=== PATIENT | female | born 1960 | race Caucasian/White ===

== ENCOUNTER 2018-01-21 14:00 | Observation (INO) ==
[2018-01-21] MEDS ORDERED: IOPAMIDOL 100 ML BOTTLE IV ONE (14:01)
[2018-01-21] MEDS ORDERED: VANCOMYCIN 1,000 MG in 0.9 % SODIUM CHLORIDE 250 ML IV ONE ×2 (14:07→23:00)
[2018-01-21] MEDS ORDERED: ERTAPENEM 1 GM in 0.9 % SODIUM CHLORIDE 50 ML IV ONE (14:07)
[2018-01-21] MEDS ORDERED: ONDANSETRON 4 MG/2 ML VIAL IV ONE (14:32)
--- NOTE | 2018-01-21 14:35 | Emergency Department Note ---
Wound/Laceration HPI - General Chief Complaint: Wound/Laceration Stated Complaint: Right Foot Wound Time Seen by Provider: 01/21/18 14:07 Source: patient Mode of arrival: wheelchair Limitations: no limitations - History of Present Illness HPI Narrative: This patient is diabetic and is developed a severe right foot infection. She was sent over to the emergency room from wound care by Dr. esteban. He cannot talk to me and showed me a picture and did cultures. She has had some nausea. Sounds like most likely she should probably be admitted. - Related Data Allergies Allergy/AdvReac Type Severity Reaction Status Date / Time codeine Allergy Intermediate Hives Verified 01/21/18 14:19 Cyclobenzaprine Allergy Intermediate Hives Verified 01/21/18 14:19 Doxepin Allergy Intermediate Hives Verified 01/21/18 14:19 fluoxetine Allergy Intermediate Hives Verified 01/21/18 14:19 piroxicam Allergy Intermediate Hives Verified 01/21/18 14:19 Rifamycin Allergy Intermediate Hives Verified 01/21/18 14:19 Methadone [From Methadose] AdvReac Severe Accidental Verified 01/21/18 14:19 Overdose Review of Systems All systems ED: reviewed and negative except as stated. Past Medical History - Past Medical History Medical history: Reports: atrial fibrillation, CHF, COPD, DM, hypertension - Social History smoking status: Current every day smoker Physical Exam Limitations: no limitations General appearance: alert Head: atraumatic Eye: Present: normal appearance ENT: normal exam Neck: Present: normal inspection Chest: Present: normal inspection Respiratory: Present: normal lung sounds bilaterally Cardiovascular: Present: regular rate, normal rhythm, normal heart sounds Abdominal: Present: soft. Absent: distention, tenderness Neurological: Present: alert Psychiatric: Present: normal affect Skin: Present: other Course Vital Signs Temperature 98.2 F 01/21/18 14:02 Pulse Rate 60 01/21/18 14:02 Respiratory Rate 18 01/21/18 14:02 Blood Pressure 113/69 01/21/18 14:02 Pulse Oximetry (%) 93 01/21/18 14:02 Temperature 98.2 F 01/21/18 14:02 Pulse Rate 55 L 01/21/18 17:46 Respiratory Rate 16 01/21/18 17:46 Blood Pressure 101/67 01/21/18 17:46 Pulse Oximetry (%) 94 01/21/18 17:46 Wound/Laceration - MDM Narrative Medical decision making narrative: Lab work was not very remarkable and a CT scan was unremarkable. Patient was given vancomycin and Invanz and will be admitted to the hospital service with Dr. eulalia rowley consulting. - Lab Data Lab results reviewed: Yes I reviewed the patient's lab results. Result diagrams: 01/21/18 14:33 01/21/18 14:33 Lab Results 01/21/18 01/21/18 01/21/18 Range/Units 14:33 14:33 15:03 WBC 11.6 H (4.5-11.0) K/mcL RBC 6.44 H (4.00-5.20) M/mcL Hgb 15.0 (12.0-15.0) g/dL Hct 48.1 H (36.0-48.0) % POC Hct 49.0 H (36.0-48.0) % MCV 74.7 L (80.0-100.0) fL MCH 23.3 L (26.0-34.0) pg MCHC 31.2 (31.0-36.0) g/dL RDW 18.9 H (11.5-14.5) % Plt Count 242 (140-440) K/mcL MPV 9.5 (7.4-10.4) fL Gran % 61.2 (38.0-78.0) % Lymph % (Auto) 30.6 (15.5-49.0) % Kane % (Auto) 7.2 (1.0-12.0) % Eos % (Auto) 0.7 (0.0-7.0) % Baso % (Auto) 0.3 (0.0-2.0) % Gran # 7.1 (1.8-8.0) K/mcL Lymph # (Auto) 3.5 (1.5-4.8) K/mcL Kane # (Auto) 0.8 (0.1-0.9) K/mcL Eos # (Auto) 0.1 (0.0-0.7) K/mcL Baso # (Auto) 0 (0.0-0.3) K/mcL VBG Lactic Acid 1.7 (0.5-2.2) mmol/L POC Sodium 138 (133-145) mmol/L Sodium 139 (133-145) mmol/L POC Potassium 3.8 (3.3-5.1) mmol/L Potassium 4.1 (3.3-5.1) mmol/L POC Chloride 100 (96-108) mmol/L Chloride 97 (96-108) mmol/L Carbon Dioxide 28 (22-30) mmol/L POC Total CO2 25 (22-30) mmol/L Anion Gap 14.0 (8-16) POC BUN 22 H (6-20) mg/dl BUN 20 (6-20) mg/dl Creatinine 0.9 (0.6-1.1) mg/dl POC Creatinine 0.9 (0.6-1.1) mg/dl GFR Calculation 70 Glucose 138 H (70-105) mg/dL POC Glucose 129 H (70-105) mg/dL Calcium 8.9 (8.6-10.4) mg/dl POC WB Ioniz Calcium 0.99 L (1.16-1.32) mmol/L Total Bilirubin 0.4 (0.0-1.0) mg/dL AST 42 H (0-37) U/l ALT 74 H (0-40) U/l Alkaline Phosphatase 106 (39-117) U/L Total Protein 6.9 (5.9-8.4) gm/dL Albumin 4.3 (3.2-5.2) gm/dL Globulin 2.6 (2.2-3.7) gm/dL Albumin/Globulin Ratio 1.7 (1.0-2.3) - Radiology Data Radiology results reviewed: Yes I reviewed the patient's radiology results. Disposition Pt seen by FRYLINE ATTENDANT/PA only: No Clinical Impression: Abscess, Diabetic foot ulcer Disposition: Xfer As Inpt ([facility]) Condition: Good Referrals: Dana Kwan ARNP [Primary Care Provider] - Time of Disposition: 17:58
[2018-01-21] MEDS: LACTATED RINGERS 1,000 ML IV SCH (14:36)
[2018-01-21] MEDS ORDERED: ACETAMINOPHEN 1,000 MG/100 ML BOTTLE IV ONE (15:22)
[2018-01-21 15:33] LABS: ALT/SGPT 74 U/l (0-40); Albumin 4.3 gm/dL (3.2-5.2); Albumin/Globulin Ratio 1.7 (1.0-2.3); Alkaline Phosphatase 106 U/L (39-117); Blood Urea Nitrogen 20 mg/dl (6-20)
[2018-01-21 16:10] LABS: Basophils # (Auto) 0 K/mcL (0.0-0.3); Basophils % (Auto) 0.3 % (0.0-2.0); Eosinophils # (Auto) 0.1 K/mcL (0.0-0.7); Eosinophils % (Auto) 0.7 % (0.0-7.0); Granulocytes % (Auto) 61.2 % (38.0-78.0); Lymphocytes # (Auto) 3.5 K/mcL (1.5-4.8); Lymphocytes % (Auto) 30.6 % (15.5-49.0); Mean Cell Volume 74.7 fL (80.0-100.0); Mean Corpuscular HGB Conc 31.2 g/dL (31.0-36.0); Mean Corpuscular Hemoglobin 23.3 pg (26.0-34.0); Monocytes # (Auto) 0.8 K/mcL (0.1-0.9); Monocytes % (Auto) 7.2 % (1.0-12.0); Platelet Count 242 K/mcL (140-440); RBC 6.44 M/mcL (4.00-5.20); Red Cell Distribution Width 18.9 % (11.5-14.5)
--- NOTE | 2018-01-21 16:54 | Cat Scan Report ---
CLINICAL INFORMATION: Wound infection COMPARISON: Plain films 11/30/2017 TECHNIQUE: 100 cc Isovue 300 were injected intravenously and 0.625 helical slices were obtained of the right foot and ankle. Following reconstruction, 2.5 or saccular coronal axial reformatted images were processed and reviewed in bone and soft tissue windows. FINDINGS: First ray amputation changes at the MTP joint again noted. Malunified old fracture of the first metatarsal head and neck with mild deformity is again seen. There are subchondral cysts in the first metatarsal head, but no evidence of osteomyelitis. Moderate overlying focal soft tissue swelling is suggestive of cellulitis. No specific radiographic evidence of osteomyelitis throughout the foot or ankle. Malunified old fracture through the tip of the medial malleolus has resulted in an and unified 10 mm fragment. There is a 19 mm accessory ossicle adjacent to the cuboid and also a 10 mm ossicle adjacent to the naviculare (os navicularis a). Hammertoe deformities noted in the second through fifth digits. Mild degenerative change seen in the ankle mortise. There is mild diffuse soft tissue swelling throughout the foot and ankle likely cellulitis IMPRESSION: 1. No CT evidence for osteomyelitis. First ray amputation changes at MTP again noted with overlying cellulitis. 2. Hammertoe deformities - second through fifth digits 3. Ununited old fracture - medial malleolar tip. Interpreted and Authenticated by: Clayton Us 01/21/18
--- NOTE | 2018-01-21 19:22 | Internal Med Progress Note ---
Medical - PN: Subj Patient information: Note initiated : 01/21/18 at 7:18 pm Service Date, if different from initiated Date: [] Patient: Jaycee Dias 57 y/o F admitted on for Right Foot Wound. Chief Complaint: [Right foot infection] - Constitutional Vitals: Vital Signs Temp Pulse Resp BP Pulse Ox 98.2 F 56 L 12 111/90 92 01/21/18 14:02 01/21/18 18:46 01/21/18 18:46 01/21/18 18:46 01/21/18 18:46 Period Temp Pulse Resp BP Sys/Abarca Pulse Ox Last 24 Hr 98.2 F 55-60 04-28 96-142/57-129 90-95 Intake and Output 01/21/18 01/21/18 01/21/18 05:59 13:59 21:59 Intake Total 400 / 400 Balance 400 / 400 Weight 306 lb Patient Weight 01/22/18 05:59 Weight 306 lb Intake & Output: Intake & Output 01/21/18 01/21/18 01/21/18 05:59 13:59 21:59 Intake Total 400 / 400 Balance 400 / 400 Weight 306 lb Intake: IV 400 / 400 INVanz 1 GM In Sodium Chloride 50 / 50 0.9% 50 ml @ 100 mls/hr IV ONCE ONE Rx#:[id number] Vancomycin 1,000 mg In Sodium 250 / 250 Chloride 0.9% 250 ml @ 250 mls/ hr IV ONCE ONE Rx#:[id number] Medical - PN: Obj Da - Labs CBC & Chem 7: 01/21/18 14:33 01/21/18 14:33 Labs: Abnormal Lab Results 01/21/18 01/21/18 14:33 14:33 WBC 11.6 H RBC 6.44 H Hct 48.1 H POC Hct 49.0 H MCV 74.7 L MCH 23.3 L RDW 18.9 H POC BUN 22 H Glucose 138 H POC Glucose 129 H POC WB Ioniz Calcium 0.99 L AST 42 H ALT 74 H Meds: Medications Lactated Ringer's (Lactated Ringers) 1,000 mls @ 250 mls/hr IV .Q4H YING Last Admin: 01/21/18 14:36 Dose: 250 mls/hr Medical - PN: A/P - Time Spent With Patient Total time spent is greater than 50% in coordination of care (as documented) at patient's floor/unit and/or counseling patient: - Narrative A/P Narrative: A: *Right foot diabetic ulcer with infection: *DM: *Tobacco Abuse *PAF/CHF: *COPD (no home O2): *MICHELLE on Bipap: *HTN *Depression/Anxiety: *Chronic LBP: on baclofen P: -cont IV abx -Wound care following -monitor i/o's weights -SSI/levemir -Continue home amiodarone and bisoprolol -Smoking cessation counseling -ppx: Continue home apixaban /home ppi
[2018-01-21] MEDS ORDERED: DEXTROSE 31 GM ORAL.SUSP PO PRN (20:10)
[2018-01-21] MEDS ORDERED: ALBUTEROL SULFATE 2.5 MG/3 ML NEBULIZER NEB PRN (20:10)
[2018-01-21] MEDS ORDERED: DEXTROSE 50% 50 ML VIAL IV PRN (20:10)
[2018-01-21] MEDS ORDERED: VANCOMYCIN PER PHARMACY IV SCH (20:10)
[2018-01-21] MEDS ORDERED: ONDANSETRON ODT 4 MG TABLET SL PRN (20:10)
[2018-01-21] MEDS ORDERED: NITROGLYCERIN 0.4 MG TAB.SUBL SL PRN (20:19)
[2018-01-21] MEDS ORDERED: INSULIN LISPRO 1 UNIT/0.01 ML UNIT SQ SCH (21:00)
[2018-01-21 21:13] LABS: Appearance,Urine CLEAR; Bacteria,Urine FEW /hpf (0); Bilirubin,Urine NEG (NEG); Color,Urine YELLOW; Glucose,Urine (UA) NEGATIVE (NEG); Leukocyte Esterase,Urine NEG /uL (NEG); Mucus,Urine FEW /hpf (0); Protein,Urine NEG (NEG); Specific Gravity,Urine 1.012 (1.000-1.035); Urine Blood NEG mg/dL (<0.03); Urine RBC 1 /hpf (0-1); Urine Squamous Epithelial Cell 6 /hpf (0-4); Urine WBC < 1 /hpf (0-4); Urobilinogen,Urine NEG (NEG)
--- NOTE | 2018-01-21 21:32 | General Surgery Consult Note ---
History of Present Illness Patient information: Note initiated : 01/21/18 at 9:27 pm Service Date, if different from initiated Date: [] Patient: Jaycee Dias 57 y/o F admitted on 01/21/18 for Right Foot Wound. Chief Complaint: []I evaluated this established patient in wound care clinic and referred her to ER for further investigations and treatment. She presented today with soft tissue swelling and cellulitis around the surgical wound site of prior RIGHT great toe amputation. Patient's past medical history has been significant for SALMONELLA sepsis for which she was recently treated at [facility] as in patient in ICU for SIRS and multiple systemic issues, Medications and Allergies Home Medications Medication Instructions Recorded Confirmed Type Amiodarone HCl [Cordarone] 200 mg PO TID 01/21/18 01/21/18 History Apixaban [Eliquis] 5 mg PO BID 01/21/18 01/21/18 History Atorvastatin [Lipitor] 40 mg PO HS 01/21/18 01/21/18 History Baclofen [Lioresal] 10 mg PO TID 01/21/18 01/21/18 History Bisoprolol Fumarate 10 mg PO QDAY 01/21/18 01/21/18 History Ergocalciferol (Vitamin D2) 50,000 unit PO WEEKLY 01/21/18 01/21/18 History [Vitamin D2] Fluticasone Hfa 110Mcg [Flovent 2 puff INH QDAY 01/21/18 01/21/18 History Hfa 110Mcg] Furosemide [Lasix] 40 mg PO BID 01/21/18 01/21/18 History Gabapentin [Gralise] 1,200 mg PO TID 01/21/18 01/21/18 History Insulin Aspart [Novolog] 100 unit SQ ACHS 01/21/18 01/21/18 History Insulin Detemir [Levemir] 50 unit SQ HS 01/21/18 01/21/18 History Ipratropium [place] [Atrovent Hfa] 1 puff INH TID 01/21/18 01/21/18 History Ipratropium/Albuterol Sulfate 1 puff INH QIDP PRN 01/21/18 01/21/18 History [Combivent] LORazepam [Ativan] 1 mg PO TIDP PRN 01/21/18 01/21/18 History Liraglutide [Victoza 2-Josh] 1.2 mg SC DAILY 01/21/18 01/21/18 History Magnesium Oxide [Magnesium] 400 mg PO BID 01/21/18 01/21/18 History Nitroglycerin [Nitrostat] 0.4 mg SL Q5M PRN 01/21/18 01/21/18 History Omeprazole 20 mg PO DAILY 01/21/18 01/21/18 History Ranitidine HCl [Zantac] 300 mg PO BID 01/21/18 01/21/18 History Spironolactone [Aldactone] 37.5 mg PO DAILY 01/21/18 01/21/18 History traMADol [Ultram] 50 - 100 mg PO TID 01/21/18 01/21/18 History Allergies Allergy/AdvReac Type Severity Reaction Status Date / Time codeine Allergy Intermediate Hives Verified 01/21/18 14:19 Cyclobenzaprine Allergy Intermediate Hives Verified 01/21/18 14:19 Doxepin Allergy Intermediate Hives Verified 01/21/18 14:19 fluoxetine Allergy Intermediate Hives Verified 01/21/18 14:19 piroxicam Allergy Intermediate Hives Verified 01/21/18 14:19 Rifamycin Allergy Intermediate Hives Verified 01/21/18 14:19 Methadone [From Methadose] AdvReac Severe Accidental Verified 01/21/18 14:19 Overdose Exam Temp Pulse Resp BP Pulse Ox 98.2 F 57 L 14 111/90 92 01/21/18 19:57 01/21/18 21:14 01/21/18 21:14 01/21/18 19:57 01/21/18 19:57 - General physical appearance no distress, no pain, obese - Eyes PERRL, normal ocular movement - ENT normal pinna, normal nares, normal mucosa, no congestion - Head Head exam IM: Present: atraumatic, normal inspection, normocephalic - Neck no masses, no bruits, trachea midline, no lymphadectomy, no venous distension - Cardiovascular Cardiovascular exam IM: Present: normal rate and rhythm - Respiratory normal expansion, clear to auscultation - Abdomen Abdomen: Present: soft, non tender, bowel sounds - Integumentary Present: no rash, other (thick callus and eschar around the right foot medial anterior site of great toe amputation surgical scar with foul odor and densely adherent slough. This was excised over 75 % in clinic. Tissue sample sent for c/ s.) - Neurologic Present: other (PIKE. Peripheral neuropathy both feet, ankles and lower legs. ) - Musculoskeletal Present: normal gait (Ambulates withcane. RIGHT great toe amputation. ) - Psychiatric Present: oriented to time, oriented to person, oriented to place, speech is normal Results - Labs 01/22/18 04:30 01/22/18 04:30 Abnormal lab results 01/21/18 01/21/18 01/21/18 Range/Units 14:33 14:33 19:01 WBC 11.6 H (4.5-11.0) K/mcL RBC 6.44 H (4.00-5.20) M/mcL Hct 48.1 H (36.0-48.0) % POC Hct 49.0 H (36.0-48.0) % MCV 74.7 L (80.0-100.0) fL MCH 23.3 L (26.0-34.0) pg RDW 18.9 H (11.5-14.5) % POC BUN 22 H (6-20) mg/dl Glucose 138 H (70-105) mg/dL POC Glucose 129 H (70-105) mg/dL POC WB Ioniz Calcium 0.99 L (1.16-1.32) mmol/L AST 42 H (0-37) U/l ALT 74 H (0-40) U/l Ur Squamous Epith Cells 6 H (0-4) /hpf Urine Bacteria Few A (0) /hpf Diabetes panel 01/21/18 Range/Units 14:33 Sodium 139 (133-145) mmol/L Potassium 4.1 (3.3-5.1) mmol/L Chloride 97 (96-108) mmol/L Carbon Dioxide 28 (22-30) mmol/L BUN 20 (6-20) mg/dl Creatinine 0.9 (0.6-1.1) mg/dl Glucose 138 H (70-105) mg/dL Calcium 8.9 (8.6-10.4) mg/dl AST 42 H (0-37) U/l ALT 74 H (0-40) U/l Alkaline Phosphatase 106 (39-117) U/L Total Protein 6.9 (5.9-8.4) gm/dL Albumin 4.3 (3.2-5.2) gm/dL Calcium panel 01/21/18 Range/Units 14:33 Calcium 8.9 (8.6-10.4) mg/dl Albumin 4.3 (3.2-5.2) gm/dL Pituitary panel 01/21/18 Range/Units 14:33 Sodium 139 (133-145) mmol/L Potassium 4.1 (3.3-5.1) mmol/L Chloride 97 (96-108) mmol/L Carbon Dioxide 28 (22-30) mmol/L BUN 20 (6-20) mg/dl Creatinine 0.9 (0.6-1.1) mg/dl Glucose 138 H (70-105) mg/dL Calcium 8.9 (8.6-10.4) mg/dl Adrenal panel 01/21/18 Range/Units 14:33 Sodium 139 (133-145) mmol/L Potassium 4.1 (3.3-5.1) mmol/L Chloride 97 (96-108) mmol/L Carbon Dioxide 28 (22-30) mmol/L BUN 20 (6-20) mg/dl Creatinine 0.9 (0.6-1.1) mg/dl Glucose 138 H (70-105) mg/dL Calcium 8.9 (8.6-10.4) mg/dl Total Bilirubin 0.4 (0.0-1.0) mg/dL AST 42 H (0-37) U/l ALT 74 H (0-40) U/l Alkaline Phosphatase 106 (39-117) U/L Total Protein 6.9 (5.9-8.4) gm/dL Albumin 4.3 (3.2-5.2) gm/dL All other labs normal. Assessment and Plan (1) Cellulitis and abscess of foot Assessment CSSSI Right foot and wound callosity Great toe amputation site. H/ O Salmonella infection ?? Carrier. Plan: Hygiene, Topical MIST followed by Bactroban and gauze treatment daily BID IV antibiotics, whilst awaiting culture reports. Status: Acute Priority: High (2) Diabetic foot ulcer Assessment: DM2 with neuropathic foot wound RIGHT great toe amputation site. Plan: See general and wound care orders. Status: Chronic Priority: Medium Qualifiers: Diabetic foot ulcer location: toe Diabetes mellitus type: type 2 Laterality: right Non-pressure ulcer stage: limited to breakdown of skin Qualified Code(s): E11.621 - Type 2 diabetes mellitus with foot ulcer; L97.511 - Non-pressure chronic ulcer of other part of right foot limited to breakdown of skin
[2018-01-21] MEDS: GABAPENTIN 400 MG CAPSULE PO SCH (21:36)
[2018-01-21] MEDS: ATORVASTATIN 20 MG TABLET PO SCH (21:36)
[2018-01-21] MEDS: FUROSEMIDE 40 MG TABLET PO SCH (21:36)
[2018-01-21] MEDS: BACLOFEN 10 MG TABLET PO SCH (21:37)
[2018-01-21] MEDS: FAMOTIDINE 20 MG TABLET PO SCH (21:37)
[2018-01-21] MEDS: APIXABAN 5 MG TABLET PO SCH (21:37)
[2018-01-21] MEDS: AMIODARONE HCL 200 MG TABLET PO SCH (21:37)
[2018-01-21] MEDS: traMADol 50 MG TABLET PO PRN (21:41)
[2018-01-21] MEDS: LORazepam 1 MG TABLET PO PRN (21:41)
[2018-01-21] MEDS ORDERED: IPRATROPIUM/ALBUTEROL 3 ML AMPUL.NEB NEB PRN (23:00)
[2018-01-22] MEDS: INSULIN LISPRO 1 UNIT/0.01 ML UNIT SQ SCH ×5 (01:49→21:40)
[2018-01-22] MEDS: INSULIN GLARGINE, HUMAN 1 UNIT/0.01 ML SQ SCH ×2 (02:01→21:37)
[2018-01-22] MEDS: 0.9 % SODIUM CHLORIDE 10 ML SYRINGE IV SCH ×4 (02:03→23:11)
[2018-01-22] MEDS: IPRATROPIUM BROMIDE INH SCH ×4 (02:08→23:10)
[2018-01-22] MEDS: LACTATED RINGERS 1,000 ML IV SCH (02:24)
--- NOTE | 2018-01-22 06:32 | Internal Med Progress Note ---
Medical - PN: Subj Patient information: Note initiated : 01/22/18 at 6:31 am Service Date, if different from initiated Date: [] Patient: Jaycee Dias 57 y/o F admitted on 01/21/18 for Right Foot Wound. Chief Complaint: [] Interval history: no issues overnight, poor sleep. Review of Systems: headache. denies fever/chills/nausea/vomiting/chest or abdominal pain/cough/ dyspnea/diarrhea. Otherwise see above. - Constitutional Vitals: Vital Signs Temp Pulse Resp BP Pulse Ox 97.8 F 59 L 12 130/73 94 01/22/18 04:00 01/22/18 04:00 01/22/18 04:00 01/22/18 04:00 01/22/18 04:00 Period Temp Pulse Resp BP Sys/Abarca Pulse Ox Last 24 Hr 97.4 F-98.2 F 55-108 -18 96-142/57-129 90-95 Intake and Output 01/21/18 01/22/18 01/22/18 21:59 05:59 13:59 Intake Total 900 / 900 500 / 500 Balance 900 / 900 500 / 500 Weight 309 lb 8 oz Intake & Output: Intake & Output 01/21/18 01/22/18 01/22/18 21:59 05:59 13:59 Intake Total 900 / 900 500 / 500 Balance 900 / 900 500 / 500 Weight 309 lb 8 oz Intake: IV 900 / 900 500 / 500 INVanz 1 GM In Sodium Chloride 50 / 50 0.9% 50 ml @ 100 mls/hr IV ONCE ONE Rx#:[id number] Lactated Ringers 1,000 ml @ 250 500 / 500 mls/hr IV .Q4H YING Rx#: [id number] Vancomycin 1,000 mg In Sodium 250 / 250 Chloride 0.9% 250 ml @ 250 mls/ hr IV ONCE ONE Rx#:[id number] Oral 0 / 0 Other: # Voids 1 1 Exam: General: Alert, Awake, No acute Distress HEENT: EOMI, PERRL CV: RRR, No murmurs Pulm: Clear b/l, no wheezing/rhonchi/rales Abd: soft, nontender, +BS x4 Ext: no clubbing/cyanosis/edema Neuro: Alert, no focal deficits, moves all extremities Skin: warm/dry; RLL swelling/redness with dressing in place Medical - PN: Obj Da - Labs CBC & Chem 7: 01/22/18 04:30 01/22/18 04:30 Labs: Abnormal Lab Results 01/21/18 01/21/18 01/21/18 19:01 14:33 14:33 WBC 11.6 H RBC 6.44 H Hct 48.1 H POC Hct 49.0 H MCV 74.7 L MCH 23.3 L RDW 18.9 H POC BUN 22 H Glucose 138 H POC Glucose 129 H POC WB Ioniz Calcium 0.99 L AST 42 H ALT 74 H Ur Squamous Epith Cells 6 H Urine Bacteria Few A Meds: Medications Acetaminophen (Tylenol) 650 mg PO Q6HP PRN PRN Reason: PAIN/FEVER > 101 Albuterol Sulfate (Ventolin) 2.5 mg NEB Q2HP PRN PRN Reason: Shortness Of Breath Albuterol/Ipratropium (Duoneb) 3 ml NEB QIDP PRN PRN Reason: HIGH BLOOD SUGAR Amiodarone HCl (Cordarone) 200 mg PO TID [facility] Last Admin: 01/21/18 21:37 Dose: 200 mg Atorvastatin Calcium (Lipitor) 40 mg PO HS [facility] Last Admin: 01/21/18 21:36 Dose: 40 mg Baclofen (Lioresal) 10 mg PO TID [facility] Last Admin: 01/21/18 21:37 Dose: 10 mg Bisoprolol Fumarate (Zebeta) 10 mg PO DAILY [facility] Dextrose (Dextrose 50%) 0 ml IV UD PRN PRN Reason: Hypoglycemia Diagnostic Test (Pha) (Accu-Chek) 1 each FS ACHS [facility] Last Admin: 01/21/18 21:37 Dose: 1 each Famotidine (Pepcid) 20 mg PO BID [facility] Last Admin: 01/21/18 21:37 Dose: 20 mg Furosemide (Lasix) 40 mg PO BID [facility] Last Admin: 01/21/18 21:36 Dose: 40 mg Gabapentin (Neurontin) 1,200 mg PO TID [facility] Last Admin: 01/21/18 21:36 Dose: 1,200 mg Glucose (Insta-Glucose) 15 gm PO PRN PRN PRN Reason: Hypoglycemia Ertapenem 1 gm/ Sodium (Chloride) 50 mls @ 100 mls/hr IV DAILY [facility] Vancomycin HCl 1,500 mg/ (Sodium Chloride) 500 mls @ 333.3 mls/hr IV Q12H [facility] Insulin Glargine (Lantus) 50 unit SQ HS [facility] Last Admin: 01/22/18 02:01 Dose: 50 unit Insulin Human Lispro (Humalog) 0 unit SQ ACHS [facility]; Protocol Last Admin: 01/22/18 01:49 Dose: Not Given Lorazepam (Ativan) 1 mg PO TIDP PRN PRN Reason: Anxiety Last Admin: 01/21/18 21:41 Dose: 1 mg Nitroglycerin (Nitrostat) 0.4 mg SL Q5M PRN PRN Reason: Chest Pain Non-Formulary Medication (Fluticasone Hfa 110mcg [Flovent Hfa 110mcg]) 2 puff INH QDAY [facility] Omeprazole (Prilosec) 20 mg PO ACB [facility] Ondansetron HCl (Zofran Odt) 4 mg SL Q6HP PRN PRN Reason: Nausea And Vomiting Ipratropium [place] [Atrovent Hfa] 1 Puff 1 dose INH TID [facility] Last Admin: 01/22/18 02:08 Dose: Not Given Sodium Chloride (Saline Flush) 10 ml IV Q8 [facility] Last Admin: 01/22/18 05:49 Dose: Not Given Spironolactone (Aldactone) 37.5 mg PO DAILY [facility] Tramadol HCl (Ultram) 50 - 100 mg PO TIDP PRN PRN Reason: Pain Last Admin: 01/21/18 21:41 Dose: 50 mg Vancomycin HCl (Vancomycin Per Pharmacy) 1 order IV UD [facility] Medical - PN: A/P - Time Spent With Patient Total time spent is greater than 50% in coordination of care (as documented) at patient's floor/unit and/or counseling patient: - Narrative A/P Narrative: A: *Right foot diabetic ulcer with infection: *DM: *Tobacco Abuse *PAF/CHF: *COPD (no home O2): *MICHELLE on Bipap: *HTN *Depression/Anxiety: *Chronic LBP: on baclofen P: -cont IV abx -Wound surg following -monitor i/o's weights -SSI/levemir -Continue home amiodarone and bisoprolol -Smoking cessation counseling -ppx: Continue home apixaban /home ppi Medical - PN: Qual - VTE Deep Vein Thrombosis/Pulmonary Embolism Present on Admission: No
[2018-01-22 06:45] LABS: Mean Cell Volume 75.1 fL (80.0-100.0); Mean Corpuscular HGB Conc 31.4 g/dL (31.0-36.0); Mean Corpuscular Hemoglobin 23.6 pg (26.0-34.0); Platelet Count 204 K/mcL (140-440); RBC 6.05 M/mcL (4.00-5.20); Red Cell Distribution Width 18.8 % (11.5-14.5)
--- NOTE | 2018-01-22 07:27 | History and Physical Report ---
DATE OF ADMISSION: 01/21/2018 PRIMARY CARE PROVIDER: MAYRA Llanes; also follows with Dr. Marquez, Wound Care and Dr. Worley, Cardiology. CHIEF COMPLAINT: Right foot pain. HISTORY OF PRESENT ILLNESS: This is a 57-year-old female with diabetes, atrial fibrillation, and tobacco abuse who has a diabetic foot ulcer, which has subsequently become infected. She has had increasing swelling, redness, and tenderness. It has started to drain pus. She was seen by Dr. Marquez who requested to go to ER to be admitted for IV antibiotics and further treatment inpatient. In speaking with the patient, she denies any fever or chills at this time but complains of the above-mentioned symptoms of the right lower extremity wound. Wound was dressed in the ER. She did have some nausea, was given some medication which took away the nausea. No other complaints at this time. In conversation with the ER physician and Dr. Marquez, the patient was started on vancomycin and ertapenem. REVIEW OF SYSTEMS: Positive for right foot pain, swelling, redness, drainage and nausea. Negative for headache, fever or chills, coughing, or shortness of breath. She has IBS so she has intermittent constipation and diarrhea. Remaining 10-point review of systems is negative. PAST MEDICAL HISTORY: Chronic low back pain, anxiety, depression, tobacco abuse, paroxysmal atrial fibrillation, CHF, COPD, not on any home oxygen, obstructive sleep apnea on BiPAP, diabetes, hypertension, GERD. 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 FAMILY HISTORY: Mother has CHF, hypertension, and diabetes. Her father's medical history is alcohol abuse. SOCIAL HISTORY: The patient smokes half pack per day, denies alcohol use. She ambulates with a cane. She lives by herself. ALLERGIES: CODEINE, CYCLOBENZAPRINE, DOXEPIN, FLUOXETINE, PIROXICAM. HOME MEDICATIONS: We are clarifying, but she is on: 1. Ativan. 2. Abilify. 3. Amiodarone. 4. Apixaban. 5. Victoza. 6. Levemir. 7. A statin. 8. Bisoprolol. 9. Pepcid. 10. Lasix. 11. Aldactone. 12. Baclofen. PHYSICAL EXAMINATION: VITAL SIGNS: Temperature is 98.8, pulse 57, respirations 13, blood pressure 108/61, oxygen 93% on room air. GENERAL: The patient is alert, awake, in no acute distress, obese. HEENT: Normocephalic, atraumatic. Extraocular movements are intact. Pupils equal and react to light. HEART: Regular at this time. Normal S1, S2. PULMONARY: Clear to auscultation bilaterally. No wheeze, rhonchi or rales. ABDOMEN: Soft, protuberant, nontender, positive bowel sounds. EXTREMITIES: No clubbing, cyanosis. She has bilateral lower extremity trace edema. Her right foot to the ankle is dressed. NEUROLOGIC: Cranial nerves II-XII grossly intact. Sensations are intact bilateral upper and lower, although decreased symmetrically in the lowers, good partner integration planner strength and lower extremity strength is symmetrical. SKIN: Warm and dry with the exception of the right lower extremity which is bandaged, which per ER note has increased redness. LABORATORY DATA: WBC 11, hemoglobin 15, sodium 138, BUN 20, creatinine 0.9. ASSESSMENT: 1. Diabetic foot ulcer with infection on the right foot. 2. History of tobacco abuse. 3. History of paroxysmal atrial fibrillation. 4. History of congestive heart failure; appears to be stable. 5. History of chronic obstructive pulmonary disease. 6. Obstructive sleep apnea on BiPAP. 7. Diabetes. 8. Hypertension. 9. GERD. 10. Depression, anxiety. 11. Chronic low back pain. PLAN: The patient was monitored closely in the hospital. Continue home medications. Continue IV antibiotics per request from Dr. Marquez. Continue vancomycin and meropenem, sliding scale coverage. Monitor [id number], daily weights closely. Home BiPAP. DVT prophylaxis. Continue her apixaban. Further recommendations are pending Wound Care. CODE STATUS: FULL CODE. BENJAMINK:kh Job ID: [id number] Doc ID: [id number] Oscar Gilmore DO
[2018-01-22 07:31] LABS: ALT/SGPT 66 U/l (0-40); Albumin 3.7 gm/dL (3.2-5.2); Albumin/Globulin Ratio 1.5 (1.0-2.3); Alkaline Phosphatase 87 U/L (39-117); Bilirubin,Direct < 0.2 mg/dL (0.0-0.3); Blood Urea Nitrogen 18 mg/dl (6-20); Gamma Glutamyl Transpeptidase 35 U/L (5-36); Uric Acid 6.4 mg/dL (2.5-8.0)
[2018-01-22 07:46] LABS: Anisocytosis 1+ (NONE SEEN); Eosinophils % (Manual) 1 % (0-7); Hypochromasia 1+ (NONE SEEN); Lymphocytes % 26 % (15-49); Monocytes % (Manual) 6 % (1-12); Platelet Estimate NORMAL (NORMAL); RBC Morphology ABNORM (NORMAL); Segmented Neutrophils % 66 % (38-78)
[2018-01-22] MEDS: OMEPRAZOLE 20 MG CAPSULE PO SCH (07:49)
[2018-01-22] MEDS: traMADol 50 MG TABLET PO PRN ×2 (08:08→21:41)
[2018-01-22] MEDS: FUROSEMIDE 40 MG TABLET PO SCH ×2 (09:20→23:09)
[2018-01-22] MEDS: BISOPROLOL 5 MG TABLET PO SCH (09:20)
[2018-01-22] MEDS: SPIRONOLACTONE 25 MG TABLET PO SCH (09:20)
[2018-01-22] MEDS: BACLOFEN 10 MG TABLET PO SCH ×3 (09:20→23:09)
[2018-01-22] MEDS: APIXABAN 5 MG TABLET PO SCH ×2 (09:20→23:09)
[2018-01-22] MEDS: GABAPENTIN 400 MG CAPSULE PO SCH ×3 (09:20→23:10)
[2018-01-22] MEDS: FAMOTIDINE 20 MG TABLET PO SCH ×2 (09:20→23:10)
[2018-01-22] MEDS: AMIODARONE HCL 200 MG TABLET PO SCH ×3 (09:20→23:09)
[2018-01-22] MEDS: ERTAPENEM 1 GM in 0.9 % SODIUM CHLORIDE 50 ML IV SCH (09:21)
[2018-01-22] MEDS: LORazepam 1 MG TABLET PO PRN ×3 (09:30→21:42)
[2018-01-22] MEDS: FLUTICASONE HFA 110MCG INHALER INH SCH (09:32)
[2018-01-22] MEDS: VANCOMYCIN 1,500 MG in 0.9 % SODIUM CHLORIDE 500 ML IV SCH ×2 (10:06→21:43)
[2018-01-22] MEDS: ACETAMINOPHEN 325 MG TABLET PO PRN ×2 (12:01→21:41)
[2018-01-22] MEDS: MUPIROCIN 2% TOPICAL SCH ×2 (15:57→21:44)
--- NOTE | 2018-01-22 19:53 | General Surgery Progress Note ---
Subjective Narrative: Note initiated : 01/22/18 at 7:50 pm Service Date, if different from initiated Date: [] Patient: Jaycee Dias 57 y/o F admitted on 01/21/18 for Diabetic Foot Ulcer w / Infection on the Rt Foot. Chief Complaint: [] I saw the patient along with the nurse and evaluated her wound. She is responding to IV antibiotics and that is corresponding decreases in emphysematous signs overlying the right foot with first toe amputation. I have reviewed today's developments and the MIST treatment that patient has had. Objective Temp Pulse Resp BP Pulse Ox 97.1 F 59 L 20 104/77 93 01/22/18 15:32 01/22/18 04:00 01/22/18 15:32 01/22/18 15:32 01/22/18 15:32 AVSS. NO Changes BRISEIDA Right foot inflammatory changes resolving. The stump site at the first toe amputation is stable and improving. - Additional Data Intake & Output - Last 24 hours: Intake & Output 01/20/18 01/21/18 01/22/18 01/23/18 05:59 05:59 05:59 05:59 Intake Total 1400 / 1400 750 / 750 Output Total 1800 / 1800 Balance 1400 / 1400 -1050 / -1050 Weight 309 lb 8 oz - Labs 01/22/18 04:30 01/22/18 04:30 Diabetes panel 01/22/18 Range/Units 04:30 Sodium 140 (133-145) mmol/L Potassium 3.5 (3.3-5.1) mmol/L Chloride 98 (96-108) mmol/L Carbon Dioxide 28 (22-30) mmol/L BUN 18 (6-20) mg/dl Creatinine 0.9 (0.6-1.1) mg/dl Glucose 123 H (70-105) mg/dL Calcium 8.7 (8.6-10.4) mg/dl AST 41 H (0-37) U/l ALT 66 H (0-40) U/l Alkaline Phosphatase 87 (39-117) U/L Total Protein 6.2 (5.9-8.4) gm/dL Albumin 3.7 (3.2-5.2) gm/dL Triglycerides 153 H (<150) mg/dl Calcium panel 01/22/18 Range/Units 04:30 Calcium 8.7 (8.6-10.4) mg/dl Phosphorus 5.1 H (2.7-4.5) mg/dL Albumin 3.7 (3.2-5.2) gm/dL Pituitary panel 01/22/18 Range/Units 04:30 Sodium 140 (133-145) mmol/L Potassium 3.5 (3.3-5.1) mmol/L Chloride 98 (96-108) mmol/L Carbon Dioxide 28 (22-30) mmol/L BUN 18 (6-20) mg/dl Creatinine 0.9 (0.6-1.1) mg/dl Glucose 123 H (70-105) mg/dL Calcium 8.7 (8.6-10.4) mg/dl Adrenal panel 01/22/18 Range/Units 04:30 Sodium 140 (133-145) mmol/L Potassium 3.5 (3.3-5.1) mmol/L Chloride 98 (96-108) mmol/L Carbon Dioxide 28 (22-30) mmol/L BUN 18 (6-20) mg/dl Creatinine 0.9 (0.6-1.1) mg/dl Glucose 123 H (70-105) mg/dL Calcium 8.7 (8.6-10.4) mg/dl Total Bilirubin 0.4 (0.0-1.0) mg/dL AST 41 H (0-37) U/l ALT 66 H (0-40) U/l Alkaline Phosphatase 87 (39-117) U/L Total Protein 6.2 (5.9-8.4) gm/dL Albumin 3.7 (3.2-5.2) gm/dL Assessment and Plan (1) Cellulitis and abscess of foot Status: Acute Assessment and plan: Assessment: Progressing well. Plan: Discussed with Dr. Oscar Gilmore. Continue current management. Current Visit: Yes (2) Diabetic foot ulcer Status: Chronic Current Visit: Yes - Time Spent With Patient Total time spent is greater than 50% in coordination of care (as documented) at patient's floor/unit and/or counseling patient:
[2018-01-22] MEDS: ATORVASTATIN 20 MG TABLET PO SCH (23:09)
[2018-01-23] MEDS: IPRATROPIUM BROMIDE INH SCH ×3 (00:36→15:07)
[2018-01-23] MEDS: traMADol 50 MG TABLET PO PRN ×2 (01:00→10:22)
[2018-01-23] MEDS: 0.9 % SODIUM CHLORIDE 10 ML SYRINGE IV SCH ×3 (05:31→13:22)
--- NOTE | 2018-01-23 06:53 | Internal Med Progress Note ---
Medical - PN: Subj Patient information: Note initiated : 01/23/18 at 6:50 am Service Date, if different from initiated Date: [] Patient: Jaycee Dias 57 y/o F admitted on 01/21/18 for Diabetic Foot Ulcer w / Infection on the Rt Foot. Chief Complaint: [] Interval history: no issues overnight, poor sleep. 01/23 no overnight events, slept well. Review of Systems: denies headache/fever/chills/nausea/vomiting/chest or abdominal pain/cough/ dyspnea/diarrhea. Otherwise see above. - Constitutional Vitals: Vital Signs Temp Pulse Resp BP Pulse Ox 98.1 F 57 L 14 103/59 96 01/23/18 03:51 01/23/18 03:51 01/23/18 03:51 01/23/18 03:51 01/23/18 03:51 Period Temp Pulse Resp BP Sys/Abarca Pulse Ox Last 24 Hr 97.1 F-99.2 F 57-60 14-20 92-125/55-77 90-96 Intake and Output 01/22/18 01/23/18 01/23/18 21:59 05:59 13:59 Intake Total 940 / 940 610 / 610 Output Total 550 / 550 1300 / 1300 Balance 390 / 390 -690 / -690 Weight 310 lb Intake & Output: Intake & Output 01/22/18 01/23/18 01/23/18 21:59 05:59 13:59 Intake Total 940 / 940 610 / 610 Output Total 550 / 550 1300 / 1300 Balance 390 / 390 -690 / -690 Weight 310 lb Intake: Oral 940 / 940 610 / 610 Output: Void Amount 550 / 550 1300 / 1300 # of times incontinent of urine 0 / 0 Other: Meal Dinner Percent of Meal Consumed 100% Feeding Ability Independent Urine Appearance Clear Cloudy Urine Color Dark Yellow Urine Odor Strong # Voids 1 1 Exam: General: Alert, Awake, No acute Distress HEENT: EOMI, CV: RRR, 2/6 SM Pulm: Clear b/l, no wheezing/rhonchi/rales Abd: soft, nontender, +BS x4 Ext: no clubbing/cyanosis/edema Neuro: Alert, no focal deficits, moves all extremities Skin: warm/dry; RLL swelling/redness with dressing in place Medical - PN: Obj Da - Labs CBC & Chem 7: 01/22/18 04:30 01/22/18 04:30 Labs: Abnormal Lab Results 01/22/18 01/22/18 01/21/18 04:30 04:30 19:01 WBC RBC 6.05 H Hct POC Hct MCV 75.1 L MCH 23.6 L RDW 18.8 H RBC Morphology Abnorm A Hypochromasia 1+ A Anisocytosis 1+ A Microcytosis 1+ A POC BUN Glucose 123 H POC Glucose POC WB Ioniz Calcium Phosphorus 5.1 H AST 41 H ALT 66 H Triglycerides 153 H Ur Squamous Epith Cells 6 H Urine Bacteria Few A 01/21/18 01/21/18 14:33 14:33 WBC 11.6 H RBC 6.44 H Hct 48.1 H POC Hct 49.0 H MCV 74.7 L MCH 23.3 L RDW 18.9 H RBC Morphology Hypochromasia Anisocytosis Microcytosis POC BUN 22 H Glucose 138 H POC Glucose 129 H POC WB Ioniz Calcium 0.99 L Phosphorus AST 42 H ALT 74 H Triglycerides Ur Squamous Epith Cells Urine Bacteria Meds: Medications Acetaminophen (Tylenol) 650 mg PO Q6HP PRN PRN Reason: PAIN/FEVER > 101 Last Admin: 01/22/18 21:41 Dose: 650 mg Albuterol Sulfate (Ventolin) 2.5 mg NEB Q2HP PRN PRN Reason: Shortness Of Breath Albuterol/Ipratropium (Duoneb) 3 ml NEB QIDP PRN PRN Reason: Shortness Of Breath Amiodarone HCl (Cordarone) 200 mg PO TID [facility] Last Admin: 01/22/18 23:09 Dose: 200 mg Atorvastatin Calcium (Lipitor) 40 mg PO HS [facility] Last Admin: 01/22/18 23:09 Dose: 40 mg Baclofen (Lioresal) 10 mg PO TID [facility] Last Admin: 01/22/18 23:09 Dose: 10 mg Bisoprolol Fumarate (Zebeta) 10 mg PO DAILY [facility] Last Admin: 01/22/18 09:20 Dose: 10 mg Dextrose (Dextrose 50%) 0 ml IV UD PRN PRN Reason: Hypoglycemia Diagnostic Test (Pha) (Accu-Chek) 1 each FS ACHS [facility] Last Admin: 01/22/18 21:40 Dose: 1 each Famotidine (Pepcid) 20 mg PO BID [facility] Last Admin: 01/22/18 23:10 Dose: 20 mg Fluticasone Propionate (Flovent Hfa 110mcg) 2 puff INH DAILY [facility] Last Admin: 01/22/18 09:32 Dose: Not Given Furosemide (Lasix) 40 mg PO BID [facility] Last Admin: 01/22/18 23:09 Dose: 40 mg Gabapentin (Neurontin) 1,200 mg PO TID [facility] Last Admin: 01/22/18 23:10 Dose: 1,200 mg Glucose (Insta-Glucose) 15 gm PO PRN PRN PRN Reason: Hypoglycemia Ertapenem 1 gm/ Sodium (Chloride) 50 mls @ 100 mls/hr IV DAILY [facility] Last Infusion: 01/22/18 11:57 Dose: Infused Vancomycin HCl 1,500 mg/ (Sodium Chloride) 500 mls @ 333.3 mls/hr IV Q12H [facility] Last Admin: 01/22/18 21:43 Dose: 250 mls/hr Insulin Glargine (Lantus) 50 unit SQ HS [facility] Last Admin: 01/22/18 21:37 Dose: 50 unit Insulin Human Lispro (Humalog) 0 unit SQ [facility]; Protocol Last Admin: 01/22/18 21:40 Dose: 2 unit Lorazepam (Ativan) 1 mg PO TIDP PRN PRN Reason: Anxiety Last Admin: 01/22/18 21:42 Dose: 1 mg Mupirocin (Bactroban Crm 2%) 1 gm TOPICAL BID [facility] Last Admin: 01/22/18 21:44 Dose: 1 gm Nitroglycerin (Nitrostat) 0.4 mg SL Q5M PRN PRN Reason: Chest Pain Omeprazole (Prilosec) 20 mg PO ACB [facility] Last Admin: 01/22/18 07:49 Dose: 20 mg Ondansetron HCl (Zofran Odt) 4 mg SL Q6HP PRN PRN Reason: Nausea And Vomiting Ipratropium Stem [Atrovent Hfa] 1 Puff 1 dose INH TID [facility] Last Admin: 01/23/18 00:36 Dose: Not Given Sodium Chloride (Saline Flush) 10 ml IV Q8 [facility] Last Admin: 01/23/18 05:31 Dose: Not Given Spironolactone (Aldactone) 37.5 mg PO DAILY [facility] Last Admin: 01/22/18 09:20 Dose: 37.5 mg Tramadol HCl (Ultram) 50 - 100 mg PO TIDP PRN PRN Reason: Pain Last Admin: 01/23/18 01:00 Dose: 50 mg Vancomycin HCl (Vancomycin Per Pharmacy) 1 order IV UD [facility] Medical - PN: A/P - Time Spent With Patient Total time spent is greater than 50% in coordination of care (as documented) at patient's floor/unit and/or counseling patient: - Narrative A/P Narrative: A: *Right foot diabetic ulcer with infection: -BC neg *DM: *Tobacco Abuse *PAF/CHF: *COPD (no home O2): *MICHELLE on Bipap: *HTN *Depression/Anxiety: *Chronic LBP: on baclofen P: -cont IV abx -Wound surg following; cont IV abx, no debridement. PO augmentin upon d/c -monitor i/o's weights -SSI/levemir -Continue home amiodarone and bisoprolol -Smoking cessation counseling -ppx: Continue home apixaban /home ppi Medical - PN: Qual - VTE Deep Vein Thrombosis/Pulmonary Embolism Present on Admission: No
[2018-01-23] MEDS: OMEPRAZOLE 20 MG CAPSULE PO SCH (06:56)
[2018-01-23] MEDS: INSULIN LISPRO 1 UNIT/0.01 ML UNIT SQ SCH ×2 (07:00→11:28)
[2018-01-23] MEDS ORDERED: LACTOBACILLUS 1 CAPSULE PO SCH (09:00)
[2018-01-23] MEDS: GABAPENTIN 400 MG CAPSULE PO SCH ×2 (10:07→15:11)
[2018-01-23] MEDS: ACETAMINOPHEN 325 MG TABLET PO PRN (10:09)
[2018-01-23] MEDS: AMIODARONE HCL 200 MG TABLET PO SCH ×2 (10:10→15:05)
[2018-01-23] MEDS: SPIRONOLACTONE 25 MG TABLET PO SCH (10:10)
[2018-01-23] MEDS: BISOPROLOL 5 MG TABLET PO SCH (10:11)
[2018-01-23] MEDS: FAMOTIDINE 20 MG TABLET PO SCH (10:12)
[2018-01-23] MEDS: APIXABAN 5 MG TABLET PO SCH (10:12)
[2018-01-23] MEDS: FUROSEMIDE 40 MG TABLET PO SCH (10:12)
[2018-01-23] MEDS: BACLOFEN 10 MG TABLET PO SCH ×2 (10:16→15:06)
[2018-01-23] MEDS: ERTAPENEM 1 GM in 0.9 % SODIUM CHLORIDE 50 ML IV SCH (10:17)
[2018-01-23] MEDS: MUPIROCIN 2% TOPICAL SCH (10:32)
[2018-01-23] MEDS: FLUTICASONE HFA 110MCG INHALER INH SCH (10:37)
[2018-01-23] MEDS: VANCOMYCIN 1,500 MG in 0.9 % SODIUM CHLORIDE 500 ML IV SCH (10:39)
--- NOTE | 2018-01-23 12:11 | Discharge Summary ---
Medical - DS: Prov Patient information: Note initiated : 01/23/18 at 12:06 pm Service Date, if different from initiated Date: [] Patient: Jaycee Dias 57 y/o F admitted on 01/21/18 for Diabetic Foot Ulcer w / Infection on the Rt Foot. Chief Complaint: [] Date of admission: 01/21/18 19:37 Discharge date: 01/23/18 Primary care physician: Dana Kwan Consults: 01/21/18 17:55 Consult to Physician [CONS] Stat Comment: Consulting Provider: Serge Marquez Reason For Exam: Physician to Consult Consult to Physician [CONS] Stat Comment: Consulting Provider: Oscar Gilmore Reason For Exam: Physician to Consult Medical - DS: Meds - Discharge Medications Prescriptions: Amoxicillin/Potassium Clav [Augmentin] 875 mg PO Q12H #12 tab Lactobacillus [Culturelle] 1 cap PO BID #60 cap Active and Home Medications: Home Medications Amiodarone HCl [Cordarone] 200 mg PO TID 01/21/18 [History Confirmed 01/21/18 Last Taken 01/21/18 09:00] Apixaban [Eliquis] 5 mg PO BID 01/21/18 [History Confirmed 01/21/18 Last Taken 01/21/18 09:00] Atorvastatin [Lipitor] 40 mg PO HS 01/21/18 [History Confirmed 01/21/18 Last Taken 01/20/18 21:00] Baclofen [Lioresal] 10 mg PO TID 01/21/18 [History Confirmed 01/21/18 Last Taken 01/21/18 09:00] Bisoprolol Fumarate 10 mg PO QDAY 01/21/18 [History Confirmed 01/21/18 Last Taken 01/21/18 09:00] Ergocalciferol (Vitamin D2) [Vitamin D2] 50,000 unit PO WEEKLY 01/21/18 [ History Confirmed 01/21/18 Last Taken 01/18/18 09:00] Fluticasone Hfa 110Mcg [Flovent Hfa 110Mcg] 2 puff INH QDAY 01/21/18 [History Confirmed 01/21/18 Last Taken 01/21/18 09:00] Furosemide [Lasix] 40 mg PO BID 01/21/18 [History Confirmed 01/21/18 Last Taken 01/21/18 09:00] Gabapentin [Gralise] 1,200 mg PO TID 01/21/18 [History Confirmed 01/21/18 Last Taken 01/21/18 09:00] Insulin Aspart [Novolog] 100 unit SQ ACHS 01/21/18 [History Confirmed 01/21/18 Last Taken 01/21/18 09:00] Insulin Detemir [Levemir] 50 unit SQ HS 01/21/18 [History Confirmed 01/21/18 Last Taken 01/20/18 21:00] Ipratropium [place] [Atrovent Hfa] 1 puff INH TID 01/21/18 [History Confirmed Last Taken 01/21/18 12:00] Ipratropium/Albuterol Sulfate [Combivent] 1 puff INH QIDP PRN 01/21/18 [History Confirmed 01/21/18 Last Taken 01/21/18 09:00] LORazepam [Ativan] 1 mg PO TIDP PRN 01/21/18 [History Confirmed 01/21/18 Last Taken 01/21/18 09:00] Liraglutide [Victoza 2-Josh] 1.2 mg SC DAILY 01/21/18 [History Confirmed Last Taken 01/21/18 09:00] Magnesium Oxide [Magnesium] 400 mg PO BID 01/21/18 [History Confirmed 01/21/18 Last Taken 01/21/18 09:00] Nitroglycerin [Nitrostat] 0.4 mg SL Q5M PRN 01/21/18 [History Confirmed Last Taken Unknown] Omeprazole 20 mg PO DAILY 01/21/18 [History Confirmed 01/21/18 Last Taken 09:00] Ranitidine HCl [Zantac] 300 mg PO BID 01/21/18 [History Confirmed 01/21/18 Last Taken 01/21/18 09:00] Spironolactone [Aldactone] 37.5 mg PO DAILY 01/21/18 [History Confirmed Last Taken 01/21/18 09:00] traMADol [Ultram] 50 - 100 mg PO TID 01/21/18 [History Confirmed 01/21/18 Last Taken 01/21/18 09:00] Medical - DS: Hosp Hospital course: Mr. Dias is a 57 year old F with diabetes, atrial fibrillation, and tobacco abuse who has a diabetic foot ulcer, which has subsequently become infected. She has had increasing swelling, redness, and tenderness. It has started to drain pus. She was seen by Dr. Marquez who requested to go to ER to be admitted for IV antibiotics and further treatment inpatient. In speaking with the patient, she denies any fever or chills at this time but complains of the above-mentioned symptoms of the right lower extremity wound. Wound was dressed in the ER. She did have some nausea, was given some medication which took away the nausea. No other complaints at this time. In conversation with the ER physician and Dr. Marquez, the patient was started on vancomycin and ertapenem. She responded quite well to that regimen. She is followed along by Dr. Marquez day. No need for debridement. Blood cultures remain negative. Patient stable doing well ready for discharge Discharge diagnosis: Diabetic foot infection - Time Spent with Patient Total time spent providing and/or coordinating discharge services: Medical - DS: Exam - Constitutional Vitals: Vital Signs Temp Pulse Resp BP Pulse Ox 01/23/18 07:35 97.2 F 58 L 14 122/80 91 01/23/18 03:51 98.1 F 57 L 14 103/59 96 01/23/18 00:00 99.2 F H 59 L 14 92/55 90 01/22/18 20:00 98.3 F 60 14 125/77 90 01/22/18 15:32 97.1 F 20 104/77 93 Intake and Output 01/22/18 01/23/18 01/23/18 21:59 05:59 13:59 Intake Total 940 / 940 1110 / 1110 Output Total 550 / 550 1300 / 1300 450 / 450 Balance 390 / 390 -190 / -190 -450 / -450 Intake: IV 500 / 500 Vancomycin 1,500 mg In Sodium 500 / 500 Chloride 0.9% 500 ml @ 333.3 mls/hr IV Q12H [facility] Rx#: [id number] Oral 940 / 940 610 / 610 Output: Void Amount 550 / 550 1300 / 1300 450 / 450 # of times incontinent of urine 0 / 0 Other: Meal Dinner Percent of Meal Consumed 100% Feeding Ability Independent Urine Appearance Clear Cloudy Urine Color Dark Yellow Urine Odor Strong # Voids 1 1 Weight 310 lb Medical - DS: Data Labs on day of discharge: Labs from last 24 hours 01/23/18 08:06 Vancomycin Trough 13.8 Preliminary micro results at discharge 01/21/18 15:03 Blood Culture - Preliminary Blood 01/21/18 14:44 Blood Culture - Preliminary Blood Medical - DS: A/P - Patient/Caregiver Discharge Instructions Activity: increase activity as tolerated Diet: Consistent Carbohydrate Additional Instructions: Diabetic diet Prescriptions: Amoxicillin/Potassium Clav [Augmentin] 875 mg PO Q12H #12 tab Lactobacillus [Culturelle] 1 cap PO BID #60 cap - Follow up Plan Follow up with: Dana Kwan ARNP [Primary Care Provider] - Serge Marquez MD [Physician] - Disposition: Home, Self-Care Prognosis: Fair Rehab Potential: Fair Medical - DS: Qual - VTE Deep Vein Thrombosis/Pulmonary Embolism Present on Admission: No
== END 2018-01-23 16:45 | disposition home or self-care (01) ==
LOC: ED 14:00 → INTOOBSV 19:37 → ICU 19:37 → MEDSUR 01-22 16:13
PROVIDERS: ADMIT Internal Medicine; ATTEND Internal Medicine

== ENCOUNTER 2018-06-29 20:37 | Inpatient (IN) ==
[2018-06-29] MEDS: 0.9 % SODIUM CHLORIDE 1,000 ML IV SCH (21:38)
[2018-06-29] MEDS ORDERED: ACETAMINOPHEN 325 MG TABLET PO ONE (21:53)
[2018-06-29] MEDS ORDERED: 0.9 % SODIUM CHLORIDE 500 ML IV ONE (21:53)
--- NOTE | 2018-06-29 21:59 | Emergency Department Note ---
SOB HPI - General Chief Complaint: Shortness of Breath/Dyspnea Stated Complaint: general not feeling well Time Seen by Provider: 06/29/18 21:53 Source: patient Mode of arrival: EMS Limitations: physical limitation - History of Present Illness 58-year-old female with multiple medical problems presents to ED with history of generally not feeling well. States she was at wound care yesterday however she told them that Dr. Mendez was taking care of her foot. She neglected to say that she is having issues with her right foot and she status post amputation of her large toe several years ago. She apparently had a vascular procedure of her right leg but has had issues with the right stump on the foot over the course of last several weeks. Gradually worsening ulceration now she also has redness to the right lower leg, increased leg pain and also fever today with a slight cough and shortness of breath. Generalized weakness over the course of last couple of days. Normally ambulatory at home but she needed assistance today, was unable to get around much on her own. History of diabetes, morbid obesity, multiple cardiac issues including CHF, on amiodarone. MD Complaint: shortness of breath, cough - Related Data Home Medications Medication Instructions Recorded Confirmed RX: Amiodarone HCl [Cordarone] 200 mg PO TID 01/21/18 06/30/18 RX: Apixaban [Eliquis] 5 mg PO BID 01/21/18 06/30/18 RX: Baclofen [Lioresal] 10 mg PO TID 01/21/18 06/30/18 RX: Bisoprolol Fumarate 10 mg PO QDAY 01/21/18 06/30/18 RX: Ergocalciferol (Vitamin D2) 50,000 unit PO WEEKLY 01/21/18 06/30/18 [Vitamin D2] RX: Fluticasone Hfa 110Mcg 2 puff INH QDAY 01/21/18 06/30/18 [Flovent Hfa 110Mcg] RX: Furosemide [Lasix] 40 mg PO BID 01/21/18 06/30/18 RX: Gabapentin [Gralise] 1,200 mg PO TID 01/21/18 06/30/18 RX: Insulin Aspart [Novolog] 100 unit SQ ACHS 01/21/18 06/30/18 RX: Insulin Detemir [Levemir] 52 unit SQ HS 01/21/18 06/30/18 RX: Ipratropium/Albuterol Sulfate 1 puff INH QIDP PRN 01/21/18 06/30/18 [Combivent] RX: Liraglutide [Victoza 2-Josh] 1.2 mg SC DAILY 01/21/18 06/30/18 RX: Nitroglycerin [Nitrostat] 0.4 mg SL Q5M PRN 01/21/18 06/30/18 RX: Omeprazole 20 mg PO DAILY 01/21/18 06/30/18 RX: Spironolactone [Aldactone] 37.5 mg PO DAILY 01/21/18 06/30/18 RX: traMADol [Ultram] 50 - 100 mg PO QID 01/21/18 06/30/18 LORazepam [Ativan] 1 mg PO TIDP PRN 06/30/18 06/30/18 Ranitidine HCl [Heartburn Relief] 150 mg PO BID 06/30/18 06/30/18 Varenicline Tartrate [Chantix] 0.5 mg PO BID 06/30/18 06/30/18 metFORMIN [Glucophage] 500 mg PO BIDCC 06/30/18 06/30/18 Previous Rx's Medication Instructions Recorded RX: Lactobacillus [Culturelle] 1 cap PO BID #60 cap 01/23/18 Allergies Allergy/AdvReac Type Severity Reaction Status Date / Time codeine Allergy Intermediate Hives Verified 06/30/18 02:26 Cyclobenzaprine Allergy Intermediate Hives Verified 06/30/18 02:26 Doxepin Allergy Intermediate Hives Verified 06/30/18 02:26 fluoxetine Allergy Intermediate Hives Verified 06/30/18 02:26 piroxicam Allergy Intermediate Hives Verified 06/30/18 02:26 Rifamycin Allergy Intermediate Hives Verified 06/30/18 02:26 methadone [From Methadose] AdvReac Severe Accidental Verified 06/30/18 02:26 Overdose Review of Systems Constitutional: Reports: fever, chills Eyes: Reports: other (recent cataract surgery right eye on Sunday last week) ENT ED: Denies: ear pain, throat pain Cardiovascular: Reports: dyspnea on exertion. Denies: chest pain, palpitations Respiratory: Reports: shortness of breath, cough. Denies: phlegm Gastrointestinal: Reports: abdominal pain. Denies: constipation Genitourinary: Reports: incontinence. Denies: dysuria, urgency Musculoskeletal: Reports: back pain Neurological: Reports: headache Endocrine: Reports: fatigue Past Medical History - Past Medical History Source: old records reviewed Medical history: Reports: atrial fibrillation, CHF, COPD, DM, hypertension Surgical history ED: Reports: orthopedic, other Family history: Reports: non-contributory - Social History smoking status: Current every day smoker Alcohol use: Reports: None Physical Exam Limitations: physical limitation General appearance: alert, in distress, malaise, obese Head: atraumatic, normocephalic, normal inspection Eye: Present: PERRL ENT: mucous membranes dry, TM's normal bilaterally, normal external ear exam Neck: Present: normal inspection, full ROM, trachea midline Chest: Present: normal inspection, symmetric chest wall rise, rash. Absent: tenderness Respiratory: Present: normal lung sounds bilaterally, rales/crackles, accessory muscle use. Absent: respiratory distress Cardiovascular: Present: regular rate, normal heart sounds Abdominal: Present: soft, other (large pannus with significant erythema and multiple satellite lesions under the pannus, markedly erythematous and also tender.). Absent: distention, tenderness, guarding Abdominal tenderness: Present: LLQ Extremities: Present: tenderness, calf tenderness, other (assessment bilateral knee replacements. Knees with good range of motion, she does have swelling and tenderness to the right lower extremity, significant cellulitis changes of the entire right lower leg. Also she has a lot of erythema and swelling to the right foot, dorsalis pedis pulses not palpable. Necrosis and gangrene to the distal foot, right sided in the area of the first MTP). Absent: joint swelling Back: Present: normal inspection. Absent: full ROM, CVA tenderness (R), CVA tenderness (L) Neurological: Present: alert, oriented X3, CN II-XII intact, motor sensory deficit, other (diminished sensation distally to both feet.) Skin: Present: warm, dry, rash, erythema Course Vital Signs Temperature 98.5 F 06/29/18 20:39 Pulse Rate 74 06/29/18 20:39 Respiratory Rate 20 06/29/18 20:39 Blood Pressure 134/59 06/29/18 20:39 Pulse Oximetry (%) 94 06/29/18 20:39 Temperature 101.6 F H 06/30/18 08:02 Pulse Rate 71 06/30/18 04:00 Respiratory Rate 24 H 06/30/18 07:23 Blood Pressure 110/60 06/30/18 07:23 Pulse Oximetry (%) 92 06/30/18 07:23 Shortness of Breath/Dyspnea - [facility] Narrative Medical decision making narrative: pt admitted to hospital w lower leg cellulitis - Lab Data Result diagrams: 06/30/18 08:20 06/29/18 21:20 Lab Results 06/29/18 06/29/18 06/29/18 Range/Units 21:20 21:20 21:20 WBC 10.6 (4.5-11.0) K/mcL RBC 5.41 H (4.00-5.20) M/mcL Hgb 14.9 (12.0-15.0) g/dL Hct 45.1 (36.0-48.0) % MCV 83.3 (80.0-100.0) fL MCH 27.6 (26.0-34.0) pg MCHC 33.1 (31.0-36.0) g/dL RDW 16.2 H (11.5-14.5) % Plt Count 167 (140-440) K/mcL MPV 10.1 (7.4-10.4) fL Gran % 75.8 (38.0-78.0) % Lymph % (Auto) 14.0 L (15.5-49.0) % [place] % (Auto) 8.5 (1.0-12.0) % Eos % (Auto) 0.6 (0.0-7.0) % Baso % (Auto) 1.1 (0.0-2.0) % Gran # 8.0 (1.8-8.0) K/mcL Lymph # (Auto) 1.5 (1.5-4.8) K/mcL [place] # (Auto) 0.9 (0.1-0.9) K/mcL Eos # (Auto) 0.1 (0.0-0.7) K/mcL Baso # (Auto) 0.1 (0.0-0.3) K/mcL Total Counted Seg Neutrophils % (38-78) % Band Neutrophils % Lymphocytes % (15-49) % Monocytes % (Manual) (1-12) % Eosinophils % (Manual) (0-7) % Platelet Estimate (NORMAL) RBC Morphology (NORMAL) Anisocytosis (NONE SEEN) ESR (0-20) mm/hr PT (11.9-14.5) sec INR (0.9-1.1) VBG Lactic Acid 2.7 H (0.5-2.0) mmol/L Sodium 138 (133-145) mmol/L Potassium 3.4 (3.3-5.1) mmol/L Chloride 98 (96-108) mmol/L Carbon Dioxide 22 (22-30) mmol/L Anion Gap 18.0 H (8-16) BUN 14 (6-20) mg/dl Creatinine 0.9 (0.6-1.1) mg/dl GFR Calculation 70 Glucose 161 H (70-105) mg/dL Calcium 8.3 L (8.6-10.4) mg/dl Total Bilirubin 0.5 (0.0-1.0) mg/dL AST 24 (0-37) U/l ALT 33 (0-40) U/l Alkaline Phosphatase 80 (39-117) U/L C-Reactive Protein (0.0-0.8) mg/dl Total Protein 6.5 (5.9-8.4) gm/dL Albumin 3.4 (3.2-5.2) gm/dL Globulin 3.1 (2.2-3.7) gm/dL Albumin/Globulin Ratio 1.1 (1.0-2.3) 06/29/18 06/29/18 06/29/18 Range/Units 21:20 21:20 21:20 WBC (4.5-11.0) K/mcL RBC (4.00-5.20) M/mcL Hgb (12.0-15.0) g/dL Hct (36.0-48.0) % MCV (80.0-100.0) fL MCH (26.0-34.0) pg MCHC (31.0-36.0) g/dL RDW (11.5-14.5) % Plt Count (140-440) K/mcL MPV (7.4-10.4) fL Gran % (38.0-78.0) % Lymph % (Auto) (15.5-49.0) % [place] % (Auto) (1.0-12.0) % Eos % (Auto) (0.0-7.0) % Baso % (Auto) (0.0-2.0) % Gran # (1.8-8.0) K/mcL Lymph # (Auto) (1.5-4.8) K/mcL [place] # (Auto) (0.1-0.9) K/mcL Eos # (Auto) (0.0-0.7) K/mcL Baso # (Auto) (0.0-0.3) K/mcL Total Counted 100 Seg Neutrophils % 84 H (38-78) % Band Neutrophils % Not Reportable Lymphocytes % 9 L (15-49) % Monocytes % (Manual) 5 (1-12) % Eosinophils % (Manual) 2 (0-7) % Platelet Estimate Normal (NORMAL) RBC Morphology Abnorm A (NORMAL) Anisocytosis 1+ A (NONE SEEN) ESR 48 H (0-20) mm/hr PT 16.5 H (11.9-14.5) sec INR 1.3 H (0.9-1.1) VBG Lactic Acid (0.5-2.0) mmol/L Sodium (133-145) mmol/L Potassium (3.3-5.1) mmol/L Chloride (96-108) mmol/L Carbon Dioxide (22-30) mmol/L Anion Gap (8-16) BUN (6-20) mg/dl Creatinine (0.6-1.1) mg/dl GFR Calculation Glucose (70-105) mg/dL Calcium (8.6-10.4) mg/dl Total Bilirubin (0.0-1.0) mg/dL AST (0-37) U/l ALT (0-40) U/l Alkaline Phosphatase (39-117) U/L C-Reactive Protein (0.0-0.8) mg/dl Total Protein (5.9-8.4) gm/dL Albumin (3.2-5.2) gm/dL Globulin (2.2-3.7) gm/dL Albumin/Globulin Ratio (1.0-2.3) 06/29/18 Range/Units 21:20 WBC (4.5-11.0) K/mcL RBC (4.00-5.20) M/mcL Hgb (12.0-15.0) g/dL Hct (36.0-48.0) % MCV (80.0-100.0) fL MCH (26.0-34.0) pg MCHC (31.0-36.0) g/dL RDW (11.5-14.5) % Plt Count (140-440) K/mcL MPV (7.4-10.4) fL Gran % (38.0-78.0) % Lymph % (Auto) (15.5-49.0) % [place] % (Auto) (1.0-12.0) % Eos % (Auto) (0.0-7.0) % Baso % (Auto) (0.0-2.0) % Gran # (1.8-8.0) K/mcL Lymph # (Auto) (1.5-4.8) K/mcL [place] # (Auto) (0.1-0.9) K/mcL Eos # (Auto) (0.0-0.7) K/mcL Baso # (Auto) (0.0-0.3) K/mcL Total Counted Seg Neutrophils % (38-78) % Band Neutrophils % Lymphocytes % (15-49) % Monocytes % (Manual) (1-12) % Eosinophils % (Manual) (0-7) % Platelet Estimate (NORMAL) RBC Morphology (NORMAL) Anisocytosis (NONE SEEN) ESR (0-20) mm/hr PT (11.9-14.5) sec INR (0.9-1.1) VBG Lactic Acid (0.5-2.0) mmol/L Sodium (133-145) mmol/L Potassium (3.3-5.1) mmol/L Chloride (96-108) mmol/L Carbon Dioxide (22-30) mmol/L Anion Gap (8-16) BUN (6-20) mg/dl Creatinine (0.6-1.1) mg/dl GFR Calculation Glucose (70-105) mg/dL Calcium (8.6-10.4) mg/dl Total Bilirubin (0.0-1.0) mg/dL AST (0-37) U/l ALT (0-40) U/l Alkaline Phosphatase (39-117) U/L C-Reactive Protein 21.1 H (0.0-0.8) mg/dl Total Protein (5.9-8.4) gm/dL Albumin (3.2-5.2) gm/dL Globulin (2.2-3.7) gm/dL Albumin/Globulin Ratio (1.0-2.3) Disposition Pt seen by IMAGING MANAGER/PA only: No Clinical Impression: Cellulitis of right foot Disposition: Xfer As Inpt ([facility]) Condition: Undetermined
[2018-06-29] MEDS ORDERED: PIPERACILLIN SODIUM/TAZOBACTAM 3.375 GM in DEXTROSE 5% IN WATER 50 ML IV SCH (22:00)
[2018-06-29 22:32] LABS: ALT/SGPT 33 U/l (0-40); Albumin 3.4 gm/dL (3.2-5.2); Albumin/Globulin Ratio 1.1 (1.0-2.3); Alkaline Phosphatase 80 U/L (39-117); Blood Urea Nitrogen 14 mg/dl (6-20)
[2018-06-29 22:36] LABS: Basophils # (Auto) 0.1 K/mcL (0.0-0.3); Basophils % (Auto) 1.1 % (0.0-2.0); Eosinophils # (Auto) 0.1 K/mcL (0.0-0.7); Eosinophils % (Auto) 0.6 % (0.0-7.0); Granulocytes % (Auto) 75.8 % (38.0-78.0); Lymphocytes # (Auto) 1.5 K/mcL (1.5-4.8); Mean Cell Volume 83.3 fL (80.0-100.0); Mean Corpuscular HGB Conc 33.1 g/dL (31.0-36.0); Monocytes # (Auto) 0.9 K/mcL (0.1-0.9); Monocytes % (Auto) 8.5 % (1.0-12.0); Platelet Count 167 K/mcL (140-440); RBC 5.41 M/mcL (4.00-5.20); Red Cell Distribution Width 16.2 % (11.5-14.5)
--- NOTE | 2018-06-30 00:20 | Internal Med History&Physical ---
Medical - H&P: [facility] Patient information: Note initiated : 06/30/18 at 12:14 am Service Date, if different from initiated Date: [] Patient: Jaycee Dias a 58 y/o F admitted on for general not feeling well. Chief Complaint: [] History of present illness: Ms. Dias is a 58 year old F who presents to the ER feeling ill, described as headache fever malaise along with some intermittent shortness of breath with mild cough productive of clear sputum she also has some rhinorrhea. Oxygenation in the ER was low to mid 90s on room air, she uses oxygen at night. Chest x-ray no acute pathology She has a right lower extremity wound where she said previous amputation of the right great toe that has been ongoing since approximately October she was hospitalized in January for infection of the wound. She states that lately the wound has become a little more swollen and red and painful as well as draining more and has become malodorous. She is normally ambulatory with a walker. However she needed assistance today and will was unable to get around on her own independently. In the ED her dressing was changed she was found to be febrile 100.6 and with a lactate of 2.7, blood pressure stable, not tachycardic although she is on a beta-ashley. Review of Systems: Pertinent positives as above. Denies chills/nausea/vomiting/chest or abdominal pain/diarrhea. Remaining 10 point review of systems reviewed negative Medical - H&P: PMH Medical history: PAST MEDICAL HISTORY: Chronic low back pain, anxiety, depression, tobacco abuse, paroxysmal atrial fibrillation, CHF, COPD (on 2 L at night at home), obstructive sleep apnea on BiPAP, diabetes, hypertension, GERD. 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 FAMILY HISTORY: Mother has CHF, hypertension, and diabetes. Her father's medical history is alcohol abuse. SOCIAL HISTORY: The patient smokes half pack per day, denies alcohol use. She ambulates with a walker. She lives by herself. Medical - H&P: Meds Home Medications Medication Instructions Recorded Confirmed Type Amiodarone HCl [Cordarone] 200 mg PO TID 01/21/18 01/21/18 History Apixaban [Eliquis] 5 mg PO BID 01/21/18 01/21/18 History Atorvastatin [Lipitor] 40 mg PO HS 01/21/18 01/21/18 History Baclofen [Lioresal] 10 mg PO TID 01/21/18 01/21/18 History Bisoprolol Fumarate 10 mg PO QDAY 01/21/18 01/21/18 History Ergocalciferol (Vitamin D2) 50,000 unit PO WEEKLY 01/21/18 01/21/18 History [Vitamin D2] Fluticasone Hfa 110Mcg [Flovent 2 puff INH QDAY 01/21/18 01/21/18 History Hfa 110Mcg] Furosemide [Lasix] 40 mg PO BID 01/21/18 01/21/18 History Gabapentin [Gralise] 1,200 mg PO TID 01/21/18 01/21/18 History Insulin Aspart [Novolog] 100 unit SQ ACHS 01/21/18 01/21/18 History Insulin Detemir [Levemir] 50 unit SQ HS 01/21/18 01/21/18 History Ipratropium [place] [Atrovent Hfa] 1 puff INH TID 01/21/18 01/21/18 History Ipratropium/Albuterol Sulfate 1 puff INH QIDP PRN 01/21/18 01/21/18 History [Combivent] LORazepam [Ativan] 1 mg PO TIDP PRN 01/21/18 01/21/18 History Liraglutide [Victoza 2-Josh] 1.2 mg SC DAILY 01/21/18 01/21/18 History Magnesium Oxide [Magnesium] 400 mg PO BID 01/21/18 01/21/18 History Nitroglycerin [Nitrostat] 0.4 mg SL Q5M PRN 01/21/18 01/21/18 History Omeprazole 20 mg PO DAILY 01/21/18 01/21/18 History Ranitidine HCl [Zantac] 300 mg PO BID 01/21/18 01/21/18 History Spironolactone [Aldactone] 37.5 mg PO DAILY 01/21/18 01/21/18 History traMADol [Ultram] 50 - 100 mg PO TID 01/21/18 01/21/18 History Amoxicillin/Potassium Clav 875 mg PO Q12H #12 tab 01/23/18 Rx [Augmentin] Lactobacillus [Culturelle] 1 cap PO BID #60 cap 01/23/18 Rx Doxycycline Hyclate [Morgidox] 100 mg PO BID 7 Days #14 cap 02/16/18 Rx Allergies Allergy/AdvReac Type Severity Reaction Status Date / Time codeine Allergy Intermediate Hives Verified 01/21/18 14:19 Cyclobenzaprine Allergy Intermediate Hives Verified 01/21/18 14:19 Doxepin Allergy Intermediate Hives Verified 01/21/18 14:19 fluoxetine Allergy Intermediate Hives Verified 01/21/18 14:19 piroxicam Allergy Intermediate Hives Verified 01/21/18 14:19 Rifamycin Allergy Intermediate Hives Verified 01/21/18 14:19 methadone [From Methadose] AdvReac Severe Accidental Verified 01/21/18 14:19 Overdose Medical - H&P: Exam - Constitutional Vitals: Temp Pulse Resp BP Pulse Ox 100.6 F H 66 18 98/53 93 06/29/18 22:15 06/29/18 23:31 06/29/18 23:31 06/29/18 23:31 06/29/18 23:31 Exam: General: Alert, Awake, No acute Distress, obese Eyes/N/T: EOMI, PEERL, DMM Head/Neck: neck supple, normocephalic atraumatic CV: RRR, No murmurs, normal s1/s2 Pulm: Clear b/l, no wheezing/rhonchi/rales Abd: soft, nontender, +BS x4 Ext: no clubbing/cyanosis, edema bilateral lower extremities greater on the right, dressing placed in ED. Right lower extremity with increased redness and warmth Neuro: Alert, moves all extremities, CN 2-12 grossly intact, symmetrical strength b/l upper/lower, decreased sensation bilateral lower extremities secondary to neuropathy, chronic. skin: warm/dry Medical - H&P: Reslt - Labs CBC & Chem 7: 06/29/18 21:20 06/29/18 21:20 Labs: Short CBC 06/29/18 Range/Units 21:20 WBC 10.6 (4.5-11.0) K/mcL Hgb 14.9 (12.0-15.0) g/dL Hct 45.1 (36.0-48.0) % Plt Count 167 (140-440) K/mcL BMP 06/29/18 21:20 Sodium 138 Potassium 3.4 Chloride 98 Carbon Dioxide 22 BUN 14 Creatinine 0.9 Glucose 161 H Calcium 8.3 L Liver Function 06/29/18 Range/Units 21:20 Total Bilirubin 0.5 (0.0-1.0) mg/dL AST 24 (0-37) U/l ALT 33 (0-40) U/l Alkaline Phosphatase 80 (39-117) U/L Albumin 3.4 (3.2-5.2) gm/dL - Impressions Chest x-ray no acute pathology Medical - H&P: A/P - Narrative A/P Narrative: A: * 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 * COPD (2L@night): * MICHELLE on home BiPAP: * DM * HTN: * GERD. * Depression/anxiety: * Chronic low back pain: on baclofen * Tobacco abuse P: -IV abx, pending BC/SC -f/u lactate -resp panel -given duration of on going wound/infection will obtain MRI -Wound surg consult -monitor i/o's weights -SSI/levemir -Continue home amiodarone and bisoprolol -Smoking cessation counseling -ppx: Continue home apixaban /home ppi CODE STATUS: FULL CODE.
[2018-06-30 00:41] LABS: Anisocytosis 1+ (NONE SEEN); Eosinophils % (Manual) 2 % (0-7); Lymphocytes % 9 % (15-49); Monocytes % (Manual) 5 % (1-12); Platelet Estimate NORMAL (NORMAL); RBC Morphology ABNORM (NORMAL); Segmented Neutrophils % 84 % (38-78)
[2018-06-30] MEDS ORDERED: VANCOMYCIN PER PHARMACY IV SCH (01:50)
[2018-06-30] MEDS ORDERED: VANCOMYCIN 1,500 MG in 0.9 % SODIUM CHLORIDE 500 ML IV ONE (01:50)
[2018-06-30] MEDS ORDERED: PROCHLORPERAZINE 10 MG/2 ML VIAL IV PRN (01:50)
[2018-06-30] MEDS ORDERED: PIPERACILLIN SODIUM/TAZOBACTAM 3.375 GM in DEXTROSE 5% IN WATER 50 ML IV SCH (01:50)
[2018-06-30] MEDS ORDERED: IPRATROPIUM/ALBUTEROL 3 ML AMPUL.NEB NEB PRN (01:50)
[2018-06-30] MEDS ORDERED: MAGNESIUM HYDROXIDE 30 ML ORAL.SUSP PO PRN (01:50)
[2018-06-30] MEDS ORDERED: ONDANSETRON 4 MG/2 ML VIAL IV PRN (01:50)
[2018-06-30] MEDS: 0.9 % SODIUM CHLORIDE 250 ML IV SCH ×7 (02:13→23:52)
[2018-06-30] MEDS ORDERED: HYDROcodone/APAP 5/325MG TABLET PO ONE (03:49)
[2018-06-30] MEDS: 0.9 % SODIUM CHLORIDE 10 ML SYRINGE IV SCH ×3 (06:02→22:39)
[2018-06-30] MEDS ORDERED: NITROGLYCERIN 0.4 MG TAB.SUBL SL PRN (06:49)
[2018-06-30] MEDS ORDERED: LORazepam 1 MG TABLET PO PRN (06:49)
[2018-06-30] MEDS ORDERED: IPRATROPIUM/ALBUTEROL SULFATE 1 PUFF INHALER INH PRN (06:49)
--- NOTE | 2018-06-30 06:53 | Internal Med Progress Note ---
Medical - PN: Subj Patient information: Note initiated : 06/30/18 at 6:51 am Service Date, if different from initiated Date: [] Patient: Jaycee Dias 58 y/o F admitted on 06/30/18 for general not feeling well. Chief Complaint: [] Interval history: Ms. Dias is a 58 year old F who presents to the ER feeling ill, described as headache fever malaise along with some intermittent shortness of breath with mild cough productive of clear sputum she also has some rhinorrhea. Oxygenation in the ER was low to mid 90s on room air, she uses oxygen at night. Chest x-ray no acute pathology She has a right lower extremity wound where she said previous amputation of the right great toe that has been ongoing since approximately October she was hospitalized in January for infection of the wound. She states that lately the wound has become a little more swollen and red and painful as well as draining more and has become malodorous. She is normally ambulatory with a walker. However she needed assistance today and will was unable to get around on her own independently. In the ED her dressing was changed she was found to be febrile 100.6 and with a lactate of 2.7, blood pressure stable, not tachycardic although she is on a beta-ashley. 06/30 Headaches and had fever last night. Some shortness of breath but was not her on her home BiPAP last night. Has occasional cough. Review of Systems: denies nausea/vomiting/chest or abdominal pain/diarrhea. Otherwise see above. - Constitutional Vitals: Vital Signs Temp Pulse Resp BP Pulse Ox 98.4 F 71 18 134/67 2 L 06/30/18 04:00 06/30/18 04:00 06/30/18 04:00 06/30/18 04:00 06/30/18 04:00 Period Temp Pulse Resp BP Sys/Abarca Pulse Ox Last 24 Hr 97.7 F-100.6 F 66-74 16-21 96-141/51-67 2-94 Intake and Output 06/29/18 06/30/18 06/30/18 21:59 05:59 13:59 Intake Total 1390 Balance 1390 Weight 133.81 kg 128.14 kg Intake & Output: Intake & Output 06/29/18 06/30/18 06/30/18 21:59 05:59 13:59 Intake Total 1390 Balance 1390 Weight 133.81 kg 128.14 kg Intake: IV 1150 Sodium Chloride 0.9% 1,000 ml @ 600 500 mls/hr IV .Q2H YING Rx#: [id number] Zosyn 3.375 gm In Dextrose 5% 50 in Water 50 ml @ 100 mls/hr IV ONCE YING Rx#:[id number] Vancomycin 1,500 mg In Sodium 500 Chloride 0.9% 500 ml @ 333.3 mls/hr IV ONCE ONE Rx#: [id number] Oral 240 Other: Urine Appearance Clear Urine Color Bright Yellow Urine Odor Normal # Voids 1 Exam: General: Alert, Awake, No acute Distress, obese Eyes/N/T: EOMI, Head/Neck: neck supple, CV: RRR, No murmurs, Pulm: Clear b/l but diminished more on right, no wheezing/rhonchi/rales Abd: soft, nontender, +BS x4 Ext: no clubbing/cyanosis, edema bilateral lower extremities greater on the right, dressing placed in ED. Right lower extremity with increased redness and warmth Neuro: Alert, moves all extremities, decreased sensation bilateral lower extremities secondary to neuropathy, chronic. skin: warm/dry Medical - PN: Obj Da - Labs CBC & Chem 7: 06/29/18 21:20 06/29/18 21:20 Labs: Abnormal Lab Results 06/29/18 06/29/18 06/29/18 21:20 21:20 21:20 RBC RDW Lymph % (Auto) Seg Neutrophils % 84 H Lymphocytes % 9 L RBC Morphology Abnorm A Anisocytosis 1+ A ESR PT 16.5 H INR 1.3 H VBG Lactic Acid Anion Gap Glucose Calcium C-Reactive Protein 21.1 H 06/29/18 06/29/18 06/29/18 21:20 21:20 21:20 RBC RDW Lymph % (Auto) Seg Neutrophils % Lymphocytes % RBC Morphology Anisocytosis ESR 48 H PT INR VBG Lactic Acid 2.7 H Anion Gap 18.0 H Glucose 161 H Calcium 8.3 L C-Reactive Protein 06/29/18 21:20 RBC 5.41 H RDW 16.2 H Lymph % (Auto) 14.0 L Seg Neutrophils % Lymphocytes % RBC Morphology Anisocytosis ESR PT INR VBG Lactic Acid Anion Gap Glucose Calcium C-Reactive Protein Meds: Medications Acetaminophen (Tylenol) 650 mg PO Q6HP PRN PRN Reason: PAIN/FEVER > 101 Hydrocodone Bitart/Acetaminophen ([place] 5/325mg) 1 tab PO Q4HP PRN PRN Reason: PAIN LEVEL 3-6 Albuterol/Ipratropium (Duoneb) 3 ml NEB Q4HRT PRN PRN Reason: Bronchospasm Albuterol/Ipratropium (Combivent) 1 puff INH QIDP PRN PRN Reason: Blood Sugar - High Amiodarone HCl (Cordarone) 200 mg PO TID YING Apixaban (Eliquis) 5 mg PO BID YING Baclofen (Lioresal) 10 mg PO TID YING Bisoprolol Fumarate (Zebeta) 10 mg PO QDAY YING Docusate Sodium (Colace) 100 mg PO BID YING Famotidine (Pepcid) 20 mg PO BID [facility] Fluticasone Propionate (Flovent Hfa 110mcg) 2 puff INH QDAY [facility] Piperacillin Sod/Tazobactam (Sod 3.375 gm/ Dextrose) 50 mls @ 100 mls/hr IV ONCE YING Sodium Chloride (Sodium Chloride 0.9%) 250 mls @ 75 mls/hr IV .Q3H20M YING Last Admin: 06/30/18 05:32 Dose: Not Given Documented by: Vancomycin HCl 1,500 mg/ (Sodium Chloride) 500 mls @ 333.3 mls/hr IV ONCE ONE Stop: 06/30/18 03:20 Last Infusion: 06/30/18 05:24 Dose: Infused Documented by: Insulin Human Lispro (Humalog) 0 unit SQ ACHS [facility]; Protocol Magnesium Hydroxide (Milk Of Magnesia) 30 ml PO DAILYP PRN PRN Reason: Constipation Non-Formulary Medication (Gabapentin [Gralise]) 1,200 mg PO TID [facility] Non-Formulary Medication (Insulin Aspart [Novolog]) 100 unit SQ ACHS YING Non-Formulary Medication (Insulin Detemir [Levemir]) 52 unit SQ HS [facility] Ondansetron HCl (Zofran) 4 mg IV Q6HP PRN PRN Reason: Nausea And Vomiting Prochlorperazine (Compazine) 5 mg IV Q4HP PRN PRN Reason: Nausea And Vomiting Senna (Senokot) 2 tab PO HS [facility] Sodium Chloride (Saline Flush) 10 ml IV Q8 YING Last Admin: 06/30/18 06:02 Dose: Not Given Documented by: Vancomycin HCl (Vancomycin Per Pharmacy) 1 order IV ONCE ONE Stop: 06/30/18 01:51 Medical - PN: A/P - Time Spent With Patient Total time spent is greater than 50% in coordination of care (as documented) at patient's floor/unit and/or counseling patient: - Narrative A/P Narrative: A: * 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 * COPD (2L@night): * MICHELLE on home BiPAP: * DM * HTN: * GERD. * Depression/anxiety: * Chronic low back pain: on baclofen * Tobacco abuse P: -cont vanc/zosyn for now, pending BC/SC/WC -f/u lactate -given duration of on going wound/infection will obtain MRI -Wound surg consult -IS -monitor i/o's weights -SSI/levemir -Continue home amiodarone and bisoprolol -Smoking cessation counseling -ppx: Continue home apixaban /home ppi Medical - PN: Qual - Stroke Symptom Onset Unknown: No - VTE Deep Vein Thrombosis/Pulmonary Embolism Present on Admission: No
--- NOTE | 2018-06-30 07:07 | XRay Report ---
CLINICAL INFORMATION: First ray infection COMPARISON: 11/30/2017 FINDINGS: First ray amputation changes at the MTP level seen - as before. There is marked diffuse forefoot and midfoot soft tissue swelling - more prominent in the first ray postsurgical region. A small focal region of periosteal new bone along the medial diaphysis of the first metatarsal is unchanged from 01/21/2018 CT and plain films from 11/30/2017. There is no evidence of cortical or intramedullary osteolysis that would support oralia osteomyelitis. Hammertoe deformities second through fifth digits seen - as before. Other joint spaces are normal. IMPRESSION: First ray amputation changes at the MTP level seen - as before. No specific radiographic evidence of osteomyelitis. Diffuse soft tissue swelling in the forefoot and midfoot, more prominent in the first ray, has progressed suggesting worsening cellulitis/fasciitis Interpreted and Authenticated by: Clayton Us 06/30/18
--- NOTE | 2018-06-30 07:15 | XRay Report ---
CLINICAL INFORMATION: shortness of breath COMPARISON: 06/05/2007 FINDINGS: The cardiomediastinal silhouette and pulmonary vessels are normal for technique. Mild bibasilar atelectasis noted. No effusions IMPRESSION: Mild bibasilar atelectasis Interpreted and Authenticated by: Clayton Us 06/30/18
[2018-06-30] MEDS ORDERED: INSULIN ASPART 100 UNIT SQ SCH (07:30)
[2018-06-30] MEDS: PIPERACILLIN SODIUM/TAZOBACTAM 3.375 GM in DEXTROSE 5% IN WATER 50 ML IV SCH ×4 (07:47→23:51)
[2018-06-30] MEDS: INSULIN LISPRO 1 UNIT/0.01 ML UNIT SQ SCH ×4 (07:50→23:08)
[2018-06-30] MEDS: ACETAMINOPHEN 325 MG TABLET PO PRN (08:02)
[2018-06-30 08:37] LABS: Appearance,Urine HAZY; Bacteria,Urine 0 /hpf (0); Bilirubin,Urine NEG (NEG); Color,Urine YELLOW; Glucose,Urine (UA) NEGATIVE (NEG); Leukocyte Esterase,Urine NEG /uL (NEG); Mucus,Urine FEW /hpf (0); Protein,Urine 30 mg/dL (NEG); Specific Gravity,Urine 1.025 (1.000-1.035); Urine Blood 0.2 mg/dL (<0.03); Urine RBC 147 /hpf (0-1); Urine Squamous Epithelial Cell 6 /hpf (0-4); Urine Transitional Epi Cells < 1 /hpf (0-2); Urine WBC 11 /hpf (0-4); Urobilinogen,Urine NEG (NEG)
[2018-06-30] MEDS ORDERED: traMADol 50 MG TABLET PO PRN (09:00)
[2018-06-30 09:05] LABS: Basophils # (Auto) 0.1 K/mcL (0.0-0.3); Basophils % (Auto) 0.5 % (0.0-2.0); Eosinophils # (Auto) 0 K/mcL (0.0-0.7); Eosinophils % (Auto) 0.2 % (0.0-7.0); Granulocytes % (Auto) 81.5 % (38.0-78.0); Lymphocytes # (Auto) 1.2 K/mcL (1.5-4.8); Lymphocytes % (Auto) 9.6 % (15.5-49.0); Mean Cell Volume 85.3 fL (80.0-100.0); Mean Corpuscular HGB Conc 31.7 g/dL (31.0-36.0); Monocytes % (Auto) 8.2 % (1.0-12.0); Platelet Count 176 K/mcL (140-440); RBC 5.51 M/mcL (4.00-5.20); Red Cell Distribution Width 17.9 % (11.5-14.5)
[2018-06-30 09:40] LABS: ALT/SGPT 35 U/l (0-40); Albumin 3.3 gm/dL (3.2-5.2); Alkaline Phosphatase 74 U/L (39-117); Bilirubin,Direct 0.2 mg/dL (0.0-0.3); Blood Urea Nitrogen 12 mg/dl (6-20); Gamma Glutamyl Transpeptidase 25 U/L (5-36); Uric Acid 3.7 mg/dL (2.5-8.0)
[2018-06-30] MEDS: GABAPENTIN 400 MG CAPSULE PO SCH ×3 (09:41→22:37)
[2018-06-30] MEDS: FAMOTIDINE 20 MG TABLET PO SCH ×2 (09:43→22:37)
[2018-06-30] MEDS: APIXABAN 5 MG TABLET PO SCH ×2 (09:43→22:37)
[2018-06-30] MEDS: AMIODARONE HCL 200 MG TABLET PO SCH ×3 (09:43→22:37)
[2018-06-30] MEDS: BACLOFEN 10 MG TABLET PO SCH ×3 (09:44→22:37)
[2018-06-30] MEDS: DOCUSATE SODIUM 100 MG CAPSULE PO SCH ×2 (09:45→22:37)
[2018-06-30] MEDS: LACTOBACILLUS 1 CAPSULE PO SCH ×2 (09:45→22:37)
[2018-06-30] MEDS: FLUTICASONE HFA 110MCG INHALER INH SCH (09:53)
[2018-06-30] MEDS ORDERED: VANCOMYCIN 1,500 MG in 0.9 % SODIUM CHLORIDE 500 ML IV SCH (10:00)
[2018-06-30 10:05] LABS: Band Neutrophils % 5 % (0-10); Lymphocytes % 11 % (15-49); Monocytes % (Manual) 10 % (1-12); Platelet Estimate NORMAL (NORMAL); RBC Morphology NORMAL (NORMAL); Segmented Neutrophils % 73 % (38-78)
[2018-06-30] MEDS ORDERED: diphenhydrAMINE 50 MG/ML VIAL IV ONE (10:25)
[2018-06-30] MEDS: LIRAGLUTIDE 1.2 MG SC SCH (10:41)
[2018-06-30] MEDS: BISOPROLOL 5 MG TABLET PO SCH (10:41)
[2018-06-30] MEDS: SPIRONOLACTONE 25 MG TABLET PO SCH (10:41)
--- NOTE | 2018-06-30 12:30 | General Surgery Consult Note ---
History of Present Illness Patient information: Note initiated : 06/30/18 at 12:28 pm Service Date, if different from initiated Date: [] Patient: Jaycee Dias 58 y/o F admitted on 06/30/18 for general not feeling well. Chief Complaint: [] Consult date: 06/30/18 Requesting physician: Lynn Hawk (Skin and wound care) History of present illness: I saw this patient at wound clinic on Sunday06/28/2018 for fungal dermatitis under panniculus and groin skin folds. Started treatment for same as out patient Patient mentioned that she was being treated for right foot and ankle problems by Dr. Mendez, [employer]. Yesterday, she presented to ER with SOB and Fever. Noted to have chronic dermatitis of right foot and dry necrotic patch of skin at site of first toe amputation. Currently on IV antibiotics for sepsis. Negative for pneumonia, and CXR reveals atelectasis at lung bases. Foot X Ray Negative for osteomyelitis . SOft tissue edema noted around amputation scar site. Lab results of blood works reviewed. Medications and Allergies Home Medications Medication Instructions Recorded Confirmed Type RX: Amiodarone HCl [Cordarone] 200 mg PO TID 01/21/18 06/30/18 History RX: Apixaban [Eliquis] 5 mg PO BID 01/21/18 06/30/18 History RX: Baclofen [Lioresal] 10 mg PO TID 01/21/18 06/30/18 History RX: Bisoprolol Fumarate 10 mg PO QDAY 01/21/18 06/30/18 History RX: Ergocalciferol (Vitamin D2) 50,000 unit PO WEEKLY 01/21/18 06/30/18 History [Vitamin D2] RX: Fluticasone Hfa 110Mcg 2 puff INH QDAY 01/21/18 06/30/18 History [Flovent Hfa 110Mcg] RX: Furosemide [Lasix] 40 mg PO BID 01/21/18 06/30/18 History RX: Gabapentin [Gralise] 1,200 mg PO TID 01/21/18 06/30/18 History RX: Insulin Aspart [Novolog] 100 unit SQ ACHS 01/21/18 06/30/18 History RX: Insulin Detemir [Levemir] 52 unit SQ HS 01/21/18 06/30/18 History RX: Ipratropium/Albuterol Sulfate 1 puff INH QIDP PRN 01/21/18 06/30/18 History [Combivent] RX: Liraglutide [Victoza 2-Josh] 1.2 mg SC DAILY 01/21/18 06/30/18 History RX: Nitroglycerin [Nitrostat] 0.4 mg SL Q5M PRN 01/21/18 06/30/18 History RX: Omeprazole 20 mg PO DAILY 01/21/18 06/30/18 History RX: Spironolactone [Aldactone] 37.5 mg PO DAILY 01/21/18 06/30/18 History RX: traMADol [Ultram] 50 - 100 mg PO QID 01/21/18 06/30/18 History RX: Lactobacillus [Culturelle] 1 cap PO BID #60 cap 01/23/18 06/30/18 Rx LORazepam [Ativan] 1 mg PO TIDP PRN 06/30/18 06/30/18 History Ranitidine HCl [Heartburn Relief] 150 mg PO BID 06/30/18 06/30/18 History Varenicline Tartrate [Chantix] 0.5 mg PO BID 06/30/18 06/30/18 History metFORMIN [Glucophage] 500 mg PO BIDCC 06/30/18 06/30/18 History Allergies Allergy/AdvReac Type Severity Reaction Status Date / Time codeine Allergy Intermediate Hives Verified 06/30/18 02:26 Cyclobenzaprine Allergy Intermediate Hives Verified 06/30/18 02:26 Doxepin Allergy Intermediate Hives Verified 06/30/18 02:26 fluoxetine Allergy Intermediate Hives Verified 06/30/18 02:26 piroxicam Allergy Intermediate Hives Verified 06/30/18 02:26 Rifamycin Allergy Intermediate Hives Verified 06/30/18 02:26 methadone [From Methadose] AdvReac Severe Accidental Verified 06/30/18 02:26 Overdose vancomycin AdvReac Intermediate REDNESS/FLU Verified 07/01/18 11:02 SHING Exam Temp Pulse Resp BP Pulse Ox 99.7 F H 74 20 115/71 92 06/30/18 11:40 06/30/18 11:40 06/30/18 11:40 06/30/18 11:40 06/30/18 08:00 - General physical appearance well developed, well nourished, moderate distress, chronically ill - Eyes PERRL, normal ocular movement - ENT normal pinna, normal mucosa, no congestion, other (flaring of nostrils ) - Head Head exam IM: Present: atraumatic, normal inspection, normocephalic - Neck no masses, trachea midline, no venous distension - Cardiovascular Cardiovascular exam IM: Present: irregular rhythm - Respiratory other (SOB with exertion and diminished air entry at lung bases.) - Abdomen Abdomen: Present: soft, non tender, bowel sounds - Genitourinary Present: other (Chronic fungal colonizations around exteranl genitalia and pannicular skin folds.) - Integumentary Present: other (Chronic dermatitis RIght foot around surgical scar of 1 st toe amputation. Dermatitis lower half of leg. ) - Musculoskeletal Present: other (In bed. Ambulates at home with FWW. ) - Psychiatric Present: oriented to time, oriented to person, oriented to place, speech is normal - Additional Findings Dry necrotic demarcating area of skin at amputation site of right toe. NO fluctuance. NO purulence, No crepitation . Odor. ++ Chronic contaminated polymicrobial skin and sub cutaneous structures. Results - Labs 07/01/18 04:32 07/01/18 04:32 Abnormal lab results 06/29/18 06/29/18 06/29/18 Range/Units 21:20 21:20 21:20 WBC (4.5-11.0) K/mcL RBC 5.41 H (4.00-5.20) M/mcL RDW 16.2 H (11.5-14.5) % Gran % (38.0-78.0) % Lymph % (Auto) 14.0 L (15.5-49.0) % Gran # (1.8-8.0) K/mcL Lymph # (Auto) (1.5-4.8) K/mcL Weber # (Auto) (0.1-0.9) K/mcL Seg Neutrophils % (38-78) % Lymphocytes % (15-49) % RBC Morphology (NORMAL) Anisocytosis (NONE SEEN) ESR (0-20) mm/hr PT (11.9-14.5) sec INR (0.9-1.1) VBG Lactic Acid 2.7 H (0.5-2.0) mmol/L Sodium (133-145) mmol/L Chloride (96-108) mmol/L Anion Gap 18.0 H (8-16) Glucose 161 H (70-105) mg/dL Calcium 8.3 L (8.6-10.4) mg/dl Lactate Dehydrogenase (94-250) U/L C-Reactive Protein (0.0-0.8) mg/dl Urine Protein (NEG) mg/dL Urine Occult Blood (<0.03) mg/dL Urine RBC (0-1) /hpf Urine WBC (0-4) /hpf Ur Squamous Epith Cells (0-4) /hpf 06/29/18 06/29/18 06/29/18 Range/Units 21:20 21:20 21:20 WBC (4.5-11.0) K/mcL RBC (4.00-5.20) M/mcL RDW (11.5-14.5) % Gran % (38.0-78.0) % Lymph % (Auto) (15.5-49.0) % Gran # (1.8-8.0) K/mcL Lymph # (Auto) (1.5-4.8) K/mcL Weber # (Auto) (0.1-0.9) K/mcL Seg Neutrophils % 84 H (38-78) % Lymphocytes % 9 L (15-49) % RBC Morphology Abnorm A (NORMAL) Anisocytosis 1+ A (NONE SEEN) ESR 48 H (0-20) mm/hr PT 16.5 H (11.9-14.5) sec INR 1.3 H (0.9-1.1) VBG Lactic Acid (0.5-2.0) mmol/L Sodium (133-145) mmol/L Chloride (96-108) mmol/L Anion Gap (8-16) Glucose (70-105) mg/dL Calcium (8.6-10.4) mg/dl Lactate Dehydrogenase (94-250) U/L C-Reactive Protein (0.0-0.8) mg/dl Urine Protein (NEG) mg/dL Urine Occult Blood (<0.03) mg/dL Urine RBC (0-1) /hpf Urine WBC (0-4) /hpf Ur Squamous Epith Cells (0-4) /hpf 01/06/30/18 06/30/18 Range/Units 21:20 07:56 08:09 WBC (4.5-11.0) K/mcL RBC (4.00-5.20) M/mcL RDW (11.5-14.5) % Gran % (38.0-78.0) % Lymph % (Auto) (15.5-49.0) % Gran # (1.8-8.0) K/mcL Lymph # (Auto) (1.5-4.8) K/mcL Weber # (Auto) (0.1-0.9) K/mcL Seg Neutrophils % (38-78) % Lymphocytes % 11 L (15-49) % RBC Morphology (NORMAL) Anisocytosis (NONE SEEN) ESR (0-20) mm/hr PT (11.9-14.5) sec INR (0.9-1.1) VBG Lactic Acid (0.5-2.0) mmol/L Sodium (133-145) mmol/L Chloride (96-108) mmol/L Anion Gap (8-16) Glucose (70-105) mg/dL Calcium (8.6-10.4) mg/dl Lactate Dehydrogenase (94-250) U/L C-Reactive Protein 21.1 H (0.0-0.8) mg/dl Urine Protein 30 A (NEG) mg/dL Urine Occult Blood 0.2 A (<0.03) mg/dL Urine RBC 147 H (0-1) /hpf Urine WBC 11 H (0-4) /hpf Ur Squamous Epith Cells 6 H (0-4) /hpf 06/30/18 06/30/18 06/30/18 Range/Units 08:20 08:20 08:20 WBC 12.1 H (4.5-11.0) K/mcL RBC 5.51 H (4.00-5.20) M/mcL RDW 17.9 H (11.5-14.5) % Gran % 81.5 H (38.0-78.0) % Lymph % (Auto) 9.6 L (15.5-49.0) % Gran # 9.9 H (1.8-8.0) K/mcL Lymph # (Auto) 1.2 L (1.5-4.8) K/mcL Weber # (Auto) 1.0 H (0.1-0.9) K/mcL Seg Neutrophils % (38-78) % Lymphocytes % (15-49) % RBC Morphology (NORMAL) Anisocytosis (NONE SEEN) ESR (0-20) mm/hr PT (11.9-14.5) sec INR (0.9-1.1) VBG Lactic Acid < 0.2 L (0.5-2.0) mmol/L Sodium 132 L (133-145) mmol/L Chloride 95 L (96-108) mmol/L Anion Gap (8-16) Glucose 146 H (70-105) mg/dL Calcium 8.4 L (8.6-10.4) mg/dl Lactate Dehydrogenase 257 H (94-250) U/L C-Reactive Protein (0.0-0.8) mg/dl Urine Protein (NEG) mg/dL Urine Occult Blood (<0.03) mg/dL Urine RBC (0-1) /hpf Urine WBC (0-4) /hpf Ur Squamous Epith Cells (0-4) /hpf Diabetes panel 06/29/18 06/30/18 Range/Units 21:20 08:20 Sodium 138 132 L (133-145) mmol/L Potassium 3.4 3.5 (3.3-5.1) mmol/L Chloride 98 95 L (96-108) mmol/L Carbon Dioxide 22 22 (22-30) mmol/L BUN 14 12 (6-20) mg/dl Creatinine 0.9 0.8 (0.6-1.1) mg/dl Glucose 161 H 146 H (70-105) mg/dL Calcium 8.3 L 8.4 L (8.6-10.4) mg/dl AST 24 36 (0-37) U/l ALT 33 35 (0-40) U/l Alkaline Phosphatase 80 74 (39-117) U/L Total Protein 6.5 6.6 (5.9-8.4) gm/dL Albumin 3.4 3.3 (3.2-5.2) gm/dL Triglycerides 108 (<150) mg/dl Calcium panel 06/29/18 06/30/18 Range/Units 21:20 08:20 Calcium 8.3 L 8.4 L (8.6-10.4) mg/dl Phosphorus 2.7 (2.7-4.5) mg/dL Albumin 3.4 3.3 (3.2-5.2) gm/dL Pituitary panel 06/29/18 06/30/18 Range/Units 21:20 08:20 Sodium 138 132 L (133-145) mmol/L Potassium 3.4 3.5 (3.3-5.1) mmol/L Chloride 98 95 L (96-108) mmol/L Carbon Dioxide 22 22 (22-30) mmol/L BUN 14 12 (6-20) mg/dl Creatinine 0.9 0.8 (0.6-1.1) mg/dl Glucose 161 H 146 H (70-105) mg/dL Calcium 8.3 L 8.4 L (8.6-10.4) mg/dl Adrenal panel 06/29/18 06/30/18 Range/Units 21:20 08:20 Sodium 138 132 L (133-145) mmol/L Potassium 3.4 3.5 (3.3-5.1) mmol/L Chloride 98 95 L (96-108) mmol/L Carbon Dioxide 22 22 (22-30) mmol/L BUN 14 12 (6-20) mg/dl Creatinine 0.9 0.8 (0.6-1.1) mg/dl Glucose 161 H 146 H (70-105) mg/dL Calcium 8.3 L 8.4 L (8.6-10.4) mg/dl Total Bilirubin 0.5 1.0 (0.0-1.0) mg/dL AST 24 36 (0-37) U/l ALT 33 35 (0-40) U/l Alkaline Phosphatase 80 74 (39-117) U/L Total Protein 6.5 6.6 (5.9-8.4) gm/dL Albumin 3.4 3.3 (3.2-5.2) gm/dL All other labs normal. Assessment and Plan (1) Dermatitis associated with moisture Status: Chronic Priority: Low Comment: Assessment: Peripheral neuropathy and 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 Callosity / suprficial dry necrotic skin under the scar. ( weight bearing ) Plan: Local wound care as ordered. Will follow patient during hospitalization.
[2018-06-30] MEDS: HYDROcodone/APAP 5/325MG TABLET PO PRN (16:51)
[2018-06-30] MEDS: SENNOSIDES 1 TABLET PO SCH (22:37)
[2018-06-30] MEDS: INSULIN GLARGINE, HUMAN 1 UNIT/0.01 ML SQ SCH (23:09)
[2018-07-01 06:01] LABS: Basophils # (Auto) 0 K/mcL (0.0-0.3); Basophils % (Auto) 0.1 % (0.0-2.0); Eosinophils # (Auto) 0 K/mcL (0.0-0.7); Eosinophils % (Auto) 0.1 % (0.0-7.0); Granulocytes % (Auto) 79.7 % (38.0-78.0); Lymphocytes # (Auto) 1.2 K/mcL (1.5-4.8); Mean Cell Volume 85.6 fL (80.0-100.0); Mean Corpuscular HGB Conc 31.9 g/dL (31.0-36.0); Monocytes % (Auto) 9.1 % (1.0-12.0); Platelet Count 169 K/mcL (140-440); RBC 4.87 M/mcL (4.00-5.20); Red Cell Distribution Width 17.5 % (11.5-14.5)
[2018-07-01] MEDS: PIPERACILLIN SODIUM/TAZOBACTAM 3.375 GM in DEXTROSE 5% IN WATER 50 ML IV SCH ×2 (06:07→12:00)
[2018-07-01] MEDS: 0.9 % SODIUM CHLORIDE 10 ML SYRINGE IV SCH ×3 (06:07→20:25)
[2018-07-01 06:35] LABS: ALT/SGPT 49 U/l (0-40); Albumin 2.9 gm/dL (3.2-5.2); Alkaline Phosphatase 67 U/L (39-117); Bilirubin,Direct 0.2 mg/dL (0.0-0.3); Blood Urea Nitrogen 14 mg/dl (6-20); Gamma Glutamyl Transpeptidase 24 U/L (5-36); Uric Acid 3.1 mg/dL (2.5-8.0)
[2018-07-01] MEDS: 0.9 % SODIUM CHLORIDE 250 ML IV SCH ×2 (07:15→07:16)
[2018-07-01] MEDS: INSULIN LISPRO 1 UNIT/0.01 ML UNIT SQ SCH ×4 (07:27→20:50)
[2018-07-01] MEDS ORDERED: POTASSIUM CHLORIDE 20 MEQ PACKET PO ONE (07:40)
[2018-07-01] MEDS: APIXABAN 5 MG TABLET PO SCH ×2 (08:16→20:23)
[2018-07-01] MEDS: AMIODARONE HCL 200 MG TABLET PO SCH ×3 (08:16→20:23)
[2018-07-01] MEDS: FAMOTIDINE 20 MG TABLET PO SCH ×2 (08:16→20:23)
[2018-07-01] MEDS: LACTOBACILLUS 1 CAPSULE PO SCH ×2 (08:16→20:23)
[2018-07-01] MEDS: GABAPENTIN 400 MG CAPSULE PO SCH ×3 (08:16→20:50)
[2018-07-01] MEDS: LIRAGLUTIDE 1.2 MG SC SCH (08:17)
[2018-07-01] MEDS: FLUTICASONE HFA 110MCG INHALER INH SCH (08:17)
[2018-07-01] MEDS: BACLOFEN 10 MG TABLET PO SCH ×3 (08:17→20:23)
[2018-07-01] MEDS: SPIRONOLACTONE 25 MG TABLET PO SCH (08:18)
[2018-07-01] MEDS: DOCUSATE SODIUM 100 MG CAPSULE PO SCH ×2 (08:19→20:24)
[2018-07-01] MEDS: BISOPROLOL 5 MG TABLET PO SCH (08:22)
[2018-07-01] MEDS: COLLAGENASE TOP OINT TUBE 30GM TOPICAL SCH (12:00)
--- NOTE | 2018-07-01 12:21 | Internal Med Progress Note ---
Medical - PN: Subj Patient information: Note initiated : 07/01/18 at 12:18 pm Service Date, if different from initiated Date: [] Patient: Jaycee Dias 58 y/o F admitted on 06/30/18 for general not feeling well. Chief Complaint: [] Interval history: Ms. Dias is a 58 year old F who presents to the ER feeling ill, described as headache fever malaise along with some intermittent shortness of breath with mild cough productive of clear sputum she also has some rhinorrhea. Oxygenation in the ER was low to mid 90s on room air, she uses oxygen at night. Chest x-ray no acute pathology She has a right lower extremity wound where she said previous amputation of the right great toe that has been ongoing since approximately October she was hospitalized in January for infection of the wound. She states that lately the wound has become a little more swollen and red and painful as well as draining more and has become malodorous. She is normally ambulatory with a walker. However she needed assistance today and will was unable to get around on her own independently. In the ED her dressing was changed she was found to be febrile 100.6 and with a lactate of 2.7, blood pressure stable, not tachycardic although she is on a beta-ashley. 06/30 Headaches and had fever last night. Some shortness of breath but was not her on her home BiPAP last night. Has occasional cough. 07/01 Patient seen examined, no acute overnight issues, tolerating po well. MRI foot done, read pending Pt has erythema on the right lower extremity, which is warm to touch, no localized tenderness Pt also has significant fungal infection in the intertrigious region. Remains febrile. Pertinent ROS: headache present, no dizziness Denies chest pain, palpitations pt has shortness of breath on exertion, no chest pain. Denies abdominal pain, nausea or vomiting. - Constitutional Vitals: Vital Signs Temp Pulse Resp BP Pulse Ox 100.5 F H 67 20 110/61 93 07/01/18 08:00 07/01/18 08:00 07/01/18 08:00 07/01/18 08:00 07/01/18 08:00 Period Temp Pulse Resp BP Sys/Abarca Pulse Ox Last 24 Hr 99.5 F-102.7 F 62-93 16-22 101-112/59-74 92-93 Intake and Output 06/30/18 07/01/18 07/01/18 21:59 05:59 13:59 Intake Total 760 800 50 Output Total 750 350 Balance 760 50 -300 Weight 281 lb Intake & Output: Intake & Output 06/30/18 07/01/18 07/01/18 21:59 05:59 13:59 Intake Total 760 800 50 Output Total 750 350 Balance 760 50 -300 Weight 281 lb Intake: IV 100 50 50 Zosyn 3.375 gm In Dextrose 5% 100 50 50 in Water 50 ml @ 100 mls/hr IV Q6H [facility] Rx#:[id number] Oral 660 750 Output: Void Amount 750 350 Other: Meal Dinner Percent of Meal Consumed 100% Feeding Ability Independent Urine Appearance Cloudy Cloudy Urine Color Dark Yellow Dark Willa Urine Odor Strong Strong # Voids 2 1 Exam: Constitutional; Afebrile, cooperative, alert, not in distress. Morbidly obese Eyes- No icterus, , No periorbital swelling Ears- Ext ear normal, hearing normal to conversation. Neck- Midline trachea, supple Respiratory system: Air Entry equal on both sides, No crackles or wheezing, no rhonchi. CVS- Rate rhythm regular, S1,S2 heard, no gallop, no rub. Abdomen- Soft nontender abdomen, no organomegaly, no tenderness, no guarding or rigidity, large pannus, in the intertrigiouse rodrigo, there is erythema [employer]- AOOx3, moving all extremities, no gross focal deficit noted. Extremity- right foot c overed in dressing, but right leg, from just below the leg uptil the ankle is erythematous, and warm. (compared to other side) Medical - PN: Obj Da - Labs CBC & Chem 7: 07/01/18 04:32 07/01/18 04:32 Labs: Abnormal Lab Results 07/01/18 07/01/18 07/01/18 04:32 04:32 04:32 WBC RBC RDW 17.5 H Gran % 79.7 H Lymph % (Auto) 11.0 L Gran # 8.8 H Lymph # (Auto) 1.2 L Motley # (Auto) 1.0 H Seg Neutrophils % Lymphocytes % RBC Morphology Anisocytosis ESR PT INR VBG Lactic Acid Sodium Chloride Anion Gap Glucose 137 H Calcium 8.0 L Phosphorus 2.2 L AST 99 H ALT 49 H Lactate Dehydrogenase 252 H C-Reactive Protein 29.2 H Albumin 2.9 L Urine Protein Urine Occult Blood Urine RBC Urine WBC Ur Squamous Epith Cells 06/30/18 06/30/18 06/30/18 08:20 08:20 08:20 WBC 12.1 H RBC 5.51 H RDW 17.9 H Gran % 81.5 H Lymph % (Auto) 9.6 L Gran # 9.9 H Lymph # (Auto) 1.2 L Motley # (Auto) 1.0 H Seg Neutrophils % Lymphocytes % RBC Morphology Anisocytosis ESR PT INR VBG Lactic Acid < 0.2 L Sodium 132 L Chloride 95 L Anion Gap Glucose 146 H Calcium 8.4 L Phosphorus AST ALT Lactate Dehydrogenase 257 H C-Reactive Protein Albumin Urine Protein Urine Occult Blood Urine RBC Urine WBC Ur Squamous Epith Cells 06/30/18 06/30/18 06/29/18 08:09 07:56 21:20 WBC RBC RDW Gran % Lymph % (Auto) Gran # Lymph # (Auto) Motley # (Auto) Seg Neutrophils % Lymphocytes % 11 L RBC Morphology Anisocytosis ESR PT INR VBG Lactic Acid Sodium Chloride Anion Gap Glucose Calcium Phosphorus AST ALT Lactate Dehydrogenase C-Reactive Protein 21.1 H Albumin Urine Protein 30 A Urine Occult Blood 0.2 A Urine RBC 147 H Urine WBC 11 H Ur Squamous Epith Cells 6 H 06/29/18 06/29/18 06/29/18 21:20 21:20 21:20 WBC RBC RDW Gran % Lymph % (Auto) Gran # Lymph # (Auto) Motley # (Auto) Seg Neutrophils % 84 H Lymphocytes % 9 L RBC Morphology Abnorm A Anisocytosis 1+ A ESR 48 H PT 16.5 H INR 1.3 H VBG Lactic Acid Sodium Chloride Anion Gap Glucose Calcium Phosphorus AST ALT Lactate Dehydrogenase C-Reactive Protein Albumin Urine Protein Urine Occult Blood Urine RBC Urine WBC Ur Squamous Epith Cells 06/29/18 06/29/18 06/29/18 21:20 21:20 21:20 WBC RBC 5.41 H RDW 16.2 H Gran % Lymph % (Auto) 14.0 L Gran # Lymph # (Auto) Motley # (Auto) Seg Neutrophils % Lymphocytes % RBC Morphology Anisocytosis ESR PT INR VBG Lactic Acid 2.7 H Sodium Chloride Anion Gap 18.0 H Glucose 161 H Calcium 8.3 L Phosphorus AST ALT Lactate Dehydrogenase C-Reactive Protein Albumin Urine Protein Urine Occult Blood Urine RBC Urine WBC Ur Squamous Epith Cells Meds: Medications Acetaminophen (Tylenol) 650 mg PO Q6HP PRN PRN Reason: PAIN/FEVER > 101 Last Admin: 06/30/18 08:02 Dose: 650 mg Documented by: Hydrocodone Bitart/Acetaminophen ([place] 5/325mg) 1 tab PO Q4HP PRN PRN Reason: PAIN LEVEL 3-6 Last Admin: 06/30/18 16:51 Dose: 1 tab Documented by: Albuterol/Ipratropium (Duoneb) 3 ml NEB Q4HRT PRN PRN Reason: Bronchospasm Albuterol/Ipratropium (Combivent) 1 puff INH QIDP PRN PRN Reason: Blood Sugar - High Amiodarone HCl (Cordarone) 200 mg PO TID [facility] Last Admin: 07/01/18 08:16 Dose: 200 mg Documented by: Apixaban (Eliquis) 5 mg PO BID [facility] Last Admin: 07/01/18 08:16 Dose: 5 mg Documented by: Baclofen (Lioresal) 10 mg PO TID [facility] Last Admin: 07/01/18 08:17 Dose: 10 mg Documented by: Bisoprolol Fumarate (Zebeta) 10 mg PO QDAY [facility] [place] Last Admin: 07/01/18 08:22 Dose: 10 mg Documented by: Collagenase (Santyl Top Oint) 1 dose TOPICAL DAILY [facility] [place] Last Admin: 07/01/18 12:00 Dose: 1 dose Documented by: Diagnostic Test (Pha) (Accu-Chek) 1 each FS ACHS [facility] Last Admin: 07/01/18 11:58 Dose: 1 each Documented by: Docusate Sodium (Colace) 100 mg PO BID [facility] Last Admin: 07/01/18 08:19 Dose: Not Given Documented by: Famotidine (Pepcid) 20 mg PO BID [facility] [place] Last Admin: 07/01/18 08:16 Dose: 20 mg Documented by: Fluticasone Propionate (Flovent Hfa 110mcg) 2 puff INH QDAY [facility] [place] Last Admin: 07/01/18 08:17 Dose: Not Given Documented by: Gabapentin (Neurontin) 1,200 mg PO TID [facility] Last Admin: 07/01/18 08:16 Dose: 1,200 mg Documented by: Piperacillin Sod/Tazobactam (Sod 3.375 gm/ Dextrose) 50 mls @ 100 mls/hr IV Q6H [facility] [place] Last Admin: 07/01/18 12:00 Dose: 100 mls/hr Documented by: Insulin Glargine (Lantus) 52 unit SQ [facility] Last Admin: 06/30/18 23:09 Dose: 52 units Documented by: Insulin Human Lispro (Humalog) 0 unit SQ [facility]; Protocol Last Admin: 07/01/18 07:27 Dose: Not Given Documented by: Lactobacillus Rhamnosus (Culturelle) 1 cap PO BID [facility] Last Admin: 07/01/18 08:16 Dose: 1 cap Documented by: Lorazepam (Ativan) 1 mg PO TIDP PRN PRN Reason: Anxiety Magnesium Hydroxide (Milk Of Magnesia) 30 ml PO DAILYP PRN PRN Reason: Constipation Nitroglycerin (Nitrostat) 0.4 mg SL Q5M PRN PRN Reason: Chest Pain Ondansetron HCl (Zofran) 4 mg IV Q6HP PRN PRN Reason: Nausea And Vomiting Liraglutide [Victoza 2-Josh] 1.2 Mg Injection 1 dose SC DAILY [facility] Last Admin: 07/01/18 08:17 Dose: Not Given Documented by: Prochlorperazine (Compazine) 5 mg IV Q4HP PRN PRN Reason: Nausea And Vomiting Senna (Senokot) 2 tab PO [facility] Last Admin: 06/30/18 22:37 Dose: 2 tab Documented by: Sodium Chloride (Saline Flush) 10 ml IV Q8 [facility] Last Admin: 07/01/18 06:07 Dose: 10 ml Documented by: Spironolactone (Aldactone) 37.5 mg PO DAILY [facility] Last Admin: 07/01/18 08:18 Dose: 37.5 mg Documented by: Tramadol HCl (Ultram) 50 - 100 mg PO QIDP PRN PRN Reason: Pain Medical - PN: A/P - Time Spent With Patient Total time spent is greater than 50% in coordination of care (as documented) at patient's floor/unit and/or counseling patient: - Narrative A/P Narrative: A: * 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 * COPD (2L@night): * MICHELLE on home BiPAP: * DM * HTN: * GERD. * Depression/anxiety: * Chronic low back pain: on baclofen * Tobacco abuse P: -cont vanc/zosyn for now, pending BC/SC/WC -given duration of on-going wound/infection awaiting MRI report -Wound surg consult to continue -IS -monitor i/o's weights -SSI/levemir, glucose is stable. -Continue home amiodarone and bisoprolol -Smoking cessation counseling -ppx: Continue home apixaban /home ppi Medical - PN: Qual - Stroke Symptom Onset Unknown: No - VTE Deep Vein Thrombosis/Pulmonary Embolism Present on Admission: No
[2018-07-01] MEDS: NYSTATIN POWDER BOTTLE 15GM TOPICAL SCH ×2 (12:40→20:24)
--- NOTE | 2018-07-01 13:14 | Magnetic Resonance Report ---
History: Chronic wound in the right foot, status post amputation of first toe TECHNIQUE: Multiplanar imaging was performed using multiple pulse sequences. FINDINGS: The first toe has been surgically resected. There is moderate inflammation of the subcutaneous tissue surrounding the head of the first metatarsal. There is also a multiloculated pocket of fluid surrounding the head of the first metatarsal. The largest component of the fluid lies along the superior medial aspect of the head of the metatarsal. It Measures approximately 1.1 x 1.5 cm in size. The underlying bone does not appear infected. There is slight irregularity of the articular surface of the head of first metatarsal, consistent with chronic osteoarthritis. There is no fracture or dislocation within the foot. 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 Moderate subcutaneous edema is present throughout the foot, extending up to the ankle. Nonspecific inflammation is seen in the flexor muscles and tendons inferior to the first metatarsal. IMPRESSION: No evidence of osteomyelitis Cellulitis and possible abscess surrounding the head of the first metatarsal. Needle aspiration for culture is recommended. Interpreted and Authenticated by: Cain Dasilva 07/01/18
[2018-07-01] MEDS: HYDROcodone/APAP 5/325MG TABLET PO PRN ×2 (14:25→20:24)
[2018-07-01] MEDS: CIPROFLOXACIN 400 MG/200 ML BAG IV SCH (16:34)
[2018-07-01] MEDS: ACETAMINOPHEN 325 MG TABLET PO PRN ×2 (16:34→23:34)
--- NOTE | 2018-07-01 17:02 | General Surgery Progress Note ---
Subjective Patient reports: other (Wound Care Note: Patient seen earlier today with Marleni loan operations manager. MRI Rt foot reviewed and report seen. Rt foot wound culture is positive for Salmonella. Heavy growth. ) Narrative: Note initiated : 07/01/18 at 4:53 pm Service Date, if different from initiated Date: [] Patient: Jaycee Dias 58 y/o F admitted on 06/30/18 for general not feeling well. Chief Complaint: [] Objective Temp Pulse Resp BP Pulse Ox 100.6 F H 67 22 136/75 93 07/01/18 16:34 07/01/18 12:00 07/01/18 16:00 07/01/18 16:00 07/01/18 16:00 Low grade temperature. VSS. Looks and feels well. No respiratory distress. L/E: Right leg and foot dermatitis is improving. Odor is less and there is NO purulence or drainage. No crepitus. BEDSIDE DEBRIDEMENT of callosus around the necrotic edges below the surgical site was performed. Adherent eschar was scored with # 11 scalpel blade. NO drainage or odor to wound base. < 1 CM size. Fungal dermatitis under skin folds of panniculus and around groin area improving. Will treat the adherent eschar with collagenase ointment at this time. Rest of ongoing wound care to continue. AWAIT I D input for Salmonella culture report. ?? Carrier status, - Additional Data Intake & Output - Last 24 hours: Intake & Output 06/29/18 06/30/18 07/01/18 07/02/18 05:59 05:59 05:59 05:59 Intake Total 1390 1860 900 Output Total 1050 750 Balance 1390 810 150 Weight 282 lb 8 oz 281 lb 281 lb - Labs 07/01/18 04:32 07/01/18 04:32 Diabetes panel 07/01/18 Range/Units 04:32 Sodium 133 (133-145) mmol/L Potassium 3.3 (3.3-5.1) mmol/L Chloride 98 (96-108) mmol/L Carbon Dioxide 23 (22-30) mmol/L BUN 14 (6-20) mg/dl Creatinine 0.7 (0.6-1.1) mg/dl Glucose 137 H (70-105) mg/dL Calcium 8.0 L (8.6-10.4) mg/dl AST 99 H (0-37) U/l ALT 49 H (0-40) U/l Alkaline Phosphatase 67 (39-117) U/L Total Protein 5.9 (5.9-8.4) gm/dL Albumin 2.9 L (3.2-5.2) gm/dL Triglycerides 96 (<150) mg/dl Calcium panel 07/01/18 Range/Units 04:32 Calcium 8.0 L (8.6-10.4) mg/dl Phosphorus 2.2 L (2.7-4.5) mg/dL Albumin 2.9 L (3.2-5.2) gm/dL Pituitary panel 07/01/18 Range/Units 04:32 Sodium 133 (133-145) mmol/L Potassium 3.3 (3.3-5.1) mmol/L Chloride 98 (96-108) mmol/L Carbon Dioxide 23 (22-30) mmol/L BUN 14 (6-20) mg/dl Creatinine 0.7 (0.6-1.1) mg/dl Glucose 137 H (70-105) mg/dL Calcium 8.0 L (8.6-10.4) mg/dl Adrenal panel 07/01/18 Range/Units 04:32 Sodium 133 (133-145) mmol/L Potassium 3.3 (3.3-5.1) mmol/L Chloride 98 (96-108) mmol/L Carbon Dioxide 23 (22-30) mmol/L BUN 14 (6-20) mg/dl Creatinine 0.7 (0.6-1.1) mg/dl Glucose 137 H (70-105) mg/dL Calcium 8.0 L (8.6-10.4) mg/dl Total Bilirubin 0.8 (0.0-1.0) mg/dL AST 99 H (0-37) U/l ALT 49 H (0-40) U/l Alkaline Phosphatase 67 (39-117) U/L Total Protein 5.9 (5.9-8.4) gm/dL Albumin 2.9 L (3.2-5.2) gm/dL Assessment and Plan (1) Dermatitis associated with moisture Problem details: Assessment: Peripheral neuropathy and 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 Callosity / suprficial dry necrotic skin under the scar. ( weight bearing ) Plan: Local wound care as ordered. Will follow patient during hospitalization. Status: Chronic Current Visit: Yes - Narrative A/P Narrative: Assessment: No acute interval changes in wound care / status at this time. Spoke with Dr. Hawk. Hospitalist. Plan: Continue on going wound care. Reassess in AM. - Time Spent With Patient Total time spent is greater than 50% in coordination of care (as documented) at patient's floor/unit and/or counseling patient: 15 - 24 minutes
[2018-07-01] MEDS: 0.9 % SODIUM CHLORIDE 1,000 ML IV SCH ×2 (18:32→18:33)
[2018-07-01] MEDS: SENNOSIDES 1 TABLET PO SCH (20:24)
[2018-07-01] MEDS: INSULIN GLARGINE, HUMAN 1 UNIT/0.01 ML SQ SCH (20:50)
[2018-07-02] MEDS: 0.9 % SODIUM CHLORIDE 10 ML SYRINGE IV SCH ×3 (04:33→22:43)
[2018-07-02 06:31] LABS: Basophils # (Auto) 0 K/mcL (0.0-0.3); Basophils % (Auto) 0.2 % (0.0-2.0); Eosinophils # (Auto) 0.1 K/mcL (0.0-0.7); Eosinophils % (Auto) 0.6 % (0.0-7.0); Granulocytes % (Auto) 78.5 % (38.0-78.0); Lymphocytes # (Auto) 1.2 K/mcL (1.5-4.8); Lymphocytes % (Auto) 11.5 % (15.5-49.0); Mean Cell Volume 85.6 fL (80.0-100.0); Mean Corpuscular HGB Conc 31.6 g/dL (31.0-36.0); Monocytes # (Auto) 0.9 K/mcL (0.1-0.9); Monocytes % (Auto) 9.2 % (1.0-12.0); Platelet Count 178 K/mcL (140-440); RBC 5.08 M/mcL (4.00-5.20); Red Cell Distribution Width 17.3 % (11.5-14.5)
[2018-07-02] MEDS: INSULIN LISPRO 1 UNIT/0.01 ML UNIT SQ SCH ×4 (06:42→22:55)
[2018-07-02] MEDS: CIPROFLOXACIN 400 MG/200 ML BAG IV SCH ×2 (06:50→22:55)
[2018-07-02 06:55] LABS: ALT/SGPT 72 U/l (0-40); Albumin 2.7 gm/dL (3.2-5.2); Albumin/Globulin Ratio 0.8 (1.0-2.3); Alkaline Phosphatase 72 U/L (39-117); Bilirubin,Direct < 0.2 mg/dL (0.0-0.3); Blood Urea Nitrogen 17 mg/dl (6-20); Gamma Glutamyl Transpeptidase 26 U/L (5-36); Uric Acid 3.1 mg/dL (2.5-8.0)
[2018-07-02] MEDS: HYDROcodone/APAP 5/325MG TABLET PO PRN ×3 (07:14→19:45)
[2018-07-02] MEDS: GABAPENTIN 400 MG CAPSULE PO SCH ×3 (08:23→22:38)
[2018-07-02] MEDS: LACTOBACILLUS 1 CAPSULE PO SCH ×2 (08:23→22:55)
[2018-07-02] MEDS: BACLOFEN 10 MG TABLET PO SCH ×3 (08:24→22:38)
[2018-07-02] MEDS: COLLAGENASE TOP OINT TUBE 30GM TOPICAL SCH (08:25)
[2018-07-02] MEDS: FAMOTIDINE 20 MG TABLET PO SCH ×2 (08:25→22:38)
[2018-07-02] MEDS: BISOPROLOL 5 MG TABLET PO SCH (08:25)
[2018-07-02] MEDS: SPIRONOLACTONE 25 MG TABLET PO SCH (08:25)
[2018-07-02] MEDS: APIXABAN 5 MG TABLET PO SCH ×2 (08:25→22:38)
[2018-07-02] MEDS: AMIODARONE HCL 200 MG TABLET PO SCH ×3 (08:25→22:38)
[2018-07-02] MEDS: DOCUSATE SODIUM 100 MG CAPSULE PO SCH ×2 (08:26→22:38)
[2018-07-02] MEDS: FLUTICASONE HFA 110MCG INHALER INH SCH (10:59)
[2018-07-02] MEDS: NYSTATIN POWDER BOTTLE 15GM TOPICAL SCH ×2 (10:59→22:59)
[2018-07-02] MEDS: LIRAGLUTIDE 1.2 MG SC SCH (11:00)
--- NOTE | 2018-07-02 11:56 | General Surgery Progress Note ---
Subjective Patient reports: other (MRI Right foot report checked and patient seen long with Marleni RN, art history professor) Narrative: Note initiated : 07/02/18 at 11:51 am Service Date, if different from initiated Date: [] Patient: Jaycee Dias 58 y/o F admitted on 06/30/18 for general not feeling well. Chief Complaint: [] Objective Temp Pulse Resp BP Pulse Ox 100.7 F H 62 12 152/68 95 07/02/18 08:00 07/02/18 08:00 07/02/18 08:00 07/02/18 08:00 07/02/18 08:00 Still continues to have low-grade fever. Tachycardia has resolved. Vital signs are stable. Clinical examination: Fungus dermatitis under the skin folds of panniculus and groin has improved. Local examination right leg ankle and foot.: Dermatitis of right leg is improved. Right foot great toe amputation site wound is unchanged. There is boggy swelling of the scar and the subcutaneous tissue at the site of toe amputation. There is no evidence of cellulitis, purulence or abscess of this area. Review of radiology report recommending aspiration to rule out abscess. After speaking with the patient and the nursing staff this was carried out at bedside under sterile precautions. Brief procedure note. The area was cleaned and the right foot was painted with Betadine swab. 18- gauge needle and 5 cc syringe was used. Multiple passes were made at the site of toe amputation. Did not appreciate any evidence of purulence, or crepitation. Minimal serous fluid aspirated from needle punctures pass. This was sent for culture and sensitivity. We will continue with ongoing local wound care. - Additional Data Intake & Output - Last 24 hours: Intake & Output 06/30/18 07/01/18 07/02/18 07/03/18 05:59 05:59 05:59 05:59 Intake Total 1390 1860 1940 200 Output Total 1050 800 325 Balance 9842 721 0771 -125 Weight 282 lb 8 oz 281 lb 282 lb - Labs 07/02/18 05:05 07/02/18 05:05 Diabetes panel 07/02/18 Range/Units 05:05 Sodium 135 (133-145) mmol/L Potassium 3.7 (3.3-5.1) mmol/L Chloride 99 (96-108) mmol/L Carbon Dioxide 23 (22-30) mmol/L BUN 17 (6-20) mg/dl Creatinine 0.7 (0.6-1.1) mg/dl Glucose 143 H (70-105) mg/dL Calcium 8.3 L (8.6-10.4) mg/dl AST 116 H (0-37) U/l ALT 72 H (0-40) U/l Alkaline Phosphatase 72 (39-117) U/L Total Protein 6.0 (5.9-8.4) gm/dL Albumin 2.7 L (3.2-5.2) gm/dL Triglycerides 115 (<150) mg/dl Calcium panel 07/02/18 Range/Units 05:05 Calcium 8.3 L (8.6-10.4) mg/dl Phosphorus 2.6 L (2.7-4.5) mg/dL Albumin 2.7 L (3.2-5.2) gm/dL Pituitary panel 07/02/18 Range/Units 05:05 Sodium 135 (133-145) mmol/L Potassium 3.7 (3.3-5.1) mmol/L Chloride 99 (96-108) mmol/L Carbon Dioxide 23 (22-30) mmol/L BUN 17 (6-20) mg/dl Creatinine 0.7 (0.6-1.1) mg/dl Glucose 143 H (70-105) mg/dL Calcium 8.3 L (8.6-10.4) mg/dl Adrenal panel 07/02/18 Range/Units 05:05 Sodium 135 (133-145) mmol/L Potassium 3.7 (3.3-5.1) mmol/L Chloride 99 (96-108) mmol/L Carbon Dioxide 23 (22-30) mmol/L BUN 17 (6-20) mg/dl Creatinine 0.7 (0.6-1.1) mg/dl Glucose 143 H (70-105) mg/dL Calcium 8.3 L (8.6-10.4) mg/dl Total Bilirubin 0.6 (0.0-1.0) mg/dL AST 116 H (0-37) U/l ALT 72 H (0-40) U/l Alkaline Phosphatase 72 (39-117) U/L Total Protein 6.0 (5.9-8.4) gm/dL Albumin 2.7 L (3.2-5.2) gm/dL Assessment and Plan (1) Dermatitis associated with moisture Problem details: Assessment: Peripheral neuropathy and 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 Callosity / suprficial dry necrotic skin under the scar. ( weight bearing ) Plan: Local wound care as ordered. Will follow patient during hospitalization. Status: Chronic Current Visit: Yes - Narrative A/P Narrative: Assessment: Satisfactory progress with wound care and wound healing. This patient has had a history of salmonella from the previous wound culture reports. I reviewed the records from wound expert at the wound Clinic. Will await ID input from Dr. Woodward. Plan: Continue current treatment. This patient is not able to cope for herself by taking at home. She lives alone. She will benefit from evaluation admission and physical therapy In a rehabilitation setting. - Time Spent With Patient Total time spent is greater than 50% in coordination of care (as documented) at patient's floor/unit and/or counseling patient: 15 - 24 minutes
--- NOTE | 2018-07-02 13:05 | Internal Med Progress Note ---
Medical - PN: Subj Patient information: Note initiated : 07/02/18 at 1:02 pm Service Date, if different from initiated Date: [] Patient: Jaycee Dias a 58 y/o F admitted on 06/30/18 for general not feeling well. Chief Complaint: [] Interval history: Ms. Dias is a 58 year old F who presents to the ER feeling ill, described as headache fever malaise along with some intermittent shortness of breath with mild cough productive of clear sputum she also has some rhinorrhea. Oxygenation in the ER was low to mid 90s on room air, she uses oxygen at night. Chest x-ray no acute pathology She has a right lower extremity wound where she said previous amputation of the right great toe that has been ongoing since approximately October she was hospitalized in January for infection of the wound. She states that lately the wound has become a little more swollen and red and painful as well as draining more and has become malodorous. She is normally ambulatory with a walker. However she needed assistance today and will was unable to get around on her own independently. In the ED her dressing was changed she was found to be febrile 100.6 and with a lactate of 2.7, blood pressure stable, not tachycardic although she is on a beta-ashley. 06/30 Headaches and had fever last night. Some shortness of breath but was not her on her home BiPAP last night. Has occasional cough. 07/01 Patient seen examined, no acute overnight issues, tolerating po well. MRI foot done, read pending Pt has erythema on the right lower extremity, which is warm to touch, no localized tenderness Pt also has significant fungal infection in the intertrigious region. Remains febrile. 07/02 Patient seen and examined, no acute overnight events. MRI of the foot shows cellulitis around the toe as well as some abscess. Wound care physician tried to aspirate some fluid out today. Send it for culture previous cultures are growing Salmonella species and staph aureus. Patient is on ciprofloxacin and vancomycin as per infectious disease recommendations. Patient still has some fever but the fever curve is getting better. Afebrile this morning The patient complained about back pain starting yesterday radiating down her right leg. She denies any weakness in the legs loss of sensation, or loss of bowel bladder incontinence. Pertinent ROS: Denies headache, dizziness Denies chest pain, palpitations Denies cough or shortness of breath Denies abdominal pain, nausea or vomiting. new back pain, - Constitutional Vitals: Vital Signs Temp Pulse Resp BP Pulse Ox 99.6 F H 58 L 14 128/56 93 07/02/18 12:00 07/02/18 12:00 07/02/18 12:00 07/02/18 12:00 07/02/18 12:00 Period Temp Pulse Resp BP Sys/Abarca Pulse Ox Last 24 Hr 98.2 F-101.1 F 58-71 06-01 112-152/54-75 90-95 Intake and Output 07/01/18 07/02/18 07/02/18 21:59 05:59 13:59 Intake Total 1290 600 440 Output Total 400 50 425 Balance 890 550 15 Weight 282 lb Intake & Output: Intake & Output 07/01/18 07/02/18 07/02/18 21:59 05:59 13:59 Intake Total 1290 600 440 Output Total 400 50 425 Balance 890 550 15 Weight 282 lb Intake: IV 250 200 Zosyn 3.375 gm In Dextrose 5% 50 in Water 50 ml @ 100 mls/hr IV Q6H [facility] Rx#:[id number] Oral 1040 600 240 Output: Void Amount 400 50 425 Other: Meal Dinner Lunch Percent of Meal Consumed 100% 100% Feeding Ability Assist with Tray Set Up Urine Appearance Clear Clear Urine Color Dark Yellow Light Iwlla Light Willa Urine Odor Strong Stool Size Copious Stool Color Brown Stool Consistency Soft Loose # Voids 1 # Bowel Movements 1 Exam: Constitutional; Afebrile, cooperative, alert, not in distress. Eyes- No icterus, , No periorbital swelling Ears- Ext ear normal, hearing normal to conversation. Neck- Midline trachea, supple Respiratory system: Air Entry equal on both sides, No crackles or wheezing, no rhonchi. CVS- Rate rhythm regular, S1,S2 heard, no gallop, no rub. Abdomen- Soft nontender abdomen, no organomegaly, no tenderness, no guarding or rigidity, [employer]- AOOx3, moving all extremities, no gross focal deficit noted. Right lower extremity cellulitis is much improved compared to yesterday Medical - PN: Obj Da - Labs CBC & Chem 7: 07/02/18 05:05 07/02/18 05:05 Labs: Abnormal Lab Results 07/02/18 07/02/18 07/01/18 05:05 05:05 04:32 WBC RBC RDW 17.3 H Gran % 78.5 H Lymph % (Auto) 11.5 L Gran # 8.1 H Lymph # (Auto) 1.2 L Waller # (Auto) Seg Neutrophils % Lymphocytes % RBC Morphology Anisocytosis ESR PT INR VBG Lactic Acid Sodium Chloride Anion Gap Glucose 143 H 137 H Calcium 8.3 L 8.0 L Phosphorus 2.6 L 2.2 L AST 116 H 99 H ALT 72 H 49 H Lactate Dehydrogenase 293 H 252 H C-Reactive Protein Albumin 2.7 L 2.9 L Albumin/Globulin Ratio 0.8 L Urine Protein Urine Occult Blood Urine RBC Urine WBC Ur Squamous Epith Cells 07/01/18 07/01/18 06/30/18 04:32 04:32 08:20 WBC RBC RDW 17.5 H Gran % 79.7 H Lymph % (Auto) 11.0 L Gran # 8.8 H Lymph # (Auto) 1.2 L Waller # (Auto) 1.0 H Seg Neutrophils % Lymphocytes % RBC Morphology Anisocytosis ESR PT INR VBG Lactic Acid < 0.2 L Sodium Chloride Anion Gap Glucose Calcium Phosphorus AST ALT Lactate Dehydrogenase C-Reactive Protein 29.2 H Albumin Albumin/Globulin Ratio Urine Protein Urine Occult Blood Urine RBC Urine WBC Ur Squamous Epith Cells 06/30/18 06/30/18 06/30/18 08:20 08:20 08:09 WBC 12.1 H RBC 5.51 H RDW 17.9 H Gran % 81.5 H Lymph % (Auto) 9.6 L Gran # 9.9 H Lymph # (Auto) 1.2 L Waller # (Auto) 1.0 H Seg Neutrophils % Lymphocytes % 11 L RBC Morphology Anisocytosis ESR PT INR VBG Lactic Acid Sodium 132 L Chloride 95 L Anion Gap Glucose 146 H Calcium 8.4 L Phosphorus AST ALT Lactate Dehydrogenase 257 H C-Reactive Protein Albumin Albumin/Globulin Ratio Urine Protein Urine Occult Blood Urine RBC Urine WBC Ur Squamous Epith Cells 06/30/18 06/29/18 06/29/18 07:56 21:20 21:20 WBC RBC RDW Gran % Lymph % (Auto) Gran # Lymph # (Auto) Waller # (Auto) Seg Neutrophils % 84 H Lymphocytes % 9 L RBC Morphology Abnorm A Anisocytosis 1+ A ESR PT INR VBG Lactic Acid Sodium Chloride Anion Gap Glucose Calcium Phosphorus AST ALT Lactate Dehydrogenase C-Reactive Protein 21.1 H Albumin Albumin/Globulin Ratio Urine Protein 30 A Urine Occult Blood 0.2 A Urine RBC 147 H Urine WBC 11 H Ur Squamous Epith Cells 6 H 06/29/18 06/29/18 06/29/18 21:20 21:20 21:20 WBC RBC RDW Gran % Lymph % (Auto) Gran # Lymph # (Auto) Waller # (Auto) Seg Neutrophils % Lymphocytes % RBC Morphology Anisocytosis ESR 48 H PT 16.5 H INR 1.3 H VBG Lactic Acid 2.7 H Sodium Chloride Anion Gap Glucose Calcium Phosphorus AST ALT Lactate Dehydrogenase C-Reactive Protein Albumin Albumin/Globulin Ratio Urine Protein Urine Occult Blood Urine RBC Urine WBC Ur Squamous Epith Cells 06/29/18 06/29/18 21:20 21:20 WBC RBC 5.41 H RDW 16.2 H Gran % Lymph % (Auto) 14.0 L Gran # Lymph # (Auto) Waller # (Auto) Seg Neutrophils % Lymphocytes % RBC Morphology Anisocytosis ESR PT INR VBG Lactic Acid Sodium Chloride Anion Gap 18.0 H Glucose 161 H Calcium 8.3 L Phosphorus AST ALT Lactate Dehydrogenase C-Reactive Protein Albumin Albumin/Globulin Ratio Urine Protein Urine Occult Blood Urine RBC Urine WBC Ur Squamous Epith Cells Meds: Medications Acetaminophen (Tylenol) 650 mg PO Q6HP PRN PRN Reason: PAIN/FEVER > 101 Last Admin: 07/01/18 23:34 Dose: 650 mg Documented by: Hydrocodone Bitart/Acetaminophen (Seligman 5/325mg) 1 tab PO Q4HP PRN PRN Reason: PAIN LEVEL 3-6 Last Admin: 07/02/18 12:05 Dose: 1 tab Documented by: Albuterol/Ipratropium (Duoneb) 3 ml NEB Q4HRT PRN PRN Reason: Bronchospasm Albuterol/Ipratropium (Combivent) 1 puff INH QIDP PRN PRN Reason: Blood Sugar - High Amiodarone HCl (Cordarone) 200 mg PO TID [facility] Last Admin: 07/02/18 08:25 Dose: 200 mg Documented by: Apixaban (Eliquis) 5 mg PO BID [facility] Last Admin: 07/02/18 08:25 Dose: 5 mg Documented by: Baclofen (Lioresal) 10 mg PO TID [facility] Last Admin: 07/02/18 08:24 Dose: 10 mg Documented by: Bisoprolol Fumarate (Zebeta) 10 mg PO QDAY [facility] Last Admin: 07/02/18 08:25 Dose: 10 mg Documented by: Collagenase (Santyl Top Oint) 1 dose TOPICAL DAILY [facility] Last Admin: 07/02/18 08:25 Dose: 1 dose Documented by: Diagnostic Test (Pha) (Accu-Chek) 1 each FS ACHS [facility] Last Admin: 07/02/18 12:04 Dose: 1 each Documented by: Docusate Sodium (Colace) 100 mg PO BID [facility] Last Admin: 07/02/18 08:26 Dose: Not Given Documented by: Famotidine (Pepcid) 20 mg PO BID [facility] Last Admin: 07/02/18 08:25 Dose: 20 mg Documented by: Fluticasone Propionate (Flovent Hfa 110mcg) 2 puff INH QDAY [facility] Last Admin: 07/02/18 10:59 Dose: Not Given Documented by: Gabapentin (Neurontin) 1,200 mg PO TID [facility] Last Admin: 07/02/18 08:23 Dose: 1,200 mg Documented by: Ciprofloxacin (Cipro) 400 mg in 200 mls @ 200 mls/hr IV Q12H [facility] Last Infusion: 07/02/18 08:27 Dose: Infused Documented by: Insulin Glargine (Lantus) 52 unit SQ HS [facility] Last Admin: 07/01/18 20:50 Dose: 52 units Documented by: Insulin Human Lispro (Humalog) 0 unit SQ [facility]; Protocol Last Admin: 07/02/18 12:05 Dose: 2 units Documented by: Lactobacillus Rhamnosus (Culturelle) 1 cap PO BID [facility] Last Admin: 07/02/18 08:23 Dose: 1 cap Documented by: Lorazepam (Ativan) 1 mg PO TIDP PRN PRN Reason: Anxiety Magnesium Hydroxide (Milk Of Magnesia) 30 ml PO DAILYP PRN PRN Reason: Constipation Methocarbamol (Robaxin) 750 mg PO TIDP PRN PRN Reason: Muscle Spasm Nitroglycerin (Nitrostat) 0.4 mg SL Q5M PRN PRN Reason: Chest Pain Nystatin (Nystatin) 1 dose TOPICAL BID [facility] Last Admin: 07/02/18 10:59 Dose: 1 dose Documented by: Ondansetron HCl (Zofran) 4 mg IV Q6HP PRN PRN Reason: Nausea And Vomiting Liraglutide [Victoza 2-Josh] 1.2 Mg Injection 1 dose SC DAILY [facility] Last Admin: 07/02/18 11:00 Dose: Not Given Documented by: Prochlorperazine (Compazine) 5 mg IV Q4HP PRN PRN Reason: Nausea And Vomiting Senna (Senokot) 2 tab PO HS [facility] Last Admin: 07/01/18 20:24 Dose: Not Given Documented by: Sodium Chloride (Saline Flush) 10 ml IV Q8 [facility] Last Admin: 07/02/18 04:33 Dose: Not Given Documented by: Spironolactone (Aldactone) 37.5 mg PO DAILY [facility] Last Admin: 07/02/18 08:25 Dose: 37.5 mg Documented by: Tramadol HCl (Ultram) 50 - 100 mg PO QIDP PRN PRN Reason: Pain Medical - PN: A/P - Time Spent With Patient Total time spent is greater than 50% in coordination of care (as documented) at patient's floor/unit and/or counseling patient: - Narrative A/P Narrative: A: * 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 * COPD (2L@night): * MICHELLE on home BiPAP: * DM * HTN: * GERD. * Depression/anxiety: * Chronic low back pain: on baclofen * Tobacco abuse *Abnormal LFT P: -cont vanc for now, switch from zosyn to ciprofloxacin, -await final speciation of salmonella species -trend LFT -MRI reviewed, Dr Graham to try to aspirate the pus. Infectious disease con sult in light of salmonella species isolated from wound. -Wound surg consult to continue -IS -monitor i/o's weights -SSI/levemir, glucose is stable. -Continue home amiodarone and bisoprolol -Smoking cessation counseling -continue home pain medication regime, PT as well as start on methocarbamol to see if this helps with back pain. -ppx: Continue home apixaban /home ppi Medical - PN: Qual - Stroke Symptom Onset Unknown: No - VTE Deep Vein Thrombosis/Pulmonary Embolism Present on Admission: No
[2018-07-02] MEDS: METHOCARBAMOL 750 MG TABLET PO PRN ×2 (13:26→19:45)
[2018-07-02] MEDS: ACETAMINOPHEN 325 MG TABLET PO PRN (16:05)
[2018-07-02] MEDS ORDERED: LINEZOLID 600 MG TABLET PO SCH (17:22)
[2018-07-02] MEDS: LINEZOLID 600 MG TABLET PO SCH (17:48)
--- NOTE | 2018-07-02 19:43 | Infectious Disease Consult ---
History of Present Illness Patient information: Note initiated : 07/02/18 at 7:41 pm Service Date, if different from initiated Date: [] Patient: Jaycee Dias 58 y/o F admitted on 06/30/18 for general not feeling well. Chief Complaint: [] Consult date: 07/02/18 Requesting Physician: Oscar Gilmore History of present illness: Reason for consult: right foot infection Chief complaint: my foot hurts 58 year old lady with PMHx of: - DM2 - smoking - PAD - right first toe amputation 3 years ago Pt was admitted with c/o fever, not feeling well and right first toe pain for last few weeks. She has been following up with wound care and being treated for panniculitis and right great toe stump infection. In the ED, she was febrile up to 100.6F, lactate of 2.7, blood pressure stable, not tachycardic. After admission she was started on IV Vanc and IV Zosyn, and cultures from blood and wound were sent. The wound Cx grew Salmonella spp and Staph aureus. She was subseq switched to PO Cipro 500 mg bid and IV Vanc was continued on 07/01/18. At time of my visit today, she confirmed the above Hx. She has 2 dogs, denies having any contact of dogs with her wounds. She denies any contact with poultry, other wild animals. She underwent wound drainage on 07/01 with minimal aspiration of few ml of blood. Review of Systems All systems PM: reviewed and no additional remarkable complaints except as stated Past History Past family history: not pertinent for current presentation Past social history: lives by herself smokes about 1-2 cigaratte daily denied any alc use, illicit drugs Medications and Allergies Home Medications Medication Instructions Recorded Confirmed Type Amiodarone HCl [Cordarone] 200 mg PO TID 01/21/18 06/30/18 History Apixaban [Eliquis] 5 mg PO BID 01/21/18 06/30/18 History Baclofen [Lioresal] 10 mg PO TID 01/21/18 06/30/18 History Bisoprolol Fumarate 10 mg PO QDAY 01/21/18 06/30/18 History Ergocalciferol (Vitamin D2) 50,000 unit PO WEEKLY 01/21/18 06/30/18 History [Vitamin D2] Fluticasone Hfa 110Mcg [Flovent 2 puff INH QDAY 01/21/18 06/30/18 History Hfa 110Mcg] Furosemide [Lasix] 40 mg PO BID 01/21/18 06/30/18 History Gabapentin [Gralise] 1,200 mg PO TID 01/21/18 06/30/18 History Insulin Aspart [Novolog] 100 unit SQ ACHS 01/21/18 06/30/18 History Insulin Detemir [Levemir] 52 unit SQ HS 01/21/18 06/30/18 History Ipratropium/Albuterol Sulfate 1 puff INH QIDP PRN 01/21/18 06/30/18 History [Combivent] Liraglutide [Victoza 2-Josh] 1.2 mg SC DAILY 01/21/18 06/30/18 History Nitroglycerin [Nitrostat] 0.4 mg SL Q5M PRN 01/21/18 06/30/18 History Omeprazole 20 mg PO DAILY 01/21/18 06/30/18 History Spironolactone [Aldactone] 37.5 mg PO DAILY 01/21/18 06/30/18 History traMADol [Ultram] 50 - 100 mg PO QID 01/21/18 06/30/18 History Lactobacillus [Culturelle] 1 cap PO BID #60 cap 01/23/18 06/30/18 Rx LORazepam [Ativan] 1 mg PO TIDP PRN 06/30/18 06/30/18 History Ranitidine HCl [Heartburn Relief] 150 mg PO BID 06/30/18 06/30/18 History Varenicline Tartrate [Chantix] 0.5 mg PO BID 06/30/18 06/30/18 History metFORMIN [Glucophage] 500 mg PO BIDCC 06/30/18 06/30/18 History Allergies Allergy/AdvReac Type Severity Reaction Status Date / Time codeine Allergy Intermediate Hives Verified 06/30/18 02:26 Cyclobenzaprine Allergy Intermediate Hives Verified 06/30/18 02:26 Doxepin Allergy Intermediate Hives Verified 06/30/18 02:26 fluoxetine Allergy Intermediate Hives Verified 06/30/18 02:26 piroxicam Allergy Intermediate Hives Verified 06/30/18 02:26 Rifamycin Allergy Intermediate Hives Verified 06/30/18 02:26 methadone [From Methadose] AdvReac Severe Accidental Verified 06/30/18 02:26 Overdose vancomycin AdvReac Intermediate REDNESS/FLU Verified 07/01/18 11:02 SHING Physical Examination Vital signs: Temp Pulse Resp BP Pulse Ox 37.7 C H 60 16 128/52 90 07/02/18 17:49 07/02/18 15:36 07/02/18 15:36 07/02/18 15:36 07/02/18 15:36 General appearance: no acute distress Eyes pulmonary: nonicteric ENT: oropharynx moist, other Auscultation: bilateral: wheezes Cardiovascular: regular rate and rhythm Gastrointestinal: normoactive bowel sounds, other Extremities: other Results - Laboratory Findings CBC and BMP: 07/02/18 05:05 07/02/18 05:05 PT/INR, D-dimer PT 16.5 sec (11.9-14.5) H 06/29/18 21:20 INR 1.3 (0.9-1.1) H 06/29/18 21:20 Abnormal lab findings: Abnormal Labs 06/29/18 06/29/18 06/29/18 21:20 21:20 21:20 WBC RBC 5.41 H RDW 16.2 H Gran % Lymph % (Auto) 14.0 L Gran # Lymph # (Auto) Snyder # (Auto) Seg Neutrophils % Lymphocytes % RBC Morphology Anisocytosis ESR PT INR VBG Lactic Acid 2.7 H Sodium Chloride Anion Gap 18.0 H Glucose 161 H Calcium 8.3 L Phosphorus AST ALT Lactate Dehydrogenase C-Reactive Protein Albumin Albumin/Globulin Ratio Urine Protein Urine Occult Blood Urine RBC Urine WBC Ur Squamous Epith Cells 06/29/18 06/29/18 06/29/18 21:20 21:20 21:20 WBC RBC RDW Gran % Lymph % (Auto) Gran # Lymph # (Auto) Snyder # (Auto) Seg Neutrophils % 84 H Lymphocytes % 9 L RBC Morphology Abnorm A Anisocytosis 1+ A ESR 48 H PT 16.5 H INR 1.3 H VBG Lactic Acid Sodium Chloride Anion Gap Glucose Calcium Phosphorus AST ALT Lactate Dehydrogenase C-Reactive Protein Albumin Albumin/Globulin Ratio Urine Protein Urine Occult Blood Urine RBC Urine WBC Ur Squamous Epith Cells 06/29/18 06/30/18 06/30/18 21:20 07:56 08:09 WBC RBC RDW Gran % Lymph % (Auto) Gran # Lymph # (Auto) Snyder # (Auto) Seg Neutrophils % Lymphocytes % 11 L RBC Morphology Anisocytosis ESR PT INR VBG Lactic Acid Sodium Chloride Anion Gap Glucose Calcium Phosphorus AST ALT Lactate Dehydrogenase C-Reactive Protein 21.1 H Albumin Albumin/Globulin Ratio Urine Protein 30 A Urine Occult Blood 0.2 A Urine RBC 147 H Urine WBC 11 H Ur Squamous Epith Cells 6 H 06/30/18 06/30/18 06/30/18 08:20 08:20 08:20 WBC 12.1 H RBC 5.51 H RDW 17.9 H Gran % 81.5 H Lymph % (Auto) 9.6 L Gran # 9.9 H Lymph # (Auto) 1.2 L Snyder # (Auto) 1.0 H Seg Neutrophils % Lymphocytes % RBC Morphology Anisocytosis ESR PT INR VBG Lactic Acid < 0.2 L Sodium 132 L Chloride 95 L Anion Gap Glucose 146 H Calcium 8.4 L Phosphorus AST ALT Lactate Dehydrogenase 257 H C-Reactive Protein Albumin Albumin/Globulin Ratio Urine Protein Urine Occult Blood Urine RBC Urine WBC Ur Squamous Epith Cells 07/01/18 07/01/18 07/01/18 04:32 04:32 04:32 WBC RBC RDW 17.5 H Gran % 79.7 H Lymph % (Auto) 11.0 L Gran # 8.8 H Lymph # (Auto) 1.2 L Snyder # (Auto) 1.0 H Seg Neutrophils % Lymphocytes % RBC Morphology Anisocytosis ESR PT INR VBG Lactic Acid Sodium Chloride Anion Gap Glucose 137 H Calcium 8.0 L Phosphorus 2.2 L AST 99 H ALT 49 H Lactate Dehydrogenase 252 H C-Reactive Protein 29.2 H Albumin 2.9 L Albumin/Globulin Ratio Urine Protein Urine Occult Blood Urine RBC Urine WBC Ur Squamous Epith Cells 07/02/18 07/02/18 05:05 05:05 WBC RBC RDW 17.3 H Gran % 78.5 H Lymph % (Auto) 11.5 L Gran # 8.1 H Lymph # (Auto) 1.2 L Snyder # (Auto) Seg Neutrophils % Lymphocytes % RBC Morphology Anisocytosis ESR PT INR VBG Lactic Acid Sodium Chloride Anion Gap Glucose 143 H Calcium 8.3 L Phosphorus 2.6 L AST 116 H ALT 72 H Lactate Dehydrogenase 293 H C-Reactive Protein Albumin 2.7 L Albumin/Globulin Ratio 0.8 L Urine Protein Urine Occult Blood Urine RBC Urine WBC Ur Squamous Epith Cells Microbiology: Microbiology 07/01/18 17:32 Blood Blood Culture - Preliminary 07/01/18 17:13 Blood Blood Culture - Preliminary 06/29/18 22:13 Foot - Right Gram Stain - Final 06/29/18 22:13 Foot - Right Wound Culture - Preliminary Salmonella species Staphylococcus aureus 07/02/18 08:26 Foot - Right Gram Stain - Final 06/29/18 22:19 Blood Blood Culture - Preliminary 06/29/18 22:13 Blood Blood Culture - Preliminary 06/30/18 04:00 Nasopharynx Respiratory Virus Panel (PCR) - Final 06/30/18 04:00 Nasopharynx Respiratory Panel (PCR) - Final 06/30/18 03:48 Nose MRSA (PCR) - Final Assessment and Plan - Narrative A/P Narrative: A: 1. Rt LE cellulitis with rt great toe stump soft tissue infection: - portal of entry is Rt great toe stump - MRI neg for toe OM - Cx growing Staph aureus (sensi pending) and Salmonella spp. (likey a contaminant) 2. DM2 with neuropathy 3. COPD Recommendations: - Continue IV Vanc and PO Cipro 500 mg bid for now. will modify based on sensitivities (to be available tomorrow) - given extent of infection, will plan for a 4 week course of PO antibiotics will follow Leonardo Woodward MD Infectious diseases
[2018-07-02] MEDS: SENNOSIDES 1 TABLET PO SCH (22:41)
[2018-07-02] MEDS: INSULIN GLARGINE, HUMAN 1 UNIT/0.01 ML SQ SCH (22:55)
[2018-07-03] MEDS: ACETAMINOPHEN 325 MG TABLET PO PRN ×2 (00:46→17:00)
[2018-07-03 05:54] LABS: Basophils # (Auto) 0 K/mcL (0.0-0.3); Basophils % (Auto) 0.1 % (0.0-2.0); Eosinophils # (Auto) 0.1 K/mcL (0.0-0.7); Eosinophils % (Auto) 0.5 % (0.0-7.0); Granulocytes % (Auto) 75.3 % (38.0-78.0); Lymphocytes # (Auto) 1.6 K/mcL (1.5-4.8); Lymphocytes % (Auto) 13.9 % (15.5-49.0); Mean Cell Volume 85.8 fL (80.0-100.0); Mean Corpuscular HGB Conc 32.3 g/dL (31.0-36.0); Monocytes # (Auto) 1.2 K/mcL (0.1-0.9); Monocytes % (Auto) 10.2 % (1.0-12.0); Platelet Count 181 K/mcL (140-440); RBC 4.91 M/mcL (4.00-5.20); Red Cell Distribution Width 17.3 % (11.5-14.5)
[2018-07-03] MEDS: 0.9 % SODIUM CHLORIDE 10 ML SYRINGE IV SCH ×3 (06:35→22:09)
[2018-07-03 06:45] LABS: ALT/SGPT 72 U/l (0-40); Albumin 2.5 gm/dL (3.2-5.2); Albumin/Globulin Ratio 0.8 (1.0-2.3); Alkaline Phosphatase 68 U/L (39-117); Bilirubin,Direct < 0.2 mg/dL (0.0-0.3); Blood Urea Nitrogen 20 mg/dl (6-20); Gamma Glutamyl Transpeptidase 25 U/L (5-36); Uric Acid 2.9 mg/dL (2.5-8.0)
[2018-07-03] MEDS: INSULIN LISPRO 1 UNIT/0.01 ML UNIT SQ SCH ×4 (07:36→22:14)
[2018-07-03] MEDS: LINEZOLID 600 MG TABLET PO SCH (07:36)
[2018-07-03] MEDS: CIPROFLOXACIN 400 MG/200 ML BAG IV SCH (08:52)
[2018-07-03] MEDS: SPIRONOLACTONE 25 MG TABLET PO SCH (08:53)
[2018-07-03] MEDS: APIXABAN 5 MG TABLET PO SCH ×2 (08:53→22:09)
[2018-07-03] MEDS: LACTOBACILLUS 1 CAPSULE PO SCH ×2 (08:53→22:10)
[2018-07-03] MEDS: DOCUSATE SODIUM 100 MG CAPSULE PO SCH ×3 (08:53→22:04)
[2018-07-03] MEDS: BACLOFEN 10 MG TABLET PO SCH ×3 (08:53→22:09)
[2018-07-03] MEDS: GABAPENTIN 400 MG CAPSULE PO SCH ×3 (08:53→22:10)
[2018-07-03] MEDS: AMIODARONE HCL 200 MG TABLET PO SCH ×3 (08:53→22:10)
[2018-07-03] MEDS: BISOPROLOL 5 MG TABLET PO SCH (08:53)
[2018-07-03] MEDS: HYDROcodone/APAP 5/325MG TABLET PO PRN ×3 (08:54→22:09)
[2018-07-03] MEDS: FAMOTIDINE 20 MG TABLET PO SCH ×2 (08:55→22:10)
[2018-07-03] MEDS ORDERED: VANCOMYCIN PER PHARMACY IV SCH (09:35)
[2018-07-03] MEDS: METHOCARBAMOL 750 MG TABLET PO PRN (11:14)
[2018-07-03] MEDS: COLLAGENASE TOP OINT TUBE 30GM TOPICAL SCH (11:14)
[2018-07-03] MEDS: NYSTATIN POWDER BOTTLE 15GM TOPICAL SCH ×2 (11:15→22:10)
[2018-07-03] MEDS: FLUTICASONE HFA 110MCG INHALER INH SCH (11:17)
[2018-07-03] MEDS: VANCOMYCIN 1,500 MG in 0.9 % SODIUM CHLORIDE 500 ML IV SCH ×2 (11:18→22:08)
[2018-07-03] MEDS: LIRAGLUTIDE 1.2 MG SC SCH (11:28)
--- NOTE | 2018-07-03 12:32 | Infectious Disease Prog Note ---
Subjective Patient information: Note initiated : 07/03/18 at 12:19 pm Service Date, if different from initiated Date: [] Patient: Jaycee Dias 58 y/o F admitted on 06/30/18 for general not feeling well. Chief Complaint: [] Interval history: Pt is doing ok. She endorsed fevers off and on, with sweating, right toe stump pain. Denied any nausea-vomiting, diarrhea. Objective Objective Narrative: ao x 3, in mild distress due to fevers chest cta s1 s2 normal bs ++, mild discomfort on deep palpation , has a ventral abd wall hernia Rt LE: the swelling and redness from last few days has gone down significantly. No edema over the right leg. The right toe stump is still swollen, tender, with minimal drainage, discolored due to clotted blood - Vital Signs Vital signs: Vital Signs Temp Pulse Pulse Pulse Resp BP BP 07/03/18 11:44 36.8 C 56 L 22 144/70 07/03/18 09:36 74 16 07/03/18 07:16 37.1 C 65 18 121/66 07/03/18 04:00 37.0 C 62 22 104/52 07/03/18 01:31 36.5 C 07/03/18 00:46 38.4 C H 07/03/18 00:44 38.4 C H 07/02/18 23:52 38.6 C H 67 24 H 108/56 07/02/18 20:16 37.1 C 60 20 116/56 07/02/18 17:49 37.7 C H 07/02/18 16:50 38.1 C H 07/02/18 16:05 38.7 C H 07/02/18 15:36 38.7 C H 60 16 128/52 Pulse Ox 07/03/18 11:44 93 07/03/18 09:36 07/03/18 07:16 94 07/03/18 04:00 90 07/03/18 01:31 07/03/18 00:46 07/03/18 00:44 07/02/18 23:52 90 07/02/18 20:16 90 07/02/18 17:49 07/02/18 16:50 07/02/18 16:05 07/02/18 15:36 90 Intake and Output 0107/03/18 07/03/18 21:59 05:59 13:59 Intake Total 1570 1000 220 Output Total 500 150 550 Balance 1070 850 -330 Intake: IV 200 Oral 1570 800 220 Output: Void Amount 500 150 550 Other: Meal Dinner Breakfast Percent of Meal Consumed 100% 100% Urine Appearance Clear Clear Clear Urine Color Dark Willa Dark Willa Dark Yellow Urine Odor Strong Strong # Voids 1 Weight 128.367 kg Intake & Output: Intake & Output 07/02/18 07/03/18 07/03/18 21:59 05:59 13:59 Intake Total 1570 1000 220 Output Total 500 150 550 Balance 1070 850 -330 Weight 128.367 kg Intake: IV 200 Oral 1570 800 220 Output: Void Amount 500 150 550 Other: Meal Dinner Breakfast Percent of Meal Consumed 100% 100% Urine Appearance Clear Clear Clear Urine Color Dark Willa Dark Willa Dark Yellow Urine Odor Strong Strong # Voids 1 - Lab 07/03/18 04:22 07/03/18 04:22 Most recent lab results Calcium 8.5 mg/dl (8.6-10.4) L 07/03/18 04:22 Phosphorus 3.1 mg/dL (2.7-4.5) 07/03/18 04:22 Magnesium 2.1 mg/dL (1.6-2.5) 07/03/18 04:22 Microbiology 07/03/18 09:56 Foot - Right Gram Stain - Final 06/29/18 22:13 Foot - Right Gram Stain - Final 06/29/18 22:13 Foot - Right Wound Culture - Preliminary Salmonella species Staphylococcus aureus 07/01/18 17:13 Blood Blood Culture - Preliminary Gram positive cocci 06/29/18 22:19 Blood Blood Culture - Preliminary 06/29/18 22:13 Blood Blood Culture - Preliminary 07/01/18 17:32 Blood Blood Culture - Preliminary 07/02/18 08:26 Foot - Right Gram Stain - Final 06/30/18 04:00 Nasopharynx Respiratory Virus Panel (PCR) - Final 06/30/18 04:00 Nasopharynx Respiratory Panel (PCR) - Final 06/30/18 03:48 Nose MRSA (PCR) - Final Medications Active Medications: Acetaminophen (Tylenol) 650 mg PO Q6HP PRN PRN Reason: PAIN/FEVER > 101 Last Admin: 07/03/18 00:46 Dose: 650 mg Documented by: Admin: 07/02/18 16:05 Dose: 650 mg Documented by: Admin: 07/01/18 23:34 Dose: 650 mg Documented by: Admin: 07/01/18 16:34 Dose: 650 mg Documented by: Admin: 06/30/18 08:02 Dose: 650 mg Documented by: DORIAN Hydrocodone Bitart/Acetaminophen (Temple 5/325mg) 1 tab PO Q4HP PRN PRN Reason: PAIN LEVEL 3-6 Last Admin: 07/03/18 08:54 Dose: 1 tab Documented by: Admin: 07/02/18 12:05 Dose: 1 tab Documented by: Admin: 07/02/18 07:14 Dose: 1 tab Documented by: Admin: 07/01/18 20:24 Dose: 1 tab Documented by: Admin: 07/01/18 14:25 Dose: 1 tab Documented by: Admin: 06/30/18 16:51 Dose: 1 tab Documented by: DORIAN Albuterol/Ipratropium (Duoneb) 3 ml NEB Q4HRT PRN PRN Reason: Bronchospasm Last Admin: 07/03/18 09:31 Dose: 3 ml Documented by: MARION Albuterol/Ipratropium (Combivent) 1 puff INH QIDP PRN PRN Reason: Blood Sugar - High Amiodarone HCl (Cordarone) 200 mg PO TID YING Last Admin: 07/03/18 08:53 Dose: 200 mg Documented by: Admin: 07/02/18 22:38 Dose: 200 mg Documented by: Admin: 07/02/18 16:05 Dose: 200 mg Documented by: Admin: 07/02/18 08:25 Dose: 200 mg Documented by: Admin: 07/01/18 20:23 Dose: 200 mg Documented by: Admin: 07/01/18 14:25 Dose: 200 mg Documented by: Admin: 07/01/18 08:16 Dose: 200 mg Documented by: Admin: 06/30/18 22:37 Dose: 200 mg Documented by: Admin: 06/30/18 14:40 Dose: 200 mg Documented by: Admin: 06/30/18 09:43 Dose: 200 mg Documented by: DORIAN Apixaban (Eliquis) 5 mg PO BID [facility] Admin: 07/03/18 08:53 Dose: 5 mg Documented by: DARONLynette Admin: 07/02/18 22:38 Dose: 5 mg Documented by: Admin: 07/02/18 08:25 Dose: 5 mg Documented by: DARONLynette Admin: 07/01/18 20:23 Dose: 5 mg Documented by: Admin: 07/01/18 08:16 Dose: 5 mg Documented by: Admin: 06/30/18 22:37 Dose: 5 mg Documented by: Admin: 06/30/18 09:43 Dose: 5 mg Documented by: DORIAN Baclofen (Lioresal) 10 mg PO TID [facility] Admin: 07/03/18 08:53 Dose: 10 mg Documented by: DARONLynette Admin: 07/02/18 22:38 Dose: 10 mg Documented by: Admin: 07/02/18 16:05 Dose: 10 mg Documented by: [facility] Admin: 07/02/18 08:24 Dose: 10 mg Documented by: DARONLynette Admin: 07/01/18 20:23 Dose: 10 mg Documented by: Admin: 07/01/18 14:25 Dose: 10 mg Documented by: Admin: 07/01/18 08:17 Dose: 10 mg Documented by: Admin: 06/30/18 22:37 Dose: 10 mg Documented by: Admin: 06/30/18 14:40 Dose: 10 mg Documented by: Admin: 06/30/18 09:44 Dose: 10 mg Documented by: DORIAN Bisoprolol Fumarate (Zebeta) 10 mg PO QDAY [facility] Admin: 07/03/18 08:53 Dose: 10 mg [facility]: [facility] Admin: 07/02/18 08:25 Dose: 10 mg Documented by: Admin: 07/01/18 08:22 Dose: 10 mg Documented by: Admin: 06/30/18 10:41 Dose: Not Given Documented by: DORIAN Non-Admin Reason: Clinical Judgement Collagenase (Santyl Top Oint) 1 dose TOPICAL DAILY [facility] Admin: 07/03/18 11:14 Dose: 1 dose Documented by: DARONLynette Comments: given late due to md wanting to see wound Admin: 07/02/18 08:25 Dose: 1 dose Documented by: Admin: 07/01/18 12:00 Dose: 1 dose Documented by: DORIAN Diagnostic Test (Pha) (Accu-Chek) 1 each FS ACHS [facility] Admin: 07/03/18 11:28 Dose: 1 each Documented by: Admin: 07/03/18 07:36 Dose: 1 each Documented by: Admin: 07/02/18 22:43 Dose: 1 each Documented by: Admin: 07/02/18 16:48 Dose: 1 each Documented by: Brice Admin: 07/02/18 12:04 Dose: 1 each Documented by: JESSIE Cosigned by: DILLON Admin: 07/02/18 06:28 Dose: 1 each Documented by: Admin: 07/01/18 20:26 Dose: 1 each Documented by: Admin: 07/01/18 16:32 Dose: 1 each Documented by: Admin: 07/01/18 11:58 Dose: 1 each Documented by: Admin: 07/01/18 07:26 Dose: 1 each Documented by: Admin: 06/30/18 23:08 Dose: 1 each Documented by: SARAY Docusate Sodium (Colace) 100 mg PO BID [facility] Admin: 07/03/18 09:03 Dose: Not Given Documented by: [facility] Non[facility] Reason: Patient Refused Admin: 07/02/18 22:38 Dose: 100 mg Documented by: Admin: 07/02/18 08:26 Dose: Not Given Documented by: DARONLynette Non-Admin Reason: Patient Refused Admin: 07/01/18 20:24 Dose: Not Given Documented by: CAROLINA Non-Admin Reason: Patient Request Admin: 07/01/18 08:19 Dose: Not Given Documented by: DORIAN Non-Admin Reason: Patient Refused Admin: 06/30/18 22:37 Dose: 100 mg Documented by: Admin: 06/30/18 09:45 Dose: 100 mg Documented by: DORIAN Famotidine (Pepcid) 20 mg PO BID [facility] Admin: 07/03/18 08:55 Dose: 20 mg Documented by: Admin: 07/02/18 22:38 Dose: 20 mg Documented by: Admin: 07/02/18 08:25 Dose: 20 mg Documented by: Admin: 07/01/18 20:23 Dose: 20 mg Documented by: Admin: 07/01/18 08:16 Dose: 20 mg Documented by: Admin: 06/30/18 22:37 Dose: 20 mg Documented by: Admin: 06/30/18 09:43 Dose: 20 mg Documented by: DORIAN Fluticasone Propionate (Flovent Hfa 110mcg) 2 puff INH QDAY [facility] Admin: 07/03/18 11:17 Dose: 2 puff Documented by: Admin: 07/02/18 10:59 Dose: Not Given Documented by: [email or web address] Non-Admin Reason: Unavailable Admin: 07/01/18 08:17 Dose: Not Given Documented by: DORIAN Non-Admin Reason: Unavailable Admin: 06/30/18 09:53 Dose: Not Given Documented by: DORIAN Non-Admin Reason: Unavailable Gabapentin (Neurontin) 1,200 mg PO TID [facility] Admin: 07/03/18 08:53 Dose: 1,200 mg Documented by: Admin: 07/02/18 22:38 Dose: 1,200 mg Documented by: Admin: 07/02/18 16:05 Dose: 1,200 mg Documented by: Admin: 07/02/18 08:23 Dose: 1,200 mg Documented by: Admin: 07/01/18 20:50 Dose: 1,200 mg Documented by: Admin: 07/01/18 14:25 Dose: 1,200 mg Documented by: Admin: 07/01/18 08:16 Dose: 1,200 mg Documented by: Admin: 06/30/18 22:37 Dose: 1,200 mg Documented by: Admin: 06/30/18 14:40 Dose: 1,200 mg Documented by: Admin: 06/30/18 09:41 Dose: 1,200 mg Documented by: DORIAN Vancomycin HCl 1,500 mg/ (Sodium Chloride) 500 mls @ 166.667 mls/hr IV Q12H [facility] Last Admin: 07/03/18 11:18 Dose: 166.667 mls/hr Documented by: DILLON Insulin Glargine (Lantus) 52 unit SQ HS [facility] Last Admin: 07/02/18 22:55 Dose: 52 units Documented by: Admin: 07/01/18 20:50 Dose: 52 units Documented by: Admin: 06/30/18 23:09 Dose: 52 units Documented by: SARAY Insulin Human Lispro (Humalog) 0 unit SQ ACHS [facility]; Protocol Last Admin: 07/03/18 12:16 Dose: 2 units Documented by: Admin: 07/03/18 07:36 Dose: Not Given Documented by: [facility] Reason: No Coverage Needed Admin: 07/02/18 22:55 Dose: 2 units Documented by: Admin: 07/02/18 17:02 Dose: 2 units Documented by: [facility] Admin: 07/02/18 12:05 Dose: 2 units Documented by: [facility] Admin: 07/02/18 06:42 Dose: Not Given Documented by: [email or web address] Non-Admin Reason: No Coverage Needed Admin: 07/01/18 20:50 Dose: 2 units Documented by: Admin: 07/01/18 17:14 Dose: 2 units Documented by: Admin: 07/01/18 12:26 Dose: 2 units Documented by: Admin: 07/01/18 07:27 Dose: Not Given Documented by: DORIAN Non-Admin Reason: No Coverage Needed Admin: 06/30/18 23:08 Dose: 2 units Documented by: Admin: 06/30/18 16:51 Dose: Not Given Documented by: DORIAN Non-Admin Reason: No Coverage Needed Comments: 134 blood sugar Admin: 06/30/18 12:05 Dose: 4 units Documented by: Admin: 06/30/18 07:50 Dose: Not Given Documented by: DORIAN Non-Admin Reason: No Coverage Needed Lactobacillus Rhamnosus (Culturelle) 1 cap PO BID [facility] Admin: 07/03/18 08:53 Dose: 1 cap Documented by: Admin: 07/02/18 22:55 Dose: 1 cap Documented by: Admin: 07/02/18 08:23 Dose: 1 cap Documented by: Admin: 07/01/18 20:23 Dose: 1 cap Documented by: Admin: 07/01/18 08:16 Dose: 1 cap Documented by: Admin: 06/30/18 22:37 Dose: 1 cap Documented by: Admin: 06/30/18 09:45 Dose: 1 cap Documented by: DORIAN Lorazepam (Ativan) 1 mg PO TIDP PRN PRN Reason: Anxiety Magnesium Hydroxide (Milk Of Magnesia) 30 ml PO DAILYP PRN PRN Reason: Constipation Methocarbamol (Robaxin) 750 mg PO TIDP PRN PRN Reason: Muscle Spasm Last Admin: 07/03/18 11:14 Dose: 750 mg Documented by: Admin: 07/02/18 13:26 Dose: 750 mg Documented by: DILLON Nitroglycerin (Nitrostat) 0.4 mg SL Q5M PRN PRN Reason: Chest Pain Nystatin (Nystatin) 1 dose TOPICAL BID [facility] Admin: 07/03/18 11:15 Dose: 1 dose Documented by: Admin: 07/02/18 22:59 Dose: 1 dose Documented by: Admin: 07/02/18 10:59 Dose: 1 dose Documented by: Admin: 07/01/18 20:24 Dose: 1 dose Documented by: Admin: 07/01/18 12:40 Dose: 1 dose Documented by: DORIAN Ondansetron HCl (Zofran) 4 mg IV Q6HP PRN PRN Reason: Nausea And Vomiting Liraglutide [Victoza 2-Josh] 1.2 Mg Injection 1 dose SC DAILY [facility] Admin: 07/03/18 11:28 Dose: Not Given Documented by: DILLON Non-Admin Reason: med available but no needles Admin: 07/02/18 11:00 Dose: Not Given Documented by: DILLON Non-Admin Reason: Unavailable Admin: 07/01/18 08:17 Dose: Not Given Documented by: DORIAN Non-Admin Reason: Unavailable Admin: 06/30/18 10:41 Dose: Not Given Documented by: DORIAN Non-Admin Reason: Unavailable Prochlorperazine (Compazine) 5 mg IV Q4HP PRN PRN Reason: Nausea And Vomiting Senna (Senokot) 2 tab PO HS [facility] Last Admin: 07/02/18 22:41 Dose: 2 tab Documented by: Admin: 07/01/18 20:24 Dose: Not Given Documented by: CAROLINA Non-Admin Reason: Patient Request Admin: 06/30/18 22:37 Dose: 2 tab Documented by: SARAY Sodium Chloride (Saline Flush) 10 ml IV Q8 [facility] Admin: 07/03/18 06:35 Dose: 10 ml Documented by: Admin: 07/02/18 22:43 Dose: 10 ml Documented by: Admin: 07/02/18 13:27 Dose: 10 ml Documented by: Admin: 07/02/18 04:33 Dose: Not Given Documented by: CAROLINA Non-Admin Reason: IV ABO at 0700 Admin: 07/01/18 20:25 Dose: 10 ml Documented by: Admin: 07/01/18 14:26 Dose: 10 ml Documented by: Admin: 07/01/18 06:07 Dose: 10 ml Documented by: Admin: 06/30/18 22:39 Dose: 10 ml Documented by: Admin: 06/30/18 14:41 Dose: Not Given Documented by: DORIAN Non-Admin Reason: Bag Still Infusing Admin: 06/30/18 06:02 Dose: Not Given Documented by: SARAY Non-Admin Reason: Bag Still Infusing Spironolactone (Aldactone) 37.5 mg PO DAILY [facility] Admin: 07/03/18 08:53 Dose: 37.5 mg Documented by: Admin: 07/02/18 08:25 Dose: 37.5 mg Documented by: [email or web address] Admin: 07/01/18 08:18 Dose: 37.5 mg Documented by: Admin: 06/30/18 10:41 Dose: Not Given Documented by: DORIAN Non-Admin Reason: Clinical Judgement Vancomycin HCl (Vancomycin Per Pharmacy) 1 order IV UD YING Assessment and Plan - Narrative A/P Narrative: A: 1. Rt LE cellulitis with rt great toe stump soft tissue infection: - portal of entry is Rt great toe stump - MRI neg for toe OM - Cx growing Staph aureus (sensi pending) and Salmonella spp. (likey a contaminant) 2. Staph epi isolated from 06/12 blood Cx: - repeat blood Cx sent today - In light of fever, will not dismiss it as a contaminant. The fever might also be because pt didnot recieve any gram positive coverage on Sunday and Sunday (until Sunday pm) 3. Vanc induced Flor's syndrome - will resume IV Vanc at a slow infusion rate 4. DM2 with neuropathy 5. COPD Recommendations: - I resumed IV Vanc 1.5 gm q12 per pharmacy assisted dosing [to be given a slow rate given Hx of flor syn over the weekend] . Check trough before the 4th dose: target 10-20 - D/c Cipro as Salmonella is a contaminant - Stop Linezolid for now as Staph epi might be a real pathogen causing fevers. - await Staph aureus sensitivities from the wound and repeat blood Cx from today - agree with TTE - given extent of infection, will plan for a 4 week course of PO antibiotics - will touch base with Dr. Marquez about the feasibility of surgical debridement of the rt great toe stump will follow Leonardo Woodward MD Infectious diseases
--- NOTE | 2018-07-03 12:46 | Internal Med Progress Note ---
Medical - PN: Subj Patient information: Note initiated : 07/03/18 at 12:44 pm Service Date, if different from initiated Date: [] Patient: Jaycee Dias a 58 y/o F admitted on 06/30/18 for general not feeling well. Chief Complaint: [] Interval history: Ms. Dias is a 58 year old F who presents to the ER feeling ill, described as headache fever malaise along with some intermittent shortness of breath with mild cough productive of clear sputum she also has some rhinorrhea. Oxygenation in the ER was low to mid 90s on room air, she uses oxygen at night. Chest x-ray no acute pathology She has a right lower extremity wound where she said previous amputation of the right great toe that has been ongoing since approximately October she was hospitalized in January for infection of the wound. She states that lately the wound has become a little more swollen and red and painful as well as draining more and has become malodorous. She is normally ambulatory with a walker. However she needed assistance today and will was unable to get around on her own independently. In the ED her dressing was changed she was found to be febrile 100.6 and with a lactate of 2.7, blood pressure stable, not tachycardic although she is on a beta-ashley. 06/30 Headaches and had fever last night. Some shortness of breath but was not her on her home BiPAP last night. Has occasional cough. 07/01 Patient seen examined, no acute overnight issues, tolerating po well. MRI foot done, read pending Pt has erythema on the right lower extremity, which is warm to touch, no localized tenderness Pt also has significant fungal infection in the intertrigious region. Remains febrile. 07/02 Patient seen and examined, no acute overnight events. MRI of the foot shows cellulitis around the toe as well as some abscess. Wound care physician tried to aspirate some fluid out today. Send it for culture previous cultures are growing Salmonella species and staph aureus. Patient is on ciprofloxacin and vancomycin as per infectious disease recommendations. Patient still has some fever but the fever curve is getting better. Afebrile this morning The patient complained about back pain starting yesterday radiating down her right leg. She denies any weakness in the legs loss of sensation, or loss of bowel bladder incontinence. 07/03 patient seen examined, no acute overnight issues, pt tolerating po diet well still has intermittent fevers, blood cultures have been positive, but this has been coag negative staph. Cultures from the foot have been staph aureus. I aspirated around 0.3 cc of purulent pus from the right to under the guidance of ultrasound, and send it for cultures today. Gram stain is showing gram- positive cocci in clusters. Patient has been started back on vancomycin by infectious disease, ciprofloxacin has been stopped. Linezolid stopped Total of 4 weeks abx planned, The patient notes that she still has back pain, I distinctly remember her mentioning pain was radiating down the right leg yesterday however she now notes that the pain was radiating down the left leg yesterday and is now moving towards the right side. Will get ESR and CRP, if the patient's bacteremia persists or patient develops any new symptoms we will consider getting an MRI of the lumbar spine to further evaluate this back pain Pertinent ROS: Denies headache, dizziness Denies chest pain, palpitations Denies cough or shortness of breath Denies abdominal pain, nausea or vomiting. back pain present - Constitutional Vitals: Vital Signs Temp Pulse Resp BP Pulse Ox 98.3 F 56 L 22 144/70 93 07/03/18 11:44 07/03/18 11:44 07/03/18 11:44 07/03/18 11:44 07/03/18 11:44 Period Temp Pulse Resp BP Sys/Abarca Pulse Ox Last 24 Hr 97.7 F-101.6 F 56-74 16-24 104-144/52-70 90-94 Intake and Output 07/02/18 07/03/18 07/03/18 21:59 05:59 13:59 Intake Total 1570 1000 220 Output Total 500 150 550 Balance 1070 850 -330 Weight 283 lb Intake & Output: Intake & Output 07/02/18 07/03/18 07/03/18 21:59 05:59 13:59 Intake Total 1570 1000 220 Output Total 500 150 550 Balance 1070 850 -330 Weight 283 lb Intake: IV 200 Oral 1570 800 220 Output: Void Amount 500 150 550 Other: Meal Dinner Breakfast Percent of Meal Consumed 100% 100% Urine Appearance Clear Clear Clear Urine Color Dark Willa Dark Willa Dark Yellow Urine Odor Strong Strong # Voids 1 Exam: Constitutional; Afebrile, cooperative, alert, not in distress. Eyes- No icterus, , No periorbital swelling Ears- Ext ear normal, hearing normal to conversation. Neck- Midline trachea, supple Respiratory system: Air Entry equal on both sides, No crackles or wheezing, no rhonchi. CVS- Rate rhythm regular, S1,S2 heard, no gallop, no rub. 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 Right foot, erythema in the right leg much improved, some erythema present on the foot. Medical - PN: Obj Da - Labs CBC & Chem 7: 07/03/18 04:22 07/03/18 04:22 Labs: Abnormal Lab Results 07/03/18 07/03/18 07/03/18 04:22 04:22 04:22 WBC RDW Gran % Lymph % (Auto) Gran # Lymph # (Auto) [place] # (Auto) ESR 72 H Glucose 127 H Calcium 8.5 L Phosphorus AST 88 H ALT 72 H Lactate Dehydrogenase 301 H C-Reactive Protein 25.3 H Total Protein 5.8 L Albumin 2.5 L Albumin/Globulin Ratio 0.8 L 07/03/18 07/02/18 07/02/18 04:22 05:05 05:05 WBC 11.6 H RDW 17.3 H 17.3 H Gran % 78.5 H Lymph % (Auto) 13.9 L 11.5 L Gran # 8.7 H 8.1 H Lymph # (Auto) 1.2 L [place] # (Auto) 1.2 H ESR Glucose 143 H Calcium 8.3 L Phosphorus 2.6 L AST 116 H ALT 72 H Lactate Dehydrogenase 293 H C-Reactive Protein Total Protein Albumin 2.7 L Albumin/Globulin Ratio 0.8 L 07/01/18 07/01/18 07/01/18 04:32 04:32 04:32 WBC RDW 17.5 H Gran % 79.7 H Lymph % (Auto) 11.0 L Gran # 8.8 H Lymph # (Auto) 1.2 L [place] # (Auto) 1.0 H ESR Glucose 137 H Calcium 8.0 L Phosphorus 2.2 L AST 99 H ALT 49 H Lactate Dehydrogenase 252 H C-Reactive Protein 29.2 H Total Protein Albumin 2.9 L Albumin/Globulin Ratio Meds: Medications Acetaminophen (Tylenol) 650 mg PO Q6HP PRN PRN Reason: PAIN/FEVER > 101 Last Admin: 07/03/18 00:46 Dose: 650 mg Documented by: Hydrocodone Bitart/Acetaminophen ([place] 5/325mg) 1 tab PO Q4HP PRN PRN Reason: PAIN LEVEL 3-6 Last Admin: 07/03/18 08:54 Dose: 1 tab Documented by: Albuterol/Ipratropium (Duoneb) 3 ml NEB Q4HRT PRN PRN Reason: Bronchospasm Last Admin: 07/03/18 09:31 Dose: 3 ml Documented by: Albuterol/Ipratropium (Combivent) 1 puff INH QIDP PRN PRN Reason: Blood Sugar - High Amiodarone HCl (Cordarone) 200 mg PO TID [facility] Last Admin: 07/03/18 08:53 Dose: 200 mg Documented by: Apixaban (Eliquis) 5 mg PO BID [facility] Last Admin: 07/03/18 08:53 Dose: 5 mg Documented by: Baclofen (Lioresal) 10 mg PO TID [facility] Last Admin: 07/03/18 08:53 Dose: 10 mg Documented by: Bisoprolol Fumarate (Zebeta) 10 mg PO QDAY [facility] Last Admin: 07/03/18 08:53 Dose: 10 mg Documented by: Collagenase (Santyl Top Oint) 1 dose TOPICAL DAILY [facility] Last Admin: 07/03/18 11:14 Dose: 1 dose Documented by: Diagnostic Test (Pha) (Accu-Chek) 1 each FS ACHS [facility] Last Admin: 07/03/18 11:28 Dose: 1 each Documented by: Docusate Sodium (Colace) 100 mg PO BID [facility] Last Admin: 07/03/18 09:03 Dose: Not Given Documented by: Famotidine (Pepcid) 20 mg PO BID [facility] Last Admin: 07/03/18 08:55 Dose: 20 mg Documented by: Fluticasone Propionate (Flovent Hfa 110mcg) 2 puff INH QDAY [facility] Last Admin: 07/03/18 11:17 Dose: 2 puff Documented by: Gabapentin (Neurontin) 1,200 mg PO TID [facility] Last Admin: 07/03/18 08:53 Dose: 1,200 mg Documented by: Vancomycin HCl 1,500 mg/ (Sodium Chloride) 500 mls @ 166.667 mls/hr IV Q12H [facility] Last Admin: 07/03/18 11:18 Dose: 166.667 mls/hr Documented by: Insulin Glargine (Lantus) 52 unit SQ [facility] Last Admin: 07/02/18 22:55 Dose: 52 units Documented by: Insulin Human Lispro (Humalog) 0 unit SQ [facility]; Protocol Last Admin: 07/03/18 12:16 Dose: 2 units Documented by: Lactobacillus Rhamnosus (Culturelle) 1 cap PO BID [facility] Last Admin: 07/03/18 08:53 Dose: 1 cap Documented by: Lorazepam (Ativan) 1 mg PO TIDP PRN PRN Reason: Anxiety Magnesium Hydroxide (Milk Of Magnesia) 30 ml PO DAILYP PRN PRN Reason: Constipation Methocarbamol (Robaxin) 750 mg PO TIDP PRN PRN Reason: Muscle Spasm Last Admin: 07/03/18 11:14 Dose: 750 mg Documented by: Nitroglycerin (Nitrostat) 0.4 mg SL Q5M PRN PRN Reason: Chest Pain Nystatin (Nystatin) 1 dose TOPICAL BID [facility] Last Admin: 07/03/18 11:15 Dose: 1 dose Documented by: Ondansetron HCl (Zofran) 4 mg IV Q6HP PRN PRN Reason: Nausea And Vomiting Liraglutide [Victoza 2-Josh] 1.2 Mg Injection 1 dose SC DAILY [facility] Last Admin: 07/03/18 11:28 Dose: Not Given Documented by: Prochlorperazine (Compazine) 5 mg IV Q4HP PRN PRN Reason: Nausea And Vomiting Senna (Senokot) 2 tab PO [facility] Last Admin: 07/02/18 22:41 Dose: 2 tab Documented by: Sodium Chloride (Saline Flush) 10 ml IV Q8 [facility] Last Admin: 07/03/18 06:35 Dose: 10 ml Documented by: Spironolactone (Aldactone) 37.5 mg PO DAILY [facility] Last Admin: 07/03/18 08:53 Dose: 37.5 mg Documented by: Vancomycin HCl (Vancomycin Per Pharmacy) 1 order IV UD [facility] Medical - PN: A/P - Time Spent With Patient Total time spent is greater than 50% in coordination of care (as documented) at patient's floor/unit and/or counseling patient: - Narrative A/P Narrative: A: * Diabetic foot ulcer w/infection on the right foot -chronic wound for >6mos -WC growing GNB, MSSA staph *Right lower extremity cellulitis * Sepsis: 2/2 above, * URI: resp viral panel neg * h/o PAF * h/o CHF: appears to be stable. * COPD (2L@night): * MICHELLE on home BiPAP: * DM * HTN: * GERD. * Depression/anxiety: * Chronic low back pain: on baclofen * Tobacco abuse *Abnormal LFT P: -con vanco for now, no cipro as slamonella is likely contaminant. , -await final speciation of salmonella species -trend LFT, stable today -MRI reviewed, . Infectious disease consult in light of salmonella species isolated from wound. -Wound surg consult to continue, need for surgical debridement in light of pus pockets ? -IS -monitor i/o's weights -SSI/levemir, glucose is stable. -Continue home amiodarone and bisoprolol -Smoking cessation counseling -continue home pain medication regime, PT as well as start on methocarbamol to see if this helps with back pain. -ppx: Continue home apixaban /home ppi Medical - PN: Qual - Stroke Symptom Onset Unknown: No - VTE Deep Vein Thrombosis/Pulmonary Embolism Present on Admission: No
[2018-07-03] MEDS: SENNOSIDES 1 TABLET PO SCH (22:04)
[2018-07-03] MEDS: INSULIN GLARGINE, HUMAN 1 UNIT/0.01 ML SQ SCH (22:25)
[2018-07-04] MEDS: 0.9 % SODIUM CHLORIDE 10 ML SYRINGE IV SCH ×2 (03:59→17:52)
[2018-07-04 05:23] LABS: Basophils # (Auto) 0 K/mcL (0.0-0.3); Basophils % (Auto) 0.4 % (0.0-2.0); Eosinophils # (Auto) 0.1 K/mcL (0.0-0.7); Eosinophils % (Auto) 0.7 % (0.0-7.0); Granulocytes % (Auto) 73.7 % (38.0-78.0); Lymphocytes # (Auto) 1.5 K/mcL (1.5-4.8); Lymphocytes % (Auto) 16.1 % (15.5-49.0); Mean Cell Volume 86.1 fL (80.0-100.0); Mean Corpuscular HGB Conc 32.1 g/dL (31.0-36.0); Monocytes # (Auto) 0.9 K/mcL (0.1-0.9); Monocytes % (Auto) 9.1 % (1.0-12.0); Platelet Count 215 K/mcL (140-440); RBC 4.87 M/mcL (4.00-5.20); Red Cell Distribution Width 16.9 % (11.5-14.5)
[2018-07-04 05:59] LABS: ALT/SGPT 77 U/l (0-40); Albumin 2.5 gm/dL (3.2-5.2); Albumin/Globulin Ratio 0.7 (1.0-2.3); Alkaline Phosphatase 71 U/L (39-117); Bilirubin,Direct < 0.2 mg/dL (0.0-0.3); Blood Urea Nitrogen 20 mg/dl (6-20); Gamma Glutamyl Transpeptidase 26 U/L (5-36)
[2018-07-04] MEDS: INSULIN LISPRO 1 UNIT/0.01 ML UNIT SQ SCH ×4 (07:49→20:59)
[2018-07-04] MEDS: SPIRONOLACTONE 25 MG TABLET PO SCH (09:18)
[2018-07-04] MEDS: APIXABAN 5 MG TABLET PO SCH ×2 (09:20→21:00)
[2018-07-04] MEDS: BISOPROLOL 5 MG TABLET PO SCH (09:20)
[2018-07-04] MEDS: BACLOFEN 10 MG TABLET PO SCH ×3 (09:20→21:00)
[2018-07-04] MEDS: GABAPENTIN 400 MG CAPSULE PO SCH ×3 (09:20→21:00)
[2018-07-04] MEDS: FAMOTIDINE 20 MG TABLET PO SCH ×2 (09:20→21:01)
[2018-07-04] MEDS: AMIODARONE HCL 200 MG TABLET PO SCH ×3 (09:20→21:01)
[2018-07-04] MEDS: DOCUSATE SODIUM 100 MG CAPSULE PO SCH ×2 (09:20→21:00)
[2018-07-04] MEDS: LACTOBACILLUS 1 CAPSULE PO SCH ×2 (09:20→21:00)
[2018-07-04] MEDS: LIRAGLUTIDE 1.2 MG SC SCH (09:32)
[2018-07-04] MEDS: HYDROcodone/APAP 5/325MG TABLET PO PRN ×2 (09:37→21:00)
[2018-07-04] MEDS: FLUTICASONE HFA 110MCG INHALER INH SCH (09:38)
[2018-07-04] MEDS: NYSTATIN POWDER BOTTLE 15GM TOPICAL SCH ×2 (09:38→21:01)
[2018-07-04] MEDS: VANCOMYCIN 1,500 MG in 0.9 % SODIUM CHLORIDE 500 ML IV SCH (09:40)
--- NOTE | 2018-07-04 11:15 | Internal Med Progress Note ---
Medical - PN: Subj Patient information: Note initiated : 07/04/18 at 11:13 am Service Date, if different from initiated Date: [] Patient: Jaycee Dias a 58 y/o F admitted on 06/30/18 for general not feeling well. Chief Complaint: [] Interval history: Ms. Dias is a 58 year old F who presents to the ER feeling ill, described as headache fever malaise along with some intermittent shortness of breath with mild cough productive of clear sputum she also has some rhinorrhea. Oxygenation in the ER was low to mid 90s on room air, she uses oxygen at night. Chest x-ray no acute pathology She has a right lower extremity wound where she said previous amputation of the right great toe that has been ongoing since approximately October she was hospitalized in January for infection of the wound. She states that lately the wound has become a little more swollen and red and painful as well as draining more and has become malodorous. She is normally ambulatory with a walker. However she needed assistance today and will was unable to get around on her own independently. In the ED her dressing was changed she was found to be febrile 100.6 and with a lactate of 2.7, blood pressure stable, not tachycardic although she is on a beta-ashley. 06/30 Headaches and had fever last night. Some shortness of breath but was not her on her home BiPAP last night. Has occasional cough. 07/01 Patient seen examined, no acute overnight issues, tolerating po well. MRI foot done, read pending Pt has erythema on the right lower extremity, which is warm to touch, no localized tenderness Pt also has significant fungal infection in the intertrigious region. Remains febrile. 07/02 Patient seen and examined, no acute overnight events. MRI of the foot shows cellulitis around the toe as well as some abscess. Wound care physician tried to aspirate some fluid out today. Send it for culture previous cultures are growing Salmonella species and staph aureus. Patient is on ciprofloxacin and vancomycin as per infectious disease recommendations. Patient still has some fever but the fever curve is getting better. Afebrile this morning The patient complained about back pain starting yesterday radiating down her right leg. She denies any weakness in the legs loss of sensation, or loss of bowel bladder incontinence. 07/03 patient seen examined, no acute overnight issues, pt tolerating po diet well still has intermittent fevers, blood cultures have been positive, but this has been coag negative staph. Cultures from the foot have been staph aureus. I aspirated around 0.3 cc of purulent pus from the right to under the guidance of ultrasound, and send it for cultures today. Gram stain is showing gram- positive cocci in clusters. Patient has been started back on vancomycin by infectious disease, ciprofloxacin has been stopped. Linezolid stopped Total of 4 weeks abx planned, The patient notes that she still has back pain, I distinctly remember her mentioning pain was radiating down the right leg yesterday however she now notes that the pain was radiating down the left leg yesterday and is now moving towards the right side. Will get ESR and CRP, if the patient's bacteremia persists or patient develops any new symptoms we will consider getting an MRI of the lumbar spine to further evaluate this back pain 07/04 Pt seen examined, no acute issues, no more fever, tolerating vancomycni well no new complaints or concerns, still has back pain, but not worsening blood cultures are neg so far Pertinent ROS: Denies headache, dizziness Denies chest pain, palpitations Denies cough or shortness of breath Denies abdominal pain, nausea or vomiting. - Constitutional Vitals: Vital Signs Temp Pulse Resp BP Pulse Ox 98.1 F 57 L 20 102/54 91 07/04/18 07:35 07/04/18 04:15 07/04/18 07:35 07/04/18 07:35 07/04/18 07:35 Period Temp Pulse Resp BP Sys/Abarca Pulse Ox Last 24 Hr 98.1 F-99.3 F 56-65 20-23 98-144/54-76 90-93 Intake and Output 07/03/18 07/04/18 07/04/18 21:59 05:59 13:59 Intake Total 720 1300 360 Output Total 450 1025 Balance 270 275 360 Weight 286 lb Intake & Output: Intake & Output 07/03/18 07/04/18 07/04/18 21:59 05:59 13:59 Intake Total 720 1300 360 Output Total 450 1025 Balance 270 275 360 Weight 286 lb Intake: IV 500 500 Vancomycin 1,500 mg In Sodium 500 500 Chloride 0.9% 500 ml @ 166.667 mls/hr IV Q12H [facility] Rx#: [id number] Oral 220 800 360 Output: Void Amount 450 1025 Other: Meal Dinner Breakfast Percent of Meal Consumed 100% 100% Feeding Ability Independent Urine Appearance Clear Clear Urine Color Light Willa Light Willa Urine Odor Normal Strong Stool Size Moderate Stool Color Brown # Bowel Movements 1 Exam: Constitutional; Afebrile, cooperative, alert, not in distress. Respiratory system: Air Entry equal on both sides, No crackles or wheezing, no rhonchi. CVS- Rate rhythm regular, S1,S2 heard, no gallop, no rub. 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 Right leg in dressing, cellulitis nearly resolved. Medical - PN: Obj Da - Labs CBC & Chem 7: 07/04/18 04:05 07/04/18 04:05 Labs: Abnormal Lab Results 07/04/18 07/04/18 07/03/18 04:05 04:05 04:22 WBC RDW 16.9 H Gran % Lymph % (Auto) Gran # Lymph # (Auto) [place] # (Auto) ESR Glucose 121 H Calcium 8.1 L Phosphorus AST 71 H ALT 77 H Lactate Dehydrogenase 325 H C-Reactive Protein 25.3 H Total Protein Albumin 2.5 L Albumin/Globulin Ratio 0.7 L 07/03/18 07/03/18 07/03/18 04:22 04:22 04:22 WBC 11.6 H RDW 17.3 H Gran % Lymph % (Auto) 13.9 L Gran # 8.7 H Lymph # (Auto) [place] # (Auto) 1.2 H ESR 72 H Glucose 127 H Calcium 8.5 L Phosphorus AST 88 H ALT 72 H Lactate Dehydrogenase 301 H C-Reactive Protein Total Protein 5.8 L Albumin 2.5 L Albumin/Globulin Ratio 0.8 L 07/02/18 07/02/18 05:05 05:05 WBC RDW 17.3 H Gran % 78.5 H Lymph % (Auto) 11.5 L Gran # 8.1 H Lymph # (Auto) 1.2 L [place] # (Auto) ESR Glucose 143 H Calcium 8.3 L Phosphorus 2.6 L AST 116 H ALT 72 H Lactate Dehydrogenase 293 H C-Reactive Protein Total Protein Albumin 2.7 L Albumin/Globulin Ratio 0.8 L Meds: Medications Acetaminophen (Tylenol) 650 mg PO Q6HP PRN PRN Reason: PAIN/FEVER > 101 Last Admin: 07/03/18 17:00 Dose: 650 mg Documented by: Hydrocodone Bitart/Acetaminophen ([place] 5/325mg) 1 tab PO Q4HP PRN PRN Reason: PAIN LEVEL 3-6 Last Admin: 07/04/18 09:37 Dose: 1 tab Documented by: Albuterol/Ipratropium (Duoneb) 3 ml NEB Q4HRT PRN PRN Reason: Bronchospasm Last Admin: 07/03/18 09:31 Dose: 3 ml Documented by: Albuterol/Ipratropium (Combivent) 1 puff INH QIDP PRN PRN Reason: Blood Sugar - High Amiodarone HCl (Cordarone) 200 mg PO TID [facility] Last Admin: 07/04/18 09:20 Dose: 200 mg Documented by: Apixaban (Eliquis) 5 mg PO BID [facility] Last Admin: 07/04/18 09:20 Dose: 5 mg Documented by: Baclofen (Lioresal) 10 mg PO TID [facility] Last Admin: 07/04/18 09:20 Dose: 10 mg Documented by: Bisoprolol Fumarate (Zebeta) 10 mg PO QDAY [facility] Last Admin: 07/04/18 09:20 Dose: 10 mg Documented by: Collagenase (Santyl Top Oint) 1 dose TOPICAL DAILY [facility] Last Admin: 07/03/18 11:14 Dose: 1 dose Documented by: Diagnostic Test (Pha) (Accu-Chek) 1 each FS ACHS [facility] Last Admin: 07/04/18 07:49 Dose: 1 each Documented by: Docusate Sodium (Colace) 100 mg PO BID [facility] Last Admin: 07/04/18 09:20 Dose: 100 mg Documented by: Famotidine (Pepcid) 20 mg PO BID [facility] Last Admin: 07/04/18 09:20 Dose: 20 mg Documented by: Fluticasone Propionate (Flovent Hfa 110mcg) 2 puff INH QDAY [facility] Last Admin: 07/04/18 09:38 Dose: 2 puff Documented by: Gabapentin (Neurontin) 1,200 mg PO TID [facility] Last Admin: 07/04/18 09:20 Dose: 1,200 mg Documented by: Vancomycin HCl 1,500 mg/ (Sodium Chloride) 500 mls @ 166.667 mls/hr IV Q12H [facility] Last Admin: 07/04/18 09:40 Dose: 166 mls/hr Documented by: Insulin Glargine (Lantus) 52 unit SQ [facility] Last Admin: 07/03/18 22:25 Dose: 52 units Documented by: Insulin Human Lispro (Humalog) 0 unit SQ [facility]; Protocol Last Admin: 07/04/18 07:49 Dose: Not Given Documented by: Lactobacillus Rhamnosus (Culturelle) 1 cap PO BID [facility] Last Admin: 07/04/18 09:20 Dose: 1 cap Documented by: Lorazepam (Ativan) 1 mg PO TIDP PRN PRN Reason: Anxiety Magnesium Hydroxide (Milk Of Magnesia) 30 ml PO DAILYP PRN PRN Reason: Constipation Methocarbamol (Robaxin) 750 mg PO TIDP PRN PRN Reason: Muscle Spasm Last Admin: 07/03/18 11:14 Dose: 750 mg Documented by: Nitroglycerin (Nitrostat) 0.4 mg SL Q5M PRN PRN Reason: Chest Pain Nystatin (Nystatin) 1 dose TOPICAL BID [facility] Last Admin: 07/04/18 09:38 Dose: 1 dose Documented by: Ondansetron HCl (Zofran) 4 mg IV Q6HP PRN PRN Reason: Nausea And Vomiting Liraglutide [[place]ict[place] 2-Josh] 1.2 Mg Injection 1 dose SC DAILY [facility] Last Admin: 07/04/18 09:32 Dose: 1 dose Documented by: Prochlorperazine (Compazine) 5 mg IV Q4HP PRN PRN Reason: Nausea And Vomiting Senna (Senokot) 2 tab PO [facility] Last Admin: 07/03/18 22:04 Dose: Not Given Documented by: Sodium Chloride (Saline Flush) 10 ml IV Q8 [facility] Last Admin: 07/04/18 03:59 Dose: Not Given Documented by: Spironolactone (Aldactone) 37.5 mg PO DAILY [facility] Last Admin: 07/04/18 09:18 Dose: 37.5 mg Documented by: Vancomycin HCl (Vancomycin Per Pharmacy) 1 order IV [facility] Medical - PN: A/P - Time Spent With Patient Total time spent is greater than 50% in coordination of care (as documented) at patient's floor/unit and/or counseling patient: - Narrative A/P Narrative: A: * Diabetic foot ulcer w/infection on the right foot -chronic wound for >6mos -WC growing GNB, MSSA staph *Right lower extremity cellulitis * Sepsis: 2/2 above, * URI: resp viral panel neg * h/o PAF * h/o CHF: appears to be stable. * COPD (2L@night): * MICHELLE on home BiPAP: * DM * HTN: * GERD. * Depression/anxiety: * Chronic low back pain: on baclofen * Tobacco abuse *Abnormal LFT P: -con vanco for now, no cipro as slamonella is likely contaminant. , -await final speciation of salmonella species -trend LFT, stable today -MRI reviewed, . Infectious disease consult in light of salmonella species isolated from wound -Wound surg consult to continue, need for surgical debridement in light of pus pockets ? -IS -monitor i/o's weights -SSI/levemir, glucose is stable. -Continue home amiodarone and bisoprolol -Smoking cessation counseling -continue home pain medication regime, PT as well as start on methocarbamol to see if this helps with back pain. -ppx: Continue home apixaban /home ppi Anticipate d/c SNF in AM with oral antibiotics if pt remains stable. Medical - PN: Qual - Stroke Symptom Onset Unknown: No - VTE Deep Vein Thrombosis/Pulmonary Embolism Present on Admission: No
[2018-07-04] MEDS: COLLAGENASE TOP OINT TUBE 30GM TOPICAL SCH (12:05)
--- NOTE | 2018-07-04 13:43 | Discharge Summary ---
Medical - DS: Prov Patient information: Note initiated : 07/04/18 at 1:40 pm Service Date, if different from initiated Date: [] Patient: Jaycee Dias 58 y/o F admitted on 06/30/18 for general not feeling well. Chief Complaint: [] Date of admission: 06/30/18 01:39 Discharge date: 07/05/18 Primary care physician: MAYRA Oden Consults: 06/29/18 Consult to Physician [CONS] Stat Comment: Consulting Provider: Oscar Gilmore Reason For Exam: Physician to Consult 06/30/18 01:50 Consult to Physician [CONS] Routine Comment: Consulting Provider: Serge Marquez Reason For Exam: Physician to Consult 07/01/18 15:27 Consult to Physician [CONS] Routine Comment: salmonella infection, wound Consulting Provider: Leonardo Woodward Reason For Exam: Physician to Consult Medical - DS: Meds - Discharge Medications Prescriptions: Linezolid [Zyvox] 600 mg PO Q12 #52 tab Active and Home Medications: Home Medications Amiodarone HCl [Cordarone] 200 mg PO TID 01/21/18 [History Confirmed 06/30/18 Last Taken 06/29/18 11:00] Apixaban [Eliquis] 5 mg PO BID 01/21/18 [History Confirmed 06/30/18 Last Taken 06/29/18 11:00] Baclofen [Lioresal] 10 mg PO TID 01/21/18 [History Confirmed 06/30/18 Last Taken 06/29/18 11:00] Bisoprolol Fumarate 10 mg PO QDAY 01/21/18 [History Confirmed 06/30/18 Last Taken 06/28/18 22:00] Ergocalciferol (Vitamin D2) [Vitamin D2] 50,000 unit PO WEEKLY 01/21/18 [History Confirmed 06/30/18 Last Taken 06/28/18 11:00] Fluticasone Hfa 110Mcg [Flovent Hfa 110Mcg] 2 puff INH QDAY 01/21/18 [History Confirmed 06/30/18 Last Taken 06/29/18 11:00] Furosemide [Lasix] 40 mg PO BID 01/21/18 [History Confirmed 06/30/18 Last Taken 06/29/18 11:00] Gabapentin [Gralise] 1,200 mg PO TID 01/21/18 [History Confirmed 06/30/18 Last Taken 06/29/18 11:00] Insulin Aspart [Novolog] 100 unit SQ ACHS 01/21/18 [History Confirmed 06/30/18 Last Taken 01/21/18 09:00] Insulin Detemir [Levemir] 52 unit SQ HS 01/21/18 [History Confirmed 06/30/18 Last Taken 06/28/18 22:00] Ipratropium/Albuterol Sulfate [Combivent] 1 puff INH QIDP PRN 01/21/18 [History Confirmed 06/30/18 Last Taken 06/29/18 11:00] Liraglutide [Victoza 2-Josh] 1.2 mg SC DAILY 01/21/18 [History Confirmed 06/30/18 Last Taken 06/29/18 11:00] Nitroglycerin [Nitrostat] 0.4 mg SL Q5M PRN 01/21/18 [History Confirmed 06/30/18 Last Taken Unknown] Omeprazole 20 mg PO DAILY 01/21/18 [History Confirmed 06/30/18 Last Taken 06/29/18 11:00] Spironolactone [Aldactone] 37.5 mg PO DAILY 01/21/18 [History Confirmed 06/30/18 Last Taken 06/29/18 11:00] traMADol [Ultram] 50 - 100 mg PO QID 01/21/18 [History Confirmed 06/30/18 Last Taken 06/29/18 11:00] Lactobacillus [Culturelle] 1 cap PO BID #60 cap 01/23/18 [Rx Confirmed 06/30/18 Last Taken 06/29/18 11:00] LORazepam [Ativan] 1 mg PO TIDP PRN 06/30/18 [History Confirmed 06/30/18 Last Taken 06/29/18 11:00] Ranitidine HCl [Heartburn Relief] 150 mg PO BID 06/30/18 [History Confirmed 06/30/18 Last Taken 06/29/18 11:00] Varenicline Tartrate [Chantix] 0.5 mg PO BID 06/30/18 [History Confirmed 06/30/18 Last Taken 06/29/18 11:00] metFORMIN [Glucophage] 500 mg PO BIDCC 06/30/18 [History Confirmed 06/30/18 Last Taken 06/29/18 11:00] Medical - DS: Hosp Hospital course: Mr. Dias is a 58 year old F Ms. Dias is a 58 year old F who presents to the ER feeling ill, described as headache fever malaise along with some intermittent shortness of breath with mild cough productive of clear sputum she also has some rhinorrhea. Oxygenation in the ER was low to mid 90s on room air, she uses oxygen at night. Chest x-ray no acute pathology She has a right lower extremity wound where she said previous amputation of the right great toe that has been ongoing since approximately October she was hospitalized in January for infection of the wound. She states that lately the wound has become a little more swollen and red and painful as well as draining more and has become malodorous. She is normally ambulatory with a walker. However she needed assistance today and will was unable to get around on her own independently. In the ED her dressing was changed she was found to be febrile 100.6 and with a lactate of 2.7, blood pressure stable, not tachycardic although she is on a beta-ashley. 06/30 Headaches and had fever last night. Some shortness of breath but was not her on her home BiPAP last night. Has occasional cough. 07/01 Patient seen examined, no acute overnight issues, tolerating po well. MRI foot done, read pending Pt has erythema on the right lower extremity, which is warm to touch, no localized tenderness Pt also has significant fungal infection in the intertrigious region. Remains febrile. 07/02 Patient seen and examined, no acute overnight events. MRI of the foot shows cellulitis around the toe as well as some abscess. Wound care physician tried to aspirate some fluid out today. Send it for culture previous cultures are growing Salmonella species and staph aureus. Patient is on ciprofloxacin and vancomycin as per infectious disease recommendations. Patient still has some fever but the fever curve is getting better. Afebrile this morning The patient complained about back pain starting yesterday radiating down her right leg. She denies any weakness in the legs loss of sensation, or loss of bowel bladder incontinence. 07/03 patient seen examined, no acute overnight issues, pt tolerating po diet well still has intermittent fevers, blood cultures have been positive, but this has been coag negative staph. Cultures from the foot have been staph aureus. I aspirated around 0.3 cc of purulent pus from the right to under the guidance of ultrasound, and send it for cultures today. Gram stain is showing gram- positive cocci in clusters. Patient has been started back on vancomycin by infectious disease, ciprofloxacin has been stopped. Linezolid stopped Total of 4 weeks abx planned, The patient notes that she still has back pain, I distinctly remember her mentioning pain was radiating down the right leg yesterday however she now notes that the pain was radiating down the left leg yesterday and is now moving towards the right side. Will get ESR and CRP, if the patient's bacteremia persists or patient develops any new symptoms we will consider getting an MRI of the lumbar spine to further evaluate this back pain 07/04 Pt seen examined, no acute issues, no more fever, tolerating vancomycni well no new complaints or concerns, still has back pain, but not worsening blood cultures are neg so far 07/05 No issues overnight more energy this morning. Stable for discharge Discharge diagnosis: Diabetic foot ulcer with infection and abscessCellulitisSepsis URI Secondary discharge diagnosis: History of PAF CHF COPD obstructive sleep apnea diabetes hypertension GERD depression anxiety chronic low back pain tobacco - Time Spent with Patient Total time spent providing and/or coordinating discharge services: Greater than 30 minutes Medical - DS: Exam - Constitutional Vitals: Vital Signs Temp Pulse Pulse Resp BP Pulse Ox 07/04/18 11:34 97.5 F 16 104/61 92 07/04/18 07:35 98.1 F 20 102/54 91 07/04/18 04:15 98.3 F 57 L 20 98/55 93 07/03/18 23:25 99.0 F 58 L 20 124/75 90 07/03/18 18:33 98.1 F 56 L 20 111/67 92 07/03/18 17:56 99.3 F H 07/03/18 15:08 98.1 F 62 20 128/70 91 07/03/18 14:18 60 07/03/18 14:08 98.4 F 65 23 H 138/76 93 Intake and Output 07/03/18 07/04/18 07/04/18 21:59 05:59 13:59 Intake Total 720 1300 360 Output Total 450 1025 Balance 270 275 360 Intake: IV 500 500 Vancomycin 1,500 mg In Sodium 500 500 Chloride 0.9% 500 ml @ 166.667 mls/hr IV Q12H [facility] Rx#: [id number] Oral 220 800 360 Output: Void Amount 450 1025 Other: Meal Dinner Breakfast Percent of Meal Consumed 100% 100% Feeding Ability Independent Urine Appearance Clear Clear Urine Color Light Willa Light Willa Urine Odor Normal Strong Stool Size Moderate Large Stool Color Brown Brown Stool Consistency Formed # Bowel Movements 1 1 # of times incontinent of 0 Bowels Weight 129.727 kg Medical - DS: Data Labs on day of discharge: Labs from last 24 hours 07/04/18 07/04/18 07/04/18 07:56 04:05 04:05 WBC 9.3 RBC 4.87 Hgb 13.5 Hct 41.9 MCV 86.1 MCH 27.6 MCHC 32.1 RDW 16.9 H Plt Count 215 MPV 9.1 Gran % 73.7 Lymph % (Auto) 16.1 Randolph % (Auto) 9.1 Eos % (Auto) 0.7 Baso % (Auto) 0.4 Gran # 6.9 Lymph # (Auto) 1.5 Randolph # (Auto) 0.9 Eos # (Auto) 0.1 Baso # (Auto) 0 Sodium 134 Potassium 4.4 Chloride 99 Carbon Dioxide 24 Anion Gap 11.0 BUN 20 Creatinine 0.7 GFR Calculation 95 Glucose 121 H Uric Acid 3.0 Calcium 8.1 L Phosphorus 3.5 Magnesium 2.1 Total Bilirubin 0.5 Direct Bilirubin < 0.2 GGT 26 AST 71 H ALT 77 H Alkaline Phosphatase 71 Lactate Dehydrogenase 325 H Total Protein 5.9 Albumin 2.5 L Globulin 3.4 Albumin/Globulin Ratio 0.7 L Triglycerides 140 Vancomycin Trough 8.4 Preliminary micro results at discharge 07/03/18 09:56 Abscess Culture - Preliminary Foot - Right Staphylococcus aureus 07/02/18 08:26 Wound Culture - Preliminary Foot - Right Staphylococcus aureus 07/03/18 08:42 Blood Culture - Preliminary Blood 07/03/18 08:50 Blood Culture - Preliminary Blood 06/29/18 22:19 Blood Culture - Preliminary Blood 06/29/18 22:13 Blood Culture - Preliminary Blood 07/01/18 17:32 Blood Culture - Preliminary Blood 06/29/18 22:13 Wound Culture - Preliminary Foot - Right Salmonella species Staphylococcus aureus 07/01/18 17:13 Blood Culture - Preliminary Blood Gram positive cocci Medical - DS: A/P - Patient/Caregiver Discharge Instructions Activity: as per physical therapy Diet: Consistent Carbohydrate Additional Instructions: HHC for wound check, nursing needs, pt/ot Prescriptions: Linezolid [Zyvox] 600 mg PO Q12 #52 tab - Follow up Plan Follow up with: Serge Marquez MD [Physician] - Rossy Haines ARNP [Primary Care Provider] - Leonardo Woodward MD [Physician] - Disposition: Home Health Service Prognosis: Fair Rehab Potential: Fair Medical - DS: Qual - VTE Deep Vein Thrombosis/Pulmonary Embolism Present on Admission: No
--- NOTE | 2018-07-04 17:22 | Infectious Disease Prog Note ---
Subjective Patient information: Note initiated : 07/04/18 at 5:16 pm Service Date, if different from initiated Date: [] Patient: Jaycee Dias 58 y/o F admitted on 06/30/18 for general not feeling well. Chief Complaint: [] Interval history: Pt is doing better than yesterday. Feels her foot pain is better, around 5/10. Denied any fever, chills, n/v, diarrhea. Shared with her the plan to do oral antibiotics for 4 weeks and ID f/u in clinic. Objective Objective Narrative: ao x 3, in nad no thrush chest cta except at bases with decreased BS s1 s2 normal bs ++ nttd Rt foot wrapped in dressing - Vital Signs Vital signs: Vital Signs Temp Pulse Resp BP Pulse Ox 07/04/18 15:41 36.6 C 20 118/66 90 07/04/18 11:34 36.4 C 16 104/61 92 07/04/18 07:35 36.7 C 20 102/54 91 07/04/18 04:15 36.8 C 57 L 20 98/55 93 07/03/18 23:25 37.2 C 58 L 20 124/75 90 07/03/18 18:33 36.7 C 56 L 20 111/67 92 07/03/18 17:56 37.4 C H Intake and Output 07/04/18 07/04/18 07/04/18 05:59 13:59 21:59 Intake Total 1300 860 600 Output Total 1025 Balance 275 860 600 Intake: IV 500 500 Vancomycin 1,500 mg In Sodium 500 500 Chloride 0.9% 500 ml @ 166.667 mls/hr IV Q12H YING Rx#: [id number] Oral 800 360 600 Output: Void Amount 1025 Other: Meal Breakfast Percent of Meal Consumed 100% Feeding Ability Independent Urine Appearance Clear Urine Color Light Willa Urine Odor Strong Stool Size Large Stool Color Brown Stool Consistency Formed # Bowel Movements 1 # of times incontinent of 0 Bowels Intake & Output: Intake & Output 07/04/18 07/04/18 07/04/18 05:59 13:59 21:59 Intake Total 1300 860 600 Output Total 1025 Balance 275 860 600 Intake: IV 500 500 Vancomycin 1,500 mg In Sodium 500 500 Chloride 0.9% 500 ml @ 166.667 mls/hr IV Q12H YING Rx#: [id number] Oral 800 360 600 Output: Void Amount 1025 Other: Meal Breakfast Percent of Meal Consumed 100% Feeding Ability Independent Urine Appearance Clear Urine Color Light Willa Urine Odor Strong Stool Size Large Stool Color Brown Stool Consistency Formed # Bowel Movements 1 # of times incontinent of 0 Bowels - Lab 07/04/18 04:05 07/04/18 04:05 Most recent lab results Calcium 8.1 mg/dl (8.6-10.4) L 07/04/18 04:05 Phosphorus 3.5 mg/dL (2.7-4.5) 07/04/18 04:05 Magnesium 2.1 mg/dL (1.6-2.5) 07/04/18 04:05 Microbiology 07/03/18 09:56 Foot - Right Gram Stain - Final 07/03/18 09:56 Foot - Right Abscess Culture - Preliminary Staphylococcus aureus 07/02/18 08:26 Foot - Right Gram Stain - Final 07/02/18 08:26 Foot - Right Wound Culture - Preliminary Staphylococcus aureus 07/03/18 08:42 Blood Blood Culture - Preliminary 07/03/18 08:50 Blood Blood Culture - Preliminary 06/29/18 22:19 Blood Blood Culture - Preliminary 06/29/18 22:13 Blood Blood Culture - Preliminary 07/01/18 17:32 Blood Blood Culture - Preliminary 06/29/18 22:13 Foot - Right Gram Stain - Final 06/29/18 22:13 Foot - Right Wound Culture - Preliminary Salmonella species Staphylococcus aureus 07/01/18 17:13 Blood Blood Culture - Preliminary Gram positive cocci 06/30/18 04:00 Nasopharynx Respiratory Virus Panel (PCR) - Final 06/30/18 04:00 Nasopharynx Respiratory Panel (PCR) - Final 06/30/18 03:48 Nose MRSA (PCR) - Final Medications Active Medications: Acetaminophen (Tylenol) 650 mg PO Q6HP PRN PRN Reason: PAIN/FEVER > 101 Last Admin: 07/03/18 17:00 Dose: 650 mg Documented by: [email or web address] Admin: 07/03/18 00:46 Dose: 650 mg Documented by: Admin: 07/02/18 16:05 Dose: 650 mg Documented by: Admin: 07/01/18 23:34 Dose: 650 mg Documented by: Admin: 07/01/18 16:34 Dose: 650 mg Documented by: Admin: 06/30/18 08:02 Dose: 650 mg Documented by: DORIAN Hydrocodone Bitart/Acetaminophen ([place] 5/325mg) 1 tab PO Q4HP PRN PRN Reason: PAIN LEVEL 3-6 Last Admin: 07/04/18 09:37 Dose: 1 tab Documented by: Admin: 07/03/18 22:09 Dose: 1 tab Documented by: Admin: 07/03/18 14:17 Dose: 1 tab Documented by: Admin: 07/03/18 08:54 Dose: 1 tab Documented by: Admin: 07/02/18 19:45 Dose: 1 tab Documented by: Admin: 07/02/18 12:05 Dose: 1 tab Documented by: Admin: 07/02/18 07:14 Dose: 1 tab Documented by: Admin: 07/01/18 20:24 Dose: 1 tab Documented by: Admin: 07/01/18 14:25 Dose: 1 tab Documented by: Admin: 06/30/18 16:51 Dose: 1 tab Documented by: DORIAN Albuterol/Ipratropium (Duoneb) 3 ml NEB Q4HRT PRN PRN Reason: Bronchospasm Last Admin: 07/03/18 09:31 Dose: 3 ml Documented by: MARION Albuterol/Ipratropium (Combivent) 1 puff INH QIDP PRN PRN Reason: Blood Sugar - High Amiodarone HCl (Cordarone) 200 mg PO TID YING Last Admin: 07/04/18 09:20 Dose: 200 mg Documented by: Admin: 07/03/18 22:10 Dose: 200 mg Documented by: Admin: 07/03/18 14:17 Dose: 200 mg Documented by: Admin: 07/03/18 08:53 Dose: 200 mg Documented by: DARONLynette Admin: 07/02/18 22:38 Dose: 200 mg Documented by: Admin: 07/02/18 16:05 Dose: 200 mg Documented by: [facility] Admin: 07/02/18 08:25 Dose: 200 mg Documented by: Admin: 07/01/18 20:23 Dose: 200 mg Documented by: Admin: 07/01/18 14:25 Dose: 200 mg Documented by: Admin: 07/01/18 08:16 Dose: 200 mg Documented by: Admin: 06/30/18 22:37 Dose: 200 mg Documented by: Admin: 06/30/18 14:40 Dose: 200 mg Documented by: Admin: 06/30/18 09:43 Dose: 200 mg Documented by: DORIAN Apixaban (Eliquis) 5 mg PO BID [facility] Admin: 07/04/18 09:20 Dose: 5 mg Documented by: Admin: 07/03/18 22:09 Dose: 5 mg Documented by: Admin: 07/03/18 08:53 Dose: 5 mg Documented by: Admin: 07/02/18 22:38 Dose: 5 mg Documented by: Admin: 07/02/18 08:25 Dose: 5 mg Documented by: Admin: 07/01/18 20:23 Dose: 5 mg Documented by: Admin: 07/01/18 08:16 Dose: 5 mg Documented by: Admin: 06/30/18 22:37 Dose: 5 mg Documented by: Admin: 06/30/18 09:43 Dose: 5 mg Documented by: DORIAN Baclofen (Lioresal) 10 mg PO TID [facility] Admin: 07/04/18 09:20 Dose: 10 mg Documented by: Admin: 07/03/18 22:09 Dose: 10 mg Documented by: Admin: 07/03/18 14:17 Dose: 10 mg Documented by: Admin: 07/03/18 08:53 Dose: 10 mg Documented by: DARONLynette Admin: 07/02/18 22:38 Dose: 10 mg Documented by: Admin: 07/02/18 16:05 Dose: 10 mg Documented by: DARONLynette Admin: 07/02/18 08:24 Dose: 10 mg Documented by: Admin: 07/01/18 20:23 Dose: 10 mg Documented by: Admin: 07/01/18 14:25 Dose: 10 mg Documented by: Admin: 07/01/18 08:17 Dose: 10 mg Documented by: Admin: 06/30/18 22:37 Dose: 10 mg Documented by: Admin: 06/30/18 14:40 Dose: 10 mg Documented by: Admin: 06/30/18 09:44 Dose: 10 mg Documented by: DORIAN Bisoprolol Fumarate (Zebeta) 10 mg PO QDAY [facility] Admin: 07/04/18 09:20 Dose: 10 mg Documented by: Admin: 07/03/18 08:53 Dose: 10 mg Documented by: Admin: 07/02/18 08:25 Dose: 10 mg Documented by: Admin: 07/01/18 08:22 Dose: 10 mg Documented by: Admin: 06/30/18 10:41 Dose: Not Given Documented by: DORIAN Non-Admin Reason: Clinical Judgement Collagenase (Santyl Top Oint) 1 dose TOPICAL DAILY [facility] Admin: 07/04/18 12:05 Dose: 1 dose Documented by: Admin: 07/03/18 11:14 Dose: 1 dose Documented by: DILLON Comments: given late due to md wanting to see wound Admin: 07/02/18 08:25 Dose: 1 dose Documented by: Admin: 07/01/18 12:00 Dose: 1 dose Documented by: DORIAN Diagnostic Test (Pha) (Accu-Chek) 1 each FS ACHS [facility] Admin: 07/04/18 12:05 Dose: 1 each Documented by: Admin: 07/04/18 07:49 Dose: 1 each Documented by: Admin: 07/03/18 22:14 Dose: 1 each Documented by: Admin: 07/03/18 16:55 Dose: 1 each Documented by: Admin: 07/03/18 11:28 Dose: 1 each Documented by: Admin: 07/03/18 07:36 Dose: 1 each Documented by: Admin: 07/02/18 22:43 Dose: 1 each Documented by: Admin: 07/02/18 16:48 Dose: 1 each Documented by: Admin: 07/02/18 12:04 Dose: 1 each Documented by: JESSIE Cosigned by: DILLON Admin: 07/02/18 06:28 Dose: 1 each Documented by: Admin: 07/01/18 20:26 Dose: 1 each Documented by: Admin: 07/01/18 16:32 Dose: 1 each Documented by: Admin: 07/01/18 11:58 Dose: 1 each Documented by: Admin: 07/01/18 07:26 Dose: 1 each Documented by: Admin: 06/30/18 23:08 Dose: 1 each Documented by: SARAY Docusate Sodium (Colace) 100 mg PO BID Critical [facility] hospital Admin: 07/04/18 09:20 Dose: 100 mg Documented by: Admin: 07/03/18 22:04 Dose: Not Given Documented by: CAROLINA Non-Admin Reason: Patient Request Admin: 07/03/18 09:03 Dose: Not Given Documented by: DILLON Non-Admin Reason: Patient Refused Admin: 07/02/18 22:38 Dose: 100 mg Documented by: Admin: 07/02/18 08:26 Dose: Not Given Documented by: DILLON Non-Admin Reason: Patient Refused Admin: 07/01/18 20:24 Dose: Not Given Documented by: CAROLINA Non-Admin Reason: Patient Request Admin: 07/01/18 08:19 Dose: Not Given Documented by: DORIAN Non-Admin Reason: Patient Refused Admin: 06/30/18 22:37 Dose: 100 mg Documented by: Admin: 06/30/18 09:45 Dose: 100 mg Documented by: DORIAN Famotidine (Pepcid) 20 mg PO BID [facility] Last Admin: 07/04/18 09:20 Dose: 20 mg Documented by: Admin: 07/03/18 22:10 Dose: 20 mg Documented by: Admin: 07/03/18 08:55 Dose: 20 mg Documented by: Admin: 07/02/18 22:38 Dose: 20 mg Documented by: Admin: 07/02/18 08:25 Dose: 20 mg Documented by: Admin: 07/01/18 20:23 Dose: 20 mg Documented by: Admin: 07/01/18 08:16 Dose: 20 mg Documented by: Admin: 06/30/18 22:37 Dose: 20 mg Documented by: Admin: 06/30/18 09:43 Dose: 20 mg Documented by: DORIAN Fluticasone Propionate (Flovent Hfa 110mcg) 2 puff INH QDAY [facility] Admin: 07/04/18 09:38 Dose: 2 puff Documented by: Admin: 07/03/18 11:17 Dose: 2 puff Documented by: Admin: 07/02/18 10:59 Dose: Not Given Documented by: DILLON Non-Admin Reason: Unavailable Admin: 07/01/18 08:17 Dose: Not Given Documented by: DORIAN Non-Admin Reason: Unavailable Admin: 06/30/18 09:53 Dose: Not Given Documented by: DORIAN Non-Admin Reason: Unavailable Gabapentin (Neurontin) 1,200 mg PO TID [facility] hospital Admin: 07/04/18 09:20 Dose: 1,200 mg Documented by: Admin: 07/03/18 22:10 Dose: 1,200 mg Documented by: Admin: 07/03/18 14:17 Dose: 1,200 mg Documented by: Admin: 07/03/18 08:53 Dose: 1,200 mg Documented by: Admin: 07/02/18 22:38 Dose: 1,200 mg Documented by: Admin: 07/02/18 16:05 Dose: 1,200 mg Documented by: Brice Admin: 07/02/18 08:23 Dose: 1,200 mg Documented by: Admin: 07/01/18 20:50 Dose: 1,200 mg Documented by: Admin: 07/01/18 14:25 Dose: 1,200 mg Documented by: Admin: 07/01/18 08:16 Dose: 1,200 mg Documented by: Admin: 06/30/18 22:37 Dose: 1,200 mg Documented by: Admin: 06/30/18 14:40 Dose: 1,200 mg Documented by: Admin: 06/30/18 09:41 Dose: 1,200 mg Documented by: DORIAN Vancomycin HCl 1,500 mg/ (Sodium Chloride) 500 mls @ 166.667 mls/hr IV Q12H [facility] Last Infusion: 07/04/18 13:00 Dose: 0 mls/hr Documented by: Admin: 07/04/18 09:40 Dose: 166 mls/hr Documented by: Infusion: 07/04/18 01:45 Dose: 0 mls/hr Documented by: Admin: 07/03/18 22:08 Dose: 150 mls/hr Documented by: Infusion: 07/03/18 14:44 Dose: 0 mls/hr Documented by: Admin: 07/03/18 11:18 Dose: 166.667 mls/hr Documented by: DILLON Insulin Glargine (Lantus) 52 unit SQ [facility] Last Admin: 07/03/18 22:25 Dose: 52 units Documented by: Admin: 07/02/18 22:55 Dose: 52 units Documented by: Admin: 07/01/18 20:50 Dose: 52 units Documented by: Admin: 06/30/18 23:09 Dose: 52 units Documented by: SARAY Insulin Human Lispro (Humalog) 0 unit SQ [facility]; Protocol Last Admin: 07/04/18 12:05 Dose: Not Given Documented by: SANG Non-Admin Reason: No Coverage Needed Admin: 07/04/18 07:49 Dose: Not Given Documented by: SANG Non-Admin Reason: No Coverage Needed Admin: 07/03/18 22:14 Dose: Not Given Documented by: CAROLINA Non-Admin Reason: No Coverage Needed Admin: 07/03/18 17:00 Dose: 2 units Documented by: Admin: 07/03/18 12:16 Dose: 2 units Documented by: Admin: 07/03/18 07:36 Dose: Not Given Documented by: DILLON Non-Admin Reason: No Coverage Needed Admin: 07/02/18 22:55 Dose: 2 units Documented by: Admin: 07/02/18 17:02 Dose: 2 units Documented by: Admin: 07/02/18 12:05 Dose: 2 units Documented by: DARONLynette Admin: 07/02/18 06:42 Dose: Not Given [facility]: No Coverage Needed Admin: 07/01/18 20:50 Dose: 2 units Documented by: Admin: 07/01/18 17:14 Dose: 2 units Documented by: Admin: 07/01/18 12:26 Dose: 2 units Documented by: Admin: 07/01/18 07:27 Dose: Not Given Documented by: DORIAN Non-Admin Reason: No Coverage Needed Admin: 06/30/18 23:08 Dose: 2 units Documented by: Admin: 06/30/18 16:51 Dose: Not Given Documented by: DORIAN Non-Admin Reason: No Coverage Needed Comments: 134 blood sugar Admin: 06/30/18 12:05 Dose: 4 units Documented by: Admin: 06/30/18 07:50 Dose: Not Given Documented by: DORIAN Non-Admin Reason: No Coverage Needed Lactobacillus Rhamnosus (Culturelle) 1 cap PO BID [facility] Last Admin: 07/04/18 09:20 Dose: 1 cap Documented by: Admin: 07/03/18 22:10 Dose: 1 cap Documented by: Admin: 07/03/18 08:53 Dose: 1 cap Documented by: Admin: 07/02/18 22:55 Dose: 1 cap Documented by: Admin: 07/02/18 08:23 Dose: 1 cap Documented by: Brice Admin: 07/01/18 20:23 Dose: 1 cap Documented by: Admin: 07/01/18 08:16 Dose: 1 cap Documented by: Admin: 06/30/18 22:37 Dose: 1 cap Documented by: Admin: 06/30/18 09:45 Dose: 1 cap Documented by: DORIAN Lorazepam (Ativan) 1 mg PO TIDP PRN PRN Reason: Anxiety Magnesium Hydroxide (Milk Of Magnesia) 30 ml PO DAILYP PRN PRN Reason: Constipation Methocarbamol (Robaxin) 750 mg PO TIDP PRN PRN Reason: Muscle Spasm Last Admin: 07/03/18 11:14 Dose: 750 mg Documented by: Admin: 07/02/18 19:45 Dose: 750 mg Documented by: Admin: 07/02/18 13:26 Dose: 750 mg Documented by: DILLON Nitroglycerin (Nitrostat) 0.4 mg SL Q5M PRN PRN Reason: Chest Pain Nystatin (Nystatin) 1 dose TOPICAL BID [facility] Last Admin: 07/04/18 09:38 Dose: 1 dose Documented by: Admin: 07/03/18 22:10 Dose: 1 dose Documented by: Admin: 07/03/18 11:15 Dose: 1 dose Documented by: Admin: 07/02/18 22:59 Dose: 1 dose Documented by: Admin: 07/02/18 10:59 Dose: 1 dose Documented by: Admin: 07/01/18 20:24 Dose: 1 dose Documented by: Admin: 07/01/18 12:40 Dose: 1 dose Documented by: DORIAN Ondansetron HCl (Zofran) 4 mg IV Q6HP PRN PRN Reason: Nausea And Vomiting Liraglutide [Victoza 2-Josh] 1.2 Mg Injection 1 dose SC DAILY [facility] Last Admin: 07/04/18 09:32 Dose: 1 dose Documented by: Admin: 07/03/18 11:28 Dose: Not Given Documented by: DARONLynette Non-Admin Reason: med available but no needles Admin: 07/02/18 11:00 Dose: Not Given Documented by: DILLON Non-Admin Reason: Unavailable Admin: 07/01/18 08:17 Dose: Not Given Documented by: DORIAN Non-Admin Reason: Unavailable Admin: 06/30/18 10:41 Dose: Not Given Documented by: DORIAN Non-Admin Reason: Unavailable Prochlorperazine (Compazine) 5 mg IV Q4HP PRN PRN Reason: Nausea And Vomiting Senna (Senokot) 2 tab PO HS [facility] Last Admin: 07/03/18 22:04 Dose: Not Given Documented by: CAROLINA Non-Admin Reason: Patient Request Admin: 07/02/18 22:41 Dose: 2 tab Documented by: Admin: 07/01/18 20:24 Dose: Not Given Documented by: CAROLINA Non-Admin Reason: Patient Request Admin: 06/30/18 22:37 Dose: 2 tab Documented by: SARAY Sodium Chloride (Saline Flush) 10 ml IV Q8 [facility] Last Admin: 07/04/18 03:59 Dose: Not Given Documented by: CAROLINA Non-Admin Reason: pt has am abo Admin: 07/03/18 22:09 Dose: 10 ml Documented by: Admin: 07/03/18 14:44 Dose: 10 ml Documented by: Admin: 07/03/18 06:35 Dose: 10 ml Documented by: Admin: 07/02/18 22:43 Dose: 10 ml Documented by: Admin: 07/02/18 13:27 Dose: 10 ml Documented by: Admin: 07/02/18 04:33 Dose: Not Given Documented by: CAROLINA Non-Admin Reason: IV ABO at 0700 Admin: 07/01/18 20:25 Dose: 10 ml Documented by: Admin: 07/01/18 14:26 Dose: 10 ml Documented by: Admin: 07/01/18 06:07 Dose: 10 ml Documented by: Admin: 06/30/18 22:39 Dose: 10 ml Documented by: Admin: 06/30/18 14:41 Dose: Not Given Documented by: DORIAN Non-Admin Reason: Bag Still Infusing Admin: 06/30/18 06:02 Dose: Not Given Documented by: SARAY Non-Admin Reason: Bag Still Infusing Spironolactone (Aldactone) 37.5 mg PO DAILY [facility] Last Admin: 07/04/18 09:18 Dose: 37.5 mg Documented by: [email or web address] Admin: 07/03/18 08:53 Dose: 37.5 mg Documented by: [email or web address] Admin: 07/02/18 08:25 Dose: 37.5 mg Documented by: [email or web address] Admin: 07/01/18 08:18 Dose: 37.5 mg Documented by: Admin: 06/30/18 10:41 Dose: Not Given Documented by: DORIAN Non-Admin Reason: Clinical Judgement Vancomycin HCl (Vancomycin Per Pharmacy) 1 order IV UD YING Assessment and Plan - Narrative A/P Narrative: A: 1. Rt LE cellulitis with rt great toe stump soft tissue infection: - portal of entry is Rt great toe stump - MRI neg for toe OM - Cx growing MSSA on multiple superficial and deep cultures -Salmonella spp. is likely a contaminant) 2. Staph epi isolated from 06/12 blood Cx: - repeat blood Cx sent 07/03 are NGTD - likely a contaminant 3. Vanc induced Flor's syndrome - pt tolerating IV Vanc at a slow infusion rate 4. DM2 with neuropathy 5. COPD Recommendations: - Stop IV Vanc - I would have chosen Bactrim DS along with Rifampin but due to pt's already elevated LFTs, that doesnot seem to be a good choice. Thus will start Linezolid 600 mg bid with stop date of 07/31/18 - given extent of infection, will plan for a 4 week course of PO antibiotics - Tomorrow I will schedule an ID clinic f/u appt in 3 weeks will follow Leonardo Woodward MD Infectious diseases
[2018-07-04] MEDS: INSULIN GLARGINE, HUMAN 1 UNIT/0.01 ML SQ SCH (20:59)
[2018-07-04] MEDS: METHOCARBAMOL 750 MG TABLET PO PRN (20:59)
[2018-07-04] MEDS: LINEZOLID 600 MG TABLET PO SCH (21:00)
[2018-07-04] MEDS: SENNOSIDES 1 TABLET PO SCH (21:01)
[2018-07-05] MEDS: 0.9 % SODIUM CHLORIDE 10 ML SYRINGE IV SCH ×3 (01:05→14:18)
[2018-07-05] MEDS: HYDROcodone/APAP 5/325MG TABLET PO PRN ×2 (05:03→10:14)
[2018-07-05] MEDS: METHOCARBAMOL 750 MG TABLET PO PRN (05:04)
[2018-07-05 06:14] LABS: Basophils # (Auto) 0 K/mcL (0.0-0.3); Basophils % (Auto) 0.3 % (0.0-2.0); Eosinophils # (Auto) 0.1 K/mcL (0.0-0.7); Eosinophils % (Auto) 0.9 % (0.0-7.0); Granulocytes % (Auto) 71.8 % (38.0-78.0); Lymphocytes # (Auto) 1.7 K/mcL (1.5-4.8); Lymphocytes % (Auto) 17.2 % (15.5-49.0); Mean Corpuscular HGB Conc 31.8 g/dL (31.0-36.0); Monocytes % (Auto) 9.8 % (1.0-12.0); Platelet Count 246 K/mcL (140-440); Red Cell Distribution Width 17.6 % (11.5-14.5)
[2018-07-05 06:40] LABS: ALT/SGPT 75 U/l (0-40); Albumin 2.6 gm/dL (3.2-5.2); Albumin/Globulin Ratio 0.8 (1.0-2.3); Alkaline Phosphatase 75 U/L (39-117); Bilirubin,Direct < 0.2 mg/dL (0.0-0.3); Blood Urea Nitrogen 17 mg/dl (6-20); Gamma Glutamyl Transpeptidase 26 U/L (5-36); Uric Acid 3.1 mg/dL (2.5-8.0)
[2018-07-05] MEDS: INSULIN LISPRO 1 UNIT/0.01 ML UNIT SQ SCH ×2 (08:52→12:00)
[2018-07-05] MEDS: LIRAGLUTIDE 1.2 MG SC SCH (09:59)
[2018-07-05] MEDS: BACLOFEN 10 MG TABLET PO SCH ×2 (10:00→14:18)
[2018-07-05] MEDS: AMIODARONE HCL 200 MG TABLET PO SCH ×2 (10:00→14:18)
[2018-07-05] MEDS: FAMOTIDINE 20 MG TABLET PO SCH (10:01)
[2018-07-05] MEDS: LINEZOLID 600 MG TABLET PO SCH (10:02)
[2018-07-05] MEDS: APIXABAN 5 MG TABLET PO SCH (10:02)
[2018-07-05] MEDS: GABAPENTIN 400 MG CAPSULE PO SCH ×2 (10:02→14:18)
[2018-07-05] MEDS: LACTOBACILLUS 1 CAPSULE PO SCH (10:05)
[2018-07-05] MEDS: BISOPROLOL 5 MG TABLET PO SCH (10:05)
[2018-07-05] MEDS: SPIRONOLACTONE 25 MG TABLET PO SCH (10:06)
[2018-07-05] MEDS: FLUTICASONE HFA 110MCG INHALER INH SCH (10:59)
[2018-07-05] MEDS: DOCUSATE SODIUM 100 MG CAPSULE PO SCH (10:59)
--- NOTE | 2018-07-05 11:25 | Infectious Disease Prog Note ---
Subjective Patient information: Note initiated : 07/05/18 at 11:22 am Service Date, if different from initiated Date: [] Patient: Jaycee Dias 58 y/o F admitted on 06/30/18 for general not feeling well. Chief Complaint: [] Interval history: pt reports feeling better. denied any fever, chills, n/v, diarrhea. endorses minimal pain in the right toe stump. Objective Objective Narrative: ao x 3, in nad chest cta s1 s2 normal bs ++ nttd Rt foot: great toe stump looks less swollen, no foul odor or drainage - Vital Signs Vital signs: Vital Signs Temp Pulse Resp BP BP Pulse Ox 07/05/18 08:00 36.3 C 63 18 122/71 93 07/05/18 07:19 91 07/05/18 04:00 36.6 C 60 18 102/52 90 07/04/18 23:48 36.7 C 70 22 125/75 91 07/04/18 19:48 37.2 C 62 18 108/62 90 07/04/18 15:41 36.6 C 20 118/66 90 07/04/18 11:34 36.4 C 16 104/61 92 Intake and Output 07/04/18 07/05/18 07/05/18 21:59 05:59 13:59 Intake Total 600 800 Output Total 275 Balance 600 525 Intake: Oral 600 800 Output: Void Amount 275 Other: Urine Color Dark Yellow Light Willa # Voids 1 1 Weight 138.981 kg Intake & Output: Intake & Output 07/04/18 07/05/18 07/05/18 21:59 05:59 13:59 Intake Total 600 800 Output Total 275 Balance 600 525 Weight 138.981 kg Intake: Oral 600 800 Output: Void Amount 275 Other: Urine Color Dark Yellow Light Willa # Voids 1 1 - Lab 07/05/18 04:25 07/05/18 04:25 Most recent lab results Calcium 8.1 mg/dl (8.6-10.4) L 07/05/18 04:25 Phosphorus 3.6 mg/dL (2.7-4.5) 07/05/18 04:25 Magnesium 2.2 mg/dL (1.6-2.5) 07/05/18 04:25 Microbiology 07/03/18 08:42 Blood Blood Culture - Preliminary 07/03/18 08:50 Blood Blood Culture - Preliminary 07/03/18 09:56 Foot - Right Gram Stain - Final 07/03/18 09:56 Foot - Right Abscess Culture - Final Staphylococcus aureus 07/02/18 08:26 Foot - Right Gram Stain - Final 07/02/18 08:26 Foot - Right Wound Culture - Final Staphylococcus aureus 06/29/18 22:19 Blood Blood Culture - Final 06/29/18 22:13 Blood Blood Culture - Final 07/01/18 17:32 Blood Blood Culture - Preliminary 06/29/18 22:13 Foot - Right Gram Stain - Final 06/29/18 22:13 Foot - Right Wound Culture - Preliminary Salmonella species Staphylococcus aureus 07/01/18 17:13 Blood Blood Culture - Preliminary Gram positive cocci 06/30/18 04:00 Nasopharynx Respiratory Virus Panel (PCR) - Final 06/30/18 04:00 Nasopharynx Respiratory Panel (PCR) - Final 06/30/18 03:48 Nose MRSA (PCR) - Final Medications Active Medications: Acetaminophen (Tylenol) 650 mg PO Q6HP PRN PRN Reason: PAIN/FEVER > 101 Last Admin: 07/03/18 17:00 Dose: 650 mg Documented by: Admin: 07/03/18 00:46 Dose: 650 mg Documented by: Admin: 07/02/18 16:05 Dose: 650 mg Documented by: Admin: 07/01/18 23:34 Dose: 650 mg Documented by: Admin: 07/01/18 16:34 Dose: 650 mg Documented by: Admin: 06/30/18 08:02 Dose: 650 mg Documented by: DORIAN Hydrocodone Bitart/Acetaminophen ([place]uburn 5/325mg) 1 tab PO Q4HP PRN PRN Reason: PAIN LEVEL 3-6 Last Admin: 07/05/18 10:14 Dose: 1 tab Documented by: Admin: 07/05/18 05:03 Dose: 1 tab Documented by: Admin: 07/04/18 21:00 Dose: 1 tab Documented by: Admin: 07/04/18 09:37 Dose: 1 tab Documented by: Admin: 07/03/18 22:09 Dose: 1 tab Documented by: Admin: 07/03/18 14:17 Dose: 1 tab Documented by: Admin: 07/03/18 08:54 Dose: 1 tab Documented by: Admin: 07/02/18 19:45 Dose: 1 tab Documented by: Admin: 07/02/18 12:05 Dose: 1 tab Documented by: Admin: 07/02/18 07:14 Dose: 1 tab Documented by: Admin: 07/01/18 20:24 Dose: 1 tab Documented by: Admin: 07/01/18 14:25 Dose: 1 tab Documented by: Admin: 06/30/18 16:51 Dose: 1 tab Documented by: DORIAN Albuterol/Ipratropium (Duoneb) 3 ml NEB Q4HRT PRN PRN Reason: Bronchospasm Last Admin: 07/03/18 09:31 Dose: 3 ml Documented by: RAFIIGLPHAN Albuterol/Ipratropium (Combivent) 1 puff INH QIDP PRN PRN Reason: Blood Sugar - High Amiodarone HCl (Cordarone) 200 mg PO TID YING Last Admin: 07/05/18 10:00 Dose: 200 mg Documented by: BAILEY Cosigned by: MARIAELENA Admin: 07/04/18 21:01 Dose: 200 mg Documented by: Admin: 07/04/18 17:51 Dose: 200 mg Documented by: Admin: 07/04/18 09:20 Dose: 200 mg Documented by: Admin: 07/03/18 22:10 Dose: 200 mg Documented by: Admin: 07/03/18 14:17 Dose: 200 mg Documented by: Admin: 07/03/18 08:53 Dose: 200 mg Documented by: Admin: 07/02/18 22:38 Dose: 200 mg Documented by: Admin: 07/02/18 16:05 Dose: 200 mg Documented by: Admin: 07/02/18 08:25 Dose: 200 mg Documented by: Admin: 07/01/18 20:23 Dose: 200 mg Documented by: Admin: 07/01/18 14:25 Dose: 200 mg Documented by: Admin: 07/01/18 08:16 Dose: 200 mg Documented by: Admin: 06/30/18 22:37 Dose: 200 mg Documented by: Admin: 06/30/18 14:40 Dose: 200 mg Documented by: Admin: 06/30/18 09:43 Dose: 200 mg Documented by: DORIAN Apixaban (Eliquis) 5 mg PO BID [facility] Admin: 07/05/18 10:02 Dose: 5 mg Documented by: BAILEY Cosigned by: MARIAELENA Admin: 07/04/18 21:00 Dose: 5 mg Documented by: Admin: 07/04/18 09:20 Dose: 5 mg Documented by: Admin: 07/03/18 22:09 Dose: 5 mg Documented by: Admin: 07/03/18 08:53 Dose: 5 mg Documented by: DARONLynette Admin: 07/02/18 22:38 Dose: 5 mg Documented by: Admin: 07/02/18 08:25 Dose: 5 mg Documented by: Admin: 07/01/18 20:23 Dose: 5 mg Documented by: Admin: 07/01/18 08:16 Dose: 5 mg Documented by: Admin: 06/30/18 22:37 Dose: 5 mg Documented by: Admin: 06/30/18 09:43 Dose: 5 mg Documented by: DORIAN Baclofen (Lioresal) 10 mg PO TID [facility] Admin: 07/05/18 10:00 Dose: 10 mg Documented by: BAILEY Cosigned by: MARIAELENA Admin: 07/04/18 21:00 Dose: 10 mg Documented by: Admin: 07/04/18 17:52 Dose: 10 mg Documented by: Admin: 07/04/18 09:20 Dose: 10 mg Documented by: Admin: 07/03/18 22:09 Dose: 10 mg Documented by: Admin: 07/03/18 14:17 Dose: 10 mg [facility]: [facility] Admin: 07/03/18 08:53 Dose: 10 mg Documented by: [facility] Admin: 07/02/18 22:38 Dose: 10 mg Documented by: Admin: 07/02/18 16:05 Dose: 10 mg Documented by: [facility] Admin: 07/02/18 08:24 Dose: 10 mg [facility]ed by: [facility] Admin: 07/01/18 20:23 Dose: 10 mg Documented by: Admin: 07/01/18 14:25 Dose: 10 mg Documented by: Admin: 07/01/18 08:17 Dose: 10 mg Documented by: Admin: 06/30/18 22:37 Dose: 10 mg Documented by: Admin: 06/30/18 14:40 Dose: 10 mg Documented by: Admin: 06/30/18 09:44 Dose: 10 mg Documented by: DORIAN Bisoprolol Fumarate (Zebeta) 10 mg PO QDAY [facility] Admin: 07/05/18 10:05 Dose: 10 mg Documented by: BAILEY Cosigned by: MARIAELENA Admin: 07/04/18 09:20 Dose: 10 mg Documented by: Admin: 07/03/18 08:53 Dose: 10 mg Documented by: [facility] Admin: 07/02/18 08:25 Dose: 10 mg Documented by: [facility] Admin: 07/01/18 08:22 Dose: 10 mg Documented by: Admin: 06/30/18 10:41 Dose: Not Given Documented by: DORIAN Non-Admin Reason: Clinical Judgement Collagenase (Santyl Top Oint) 1 dose TOPICAL DAILY [facility] Admin: 07/04/18 12:05 Dose: 1 dose Documented by: Admin: 07/03/18 11:14 Dose: 1 dose Documented by: [facility] Comments: given late due to md wanting to see wound Admin: 07/02/18 08:25 Dose: 1 dose Documented by: [facility] Admin: 07/01/18 12:00 Dose: 1 dose Documented by: DORIAN Diagnostic Test (Pha) (Accu-Chek) 1 each FS ACHS [facility] Admin: 07/05/18 08:51 Dose: 1 each Documented by: Admin: 07/04/18 20:59 Dose: 1 each Documented by: Admin: 07/04/18 17:47 Dose: 1 each Documented by: Admin: 07/04/18 12:05 Dose: 1 each Documented by: Admin: 07/04/18 07:49 Dose: 1 each Documented by: Admin: 07/03/18 22:14 Dose: 1 each Documented by: Admin: 07/03/18 16:55 Dose: 1 each Documented by: Admin: 07/03/18 11:28 Dose: 1 each Documented by: Admin: 07/03/18 07:36 Dose: 1 each Documented by: Admin: 07/02/18 22:43 Dose: 1 each Documented by: Admin: 07/02/18 16:48 Dose: 1 each Documented by: Admin: 07/02/18 12:04 Dose: 1 each Documented by: JESSIE Cosigned by: DILLON Admin: 07/02/18 06:28 Dose: 1 each Documented by: Admin: 07/01/18 20:26 Dose: 1 each Documented by: Admin: 07/01/18 16:32 Dose: 1 each Documented by: Admin: 07/01/18 11:58 Dose: 1 each Documented by: Admin: 07/01/18 07:26 Dose: 1 each Documented by: Admin: 06/30/18 23:08 Dose: 1 each Documented by: SARAY Docusate Sodium (Colace) 100 mg PO BID YING Last Admin: 07/05/18 10:59 Dose: Not Given Documented by: SANG Non-Admin Reason: Patient Refused Admin: 07/04/18 21:00 Dose: 100 mg Documented by: Admin: 07/04/18 09:20 Dose: 100 mg Documented by: Admin: 07/03/18 22:04 Dose: Not Given Documented by: CAROLINA Non-Admin Reason: Patient Request Admin: 07/03/18 09:03 Dose: Not Given Documented by: DILLON Non-Admin Reason: Patient Refused Admin: 07/02/18 22:38 Dose: 100 mg Documented by: Admin: 07/02/18 08:26 Dose: Not Given Documented by: DILLON Non-Admin Reason: Patient Refused Admin: 07/01/18 20:24 Dose: Not Given Documented by: CAROLINA Non-Admin Reason: Patient Request Admin: 07/01/18 08:19 Dose: Not Given Documented by: DORIAN Non-Admin Reason: Patient Refused Admin: 06/30/18 22:37 Dose: 100 mg Documented by: Admin: 06/30/18 09:45 Dose: 100 mg Documented by: DORIAN Famotidine (Pepcid) 20 mg PO BID [facility] Last Admin: 07/05/18 10:01 Dose: 20 mg Documented by: BAILEY Cosigned by: MARIAELENA Admin: 07/04/18 21:01 Dose: 20 mg Documented by: Admin: 07/04/18 09:20 Dose: 20 mg Documented by: Admin: 07/03/18 22:10 Dose: 20 mg Documented by: Admin: 07/03/18 08:55 Dose: 20 mg Documented by: Admin: 07/02/18 22:38 Dose: 20 mg Documented by: Admin: 07/02/18 08:25 Dose: 20 mg Documented by: Admin: 07/01/18 20:23 Dose: 20 mg Documented by: Admin: 07/01/18 08:16 Dose: 20 mg Documented by: Admin: 06/30/18 22:37 Dose: 20 mg Documented by: Admin: 06/30/18 09:43 Dose: 20 mg Documented by: DORIAN Fluticasone Propionate (Flovent Hfa 110mcg) 2 puff INH QDAY [facility] Last Admin: 07/05/18 10:59 Dose: 2 puff Documented by: Admin: 07/04/18 09:38 Dose: 2 puff Documented by: Admin: 07/03/18 11:17 Dose: 2 puff Documented by: Admin: 07/02/18 10:59 Dose: Not Given Documented by: DILLON Non-Admin Reason: Unavailable Admin: 07/01/18 08:17 Dose: Not Given Documented by: DORIAN Non-Admin Reason: Unavailable Admin: 06/30/18 09:53 Dose: Not Given Documented by: DORIAN Non-Admin Reason: Unavailable Gabapentin (Neurontin) 1,200 mg PO TID [facility] Admin: 07/05/18 10:02 Dose: 1,200 mg Documented by: BAILEY Cosigned by: MARIAELENA Admin: 07/04/18 21:00 Dose: 1,200 mg Documented by: Admin: 07/04/18 17:52 Dose: 1,200 mg Documented by: Admin: 07/04/18 09:20 Dose: 1,200 mg Documented by: Admin: 07/03/18 22:10 Dose: 1,200 mg Documented by: Admin: 07/03/18 14:17 Dose: 1,200 mg Documented by: Admin: 07/03/18 08:53 Dose: 1,200 mg Documented by: Admin: 07/02/18 22:38 Dose: 1,200 mg Documented by: Admin: 07/02/18 16:05 Dose: 1,200 mg Documented by: Admin: 07/02/18 08:23 Dose: 1,200 mg Documented by: Admin: 07/01/18 20:50 Dose: 1,200 mg Documented by: Admin: 07/01/18 14:25 Dose: 1,200 mg Documented by: Admin: 07/01/18 08:16 Dose: 1,200 mg Documented by: Admin: 06/30/18 22:37 Dose: 1,200 mg Documented by: Admin: 06/30/18 14:40 Dose: 1,200 mg Documented by: Admin: 06/30/18 09:41 Dose: 1,200 mg Documented by: DORIAN Insulin Glargine (Lantus) 52 unit SQ HS [facility] Admin: 07/04/18 20:59 Dose: 52 units Documented by: Admin: 07/03/18 22:25 Dose: 52 units Documented by: Admin: 07/02/18 22:55 Dose: 52 units Documented by: Admin: 07/01/18 20:50 Dose: 52 units Documented by: Admin: 06/30/18 23:09 Dose: 52 units Documented by: SARAY Insulin Human Lispro (Humalog) 0 unit SQ ACHS YING; Protocol Last Admin: 07/05/18 08:52 Dose: Not Given Documented by: SANG Non-Admin Reason: No Coverage Needed Admin: 07/04/18 20:59 Dose: Not Given Documented by: SARAY Non-Admin Reason: No Coverage Needed Admin: 07/04/18 17:54 Dose: Not Given Documented by: [email or web address] Non-Admin Reason: No Coverage Needed Admin: 07/04/18 12:05 Dose: Not Given Documented by: [email or web address] Non-Admin Reason: No Coverage Needed Admin: 07/04/18 07:49 Dose: Not Given Documented by: SANG Non-Admin Reason: No Coverage Needed Admin: 07/03/18 22:14 Dose: Not Given Documented by: CAROLINA Non-Admin Reason: No Coverage Needed Admin: 07/03/18 17:00 Dose: 2 units Documented by: Admin: 07/03/18 12:16 Dose: 2 units Documented by: Admin: 07/03/18 07:36 Dose: Not Given Documented by: [email or web address] Non-Admin Reason: No Coverage Needed Admin: 07/02/18 22:55 Dose: 2 units Documented by: Admin: 07/02/18 17:02 Dose: 2 units Documented by: Admin: 07/02/18 12:05 Dose: 2 units Documented by: [email or web address] Admin: 07/02/18 06:42 Dose: Not Given Documented by: [email or web address] Non-Admin Reason: No Coverage Needed Admin: 07/01/18 20:50 Dose: 2 units Documented by: Admin: 07/01/18 17:14 Dose: 2 units Documented by: Admin: 07/01/18 12:26 Dose: 2 units Documented by: Admin: 07/01/18 07:27 Dose: Not Given Documented by: [email or web address] Non-Admin Reason: No Coverage Needed Admin: 06/30/18 23:08 Dose: 2 units Documented by: Admin: 06/30/18 16:51 Dose: Not Given Documented by: DORIAN Non-Admin Reason: No Coverage Needed Comments: 134 blood sugar Admin: 06/30/18 12:05 Dose: 4 units Documented by: Admin: 06/30/18 07:50 Dose: Not Given Documented by: DORIAN Non-Admin Reason: No Coverage Needed Lactobacillus Rhamnosus (Culturelle) 1 cap PO BID [facility] Admin: 07/05/18 10:05 Dose: 1 cap Documented by: BAILEY Cosigned by: MARIAELENA Admin: 07/04/18 21:00 Dose: 1 cap Documented by: Admin: 07/04/18 09:20 Dose: 1 cap Documented by: Admin: 07/03/18 22:10 Dose: 1 cap Documented by: Admin: 07/03/18 08:53 Dose: 1 cap Documented by: Admin: 07/02/18 22:55 Dose: 1 cap Documented by: Admin: 07/02/18 08:23 Dose: 1 cap Documented by: Admin: 07/01/18 20:23 Dose: 1 cap Documented by: Admin: 07/01/18 08:16 Dose: 1 cap Documented by: Admin: 06/30/18 22:37 Dose: 1 cap Documented by: Admin: 06/30/18 09:45 Dose: 1 cap Documented by: DORIAN Linezolid (Zyvox) 600 mg PO Q12 [facility] Admin: 07/05/18 10:02 Dose: 600 mg Documented by: BAILEY Cosigned by: MARIAELENA Admin: 07/04/18 21:00 Dose: 600 mg Documented by: SARAY Lorazepam (Ativan) 1 mg PO TIDP PRN PRN Reason: Anxiety Magnesium Hydroxide (Milk Of Magnesia) 30 ml PO DAILYP PRN PRN Reason: Constipation Methocarbamol (Robaxin) 750 mg PO TIDP PRN PRN Reason: Muscle Spasm Last Admin: 07/05/18 05:04 Dose: 750 mg Documented by: Admin: 07/04/18 20:59 Dose: 750 mg Documented by: Admin: 07/03/18 11:14 Dose: 750 mg Documented by: Admin: 07/02/18 19:45 Dose: 750 mg Documented by: Admin: 07/02/18 13:26 Dose: 750 mg Documented by: DILLON Nitroglycerin (Nitrostat) 0.4 mg SL Q5M PRN PRN Reason: Chest Pain Nystatin (Nystatin) 1 dose TOPICAL BID [facility] Admin: 07/04/18 21:01 Dose: 1 dose Documented by: Admin: 07/04/18 09:38 Dose: 1 dose Documented by: Admin: 07/03/18 22:10 Dose: 1 dose Documented by: Admin: 07/03/18 11:15 Dose: 1 dose Documented by: Admin: 07/02/18 22:59 Dose: 1 dose Documented by: Admin: 07/02/18 10:59 Dose: 1 dose Documented by: Admin: 07/01/18 20:24 Dose: 1 dose Documented by: Admin: 07/01/18 12:40 Dose: 1 dose Documented by: DORIAN Ondansetron HCl (Zofran) 4 mg IV Q6HP PRN PRN Reason: Nausea And Vomiting Liraglutide [Victoza 2-Josh] 1.2 Mg Injection 1 dose SC DAILY [facility] Admin: 07/05/18 09:59 Dose: 1 dose Documented by: BAILEY Purdyigned by: MARIAELENA Admin: 07/04/18 09:32 Dose: 1 dose Documented by: Admin: 07/03/18 11:28 Dose: Not Given Documented by: DARONLynette Non-Admin Reason: med available but no needles Admin: 07/02/18 11:00 Dose: Not Given [facility]ed [facility]: [facility] Reason: Unavailable Admin: 07/01/18 08:17 Dose: Not Given Documented by: DORIAN Non-Admin Reason: Unavailable Admin: 06/30/18 10:41 Dose: Not Given Documented by: DORIAN Non-Admin Reason: Unavailable Prochlorperazine (Compazine) 5 mg IV Q4HP PRN PRN Reason: Nausea And Vomiting Senna (Senokot) 2 tab PO HS [facility] Admin: 07/04/18 21:01 Dose: 2 tab Documented by: Admin: 07/03/18 22:04 Dose: Not Given Documented by: CAROLINA Non-Admin Reason: Patient Request Admin: 07/02/18 22:41 Dose: 2 tab Documented by: Admin: 07/01/18 20:24 Dose: Not Given Documented by: CAROLINA Non-Admin Reason: Patient Request Admin: 06/30/18 22:37 Dose: 2 tab Documented by: SARAY Sodium Chloride (Saline Flush) 10 ml IV Q8 [facility] Last Admin: 07/05/18 05:05 Dose: 10 ml Documented by: Admin: 07/05/18 01:05 Dose: 10 ml Documented by: Admin: 07/04/18 17:52 Dose: 10 ml Documented by: Admin: 07/04/18 03:59 Dose: Not Given Documented by: CAROLINA Non-Admin Reason: pt has am abo Admin: 07/03/18 22:09 Dose: 10 ml Documented by: Admin: 07/03/18 14:44 Dose: 10 ml Documented by: Admin: 07/03/18 06:35 Dose: 10 ml Documented by: Admin: 07/02/18 22:43 Dose: 10 ml Documented by: Admin: 07/02/18 13:27 Dose: 10 ml Documented by: Admin: 07/02/18 04:33 Dose: Not Given Documented by: CAROLINA Non-Admin Reason: IV ABO at 0700 Admin: 07/01/18 20:25 Dose: 10 ml Documented by: Admin: 07/01/18 14:26 Dose: 10 ml Documented by: Admin: 07/01/18 06:07 Dose: 10 ml Documented by: Admin: 06/30/18 22:39 Dose: 10 ml Documented by: Admin: 06/30/18 14:41 Dose: Not Given Documented by: DORIAN Non-Admin Reason: Bag Still Infusing Admin: 06/30/18 06:02 Dose: Not Given Documented by: SARAY Non-Admin Reason: Bag Still Infusing Spironolactone (Aldactone) 37.5 mg PO DAILY [facility] Last Admin: 07/05/18 10:06 Dose: 37.5 mg Documented by: BAILEY Cosigned by: MARIAELENA Admin: 07/04/18 09:18 Dose: 37.5 mg Documented by: [email or web address] Admin: 07/03/18 08:53 Dose: 37.5 mg Documented by: [email or web address] Admin: 07/02/18 08:25 Dose: 37.5 mg Documented by: Admin: 07/01/18 08:18 Dose: 37.5 mg Documented by: Admin: 06/30/18 10:41 Dose: Not Given Documented by: DORIAN Non-Admin Reason: Clinical Judgement Assessment and Plan - Narrative A/P Narrative: A: 1. Rt LE cellulitis with rt great toe stump soft tissue infection: resolving - portal of entry is Rt great toe stump - MRI neg for toe OM - Cx growing MSSA on multiple superficial and deep cultures - Salmonella spp. is likely a contaminant) 2. Staph epi isolated from 06/12 blood Cx: - repeat blood Cx sent 07/03 are NGTD - likely a contaminant 3. Vanc induced Flor's syndrome - pt tolerated IV Vanc at a slow infusion rate, now switched to Linezolid 4. DM2 Recommendations: - Continue PO Linezolid 600 mg bid with stop date of 07/31/18 - given extent of infection, will plan for a 4 week course of PO antibiotics - Pt counselled about side-effects of Linezolid (thrombocytopenia and optic neuritis) and to call our office if she noticed any vision changes - Pt counselled not to resume smoking, given it could impair the wound healing and increase risk of subseq infection - ID clinic f/u appt on 07/29/17 at 2:45 pm Follow up labs: CBC with diff every 2 weeks will sign off. Leonardo Woodward MD Infectious diseases
[2018-07-05] MEDS: COLLAGENASE TOP OINT TUBE 30GM TOPICAL SCH (12:05)
[2018-07-05] MEDS: NYSTATIN POWDER BOTTLE 15GM TOPICAL SCH (12:05)
--- NOTE | 2018-07-05 15:06 | General Surgery Progress Note ---
Subjective Patient reports: no new complaints, other (Right foot inflammation changes improving. ) Narrative: Note initiated : 07/05/18 at 3:03 pm Service Date, if different from initiated Date: [] Patient: Jaycee Dias 58 y/o F admitted on 06/30/18 for general not feeling well. Chief Complaint: [] Objective Temp Pulse Resp BP Pulse Ox 98.3 F 63 20 101/56 92 07/05/18 11:47 07/05/18 08:00 07/05/18 11:47 07/05/18 11:47 07/05/18 11:47 AVSS. No changes BRISEIDA. 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 Reviewed ID and Hospitalist notes. Discharge plan noted. HH to do dressing changes at home. - Additional Data Intake & Output - Last 24 hours: Intake & Output 07/03/18 07/04/18 07/05/18 07/06/18 05:59 05:59 05:59 05:59 Intake Total 3018 2660 2260 Output Total 1075 2525 275 100 Balance 0640 114 6611 - Weight 283 lb 286 lb 306 lb 6.4 oz - Labs 07/05/18 04:25 07/05/18 04:25 Diabetes panel 07/05/18 Range/Units 04:25 Sodium 139 (133-145) mmol/L Potassium 4.2 (3.3-5.1) mmol/L Chloride 101 (96-108) mmol/L Carbon Dioxide 26 (22-30) mmol/L BUN 17 (6-20) mg/dl Creatinine 0.6 (0.6-1.1) mg/dl Glucose 106 H (70-105) mg/dL Calcium 8.1 L (8.6-10.4) mg/dl AST 64 H (0-37) U/l ALT 75 H (0-40) U/l Alkaline Phosphatase 75 (39-117) U/L Total Protein 5.7 L (5.9-8.4) gm/dL Albumin 2.6 L (3.2-5.2) gm/dL Triglycerides 148 (<150) mg/dl Calcium panel 07/05/18 Range/Units 04:25 Calcium 8.1 L (8.6-10.4) mg/dl Phosphorus 3.6 (2.7-4.5) mg/dL Albumin 2.6 L (3.2-5.2) gm/dL Pituitary panel 07/05/18 Range/Units 04:25 Sodium 139 (133-145) mmol/L Potassium 4.2 (3.3-5.1) mmol/L Chloride 101 (96-108) mmol/L Carbon Dioxide 26 (22-30) mmol/L BUN 17 (6-20) mg/dl Creatinine 0.6 (0.6-1.1) mg/dl Glucose 106 H (70-105) mg/dL Calcium 8.1 L (8.6-10.4) mg/dl Adrenal panel 07/05/18 Range/Units 04:25 Sodium 139 (133-145) mmol/L Potassium 4.2 (3.3-5.1) mmol/L Chloride 101 (96-108) mmol/L Carbon Dioxide 26 (22-30) mmol/L BUN 17 (6-20) mg/dl Creatinine 0.6 (0.6-1.1) mg/dl Glucose 106 H (70-105) mg/dL Calcium 8.1 L (8.6-10.4) mg/dl Total Bilirubin 0.4 (0.0-1.0) mg/dL AST 64 H (0-37) U/l ALT 75 H (0-40) U/l Alkaline Phosphatase 75 (39-117) U/L Total Protein 5.7 L (5.9-8.4) gm/dL Albumin 2.6 L (3.2-5.2) gm/dL Assessment and Plan (1) Dermatitis associated with moisture Problem details: Assessment: Peripheral neuropathy and 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 Callosity / suprficial dry necrotic skin under the scar. ( weight bearing ) Plan: Local wound care as ordered. Will follow patient during hospitalization. Status: Chronic Current Visit: Yes - Narrative A/P Narrative: Assessment: CSSSI / Cellulitis right foot in a patient with h/o DM and Smoking. Responded to local wound care and IV antibiotics. Plan: Being discharged home on PO Zyvox. HHN to see patient for dressing changes x 3 week NO SMOKING. Weight bearing on Right heel to transfer from chair or bed to Chair or bathroom commode. OK to shower with right foot covered in a leg bag. F/U at wound clinic in ONE week. Call and confirm appointment. - Time Spent With Patient Total time spent is greater than 50% in coordination of care (as documented) at patient's floor/unit and/or counseling patient:
== END 2018-07-05 16:15 | disposition home health service (06) | DRG 872 ==
LOC: ED 20:37 → MEDSUR 06-30 01:39
PROVIDERS: ADMIT Internal Medicine; ATTEND Internal Medicine

== ENCOUNTER 2018-07-26 17:37 | Inpatient (IN) ==
[2018-07-26] MEDS ORDERED: ONDANSETRON 4 MG/2 ML VIAL IV ONE (17:58)
[2018-07-26] MEDS ORDERED: LACTATED RINGERS 1,000 ML IV ONE (17:58)
[2018-07-26] MEDS ORDERED: ACETAMINOPHEN 650 MG/65 ML BOTTLE IV ONE (18:29)
--- NOTE | 2018-07-26 19:11 | Emergency Department Note ---
Nausea/Vomiting/Diarrhea HPI - General Chief complaint: Nausea/Vomiting/Diarrhea Stated complaint: N/v/d Time Seen by Provider: 07/26/18 17:42 Source: patient, family Mode of arrival: wheelchair Limitations: no limitations - History of Present Illness HPI Narrative: This is the patient's third ER visit in the last 24 hours. She was seen here yesterday and had some nausea vomiting diarrhea slight left lower quadrant discomfort and a CT scan did show possible mild colitis. Her workup really was not very remarkable except for a lactic acid initially of about 5.4 which came down to 4.7 with some hydration. ER staff consulted with hospitalist and they really could not find a specific reason to admit the patient. Her vital signs were all good and there were no signs of infection that were new. The patient is taking linezolid for a right foot infection. She was discharged from the hospital here several weeks ago. She was at her doctor's office for follow-up and was lightheaded and noted to have a blood pressure in her 70s. Despite her request the EMS took her to [facility]. Workup there again was negative except for a lactic acid of 4.7. Patient was discharged and then came over here for another evaluation. She continues to have some nausea slight comfort. Providers last night thought her lactic acido sis might be due to and metformin. - Related Data Home Medications Medication Instructions Recorded Confirmed Apixaban [Eliquis] 5 mg PO BID 01/21/18 07/26/18 Baclofen [Lioresal] 10 mg PO TID 01/21/18 07/26/18 Ergocalciferol (Vitamin D2) 50,000 unit PO WEEKLY 01/21/18 07/26/18 [Vitamin D2] Fluticasone Hfa 110Mcg [Flovent 2 puff INH QDAY 01/21/18 07/26/18 Hfa 110Mcg] Furosemide [Lasix] 40 mg PO BID 01/21/18 07/26/18 Gabapentin [Gralise] 1,200 mg PO TID 01/21/18 07/26/18 Ipratropium/Albuterol Sulfate 1 puff INH QIDP PRN 01/21/18 07/26/18 [Combivent] Nitroglycerin [Nitrostat] 0.4 mg SL Q5M PRN 01/21/18 07/26/18 Omeprazole 20 mg PO DAILY 01/21/18 07/26/18 traMADol [Ultram] 50 - 100 mg PO QID 01/21/18 07/26/18 LORazepam [Ativan] 1 mg PO TIDP PRN 06/30/18 07/26/18 Ranitidine HCl [Heartburn Relief] 150 mg PO BID 06/30/18 07/26/18 Previous Rx's Medication Instructions Recorded Ondansetron [Zofran ODT] 4 mg SL Q4-6HP PRN #10 tab 07/26/18 Allergies Allergy/AdvReac Type Severity Reaction Status Date / Time codeine Allergy Intermediate Hives Verified 07/26/18 18:25 Cyclobenzaprine Allergy Intermediate Hives Verified 07/26/18 18:25 Doxepin Allergy Intermediate Hives Verified 07/26/18 18:25 fluoxetine Allergy Intermediate Hives Verified 07/26/18 18:25 piroxicam Allergy Intermediate Hives Verified 07/26/18 18:25 Rifamycin Allergy Intermediate Hives Verified 07/26/18 18:25 vancomycin AdvReac Intermediate REDNESS/FLU Verified 07/26/18 18:25 FAISAL Review of Systems All systems ED: reviewed and negative except as stated. Past Medical History - Past Medical History Medical history: Reports: atrial fibrillation, CHF, COPD, DM, hypertension Surgical history ED: Reports: orthopedic, other (Right great toe amputation) - Social History smoking status: Current every day smoker Alcohol use: Reports: None Physical Exam Limitations: no limitations General appearance: alert Head: atraumatic Eye: Present: normal appearance ENT: normal exam Neck: Present: normal inspection Chest: Present: normal inspection Respiratory: Present: normal lung sounds bilaterally Cardiovascular: Present: regular rate, normal rhythm, normal heart sounds Abdominal: Present: soft, tenderness. Absent: distention, guarding, rebound Abdominal tenderness: Present: diffuse, mild Neurological: Present: alert Psychiatric: Present: normal affect Skin: Present: warm, dry Course Vital Signs Temperature 97.6 F 07/26/18 17:37 Pulse Rate 62 07/26/18 17:37 Respiratory Rate 18 07/26/18 17:37 Blood Pressure 122/53 07/26/18 17:37 Pulse Oximetry (%) 99 07/26/18 17:37 Temperature 97.6 F 02/15/19 17:37 Pulse Rate 62 07/26/18 17:37 Respiratory Rate 18 07/26/18 17:37 Blood Pressure 122/53 07/26/18 17:37 Pulse Oximetry (%) 99 07/26/18 17:37 Nausea/Vomiting/Diarrhea - [facility] Narrative Medical decision making narrative: I discussed this case with Dr. Gilmore the patient will be admitted to the hospital. Disposition Pt seen by EMERGENCY MANAGER/PA only: No Clinical Impression: Gastroenteritis Disposition: Xfer As Outpt/Obs ([facility]) Condition: Good Referrals: Rossy Haines ARNP [Primary Care Provider] - Time of Disposition: 19:54
--- NOTE | 2018-07-26 20:22 | Internal Med History&Physical ---
Medical - H&P: HPI Patient information: Note initiated : 07/26/18 at 8:15 pm Service Date, if different from initiated Date: [] Patient: Jaycee Dias a 58 y/o F admitted on for N/v/d. Chief Complaint: [] History of present illness: Ms. Dias is a 58 year old F who presents the ED for the second time the past 24 hours with generalized weakness diarrhea as well as some nausea vomiting. Patient was last admitted in June for diabetic foot ulcer with infection of the right foot sepsis and upper respiratory infection at that time. She was discharged on Zyvox. Since discharge she has been feeling weak but gradually better over time she is feeling otherwise well until 4 days ago when she started having diarrhea. She does of diarrhea is watery and mucous-like. No blood. Does not record any exacerbating factors or relieving factors to her diarrhea. No change in her diet. She also had an episode of nausea vomiting since yesterday x2. Unrelated to any specific food or medications. She was first seen in the ED last night and describes some vague abdominal pain although this is not unusual for her given her IBS. CT scan was done and apparently the verbal read was given to the ED physician as a possible colitis. However, the official read does not mention any colitis. Labs are essentially unremarkable except for lactic acidosis. Which was thought possibly from the metformin or at least contributing. She was sent home and saw her primary care this morning who stopped her cardiac medications including amiodarone bisoprolol and spironolactone and also stop the Zyvox and was going to have her follow-up with Dr. Garcia arthritis which medication to take instead as PCP was concerned about GI symptoms from it. She has probably about a week left of her Zyvox. Her PCP also took her off her insulin in the ER physician last night took off her metformin. She was kept on her Lasix by her PCP. Especially since her diarrhea she continues to feel much weaker and fatigued. No chest pain and some mild vague crampy abdominal pain which she says is not unusual for her and is typical of her IBS. No respiratory symptoms or cough. Shortness of breath. When she saw her PCP today she was eventually sent to the ER and when EMS picked her up they saw that she was bradycardic and brought her to [facility] who evaluated over there and then sent her back over here as they did not find any cardiac issues. I do not know what her heart rate was. Last night she was in the high 40s. However here today she is 60s. And lactic acid was 5.8 yesterday 4.7 at [facility] today EKG sinus bradycardia. Review of Systems: Pertinent positives as above. Positive headaches. Denies fever/chest or /cough/dyspnea Remaining 10 point review of systems reviewed negative Medical - H&P: PMH Medical history: PAST MEDICAL HISTORY: Chronic low back pain, anxiety, depression, tobacco abuse, paroxysmal atrial fibrillation, CHF, COPD (on 2 L at night at home), obstructive sleep apnea on BiPAP, diabetes, hypertension, GERD. 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 FAMILY HISTORY: Mother has CHF, hypertension, and diabetes. Her father's medi galen history is alcohol abuse. SOCIAL HISTORY: The patient smokes 1-2 cigarettes per day, denies alcohol use. She ambulates with a walker. She lives by herself. Medical - H&P: Meds Home Medications Medication Instructions Recorded Confirmed Type Apixaban [Eliquis] 5 mg PO BID 01/21/18 07/26/18 History Baclofen [Lioresal] 10 mg PO TID 01/21/18 07/26/18 History Ergocalciferol (Vitamin D2) 50,000 unit PO WEEKLY 01/21/18 07/26/18 History [Vitamin D2] Fluticasone Hfa 110Mcg [Flovent 2 puff INH QDAY 01/21/18 07/26/18 History Hfa 110Mcg] Furosemide [Lasix] 40 mg PO BID 01/21/18 07/26/18 History Gabapentin [Gralise] 1,200 mg PO TID 01/21/18 07/26/18 History Ipratropium/Albuterol Sulfate 1 puff INH QIDP PRN 01/21/18 07/26/18 History [Combivent] Nitroglycerin [Nitrostat] 0.4 mg SL Q5M PRN 01/21/18 07/26/18 History Omeprazole 20 mg PO DAILY 01/21/18 07/26/18 History traMADol [Ultram] 50 - 100 mg PO QID 01/21/18 07/26/18 History LORazepam [Ativan] 1 mg PO TIDP PRN 06/30/18 07/26/18 History Ranitidine HCl [Heartburn Relief] 150 mg PO BID 06/30/18 07/26/18 History Ondansetron [Zofran ODT] 4 mg SL Q4-6HP PRN #10 tab 07/26/18 07/26/18 Rx Allergies Allergy/AdvReac Type Severity Reaction Status Date / Time codeine Allergy Intermediate Hives Verified 07/26/18 18:25 Cyclobenzaprine Allergy Intermediate Hives Verified 07/26/18 18:25 Doxepin Allergy Intermediate Hives Verified 07/26/18 18:25 fluoxetine Allergy Intermediate Hives Verified 07/26/18 18:25 piroxicam Allergy Intermediate Hives Verified 07/26/18 18:25 Rifamycin Allergy Intermediate Hives Verified 07/26/18 18:25 vancomycin AdvReac Intermediate REDNESS/FLU Verified 07/26/18 18:25 FAISAL Medical - H&P: Exam - Constitutional Vitals: Temp Pulse Resp BP Pulse Ox 97.6 F 62 18 122/53 99 07/26/18 17:37 07/26/18 17:37 07/26/18 17:37 07/26/18 17:37 07/26/18 17:37 Exam: General: Alert, Awake, No acute Distress, obese Eyes/N/T: EOMI, PEERL, DMM Head/Neck: neck supple, normocephalic atraumatic CV: RRR, 1/6 SM normal s1/s2 Pulm: Clear b/l, no wheezing/rhonchi/rales Abd: soft, nontender, +BS x4 Ext: no clubbing/cyanosis, LLE 1+ and on RLE Neuro: Alert, no focal deficits, moves all extremities, CN 2-12 grossly intact, symmetrical strength b/l upper/lower, decreased sensations bilaterally secondary to neuropathy, chronic Skin: warm/dry Medical - H&P: Reslt - Impressions EKG with sinus bradycardia. CT abdomen pelvis yesterday no acute pathology. Medical - H&P: A/P - Narrative A/P Narrative: A: * N/V/D: Possible medication side effect versus viral gastroenteritis * Lactic acidosis: Metformin as possible contributor but not likely primary etiology. Metformin was stopped last night in the ED. Concern for probable hypoperfusion from bradycardia secondary to medications. Her amiodarone and bisoprolol and Spironolactone was stopped today. *Bradycardia 40-50's: currently 60's, AVN blockers stopped * h/o PAF: currently sinus. Amiodarone and bisoprolol stopped today. Heart rate 40s-50s in ED. * h/o CHF(grade I): appears to be stable. 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 * Depression/anxiety: * Chronic low back pain: on baclofen * Tobacco abuse P: -IVF's -f/u PCT/Lactate/blood cx;s -stool studies -monitor i/o's weights -SSI/levemir, metformint stopped -amiodarone/bisoprolol/aldactone stopped -Smoking cessation counseling -ppx: Continue home apixaban/home ppi CODE STATUS: FULL CODE.
[2018-07-26] MEDS ORDERED: NITROGLYCERIN 0.4 MG TAB.SUBL SL ONE (21:31)
[2018-07-26] MEDS ORDERED: PROMETHAZINE 12.5 MG SUPP.RECT PR PRN (21:54)
[2018-07-26] MEDS ORDERED: POTASSIUM CHLORIDE 20 MEQ TABLET PO PRN ×2 (21:54)
[2018-07-26] MEDS ORDERED: LACTATED RINGERS 1,000 ML IV SCH (21:54)
[2018-07-26] MEDS ORDERED: METOCLOPRAMIDE 10 MG/2 ML VIAL IV PRN (21:54)
[2018-07-26] MEDS ORDERED: PROCHLORPERAZINE 10 MG/2 ML VIAL IV PRN (21:54)
[2018-07-26] MEDS ORDERED: MAGNESIUM SULFATE 2 GM/50 ML BAG IV PRN (21:54)
[2018-07-26] MEDS ORDERED: HYDROcodone/APAP 5/325MG TABLET PO PRN (21:54)
[2018-07-26] MEDS ORDERED: IPRATROPIUM/ALBUTEROL 3 ML AMPUL.NEB NEB PRN (21:54)
[2018-07-26] MEDS ORDERED: NITROGLYCERIN 0.4 MG TAB.SUBL SL PRN (21:54)
[2018-07-26] MEDS ORDERED: LORazepam 1 MG TABLET PO PRN (21:54)
[2018-07-26] MEDS ORDERED: POTASSIUM CHLORIDE 40 MEQ in DEXTROSE 5% IN WATER 500 ML IV PRN (21:54)
[2018-07-26] MEDS: PIPERACILLIN SODIUM/TAZOBACTAM 3.375 GM in DEXTROSE 5% IN WATER 50 ML IV SCH (22:21)
[2018-07-26] MEDS: APIXABAN 5 MG TABLET PO SCH (22:34)
[2018-07-26] MEDS: traMADol 50 MG TABLET PO SCH (22:34)
[2018-07-26] MEDS: GABAPENTIN 400 MG CAPSULE PO SCH (22:34)
[2018-07-26] MEDS: FAMOTIDINE 20 MG TABLET PO SCH (22:34)
[2018-07-26] MEDS: BACLOFEN 10 MG TABLET PO SCH (22:34)
[2018-07-26] MEDS: INSULIN LISPRO 1 UNIT/0.01 ML UNIT SQ SCH (22:35)
[2018-07-26] MEDS: 0.9 % SODIUM CHLORIDE 10 ML SYRINGE IV SCH (22:41)
[2018-07-26 23:22] LABS: C-Reactive Protein 0.9 mg/dl (0.0-0.8)
[2018-07-27] MEDS: PIPERACILLIN SODIUM/TAZOBACTAM 3.375 GM in DEXTROSE 5% IN WATER 50 ML IV SCH ×4 (02:07→17:25)
[2018-07-27 05:22] LABS: Mean Cell Volume 85.8 fL (80.0-100.0); Mean Corpuscular HGB Conc 32.3 g/dL (31.0-36.0); Platelet Count 141 K/mcL (140-440); RBC 4.42 M/mcL (4.00-5.20); Red Cell Distribution Width 17.2 % (11.5-14.5)
[2018-07-27 05:33] LABS: ALT/SGPT 27 U/l (0-40); Albumin 3.3 gm/dL (3.2-5.2); Albumin/Globulin Ratio 1.5 (1.0-2.3); Alkaline Phosphatase 56 U/L (39-117); Bilirubin,Direct < 0.2 mg/dL (0.0-0.3); Blood Urea Nitrogen 17 mg/dl (6-20); Gamma Glutamyl Transpeptidase 36 U/L (5-36); Uric Acid 6.4 mg/dL (2.5-8.0)
[2018-07-27] MEDS: 0.9 % SODIUM CHLORIDE 10 ML SYRINGE IV SCH ×2 (06:00→12:27)
--- NOTE | 2018-07-27 07:12 | Internal Med Progress Note ---
Medical - PN: Subj Patient information: Note initiated : 07/27/18 at 7:03 am Service Date, if different from initiated Date: [] Patient: Jaycee Dias a 58 y/o F admitted on 07/26/18 for N/v/d. Chief Complaint: [] Interval history: Ms. Dias is a 58 year old F who presents the ED for the second time the past 24 hours with generalized weakness diarrhea as well as some nausea vomiting. Patient was last admitted in June for diabetic foot ulcer with infection of the right foot sepsis and upper respiratory infection at that time. She was discharged on Zyvox. Since discharge she has been feeling weak but gradually better over time she is feeling otherwise well until 4 days ago when she started having diarrhea. She does of diarrhea is watery and mucous-like. No blood. Does not record any exacerbating factors or relieving factors to her diarrhea. No change in her diet. She also had an episode of nausea vomiting since yesterday x2. Unrelated to any specific food or medications. She was first seen in the ED last night and describes some vague abdominal pain although this is not unusual for her given her IBS. CT scan was done and apparently the verbal read was given to the ED physician as a possible colitis. However, the official read does not mention any colitis. Labs are essentially unremarkable except for lactic acidosis. Which was thought possibly from the metformin or at least contributing. She was sent home and saw her primary care this morning who stopped her cardiac medications including amiodarone bisoprolol and spironolactone and also stop the Zyvox and was going to have her follow-up with Dr. Garcia arthritis which medication to take instead as PCP was concerned about GI symptoms from it. She has probably about a week left of her Zyvox. Her PCP also took her off her insulin in the ER physician last night took off her metformin. She was kept on her Lasix by her PCP. Especially since her diarrhea she continues to feel much weaker and fatigued. No chest pain and some mild vague crampy abdominal pain which she says is not unusual for her and is typical of her IBS. No respiratory symptoms or cough. Shortness of breath. When she saw her PCP today she was eventually sent to the ER and when EMS picked her up they saw that she was bradycardic and brought her to [facility] who evaluated over there and then sent her back over here as they did not find any cardiac issues. I do not know what her heart rate was. Last night she was in the high 40s. However here today she is 60s. And lactic acid was 5.8 yesterday 4.7 at [facility] today EKG sinus bradycardia. 07/27 Slept well last night. Still weak and fatigued. Heart rates run in 40s-50s. Blood pressure little low this morning 90 systolic while sitting up. IV fluids running. No diarrhea overnight. some nausea Review of Systems: denies headache/fever/chills/vomiting/chest pain/cough/dyspnea. Otherwise see above. - Constitutional Vitals: Vital Signs Temp Pulse Resp BP Pulse Ox 97.6 F 44 L 13 100/47 97 07/26/18 22:12 07/27/18 06:00 07/27/18 06:00 07/27/18 05:09 07/27/18 06:00 Period Temp Pulse Resp BP Sys/Abarca Pulse Ox Last 24 Hr 97.4 F-97.6 F 42-62 12-20 93-125/47-68 86-100 Intake and Output 07/26/18 07/27/18 07/27/18 21:59 05:59 13:59 Intake Total 50 Output Total 650 450 Balance -650 -400 Weight 131.179 kg Intake & Output: Intake & Output 07/26/18 07/27/18 07/27/18 21:59 05:59 13:59 Intake Total 50 Output Total 650 450 Balance -650 -400 Weight 131.179 kg Intake: IV 50 Zosyn 3.375 gm In Dextrose 5% 50 in Water 50 ml @ 100 mls/hr IV Q6H [facility] Rx#:[id number] Output: Void Amount 650 450 Exam: General: Awake, No acute Distress, obese Eyes/N/T: EOMI, Head/Neck: neck supple, CV: RRR, 1/6 SM Pulm: Clear b/l, no wheezing/rhonchi/rales Abd: soft, nontender, +BS x4 Ext: no clubbing/cyanosis, LLE 1+ and on RLE Neuro: no focal deficits, moves all extremities, decreased sensations lower extremities from neuropathy, chronic Skin: warm/dry Medical - PN: Obj Da - Labs CBC & Chem 7: 07/27/18 03:41 07/27/18 03:41 Labs: Abnormal Lab Results 07/27/18 07/27/18 07/26/18 03:41 03:41 22:18 RDW 17.2 H VBG Lactic Acid Calcium 8.4 L C-Reactive Protein 0.9 H Total Protein 5.5 L Triglycerides 174 H 07/26/18 22:18 RDW VBG Lactic Acid 2.1 H Calcium C-Reactive Protein Total Protein Triglycerides Meds: Medications Hydrocodone Bitart/Acetaminophen ([place] 5/325mg) 1 tab PO Q4HP PRN PRN Reason: PAIN LEVEL 3-6 Albuterol/Ipratropium (Duoneb) 3 ml NEB Q4HP PRN PRN Reason: Shortness Of Breath Albuterol/Ipratropium (Combivent) 1 puff INH QID [facility] Apixaban (Eliquis) 5 mg PO BID [facility] Last Admin: 07/26/18 22:34 Dose: 5 mg Documented by: Baclofen (Lioresal) 10 mg PO TID [facility] Last Admin: 07/26/18 22:34 Dose: 10 mg Documented by: Diagnostic Test (Pha) (Accu-Chek) 1 each FS ACHS [facility] Famotidine (Pepcid) 20 mg PO BID [facility] Last Admin: 07/26/18 22:34 Dose: 20 mg Documented by: Fluticasone Propionate (Flovent Hfa 110mcg) 2 puff INH QDAY [facility] Furosemide (Lasix) 40 mg PO BID [facility] Gabapentin (Neurontin) 1,200 mg PO TID [facility] Last Admin: 07/26/18 22:34 Dose: 1,200 mg Documented by: Potassium Chloride 40 meq/ (Dextrose) 520 mls @ 130 mls/hr IV ONCE PRN PRN Reason: Potassium < 3 Lactated Ringer's (Lactated Ringers) 1,000 mls @ 100 mls/hr IV .Q10H [facility] Stop: 07/27/18 07:53 Last Admin: 07/26/18 22:35 Dose: 100 mls/hr Documented by: Magnesium Sulfate (Magnesium Sulfate) 2 gm in 50 mls @ 50 mls/hr IV ONCE PRN PRN Reason: Magnesium </= 1.6 Piperacillin Sod/Tazobactam (Sod 3.375 gm/ Dextrose) 50 mls @ 100 mls/hr IV Q6H [facility] Last Admin: 07/27/18 02:07 Dose: 100 mls/hr Documented by: Insulin Human Lispro (Humalog) 0 unit SQ ACHS [facility]; Protocol Last Admin: 07/26/18 22:35 Dose: Not Given Documented by: Lorazepam (Ativan) 1 mg PO TIDP PRN PRN Reason: Anxiety Metoclopramide HCl (Reglan) 10 mg IV Q6HP PRN PRN Reason: Nausea And Vomiting Nitroglycerin (Nitrostat) 0.4 mg SL Q5M PRN PRN Reason: Chest Pain Ondansetron HCl (Zofran) 4 mg IV Q4HP PRN PRN Reason: Nausea And Vomiting Potassium Chloride (Kdur) 40 meq PO ONCE PRN PRN Reason: Potssium is 3-3.5 Potassium Chloride (Kdur) 40 meq PO ONCE PRN PRN Reason: Potassium < 3 Prochlorperazine (Compazine) 10 mg IV Q6HP PRN PRN Reason: Nausea And Vomiting Promethazine HCl (Phenergan) 12.5 mg MI Q6HP PRN PRN Reason: Pain Sodium Chloride (Saline Flush) 10 ml IV Q8 [facility] Last Admin: 07/26/18 22:41 Dose: 10 ml Documented by: Tramadol HCl (Ultram) 50 mg PO QID [facility] Last Admin: 07/26/18 22:34 Dose: 50 mg Documented by: Medical - PN: A/P - Time Spent With Patient Total time spent is greater than 50% in coordination of care (as documented) at patient's floor/unit and/or counseling patient: - Narrative A/P Narrative: A: * N/V/D: Possible medication side effect versus viral gastroenteritis * Lactic acidosis: Metformin as possible contributor but not likely primary etiology. Metformin was stopped last night in the ED. Concern for probable hypoperfusion from bradycardia secondary to medications. Her amiodarone and bisoprolol and Spironolactone was stopped today. -ESR/CRP/PCT low -REsolved * Bradycardia, sinus, 40's-60: AVN blockers stopped * h/o PAF: currently sinus. Amiodarone and bisoprolol stopped today. Heart rate 40s-50s in ED. * h/o CHF(grade I): appears to be stable. 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 * Depression/anxiety: * Chronic low back pain: on baclofen * Tobacco abuse * Recent RLE diabetic ulcer infection with MSSA: has been on zyvox -was to continue abx through 07/31/2018 P: -IVF's stop -stool studies -monitor i/o's weights -SSI/levemir, metformin stopped -amiodarone/bisoprolol/aldactone stopped -hold lasix for now -check TSH -Smoking cessation counseling -zyvox stopped outpt for possible GI intolerance, currently on zosyn; d/w ID -pt/ot -f/u with PCP/Cardiology regarding bradycardia -ppx: Continue home apixaban/home ppi CODE STATUS: FULL CODE. Medical - PN: Qual - VTE Deep Vein Thrombosis/Pulmonary Embolism Present on Admission: No
[2018-07-27 07:42] LABS: Anisocytosis 1+ (NONE SEEN); Basophils % (Manual) 1 % (0-2); Eosinophils % (Manual) 2 % (0-7); Lymphocytes % 29 % (15-49); Monocytes % (Manual) 6 % (1-12); Platelet Estimate NORMAL (NORMAL); RBC Morphology A (NORMAL); Segmented Neutrophils % 62 % (38-78)
[2018-07-27] MEDS: INSULIN LISPRO 1 UNIT/0.01 ML UNIT SQ SCH ×4 (08:54→21:18)
[2018-07-27] MEDS: IPRATROPIUM/ALBUTEROL SULFATE 1 PUFF INHALER INH SCH ×4 (08:57→21:46)
[2018-07-27] MEDS ORDERED: THEOPHYLLINE ANHYDROUS 400 MG TAB.XL.24H PO SCH (09:00)
[2018-07-27] MEDS ORDERED: FLUTICASONE HFA 110MCG INHALER INH SCH (09:00)
[2018-07-27] MEDS: FAMOTIDINE 20 MG TABLET PO SCH ×2 (09:00→21:17)
[2018-07-27] MEDS: traMADol 50 MG TABLET PO SCH ×4 (09:00→21:17)
[2018-07-27] MEDS: APIXABAN 5 MG TABLET PO SCH ×2 (09:04→21:20)
[2018-07-27] MEDS: GABAPENTIN 400 MG CAPSULE PO SCH ×3 (09:04→21:16)
[2018-07-27] MEDS: BACLOFEN 10 MG TABLET PO SCH ×3 (09:04→21:16)
[2018-07-27] MEDS: ONDANSETRON 4 MG/2 ML VIAL IV PRN ×2 (14:47→19:30)
[2018-07-27] MEDS ORDERED: LACTATED RINGERS 1,000 ML IV SCH (15:30)
[2018-07-27] MEDS ORDERED: PHENobarb/HYOSCY/ATROPINE/SCOP 1 DOSE BOTTLE PO ONE ×2 (19:23→19:52)
--- NOTE | 2018-07-27 20:16 | Ultrasound Report ---
CLINICAL INFORMATION: Possible enlarged thyroid TECHNIQUE: Grayscale and color flow Doppler spectral imaging COMPARISON: None. FINDINGS: Right lobe of the thyroid measures 4.5 x 2.0 x 2.2 cm. There are 3 thyroid nodules: - 3 mm upper pole cyst, TI-RADS 1 - 4 mm upper pole cyst, TI-RADS 1 - 5 mm solid lower pole nodule. This is ill-defined and hypoechoic. TI-RADS 3 Left lobe measures 4.6 x 1.5 x 2.0 cm. There is a single lower pole nodule. This measures 8 mm maximally. This is spongiform and somewhat ill-defined. TI-RADS score 1 Thyroid isthmus is negative IMPRESSION: Bilateral thyroid nodules. Dominant right nodule measures 5 mm with TI-RADS score 3. No further evaluation necessary Interpreted and Authenticated by: Clayton Sanchez 07/27/18
[2018-07-27] MEDS ORDERED: ASPIRIN 81 MG TAB.CHEW ONE (20:39)
[2018-07-27] MEDS ORDERED: ASPIRIN 81 MG TAB.CHEW CHEWED ONE (20:50)
--- NOTE | 2018-07-27 21:09 | Transfer Summary ---
Transfer Discharge Sum: Prov Patient information: Note initiated : 07/27/18 at 9:07 pm Service Date, if different from initiated Date: [] Patient: Jaycee Dias 58 y/o F admitted on 07/26/18 for N/v/d. Chief Complaint: [] Date of admission: 07/26/18 21:51 Discharge Date: 07/27/18 Primary care physician: MAYRA Oden Consults: 07/26/18 Consult to Physician [CONS] Stat Comment: Consulting Provider: Oscar Gilmore Reason For Exam: Physician to Consult Transfer Discharge Sum: Diag - Discharge Diagnosis (1) NSTEMI (non-ST elevated myocardial infarction) Status: Acute (2) Bradycardia Status: Acute (3) Lactic acidosis Status: Acute (4) Nausea & vomiting Status: Acute Transfer Discharge Sum: Med - Medications Active and Home Medications: Home Medications Apixaban [Eliquis] 5 mg PO BID 01/21/18 [History Confirmed 07/26/18] Baclofen [Lioresal] 10 mg PO TID 01/21/18 [History Confirmed 07/26/18] Ergocalciferol (Vitamin D2) [Vitamin D2] 50,000 unit PO WEEKLY 01/21/18 [History Confirmed 07/26/18] Fluticasone Hfa 110Mcg [Flovent Hfa 110Mcg] 2 puff INH QDAY 01/21/18 [History Confirmed 07/26/18] Furosemide [Lasix] 40 mg PO BID 01/21/18 [History Confirmed 07/26/18] Gabapentin [Gralise] 1,200 mg PO TID 01/21/18 [History Confirmed 07/26/18] Ipratropium/Albuterol Sulfate [Combivent] 1 puff INH QIDP PRN 01/21/18 [History Confirmed 07/26/18] Nitroglycerin [Nitrostat] 0.4 mg SL Q5M PRN 01/21/18 [History Confirmed 07/26/18] Omeprazole 20 mg PO DAILY 01/21/18 [History Confirmed 07/26/18] traMADol [Ultram] 50 - 100 mg PO QID 01/21/18 [History Confirmed 07/26/18] LORazepam [Ativan] 1 mg PO TIDP PRN 06/30/18 [History Confirmed 07/26/18] Ranitidine HCl [Heartburn Relief] 150 mg PO BID 06/30/18 [History Confirmed 07/26/18] Ondansetron [Zofran ODT] 4 mg SL Q4-6HP PRN #10 tab 07/26/18 [Rx Confirmed 07/26/18] Active Medications Hydrocodone Bitart/Acetaminophen (Clark 5/325mg) 1 tab PO Q4HP PRN PRN Reason: PAIN LEVEL 3-6 Albuterol/Ipratropium (Duoneb) 3 ml NEB Q4HP PRN PRN Reason: Shortness Of Breath Albuterol/Ipratropium (Combivent) 1 puff INH QID [facility] Last Admin: 07/27/18 15:24 Dose: Not Given Documented by: Apixaban (Eliquis) 5 mg PO BID [facility] Last Admin: 07/27/18 09:04 Dose: 5 mg Documented by: Baclofen (Lioresal) 10 mg PO TID [facility] Last Admin: 07/27/18 14:43 Dose: 10 mg Documented by: Diagnostic Test (Pha) (Accu-Chek) 1 each FS ACHS [facility] Last Admin: 07/27/18 17:21 Dose: 1 each Documented by: Famotidine (Pepcid) 20 mg PO BID [facility] Last Admin: 07/27/18 09:00 Dose: 20 mg Documented by: Fluticasone Propionate (Flovent Hfa 110mcg) 2 puff INH QDAY [facility] Last Admin: 07/27/18 08:57 Dose: Not Given Documented by: Furosemide (Lasix) 40 mg PO BID [facility] Gabapentin (Neurontin) 1,200 mg PO TID [facility] Last Admin: 07/27/18 14:43 Dose: 1,200 mg Documented by: Potassium Chloride 40 meq/ (Dextrose) 520 mls @ 130 mls/hr IV ONCE PRN PRN Reason: Potassium < 3 Magnesium Sulfate (Magnesium Sulfate) 2 gm in 50 mls @ 50 mls/hr IV ONCE PRN PRN Reason: Magnesium </= 1.6 Piperacillin Sod/Tazobactam (Sod 3.375 gm/ Dextrose) 50 mls @ 100 mls/hr IV Q6H [facility] Last Infusion: 07/27/18 18:02 Dose: Infused Documented by: Lactated Ringer's (Lactated Ringers) 1,000 mls @ 75 mls/hr IV .[id number] [facility] Stop: 07/28/18 04:49 Last Admin: 07/27/18 15:30 Dose: 75 mls/hr Documented by: Insulin Human Lispro (Humalog) 0 unit SQ ACHS [facility]; Protocol Last Admin: 07/27/18 17:24 Dose: Not Given Documented by: Lorazepam (Ativan) 1 mg PO TIDP PRN PRN Reason: Anxiety Metoclopramide HCl (Reglan) 10 mg IV Q6HP PRN PRN Reason: Nausea And Vomiting Nitroglycerin (Nitrostat) 0.4 mg SL Q5M PRN PRN Reason: Chest Pain Ondansetron HCl (Zofran) 4 mg IV Q4HP PRN PRN Reason: Nausea And Vomiting Last Admin: 07/27/18 19:30 Dose: 4 mg Documented by: Potassium Chloride (Kdur) 40 meq PO ONCE PRN PRN Reason: Potssium is 3-3.5 Potassium Chloride (Kdur) 40 meq PO ONCE PRN PRN Reason: Potassium < 3 Prochlorperazine (Compazine) 10 mg IV Q6HP PRN PRN Reason: Nausea And Vomiting Promethazine HCl (Phenergan) 12.5 mg ND Q6HP PRN PRN Reason: Pain Sodium Chloride (Saline Flush) 10 ml IV Q8 [facility] Last Admin: 07/27/18 12:27 Dose: 10 ml Documented by: Tramadol HCl (Ultram) 50 mg PO QID [facility] Last Admin: 07/27/18 17:24 Dose: 50 mg Documented by: Transfer Discharge Sum: Hosp Hospital course: Ms. Dias is a 58 year old F Ms. Dias is a 58 year old F who presents the ED for the second time the past 24 hours with generalized weakness diarrhea as well as some nausea vomiting. Patient was last admitted in June for diabetic foot ulcer with infection of the right foot sepsis and upper respiratory infection at that time. She was discharged on Zyvox. Since discharge she has been feeling weak but gradually better over time she is feeling otherwise well until 4 days ago when she started having diarrhea. She does of diarrhea is watery and mucous-like. No blood. Does not record any exacerbating factors or relieving factors to her diarrhea. No change in her diet. She also had an episode of nausea vomiting since yesterd ay x2. Unrelated to any specific food or medications. She was first seen in the ED last night and describes some vague abdominal pain although this is not unusual for her given her IBS. CT scan was done and apparently the verbal read was given to the ED physician as a possible colitis. However, the official read does not mention any colitis. Labs are essentially unremarkable except for lactic acidosis. Which was thought possibly from the metformin or at least contributing. She was sent home and saw her primary care this morning who stopped her cardiac medications including amiodarone bisoprolol and spironolactone and also stop the Zyvox and was going to have her follow-up with Dr. Garcia arthritis which medication to take instead as PCP was concerned about GI symptoms from it. She has probably about a week left of her Zyvox. Her PCP also took her off her insulin in the ER physician last night took off her metformin. She was kept on her Lasix by her PCP. Especially since her diarrhea she continues to feel much weaker and fatigued. No chest pain and some mild vague crampy abdominal pain which she says is not unusual for her and is typical of her IBS. No respiratory symptoms or cough. Shortness of breath. When she saw her PCP today she was eventually sent to the ER and when EMS picked her up they saw that she was bradycardic and brought her to [facility] who evaluated over there and then sent her back over here as they did not find any cardiac issues. I do not know what her heart rate was. Last night she was in the high 40s. However here today she is 60s. And lactic acid was 5.8 yesterday 4.7 at [facility] today EKG sinus bradycardia. 07/27 Slept well last night. Still weak and fatigued. Heart rates run in 40s-50s. Blood pressure little low this morning 90 systolic while sitting up. IV fluids running. No diarrhea overnight. some nausea 07/27 @2100 Patient had an episode of substernal chest achiness nonradiating while she was sitting in bed a short time ago. EKG was ordered which does show some T wave changes compared to a previous EKG on the showing T wave inversion in V1 V2 compared to the previous. Troponin was obtained and was 0.12, all previous troponins have been unremarkable. Did discuss the case with Dr. Jackson at [facility] who agreed to take the patient with the request for hospitalist admitting. Then talked with Dr. Chavez, the hospitalist, who kindly at agreed to admit the patient. - Time Spent with Patient Total time spent providing and/or coordinating transfer services: Greater than 30 minutes Transfer Discharge Sum: Exam - Constitutional Vitals: Vital Signs Temp Pulse Pulse Resp BP BP Pulse Ox 07/27/18 18:02 98.4 F 16 93/39 96 07/27/18 17:02 98.0 F 15 105/61 94 07/27/18 16:02 98.0 F 18 102/59 95 07/27/18 15:02 13 101/55 96 07/27/18 14:04 14 96/55 96 07/27/18 14:00 47 L 18 95 07/27/18 13:03 97 07/27/18 13:01 12 98/59 97 07/27/18 12:01 97.1 F 12 101/59 95 07/27/18 11:01 14 113/59 97 07/27/18 10:33 14 94/51 97 07/27/18 10:01 15 89/48 98 07/27/18 09:01 20 96/54 92 07/27/18 08:01 97.7 F 20 104/53 98 07/27/18 08:00 46 L 18 07/27/18 07:02 15 96/57 99 07/27/18 06:02 14 108/61 96 07/27/18 06:00 44 L 13 97 07/27/18 05:19 42 L 12 98 07/27/18 05:09 47 L 13 100/47 99 07/27/18 04:02 12 96/58 07/27/18 03:13 45 L 13 100 07/27/18 03:02 46 L 13 93/50 100 07/27/18 02:02 49 L 18 109/58 100 07/27/18 02:00 95 07/27/18 01:32 49 L 13 91 07/27/18 01:04 15 96/64 07/27/18 00:45 46 L 17 93 07/27/18 00:02 45 L 12 110/59 94 07/26/18 23:02 44 L 14 106/53 96 07/26/18 22:17 47 L 14 104/63 91 07/26/18 22:12 97.6 F 47 L 18 112/63 97 07/26/18 21:51 97.4 F 45 L 20 104/63 92 07/26/18 21:46 44 L 112/62 96 07/26/18 21:31 46 L 104/53 98 07/26/18 21:29 47 L 112/63 97 07/26/18 21:16 47 L 112/63 95 Intake and Output 07/27/18 07/27/18 07/27/18 05:59 13:59 21:59 Intake Total 100 1820 50 Output Total 450 1100 650 Balance -350 720 -600 Intake: IV 100 1100 50 Lactated Ringers 1,000 ml @ 100 1000 mls/hr IV .Q10H YING Rx#: [id number] Zosyn 3.375 gm In Dextrose 5% 100 100 50 in Water 50 ml @ 100 mls/hr IV Q6H [facility]ING Rx#:[id number] Oral 720 Output: Void Amount 450 1100 650 Other: Meal Lunch Percent of Meal Consumed 100% Feeding Ability Independent Urine Color Dark Yellow Dark Yellow Urine Odor Strong Strong Transfer Discharge Sum: Data Procedures and tests throughout hospitalization: Pending Orders 07/26/18 Consult to Physician [CONS] Stat 07/26/18 20:02 Resuscitation Status Routine 07/26/18 21:00 Gabapentin [Neurontin] 1,200 mg PO TID 07/26/18 21:54 Admit as Inpatient Routine Ambulate-Progressive BID Anti-Embolism Devices DAILY cured meats supervisor CONT Condition Routine Elevate head of bed .ROUTINE IV Insertion/Management QSHIFT Intake and Output Q4H Intake and Output qshiftio Notify Provider .routine Up to chair PRN Weight Monitoring QHS Full Liquid Diet C.Difficile GDH/Toxin A+B Stat Fecal Leukocyte Smear Stat Stool Culture and EHEC Stat Apixaban [Eliquis] 5 mg PO BID Baclofen [Lioresal] 10 mg PO TID Famotidine [Pepcid] 20 mg PO BID HYDROcodone/APAP 5/325MG [Clark 5/325Mg] 1 tab PO Q4HP PRN Insulin Lispro [HumaLOG] See Protocol SQ ACHS Ipratropium/Albuterol [Duoneb] 3 ml NEB Q4HP PRN LORazepam [Ativan] 1 mg PO TIDP PRN Magnesium Sulfate 2 gm in 50 ml IV ONCE Metoclopramide [Reglan] 10 mg IV Q6HP PRN Nitroglycerin [Nitrostat] 0.4 mg SL Q5M PRN Ondansetron [Zofran] 4 mg IV Q4HP PRN Potassium Chloride 40 meq Dextrose 5% in Water 500 ml IV ONCE Potassium Chloride [Kdur] 40 meq PO ONCE PRN Potassium Chloride [Kdur] 40 meq PO ONCE PRN Prochlorperazine [Compazine] 10 mg IV Q6HP PRN Promethazine [Phenergan] 12.5 mg ND Q6HP PRN traMADol [Ultram] [address] to Adjust Diet/Supplements as Needed Routine Occupational Therapy Eval & Tx DAILY Physical Therapy Eval & Tx DAILY Nebulizer management .Routine Pulse Oximetry .ROUTINE 07/26/18 22:00 0.9 % Sodium Chloride [Saline Flush] 10 ml IV Q8 Piperacillin Sodium/Tazobactam [Zosyn] 3.375 gm Dextrose 5% in Water 50 ml IV Q6H 07/27/18 07:03 Wound Care/Dressings PRN 07/27/18 07:30 Accu-Chek 1 each FS ACHS 07/27/18 09:00 Fluticasone Hfa 110Mcg [Flovent Hfa 110Mcg] 2 puff INH QDAY Ipratropium/Albuterol Sulfate [Combivent] 1 puff INH QID 07/27/18 10:12 Case Management Referral .Routine 07/27/18 15:30 Lactated Ringers 1,000 ml IV 75 mls/hr 07/27/18 15:50 Triiodothyronine (T3) Total Urgent 07/27/18 19:51 XR chest 1V portable Stat 07/27/18 20:35 Communication order NOW 07/28/18 04:00 Inpatient Panel Routine 07/28/18 21:00 Furosemide [Lasix] 40 mg PO BID Transfer Discharge Sum: A/P - Problem Maintenance (1) NSTEMI (non-ST elevated myocardial infarction) Status: Acute (2) Bradycardia Status: Acute (3) Lactic acidosis Status: Acute (4) Nausea & vomiting Status: Acute Qualifiers: Vomiting type: unspecified Vomiting Intractability: non-intractable Qualified Code(s): R11.2 - Nausea with vomiting, unspecified - Plan Functional capacity at transfer: uses cane/walker Overall status at transfer: patient is not back to baseline Disposition: [facility] Quality Measure Queries - VTE Deep Vein Thrombosis/Pulmonary Embolism Present on Admission: No
[2018-07-27] MEDS ORDERED: NITROGLYCERIN 0.4 MG TAB.SUBL SL ONE (21:25)
[2018-07-28] MEDS ORDERED: FUROSEMIDE 40 MG TABLET PO SCH (21:00)
== END 2018-07-27 22:30 | disposition short-term general hospital (02) | DRG 281 ==
LOC: ED 17:37 → ICU 21:51
PROVIDERS: ADMIT Internal Medicine; ATTEND Internal Medicine

== ENCOUNTER 2019-11-18 12:45 | Inpatient (IN) ==
[2019-11-18] MEDS ORDERED: IOPAMIDOL 100 ML BOTTLE IV ONE (12:46)
[2019-11-18] MEDS ORDERED: cefTRIAXone 1 GM VIAL IV ONE ×2 (13:03→19:13)
[2019-11-18] MEDS ORDERED: 0.9 % SODIUM CHLORIDE 1,000 ML IV ONE (13:09)
--- NOTE | 2019-11-18 14:07 | Cat Scan Report ---
INDICATION: Previous left total knee arthroplasty. Left knee pain TECHNIQUE: Axial thin section images through the left knee. Sagittal and coronal reformatted images. 90 mL contrast material injected COMPARISON: Previous left lower extremity deep venous ultrasound dated 11/17/2019. Previous plain film examinations dated 10/12/2014, 12/29/2013, 11/27/2013. FINDINGS: Previous left total knee arthroplasty. There is extensive beam hardening artifact related to the femoral and tibial prostheses. There is no fracture. No lytic lesion. No cortical destruction or evidence for osteomyelitis. There is a suprapatellar joint effusion. This is small to moderate. There was a probable joint effusion on 10/12/2014 No periarticular soft tissue abnormality. There is no soft tissue mass. No enhancing fluid collection. No evidence for periarticular abscess. IMPRESSION: 1. Previous left total knee arthroplasty 2. Small to moderate suprapatellar joint effusion 3. No periarticular soft tissue abnormality. No left knee fracture or cortical destruction 4. Suboptimal evaluation due to beam hardening artifact from previous joint replacement Interpreted and Authenticated by: Clayton Sanchez 11/18/19
[2019-11-18 14:32] LABS: Mean Cell Volume 94.6 fL (80.0-100.0); Mean Corpuscular HGB Conc 31.8 g/dL (31.0-36.0); Mean Platelet Volume 12.1 fL (7.4-10.4); Platelet Count 124 K/mcL (140-440); RBC 4.65 M/mcL (3.59-5.38); Red Cell Distribution Width 14.5 % (11.5-14.5); WBC 12.4 K/mcL (4.50-11.00)
[2019-11-18 14:48] LABS: ALT/SGPT 60 U/l (0-40); AST/SGOT 21 U/l (0-37); Albumin 3.5 gm/dL (3.2-5.2); Albumin/Globulin Ratio 1.2 (1.0-2.3); Alkaline Phosphatase 68 U/L (39-117); Bilirubin,Total 0.9 mg/dL (0.0-1.0); Blood Urea Nitrogen 18 mg/dl (6-20); Calcium 8.3 mg/dl (8.6-10.4); Carbon Dioxide 20 mmol/L (22-30); Chloride 102 mmol/L (96-108); Globulin 2.9 gm/dL (2.2-3.7); Glomerular Filtration Rate 70; Glucose 190 mg/dL (70-105)
[2019-11-18] MEDS: HYDROmorphone 0.5 MG/0.5 ML SYRINGE IV PRN ×2 (14:53→15:10)
[2019-11-18 14:54] LABS: INR 1.6 (0.9-1.1); Prothrombin Time 19.9 sec (11.9-14.5)
[2019-11-18 15:11] LABS: Anisocytosis FEW (NONE SEEN); Band Neutrophils % 1 % (0-10); Lymphocytes % 7 % (15-49); Monocytes % (Manual) 4 % (1-12); Platelet Estimate DECREASED (NORMAL); RBC Morphology ABNORM (NORMAL); Segmented Neutrophils % 88 % (38-78)
[2019-11-18] MEDS ORDERED: CLINDAMYCIN 600 MG in DEXTROSE 5% IN WATER 50 ML IV ONE (15:29)
--- NOTE | 2019-11-18 15:32 | Emergency Department Note ---
Recheck HPI - General Chief Complaint: Recheck/Abnormal Lab/Rx Stated Complaint: LLE Cellulitis Recheck Time Seen by Provider: 11/18/19 12:58 Source: patient Mode of arrival: wheelchair Limitations: no limitations - History of Present Illness HPI Narrative: 59-year-old female presents for recheck of left lower extremity cellulitis. She has been seen here a few times regarding the same cellulitis. She was originally started on oral antibiotics and returned yesterday with no improvement. We started her on IV Rocephin yesterday as she is allergic to IV vancomycin. The redness to the left lower extremity had stayed the same as the outline or may be slightly worse as of yesterday. Yesterday she was having significant posterior calf and knee pain. We did do a venous duplex which was negative for any DVT. We had her recheck here today. She continues to have a fever and is states she is not any better. She felt like she had a high fever at night and is getting worse. Has also had chills last 48 hours. Has been taking oral antibiotics as well. States today for the first time she has redness to the left anterior knee area as well. Previously she had pain but no redness to the knee. Denies any trauma or injury. She has had a knee r eplacement in the past. - Related Data Home Medications Medication Instructions Recorded Confirmed Omeprazole 20 mg PO DAILY 01/21/18 11/18/19 ipratropium 20 mcg-albuterol 100 1 puff INHALATION QIDP 08/08/18 11/18/19 mcg/actuation mist for inhalation liraglutide 0.6 mg/0.1 mL (18 mg/3 1.2 mg SUB-Q QDAY #6 ml 08/08/18 11/18/19 mL) subcutaneous pen injector fluticasone propionate 50 1 spray INTRANASAL QDAY 01/29/19 11/18/19 mcg/actuation nasal spray,suspension acetaminophen 500 mg tablet 500 mg PO Q6H PRN 04/15/19 11/18/19 apixaban 5 mg tablet 5 mg PO BID 04/15/19 11/18/19 docusate sodium PO PRN 04/15/19 11/04/19 insulin detemir U-100 100 unit/mL See Rx Instructions .ROUTE 11/04/19 11/18/19 (3 mL) subcutaneous pen .COMPLEX unknown measurement unit code: ml Previous Rx's Medication Instructions Recorded insluin syringe #100 each 05/20/19 insulin aspart U-100 100 unit/mL 2 unit SUB-Q .COMPLEX #15 ml MDD 07/09/19 (3 mL) subcutaneous pen 100 units per day bisoprolol fumarate 10 mg tablet 5 mg PO QHS #90 tab 07/16/19 furosemide 20 mg tablet 20 mg PO QDAY #90 tab 07/24/19 ipratropium 20 mcg-albuterol 100 See Rx Instructions .ROUTE 09/02/19 mcg/actuation mist for inhalation .COMPLEX #4 unknown measurement unit code: gram potassium chloride 20 mEq See Rx Instructions .ROUTE 09/04/19 tablet,extended release(part/cryst) .COMPLEX #60 unknown measurement unit code: tablet spironolactone 25 mg tablet 25 mg PO QAM #90 tab 09/05/19 atorvastatin 10 mg tablet See Rx Instructions .ROUTE 09/10/19 .COMPLEX #90 unknown measurement unit code: tablet amiodarone 200 mg tablet See Rx Instructions .ROUTE 09/16/19 .COMPLEX #180 unknown measurement unit code: tablet baclofen 20 mg tablet See Rx Instructions .ROUTE 09/26/19 .COMPLEX #60 unknown measurement unit code: tablet fenofibrate 54 mg tablet See Rx Instructions .ROUTE 10/03/19 .COMPLEX #90 unknown measurement unit code: tablet fluticasone propionate 110 2 puff INHALATION BID #12 g 10/06/19 mcg/actuation HFA aerosol inhaler lisinopril 2.5 mg tablet See Rx Instructions .ROUTE 10/17/19 .COMPLEX #60 unknown measurement unit code: tablet gabapentin 800 mg tablet See Rx Instructions .ROUTE 10/20/19 .COMPLEX #135 unknown measurement unit code: tablet pen needle, diabetic 31 gauge x See Rx Instructions .ROUTE 10/23/19 3/16" .COMPLEX #100 unknown measurement unit code: each paroxetine HCl 20 mg tablet See Rx Instructions .ROUTE 10/29/19 .COMPLEX #45 unknown measurement unit code: tablet Cephalexin [Keflex] 500 mg PO QID #40 cap 11/17/19 Nystatin 1,000,000 unit MC BID #1 powder.ea. 11/17/19 lorazepam 1 mg tablet See Rx Instructions .ROUTE 11/17/19 .COMPLEX #90 tablet tramadol 50 mg tablet See Rx Instructions .ROUTE 11/17/19 .COMPLEX #240 tablet Allergies Allergy/AdvReac Type Severity Reaction Status Date / Time codeine Allergy Intermediate Hives Verified 11/17/19 11:14 Cyclobenzaprine Allergy Intermediate Hives Verified 11/17/19 11:14 Doxepin Allergy Intermediate Hives Verified 11/17/19 11:14 fluoxetine Allergy Intermediate Hives Verified 11/17/19 11:14 piroxicam Allergy Intermediate Hives Verified 11/17/19 11:14 Rifamycin Allergy Intermediate Hives Verified 11/17/19 11:14 methadone Allergy Unknown unknown Verified 11/17/19 11:14 aripiprazole [From Abilify] Allergy unknown Verified 11/17/19 11:14 vancomycin AdvReac Intermediate REDNESS/FLU Verified 11/17/19 11:14 FAISAL Review of Systems All systems ED: reviewed and negative except as stated. Past Medical History - Past Medical History [facility] Narrative: Medical History (Last Reviewed 11/04/19 @ 12:09 by MAYRA Oden) History of tobacco use (Chronic) Type 2 diabetes mellitus (Chronic) Depression (Chronic) Anxiety (Chronic) Asthma (Chronic) Spinal stenosis, lumbar region with neurogenic claudication (Chronic) Chronic pain (Chronic) Radiculopathy, lumbar region (Chronic) Low back pain (Chronic) Osteoarthritis of left hip (Chronic) Hematuria (Chronic) Recurrent UTI (Chronic) Chronic wound of extremity (Chronic) Chronic venous insufficiency (Chronic) Hx of pancreatitis (Chronic) Polycythemia (Chronic) History of narcotic use (Chronic) Memory loss (Chronic) Osteoarthritis of left knee (Chronic) Generalized arthritis (Chronic) Constipation, chronic (Chronic) Family history of malignant neoplasm of breast (Chronic) Hyperlipidemia (Chronic) Obesity (Chronic) DJD (degenerative joint disease) of knee (Chronic) Polycythemia, secondary (Chronic) Dermatitis (Chronic) Sleep apnea (Chronic) Lumbar back pain (Chronic) Hypertension (Chronic) Atrial fibrillation (Chronic) COPD (chronic obstructive pulmonary disease) (Chronic) CHF (congestive heart failure) (Chronic) Tremor, essential (Chronic) Foot callus (Chronic) Diabetic autonomic neuropathy (Chronic) Encounter for long-term (current) use of insulin (Chronic) Candidiasis (Chronic) Diabetes mellitus, insulin dependent (IDDM), uncontrolled (Chronic) Venous (peripheral) insufficiency (Chronic) Chronic kidney disease, stage III (moderate) (Chronic) Amputated great toe of right foot (Chronic) Elevated liver enzymes (Chronic) Depression, major, recurrent, mild (Chronic) Anxiety disorder (Chronic) Recurrent chest pain (Chronic) Hypertension, essential, benign (Chronic) GERD (gastroesophageal reflux disease) (Chronic) Encounter for smoking cessation counseling (Chronic) Shoulder pain, right (Chronic) Risk for falls (Chronic) Pulmonary nodule (Chronic) Past Surgical History (Last Reviewed 11/04/19 @ 12:09 by MAYRA Oden) History of cholecystectomy (Chronic) History of knee surgery (Chronic) History of hysterectomy (Chronic) History of colonoscopy (Chronic ~04/15/12) History of surgery (Chronic) Medical history: Reports: atrial fibrillation, CHF, COPD, DM, hypertension Surgical history ED: Reports: orthopedic, other - Social History smoking status: Former smoker Alcohol use: Reports: None Drug use: Reports: none Physical Exam Limitations: no limitations General appearance: alert Head: atraumatic, normocephalic, normal inspection Eye: Present: normal appearance. Absent: conjunctival injection Chest: Present: symmetric chest wall rise Respiratory: Present: normal lung sounds bilaterally. Absent: respiratory distress, rales/crackles, accessory muscle use Cardiovascular: Present: regular rate, normal heart sounds Extremities: Absent: normal inspection (So I left lower extremity with diffuse redness and edema that is slightly improved about 2 cm from the outline yes terday. However the left anterior knee does have red streaks throughout and is hot to touch.) Neurological: Present: alert, oriented X3 Psychiatric: Present: normal affect, normal mood Course Course Narrative: At 1540, hospitalist Dr. Ash agrees to accept this patient. At 1550, orthopedics on-call, Dr. Rojas agrees to consult on this patient. Vital Signs Temperature 99.1 F H 11/18/19 12:47 Pulse Rate 80 11/18/19 12:47 Respiratory Rate 24 H 11/18/19 12:47 Blood Pressure 124/63 11/18/19 12:47 Pulse Oximetry (%) 86 L 11/18/19 12:47 Temperature 100.0 F H 11/18/19 13:09 Pulse Rate 69 11/18/19 15:32 Respiratory Rate 20 11/18/19 13:33 Blood Pressure 116/57 11/18/19 15:32 Pulse Oximetry (%) 94 11/18/19 15:32 Recheck/Abnormal Lab/Rx - Lab Data Lab results reviewed: Yes I reviewed the patient's lab results. Result diagrams: 11/18/19 13:11 11/18/19 13:11 Lab Results 11/18/19 11/18/19 11/18/19 Range/Units 13:05 13:05 13:11 WBC 12.4 H (4.50-11.00) K/mcL RBC 4.65 (3.59-5.38) M/mcL Hgb 14.0 (11.2-15.7) g/dL Hct 44.0 (34.1-44.9) % MCV 94.6 (80.0-100.0) fL MCH 30.1 (26.0-34.0) pg MCHC 31.8 (31.0-36.0) g/dL RDW 14.5 (11.5-14.5) % Plt Count 124 L (140-440) K/mcL MPV 12.1 H (7.4-10.4) fL Total Counted 100 Seg Neutrophils % 88 H (38-78) % Band Neutrophils % 1 (0-10) % Lymphocytes % 7 L (15-49) % Monocytes % (Manual) 4 (1-12) % Platelet Estimate Decreased (NORMAL) RBC Morphology Abnorm A (NORMAL) Anisocytosis Few A (NONE SEEN) PT 19.9 H (11.9-14.5) sec INR 1.6 H (0.9-1.1) VBG Lactic Acid 3.6 H (0.5-2.0) mmol/L Sodium (133-145) mmol/L Potassium (3.3-5.1) mmol/L Chloride (96-108) mmol/L Carbon Dioxide (22-30) mmol/L Anion Gap (8-16) BUN (6-20) mg/dl Creatinine (0.6-1.1) mg/dl GFR Calculation Glucose (70-105) mg/dL Calcium (8.6-10.4) mg/dl Total Bilirubin (0.0-1.0) mg/dL AST (0-37) U/l ALT (0-40) U/l Alkaline Phosphatase (39-117) U/L Total Protein (5.9-8.4) gm/dL Albumin (3.2-5.2) gm/dL Globulin (2.2-3.7) gm/dL Albumin/Globulin Ratio (1.0-2.3) 11/18/19 Range/Units 13:11 WBC (4.50-11.00) K/mcL RBC (3.59-5.38) M/mcL Hgb (11.2-15.7) g/dL Hct (34.1-44.9) % MCV (80.0-100.0) fL MCH (26.0-34.0) pg MCHC (31.0-36.0) g/dL RDW (11.5-14.5) % Plt Count (140-440) K/mcL MPV (7.4-10.4) fL Total Counted Seg Neutrophils % (38-78) % Band Neutrophils % (0-10) % Lymphocytes % (15-49) % Monocytes % (Manual) (1-12) % Platelet Estimate (NORMAL) RBC Morphology (NORMAL) Anisocytosis (NONE SEEN) PT (11.9-14.5) sec INR (0.9-1.1) VBG Lactic Acid (0.5-2.0) mmol/L Sodium 137 (133-145) mmol/L Potassium 4.1 (3.3-5.1) mmol/L Chloride 102 (96-108) mmol/L Carbon Dioxide 20 L (22-30) mmol/L Anion Gap 15.0 (8-16) BUN 18 (6-20) mg/dl Creatinine 0.9 (0.6-1.1) mg/dl GFR Calculation 70 Glucose 190 H (70-105) mg/dL Calcium 8.3 L (8.6-10.4) mg/dl Total Bilirubin 0.9 (0.0-1.0) mg/dL AST 21 (0-37) U/l ALT 60 H (0-40) U/l Alkaline Phosphatase 68 (39-117) U/L Total Protein 6.4 (5.9-8.4) gm/dL Albumin 3.5 (3.2-5.2) gm/dL Globulin 2.9 (2.2-3.7) gm/dL Albumin/Globulin Ratio 1.2 (1.0-2.3) - Radiology Data Radiology results reviewed: Yes I reviewed the patient's radiology results. Disposition Pt seen by [employer]BER/PA only: Yes Clinical Impression: Cellulitis of left lower extremity, Failure of outpatient treatment Disposition: Xfer As Inpt ([facility]) Condition: Fair Referrals: Rossy Haines ARNP [Primary Care Provider] - Time of Disposition: 15:52
--- NOTE | 2019-11-18 16:37 | XRay Report ---
INDICATION: low O2 sats. TECHNIQUE: AP portable upright chest x-ray COMPARISON: Previous chest x-ray dated 09/03/2018. Previous chest CT scans dated 01/27/2019, 09/09/2018 FINDINGS: Lungs:There are linear parenchymal densities bilaterally. These are essentially stable since 09/03/2018. Findings may be due to subsegmental atelectasis or scarring. No new focal pulmonary parenchymal infiltrate or mass. There is mild peribronchial thickening which probably indicates bronchitis. No interval change Heart, vascular:Mild cardiomegaly, stable. No evidence for pulmonary edema or pulmonary congestion Mediastinum, benjamin:No mediastinal widening. No hilar mass Pleura:No pleural fluid. No pleural-based mass or calcification Skeletal:Negative. IMPRESSION: 1. Chronic pulmonary parenchymal abnormality with linear densities and peribronchial thickening. No acute infiltrate or mass 2. Cardiomegaly, unchanged. No evidence for congestive heart failure 3. No significant interval change since 09/03/2018 Interpreted and Authenticated by: Clayton Sanchez 11/18/19
[2019-11-18] MEDS ORDERED: ONDANSETRON 4 MG ODT TABLET SL PRN (17:19)
[2019-11-18] MEDS ORDERED: MELATONIN 3 MG TABLET PO PRN (17:19)
[2019-11-18] MEDS ORDERED: ACETAMINOPHEN 500 MG TABLET PO PRN (17:19)
[2019-11-18] MEDS ORDERED: POLYETHYLENE GLYCOL 3350 17 GM PACKET PO PRN (17:19)
[2019-11-18] MEDS ORDERED: guaiFENesin/CODEINE 10 ML UDC PO PRN (17:19)
[2019-11-18] MEDS ORDERED: ONDANSETRON 4 MG/2 ML VIAL IV PRN (17:19)
[2019-11-18] MEDS ORDERED: POTASSIUM CHLORIDE 20 MEQ PACKET PO PRN (17:19)
[2019-11-18] MEDS ORDERED: INSULIN ASPART 2 UNIT SUB-Q SCH (17:19)
[2019-11-18] MEDS ORDERED: IPRATROPIUM/ALBUTEROL SULFATE 1 PUFF INHALER INH SCH (17:19)
[2019-11-18] MEDS ORDERED: BISACODYL 10 MG SUPP.RECT PR PRN (17:19)
[2019-11-18] MEDS ORDERED: DEXTROSE 31 GM ORAL.SUSP PO PRN (17:19)
[2019-11-18] MEDS ORDERED: MAGNESIUM SULFATE 2 GM/50 ML BAG IV PRN (17:19)
[2019-11-18] MEDS ORDERED: DEXTROSE 50% 50 ML VIAL IV PRN (17:19)
--- NOTE | 2019-11-18 17:26 | Internal Med History&Physical ---
Medical - H&P: [facility] Patient information: Note initiated : 11/18/19 at 5:22 pm Service Date, if different from initiated Date: [] Patient: Jaycee Dias 59 y/o F admitted on 11/18/19 for LLE Cellulitis Recheck. Chief Complaint: [] Chief complaint: Left knee swelling and pain History of present illness: Ms. Dias is a 59 year old F with a history of DM type II/atrial fibrillation on anticoagulation/HTN/CKD stage III who presents to the ER following left knee and lower extremity redness pain and swelling that started 5 days prior to presentation. Symptoms are progressed to the point is difficult to bear weight. She was evaluated in the ER and was started on Bactrim however due to failure of symptomatic improvement patient return to the ER and was started on Rocephin for presumed cellulitis left lower extremity. She tried to alleviate the pain with Tylenol without much help. She now presents for reevaluation. Initial work-up was consistent with elevated lactate and white count 12.4. Exquisitely tender left knee. Orthopedics was consulted. Patient was started on IV clindamycin. Hospital service was consulted for presumed cellulitis with septic arthritis. Patient underwent left knee tap by orthopedics with purulent aspirate. Cultures and Gram stain along microscopy was sent. At the time evaluation patient is alert however anxious. She was able to answer most of the questions and provide history as above. She denies local trauma. She denies shaking chills, drenching sweats, lower extremity purulent drainage or 2 infections. She is a known diabetic with neuropathy. She denies chest pain, shortness of breath, headache photophobia Review of systems A 10 point review system was performed and is negative except for ones cussed above Medical - H&P: PMH Medical history: History of tobacco use (Chronic) Type 2 diabetes mellitus (Chronic) Depression (Chronic) Anxiety (Chronic) Asthma (Chronic) Spinal stenosis, lumbar region with neurogenic claudication (Chronic) Chronic pain (Chronic) Radiculopathy, lumbar region (Chronic) Low back pain (Chronic) Osteoarthritis of left hip (Chronic) Hematuria (Chronic) Recurrent UTI (Chronic) Chronic wound of extremity (Chronic) to feet, legs, coccyx and pannus Chronic venous insufficiency (Chronic) Hx of pancreatitis (Chronic) Polycythemia (Chronic) History of narcotic use (Chronic) Memory loss (Chronic) Osteoarthritis of left knee (Chronic) Generalized arthritis (Chronic) Constipation, chronic (Chronic) Family history of malignant neoplasm of breast (Chronic) Hyperlipidemia (Chronic) Obesity (Chronic) DJD (degenerative joint disease) of knee (Chronic) Polycythemia, secondary (Chronic) Dermatitis (Chronic) Sleep apnea (Chronic) Lumbar back pain (Chronic) Hypertension (Chronic) Atrial fibrillation (Chronic) COPD (chronic obstructive pulmonary disease) (Chronic) CHF (congestive heart failure) (Chronic) Tremor, essential (Chronic) Foot callus (Chronic) Diabetic autonomic neuropathy (Chronic) Encounter for long-term (current) use of insulin (Chronic) Candidiasis (Chronic) Diabetes mellitus, insulin dependent (IDDM), uncontrolled (Chronic) Venous (peripheral) insufficiency (Chronic) Chronic kidney disease, stage III (moderate) (Chronic) Amputated great toe of right foot (Chronic) Elevated liver enzymes (Chronic) Depression, major, recurrent, mild (Chronic) Anxiety disorder (Chronic) Recurrent chest pain (Chronic) Hypertension, essential, benign (Chronic) GERD (gastroesophageal reflux disease) (Chronic) Encounter for smoking cessation counseling (Chronic) Shoulder pain, right (Chronic) Risk for falls (Chronic) Pulmonary nodule (Chronic) Surgical History History of cholecystectomy (Chronic) History of knee surgery (Chronic) Rt knee sx x 4, total joint replacement x2 History of hysterectomy (Chronic) at age 27 unilateral salpingo-oopherectomy History of colonoscopy (Chronic ~04/15/12) History of surgery (Chronic) 08/28 Intra-art. Hip Jnt Inj, Lt w/sed 08/28/1908/28 TF ARIK #1 Lt L4-5 w/sed 08/28/19 Family History Brother , 1 brother from suicide Positive test for genetic breast cancer susceptibility marker Lymphoma Alcoholic CHF (congestive heart failure) ETOH abuse Suicide Sister HTN (hypertension) Diabetes mellitus Breast mass Drug abuse Alcoholic History of blood clot in brain Pinched vertebral nerve Father , age 51 in accident No problems noted. Mother CHF (congestive heart failure) History of heart valve replacement Social History marital status: education level: middle school occupational status: disabled physical activity: none smoking status: Former smoker alcohol intake frequency: does not drink substance use type: does not use Medical - H&P: Meds Home Medications Medication Instructions Recorded Confirmed Type Omeprazole 20 mg PO DAILY 01/21/18 11/18/19 History ipratropium 20 mcg-albuterol 100 1 puff INHALATION QIDP 08/08/18 11/18/19 History mcg/actuation mist for inhalation liraglutide 0.6 mg/0.1 mL (18 mg/3 1.2 mg SUB-Q QDAY #6 ml 08/08/18 11/18/19 History mL) subcutaneous pen injector fluticasone propionate 50 1 spray INTRANASAL QDAY 01/29/19 11/18/19 History mcg/actuation nasal spray,suspension acetaminophen 500 mg tablet 500 mg PO Q6H PRN 04/15/19 11/18/19 History insulin aspart U-100 100 unit/mL 2 unit SUB-Q .COMPLEX #15 ml MDD 07/09/19 11/18/19 Rx (3 mL) subcutaneous pen 100 units per day bisoprolol fumarate 10 mg tablet 5 mg PO QHS #90 tab 07/16/19 11/18/19 Rx furosemide 20 mg tablet 20 mg PO QDAY #90 tab 07/24/19 11/18/19 Rx spironolactone 25 mg tablet 25 mg PO QAM #90 tab 09/05/19 11/18/19 Rx fluticasone propionate 110 2 puff INHALATION BID #12 g 10/06/19 11/18/19 Rx mcg/actuation HFA aerosol inhaler pen needle, diabetic 31 gauge x See Rx Instructions .ROUTE 10/23/19 11/18/19 Rx 3/16" .COMPLEX #100 unknown measurement unit code: each insulin detemir U-100 100 unit/mL 13 unit SQ HS unknown measurement 11/04/19 11/18/19 History (3 mL) subcutaneous pen unit code: ml Cephalexin [Keflex] 500 mg PO QID #40 cap 11/17/19 11/18/19 Rx Nystatin 1,000,000 unit MC BID #1 powder.ea. 11/17/19 11/18/19 Rx Amiodarone HCl 200 mg PO BID 11/18/19 11/18/19 History Baclofen 20 mg PO DAILYP PRN 11/18/19 11/18/19 History Fenofibrate 54 mg PO DAILY 11/18/19 11/18/19 History Gabapentin 1,200 mg PO BID 11/18/19 11/18/19 History Ipratropium/Albuterol Sulfate 1 puff PO QID 11/18/19 11/18/19 History [Combivent] LORazepam [Lorazepam] 1 mg PO TIDP PRN 11/18/19 11/18/19 History Lisinopril [Zestril] 2.5 mg PO QAM 11/18/19 11/18/19 History PARoxetine HCL [Paroxetine HCl] 30 mg PO QAM 11/18/19 11/18/19 History Potassium Chloride [Kdur] 20 meq PO DAILY 11/18/19 11/18/19 History atorvastatin 10 mg tablet 10 mg PO HS 11/18/19 11/18/19 History traMADol [Ultram] 50 - 100 mg PO Q8H 11/18/19 11/18/19 History Allergies Allergy/AdvReac Type Severity Reaction Status Date / Time codeine Allergy Intermediate Hives Verified 11/17/19 11:14 Cyclobenzaprine Allergy Intermediate Hives Verified 11/17/19 11:14 Doxepin Allergy Intermediate Hives Verified 11/17/19 11:14 fluoxetine Allergy Intermediate Hives Verified 11/17/19 11:14 piroxicam Allergy Intermediate Hives Verified 11/17/19 11:14 Rifamycin Allergy Intermediate Hives Verified 11/17/19 11:14 methadone Allergy Unknown unknown Verified 11/17/19 11:14 aripiprazole [From Abilify] Allergy unknown Verified 11/17/19 11:14 vancomycin AdvReac Intermediate REDNESS/FLU Verified 11/17/19 11:14 [facility] Medical - H&P: Exam - Constitutional Vitals: Temp Pulse Resp BP Pulse Ox 99.1 F H 68 20 118/57 88 L 11/18/19 15:45 11/18/19 16:32 11/18/19 13:33 11/18/19 16:32 11/18/19 16:32 General appearance: no acute distress Exam: Alert oriented Head normocephalic Oral cavity dry No ear nose discharge Neck no lymphadenopathy S1-S2 regular Diminished breath sounds bases nonlabored breathing Abdomen soft nontender nondistended Left lower extremity significant redness extending from the ankle up to the proximal one third of leg along with exquisitely tender left knee worsening on passive range of motion along with fluctuant effusion at the medial lateral aspect of the knee Skin no suspicious lesion Psych alert cooperative but anxious Neuro nonfocal Medical - H&P: Reslt - Labs CBC & Chem 7: 11/19/19 05:35 11/19/19 05:35 Labs: Short CBC 11/18/19 Range/Units 13:11 WBC 12.4 H (4.50-11.00) K/mcL Hgb 14.0 (11.2-15.7) g/dL Hct 44.0 (34.1-44.9) % Plt Count 124 L (140-440) K/mcL BMP 11/18/19 13:11 Sodium 137 Potassium 4.1 Chloride 102 Carbon Dioxide 20 L BUN 18 Creatinine 0.9 Glucose 190 H Calcium 8.3 L Liver Function 11/18/19 Range/Units 13:11 Total Bilirubin 0.9 (0.0-1.0) mg/dL AST 21 (0-37) U/l ALT 60 H (0-40) U/l Alkaline Phosphatase 68 (39-117) U/L Albumin 3.5 (3.2-5.2) gm/dL Medical - H&P: A/P (1) Septic arthritis of knee, left Current visit: Yes Status: Acute * Likely septic arthritis left knee. Start empiric antibiotic coverage following aspiration. Patient undergo joint washout by orthopedics in 24 hours. Apixaban will be held and patient be kept n.p.o. de-escalate antibiotics based on culture sensitivity results. * Sepsis second above with elevated lactate and white count. Crystalloid challenge/antibiotic/management per guidelines * Pain management on as needed opioids * Left lower external cellulitis continue antibiotic coverage/pancultures * DM type II continue basal prandial insulin/CC diet * History of atrial fibrillation on amiodarone/beta-ashley. Hold apixaban until joint washout * Hypertension continue bisoprolol//spinal lactone * Hyperlipidemia continue statin * Anxiety disorder on paroxetine/lorazepam(current medication list is being verified) * Full code Plan * Inpatient admission * Antibiotic coverage * Hold apixaban * N.p.o. after midnight * Pre-existing medical condition management as above * PT OT nutrition support
[2019-11-18] MEDS: 0.9 % SODIUM CHLORIDE 1,000 ML IV SCH (18:03)
[2019-11-18] MEDS: INSULIN LISPRO 1 UNIT/0.01 ML UNIT SQ SCH ×2 (18:06→21:45)
[2019-11-18 18:57] LABS: Crystals,Body Fluid NONE SEEN (NONE SEEN)
[2019-11-18] MEDS: ACETAMINOPHEN 325 MG TABLET PO PRN (19:28)
[2019-11-18] MEDS ORDERED: APIXABAN 5 MG TABLET PO SCH (21:00)
[2019-11-18] MEDS ORDERED: CLINDAMYCIN 600 MG/4 ML VIAL ONE (21:28)
[2019-11-18] MEDS: CLINDAMYCIN 600 MG in DEXTROSE 5% IN WATER 50 ML IV SCH (21:33)
[2019-11-18] MEDS: BISOPROLOL 5 MG TABLET PO SCH (21:35)
[2019-11-18] MEDS: DOCUSATE SODIUM 100 MG CAPSULE PO SCH (21:35)
[2019-11-18] MEDS: SENNOSIDES/DOCUSATE SODIUM 1 TAB TABLET PO SCH (21:35)
[2019-11-18] MEDS: FLUTICASONE HFA 110MCG INHALER INH SCH (21:38)
[2019-11-18] MEDS: 0.9 % SODIUM CHLORIDE 10 ML SYRINGE IV SCH (21:39)
[2019-11-18] MEDS: NYSTATIN POWDER BOTTLE 15GM TOPICAL SCH (21:47)
--- NOTE | 2019-11-18 22:29 | History and Physical Report ---
DATE OF ADMISSION: 11/18/2019 IDENTIFICATION: Jaycee is a 59-year-old female. CHIEF COMPLAINT: Knee pain, swelling, and cellulitis. HISTORY OF PRESENT ILLNESS: Ms. Dias has a history of bilateral total knee arthroplasties, the left knee was performed was a revision total knee arthroplasty and it seems that this was probably done by Dr. Murali Love somewhere in and about the year 2014. Patient is a poor historian, is not clear on this. The patient over the last week has developed some increased redness of the calf and presented to the emergency room at [facility] where she was diagnosed with cellulitis and has had several days of oral antibiotics and returned several times for IV Rocephin. She has had some increasing knee pain that she reports has been about 3 days of duration. It was quite severe on Sunday night and has continued. Her knee pain is severe to the point where she has a difficult time weightbearing. Any range of motion is met with quite exquisite pain on resistance. She does report chills and fever in spite of the antibiotics. PAST MEDICAL HISTORY: Significant for diabetes, history of tobacco use, depression, anxiety, asthma, and history of chronic pain. She has a history of obesity, sleep apnea, hypertension, atrial fibrillation, COPD, and CHF. PAST SURGICAL HISTORY: What is relevant to this problem is her bilateral total knee arthroplasties. MEDICATIONS: Include omeprazole, ipratropium/albuterol inhalers, liraglutide, fluticasone, apixaban, insulin, bisoprolol, potassium, spironolactone, amiodarone, fenofibrate, gabapentin. ALLERGIES: MULTIPLE AND PLEASE SEE THE MEDICAL RECORD. REVIEW OF SYSTEMS: The patient has history of chronic pain, which has been an active problem. She has had this increased pain in the left lower extremity, but otherwise, has been in a fairly reasonable state of health. PHYSICAL EXAMINATION: GENERAL: She is awake and alert. She is resting comfortably as long as she is not moving. HEAD: Normocephalic, atraumatic. EYES: PERRLA. Conjunctivae clear. ENT: Within normal limits. HEART: Somewhat irregular, rate is controlled. LUNGS: Clear. ABDOMEN: Benign. EXTREMITIES: Her left lower extremity shows an appearance of just generalized vascular insufficiency to her skin of her bilateral lower extremities. On the left, she does have increased warmth and a cellulitic appearance to about [address] up the calf. This is circumferential. She does seem to have grossly altered sensation, possibly consistent with neuropathy. Pulses are difficult to elicit, but there is appropriate capillary refill. Her knee is swollen. There is no ecchymosis. She does have marked pain to any palpation. Any range of motion causes quite severe pain. IMAGING DATA: CT scan and radiographs demonstrated a revision implant, which generally appeared to be in good condition. Strong consideration for septic arthritis based on her examination. Patient does have an elevated white count, slightly elevated temperature. We will obtain a sed rate and CRP. I have recommended aspiration of the joint for this concern of infection. This was done today. Under sterile technique, I anesthetized the suprapatellar pouch. I advanced an 18 gauge needle and aspirated more than 60 mL of turbid synovial fluid. This again was markedly turbid and concerning for infection. IMPRESSION: Suspected infected total knee arthroplasty. I did have a discussion with the patient that we probably should move ahead with irrigation and debridement as soon as possible. However, the patient is on the apixaban 5 mg b.i.d. This needs to at least be off for 24 hours prior to even fairly minor surgery. We will make the patient n.p.o. This will allow us time for further evaluation of her labs and will allow her anticoagulated state to improve somewhat. I have discussed with the patient that there is a high risk that this joint may need to be removed. The risks, complications, and limitations of such had been discussed with the patient versus risks and complications of retained prosthesis. We will plan to proceed with an irrigation and debridement and will probably try and retain the prosthesis if at all possible. JACEK:roselyn Job ID: [id number] Doc ID: [id number] Luiz Rojas MD
[2019-11-18] MEDS: traMADol 50 MG TABLET PO PRN (23:42)
[2019-11-19 01:18] LABS: Appearance,Urine CLEAR; Bacteria,Urine 0 /hpf (0); Bilirubin,Urine NEG (NEG); Color,Urine YELLOW; Culture Indicated,Urine NO; Glucose,Urine (UA) NEGATIVE (NEG); Ketones,Urine NEG (NEG); Leukocyte Esterase,Urine NEG /uL (NEG); Mucus,Urine FEW /hpf (0); Nitrate,Urine NEG (NEG); Protein,Urine 100 mg/dL (NEG); Specific Gravity,Urine 1.047 (1.000-1.035); Urine Blood NEG mg/dL (<0.03); Urine RBC 3 /hpf (0-1); Urine Squamous Epithelial Cell 11 /hpf (0-4); Urine WBC 3 /hpf (0-4)
[2019-11-19] MEDS: ACETAMINOPHEN 325 MG TABLET PO PRN (02:18)
[2019-11-19] MEDS ORDERED: CLINDAMYCIN 600 MG/4 ML VIAL ONE (05:56)
[2019-11-19] MEDS: CLINDAMYCIN 600 MG in DEXTROSE 5% IN WATER 50 ML IV SCH (05:57)
[2019-11-19] MEDS: 0.9 % SODIUM CHLORIDE 10 ML SYRINGE IV SCH ×3 (06:01→22:12)
[2019-11-19 07:07] LABS: Hematocrit 42.2 % (34.1-44.9); Hemoglobin 13.7 g/dL (11.2-15.7); Mean Cell Volume 92.3 fL (80.0-100.0); Mean Corpuscular HGB Conc 32.5 g/dL (31.0-36.0); Mean Platelet Volume 12.4 fL (7.4-10.4); Platelet Count 109 K/mcL (140-440); RBC 4.57 M/mcL (3.59-5.38); Red Cell Distribution Width 14.4 % (11.5-14.5); WBC 9.3 K/mcL (4.50-11.00)
[2019-11-19] MEDS: OMEPRAZOLE 20 MG CAPSULE PO SCH (07:26)
[2019-11-19] MEDS: INSULIN LISPRO 1 UNIT/0.01 ML UNIT SQ SCH ×4 (07:26→22:09)
[2019-11-19 07:27] LABS: Chloride 104 mmol/L (96-108)
[2019-11-19 07:53] LABS: ALT/SGPT 43 U/l (0-40); AST/SGOT 26 U/l (0-37); Albumin 2.6 gm/dL (3.2-5.2); Albumin/Globulin Ratio 0.7 (1.0-2.3); Alkaline Phosphatase 72 U/L (39-117); Bilirubin,Direct 0.2 mg/dL (0.0-0.3); Bilirubin,Total 0.6 mg/dL (0.0-1.0); Blood Urea Nitrogen 16 mg/dl (6-20); C-Reactive Protein 25.8 mg/dl (0.0-0.8); Carbon Dioxide 21 mmol/L (22-30); Globulin 3.5 gm/dL (2.2-3.7); Glomerular Filtration Rate 94; Glucose 161 mg/dL (70-105); Lactate Dehydrogenase 395 U/L (94-250); Phosphorous 2.6 mg/dL (2.7-4.5); Triglycerides 140 mg/dl (<150); Uric Acid 2.8 mg/dL (2.5-8.0)
[2019-11-19] MEDS: DOCUSATE SODIUM 100 MG CAPSULE PO SCH ×2 (08:21→20:45)
[2019-11-19] MEDS: sitaGLIPtin 100 MG TABLET PO SCH (08:21)
[2019-11-19] MEDS: SPIRONOLACTONE 25 MG TABLET PO SCH (08:21)
[2019-11-19] MEDS: FUROSEMIDE 20 MG TABLET PO SCH (08:21)
[2019-11-19] MEDS: MULTIVIT,THER IRON,CA,FA & MIN 1 TABLET PO SCH (08:21)
[2019-11-19] MEDS: cefTRIAXone 2 GM in DEXTROSE 5% IN WATER 50 ML IV SCH (08:21)
--- NOTE | 2019-11-19 08:22 | XRay Report ---
INDICATION: Pre surgery TECHNIQUE: AP and cross table lateral left knee COMPARISON: CT scan dated 11/18/2019 FINDINGS:Previous left total knee arthroplasty. Femoral and tibial components are in anatomic positions. No evidence for significant loosening or osteomyelitis. No acute fracture. Lateral view demonstrates probable suprapatellar moderate joint effusion. IMPRESSION: 1. Previous left total knee arthroplasty 2. Findings consistent with moderate joint effusion Interpreted and Authenticated by: Clayton Sanchez 11/19/19
[2019-11-19 08:37] LABS: Lymphocytes % 23 % (15-49); Monocytes % (Manual) 10 % (1-12); Platelet Estimate DECREASED (NORMAL); RBC Morphology NORMAL (NORMAL); Segmented Neutrophils % 67 % (38-78)
[2019-11-19] MEDS: NYSTATIN POWDER BOTTLE 15GM TOPICAL SCH ×2 (09:06→22:47)
[2019-11-19] MEDS: Liraglutide [Victoza 2-Pak] 1.2 MG SUB-Q SCH (09:06)
[2019-11-19] MEDS: FLUTICASONE HFA 110MCG INHALER INH SCH ×2 (09:06→22:10)
--- NOTE | 2019-11-19 09:59 | Internal Med Progress Note ---
Medical - PN: Subj Patient information: Note initiated : 11/19/19 at 9:55 am Service Date, if different from initiated Date: [] Patient: Jaycee Dias 59 y/o F admitted on 11/18/19 for LLE Cellulitis Recheck. Chief Complaint: [] Interval history: Ms. Dias is a 59 year old F with a history of DM type II/atrial fibrillation on anticoagulation/HTN/CKD stage III who presents to the ER following left knee and lower extremity redness pain and swelling that started 5 days prior to presentation. Symptoms are progressed to the point is difficult to bear weight. She was evaluated in the ER and was started on Bactrim however due to failure of symptomatic improvement patient return to the ER and was started on Rocephin for presumed cellulitis left lower extremity. She tried to alleviate the pain with Tylenol without much help. She now presents for reevaluation. Initial work-up was consistent with elevated lactate and white count 12.4. Exquisitely tender left knee. Orthopedics was consulted. Patient was started on IV clindamycin. Hospital service was consulted for presumed cellulitis with septic arthritis. Patient underwent left knee tap by orthopedics with purulent aspirate. Cultures and Gram stain along microscopy was sent. At the time evaluation patient is alert however anxious. She was able to answer most of the questions and provide history as above. She denies local trauma. She denies shaking chills, drenching sweats, lower extremity purulent drainage or 2 infections. She is a known diabetic with neuropathy. 11/18-patient currently n.p.o. awaiting joint washout. No overnight events. White count down to 9000. Synovial fluid cell count pending. Gram stain shows polymorphs but no organism. Final cultures pending. Continue antibiotics. Review postprocedure. - Constitutional Vitals: Vital Signs Temp Pulse Resp BP Pulse Ox 97.9 F 78 20 106/68 94 11/19/19 07:44 11/19/19 07:44 11/19/19 07:44 11/19/19 07:44 11/19/19 07:44 Period Temp Pulse Resp BP Sys/Abarca Pulse Ox Last 24 Hr 97.0 F-100.0 F 68-98 14-24 102-136/52-72 86-97 Intake and Output 06/02/2811/19/19 11/19/19 21:59 05:59 13:59 Intake Total 1197 704 104 Output Total 300 650 Balance 897 54 104 Weight 280 lb Intake & Output: Intake & Output 11/18/19 11/19/19 11/19/19 21:59 05:59 13:59 Intake Total 1197 704 104 Output Total 300 650 Balance 897 54 104 Weight 280 lb Intake: IV 837 54 104 Sodium Chloride 0.9% 1,000 ml @ 783 250 mls/hr IV .Q4H [facility] Rx#: [id number] Cleocin 600 mg In Dextrose 5% 54 54 54 in Water 50 ml @ 100 mls/hr IV Q8H [facility] Rx#:[id number] Rocephin 2 gm In Dextrose 5% in 50 Water 50 ml @ 100 mls/hr IV Q24H [facility] Rx#:[id number] Oral 360 650 Output: Void Amount 300 650 Other: Urine Appearance Clear Clear Urine Color Dark Willa Dark Willa Urine Odor Normal Strong General appearance: no acute distress Exam: Alert oriented Nonlabored breathing Left knee/lower extremity redness improving Anxious Medical - PN: Obj Da - Labs CBC & Chem 7: 11/19/19 05:35 11/19/19 05:35 Labs: Abnormal Lab Results 11/19/19 11/19/19 11/19/19 05:35 05:35 00:05 WBC Plt Count 109 L MPV 12.4 H Seg Neutrophils % Lymphocytes % RBC Morphology Anisocytosis PT INR VBG Lactic Acid Carbon Dioxide 21 L Glucose 161 H Calcium 8.0 L Phosphorus 2.6 L GGT 42 H ALT 43 H Lactate Dehydrogenase 395 H C-Reactive Protein 25.8 H NT-Pro-B Natriuret Pep Albumin 2.6 L Albumin/Globulin Ratio 0.7 L Ur Specific [place] 1.047 H Urine Protein 100 A Urine Urobilinogen 2.0 A Urine RBC 3 H Ur Squamous Epith Cells 11 H 11/18/19 11/18/19 11/18/19 13:11 13:11 13:05 WBC 12.4 H Plt Count 124 L MPV 12.1 H Seg Neutrophils % 88 H Lymphocytes % 7 L RBC Morphology Abnorm A Anisocytosis Few A PT INR VBG Lactic Acid Carbon Dioxide 20 L Glucose 190 H Calcium 8.3 L Phosphorus GGT ALT 60 H Lactate Dehydrogenase C-Reactive Protein NT-Pro-B Natriuret Pep 792.9 H Albumin Albumin/Globulin Ratio Ur Specific [place] Urine Protein Urine Urobilinogen Urine RBC Ur Squamous Epith Cells 11/18/19 11/18/19 13:05 13:05 WBC Plt Count MPV Seg Neutrophils % Lymphocytes % RBC Morphology Anisocytosis PT 19.9 H INR 1.6 H VBG Lactic Acid 3.6 H Carbon Dioxide Glucose Calcium Phosphorus GGT ALT Lactate Dehydrogenase C-Reactive Protein NT-Pro-B Natriuret Pep Albumin Albumin/Globulin Ratio Ur Specific [place] Urine Protein Urine Urobilinogen Urine RBC Ur Squamous Epith Cells Meds: Medications Acetaminophen (Tylenol) 650 mg PO Q4-6HP PRN; Protocol PRN Reason: Per Pain Protocol/Fever > 101 Last Admin: 11/19/19 02:18 Dose: 650 mg Documented by: Albuterol/Ipratropium (Combivent) 1 puff INH QIDP [facility] Bisacodyl (Dulcolax) 10 mg TX Q2-3DAYS PRN PRN Reason: Constipation Bisoprolol Fumarate (Zebeta) 5 mg PO QHS [facility] Last Admin: 11/18/19 21:35 Dose: 5 mg Documented by: Dextrose (Dextrose 50%) 0 ml IV UD PRN PRN Reason: Hypoglycemia Diagnostic Test (Pha) (Accu-Chek) 1 each FS ACHS [facility] Last Admin: 11/19/19 07:23 Dose: 1 each Documented by: Docusate Sodium (Colace) 100 mg PO BID [facility] Last Admin: 11/19/19 08:21 Dose: 100 mg Documented by: Fluticasone Propionate (Flovent Hfa 110mcg) 2 puff INH BID [facility] Last Admin: 11/19/19 09:06 Dose: Not Given Documented by: Furosemide (Lasix) 20 mg PO QDAY [facility] Last Admin: 11/19/19 08:21 Dose: 20 mg Documented by: Glucose (Insta-Glucose) 15 gm PO PRN PRN PRN Reason: Hypoglycemia Sodium Chloride (Sodium Chloride 0.9%) 1,000 mls @ 50 mls/hr IV .Q20H [facility] Stop: 11/21/19 05:18 Last Admin: 11/18/19 18:03 Dose: 50 mls/hr Documented by: Acetaminophen (Ofirmev) 650 mg in 65 mls @ 130 mls/hr IV Q6HP PRN; Protocol PRN Reason: Per Pain Protocol/Fever > 101 Magnesium Sulfate (Magnesium Sulfate) 2 gm in 50 mls @ 50 mls/hr IV UD PRN PRN Reason: MG = or < 1.7 Ceftriaxone Sodium 2 gm/ (Dextrose) 50 mls @ 100 mls/hr IV Q24H [facility]; Protocol Last Infusion: 11/19/19 09:00 Dose: Infused Documented by: Clindamycin Phosphate 600 mg/ (Dextrose) 54 mls @ 100 mls/hr IV Q8H [facility]; Protocol Last Infusion: 11/19/19 07:51 Dose: Infused Documented by: Insulin Human Lispro (Humalog) 0 unit SQ ACHS [facility]; Protocol Last Admin: 11/19/19 07:26 Dose: Not Given Documented by: Iron Carb/Multivit/Psychological Anthropologist/Folic Acid (Multivitamin W/Minerals) 1 tab PO DAILY [facility] Last Admin: 11/19/19 08:21 Dose: 1 tab Documented by: Melatonin (Melatonin 3mg Tablet) 3 mg PO HSP PRN PRN Reason: Insomnia Nystatin (Nystatin) 1 dose TOPICAL BID [facility] Last Admin: 11/19/19 09:06 Dose: 1 dose Documented by: Omeprazole (Prilosec) 20 mg PO ACB [facility] Last Admin: 11/19/19 07:26 Dose: 20 mg Documented by: Ondansetron HCl (Zofran Odt) 4 mg SL Q4-6HP PRN; Protocol PRN Reason: Nausea And Vomiting Ondansetron HCl (Zofran) 4 mg IV Q4-6HP PRN; Protocol PRN Reason: Nausea And Vomiting Liraglutide [Victoza (2-Josh] 1.2 Mg) 1 dose SUB-Q QDAY [facility] Last Admin: 11/19/19 09:06 Dose: Not Given Documented by: Polyethylene Glycol (Miralax) 17 gm PO DAILYP PRN PRN Reason: Constipation Potassium Chloride (Klor-Con) 40 meq PO DAILYP PRN PRN Reason: K+ < 3.5 Senna/Docusate Sodium (Senna Plus Tablet) 1 tab PO HS [facility] Last Admin: 11/18/19 21:35 Dose: 1 tab Documented by: Sitagliptin Phosphate (Januvia) 100 mg PO DAILY [facility] Last Admin: 11/19/19 08:21 Dose: 100 mg Documented by: Sodium Chloride (Saline Flush) 10 ml IV Q8 [facility] Last Admin: 11/19/19 06:01 Dose: Not Given Documented by: Spironolactone (Aldactone) 25 mg PO QAM [facility] Last Admin: 11/19/19 08:21 Dose: 25 mg Documented by: Tramadol HCl (Ultram) 50 mg PO Q4-6HP PRN; Protocol PRN Reason: Per Pain Protocol Last Admin: 11/18/19 23:42 Dose: 50 mg Documented by: Medical - PN: A/P - Time Spent With Patient Total time spent is greater than 50% in coordination of care (as documented) at patient's floor/unit and/or counseling patient: 25 - 35 minutes (1) Septic arthritis of knee, left Status: Acute Assessment and plan: * Septic arthritis left prosthetic knee joint. Continue empiric antibiotic coverage, await joint washout by orthopedics in 24 hours. Apixaban on hold * Sepsis second above with elevated lactate and white count. Clinical i mprovement noted with downtrending white count. Continue crystalloid challenge/antibiotic/management per guidelines * Pain management stable on as needed opioids * Left lower external cellulitis continue antibiotic coverage/pancultures * DM type II continue basal prandial insulin/CC diet * History of atrial fibrillation on amiodarone/beta-ashley. Held apixaban until joint washout * Hypertension continue bisoprolol//spironolactone * Hyperlipidemia continue statin * Anxiety disorder on paroxetine/lorazepam(current medication list is being verified) * Full code Plan * Review postop * Hold apixaban * Pain management * Antibiotic coverage * Pre-existing medical condition management as above * PT OT nutrition support Current Visit: Yes Medical - PN: Qual - VTE Deep Vein Thrombosis/Pulmonary Embolism Present on Admission: No
[2019-11-19 10:12] LABS: Appearance,Synovial Fluid CLOUDY; Color,Synovial Fluid ORANGE; Lymphocytes,Synovial Fluid 2 %; Neutrophils,Synovial Fluid 93 % (0-25); Nucleated Cells,Synovial Fld 45537 /cumm; Other Cells,Synovial Fluid 5 %
[2019-11-19] MEDS: DAPTOmycin 500 MG VIAL IV SCH (12:37)
[2019-11-19] MEDS: traMADol 50 MG TABLET PO PRN (12:39)
[2019-11-19] MEDS ORDERED: SCOPOLAMINE 1 PATCH PATCH TOPICAL PRN (14:15)
[2019-11-19] MEDS ORDERED: IPRATROPIUM/ALBUTEROL 3 ML AMPUL.NEB NEB PRN ×2 (14:15→18:09)
[2019-11-19] MEDS: 0.9 % SODIUM CHLORIDE 1,000 ML IV SCH ×2 (14:47→20:46)
[2019-11-19] MEDS ORDERED: ALBUMIN HUMAN 25 GM/100 ML BAG IV ONE (15:52)
[2019-11-19] MEDS ORDERED: VANCOMYCIN PER PHARMACY IV ONE (17:05)
[2019-11-19] MEDS ORDERED: SUCCINYLCHOLINE 20 MG/ML ML IV ONE (17:09)
[2019-11-19] MEDS ORDERED: fentaNYL 100 MCG/2 ML VIAL IV ONE (17:09)
[2019-11-19] MEDS ORDERED: PHENYLEPHRINE 10 MG/ML VIAL IV ONE (17:09)
[2019-11-19] MEDS ORDERED: DEXAMETHASONE 10 MG/ML VIAL IV ONE (17:09)
[2019-11-19] MEDS ORDERED: ePHEDrine 50 MG/ML AMPUL IV ONE (17:09)
[2019-11-19] MEDS ORDERED: PROPOFOL 200 MG/20 ML VIAL IV ONE (17:09)
[2019-11-19] MEDS ORDERED: LIDOCAINE HCL/PF 100 MG/5 ML SYRINGE IV ONE (17:09)
[2019-11-19] MEDS ORDERED: KETAMINE 100 MG/ML ML IV ONE (17:09)
[2019-11-19] MEDS ORDERED: ONDANSETRON 4 MG/2 ML VIAL IV ONE (17:09)
[2019-11-19] MEDS ORDERED: VANCOMYCIN 2,000 MG in 0.9 % SODIUM CHLORIDE 500 ML IV ONE (17:30)
[2019-11-19] MEDS ORDERED: VANCOMYCIN 1 GM VIAL TOPICAL SCH (17:45)
[2019-11-19] MEDS: TOBRAMYCIN PER PHARMACY IV ONE ×2 (17:56→18:14)
[2019-11-19] MEDS ORDERED: HYDROmorphone 0.5 MG/0.5 ML SYRINGE IV PRN (18:09)
[2019-11-19] MEDS ORDERED: METOPROLOL TARTRATE 5 MG/5 ML VIAL IV PRN (18:09)
[2019-11-19] MEDS ORDERED: ATROPINE SULFATE 0.4 MG/ML VIAL IV PRN (18:09)
[2019-11-19] MEDS ORDERED: ONDANSETRON 4 MG/2 ML VIAL IV PRN (18:09)
[2019-11-19] MEDS ORDERED: METHOCARBAMOL 1,000 MG/10 ML VIAL IV PRN (18:09)
[2019-11-19] MEDS ORDERED: ACETAMINOPHEN 1,000 MG/100 ML BOTTLE IV ONE (18:09)
[2019-11-19] MEDS ORDERED: fentaNYL 100 MCG/2 ML VIAL IV PRN (18:09)
[2019-11-19] MEDS ORDERED: NALOXONE HCL 0.4 MG/ML VIAL IV PRN (18:09)
[2019-11-19] MEDS ORDERED: ePHEDrine 50 MG/ML AMPUL IV PRN (18:09)
[2019-11-19] MEDS ORDERED: diphenhydrAMINE 50 MG/ML VIAL IV PRN (18:09)
[2019-11-19] MEDS ORDERED: TOBRAMYCIN SULFATE 1.2 GM VIAL TOPICAL ONE ×2 (18:13→18:21)
[2019-11-19] MEDS ORDERED: LACTATED RINGERS 1,000 ML IV SCH (18:15)
[2019-11-19] MEDS ORDERED: BACLOFEN 10 MG TABLET PO PRN (19:02)
--- NOTE | 2019-11-19 19:02 | Brief Operative Note ---
Date of procedure: 11/19/19 Pre-op diagnosis: Left septic total knee Post-op diagnosis: same Procedure: I and D revision to prostalic type total Anesthesia: GETA Findings: grossly purulent Complications: none Surgeon: Luiz Rojas Head Holder: Shannon Waldron Estimated blood loss (cc): 0 Specimens Removed/Pathology: other (culture) Condition: stable Disposition: PACU
[2019-11-19] MEDS: fentaNYL 100 MCG/2 ML VIAL IV ONE ×4 (19:13→19:22)
[2019-11-19] MEDS ORDERED: [UNRECOGNIZED DRUG - OTHER] SCH (19:15)
[2019-11-19] MEDS: HYDROmorphone 0.5 MG/0.5 ML SYRINGE ONE ×2 (19:25→19:33)
[2019-11-19] MEDS: ACETAMINOPHEN 650 MG/65 ML BOTTLE IV PRN (19:30)
[2019-11-19] MEDS ORDERED: METHOCARBAMOL 1,000 MG/10 ML VIAL ONE (19:31)
[2019-11-19] MEDS ORDERED: HYDROmorphone 0.5 MG/0.5 ML SYRINGE ONE (19:35)
[2019-11-19] MEDS: SENNOSIDES/DOCUSATE SODIUM 1 TAB TABLET PO SCH (20:44)
[2019-11-19] MEDS: CEPHALEXIN 500 MG CAPSULE PO SCH (20:44)
[2019-11-19] MEDS: GABAPENTIN 400 MG CAPSULE PO SCH (20:44)
[2019-11-19] MEDS: BISOPROLOL 5 MG TABLET PO SCH (20:45)
[2019-11-19] MEDS: traMADol 50 MG TABLET PO SCH (20:45)
[2019-11-19] MEDS: ATORVASTATIN 20 MG TABLET PO SCH (20:49)
[2019-11-19] MEDS: IPRATROPIUM/ALBUTEROL SULFATE 1 PUFF INHALER INH SCH (21:52)
[2019-11-19] MEDS: AMIODARONE HCL 200 MG TABLET PO SCH (22:05)
[2019-11-19] MEDS: LORazepam 1 MG TABLET PO PRN (22:05)
[2019-11-19] MEDS: INSULIN GLARGINE, HUMAN 1 UNIT/0.01 ML SQ SCH (22:06)
[2019-11-20] MEDS: traMADol 50 MG TABLET PO PRN (00:24)
[2019-11-20] MEDS: ACETAMINOPHEN 650 MG/65 ML BOTTLE IV PRN ×3 (01:47→19:32)
[2019-11-20] MEDS: traMADol 50 MG TABLET PO SCH ×3 (05:31→21:26)
[2019-11-20] MEDS: 0.9 % SODIUM CHLORIDE 10 ML SYRINGE IV SCH ×3 (05:31→21:27)
[2019-11-20] MEDS ORDERED: SUCCINYLCHOLINE 20 MG/ML ML IV ONE (06:10)
[2019-11-20] MEDS ORDERED: KETAMINE 100 MG/ML ML IV ONE (06:10)
[2019-11-20] MEDS ORDERED: fentaNYL 100 MCG/2 ML VIAL IV ONE (06:10)
[2019-11-20] MEDS ORDERED: ONDANSETRON 4 MG/2 ML VIAL IV ONE (06:10)
[2019-11-20] MEDS ORDERED: PHENYLEPHRINE 10 MG/ML VIAL IV ONE (06:10)
[2019-11-20] MEDS ORDERED: ePHEDrine 50 MG/ML AMPUL IV ONE (06:10)
[2019-11-20] MEDS ORDERED: PROPOFOL 200 MG/20 ML VIAL IV ONE (06:10)
[2019-11-20] MEDS ORDERED: DEXAMETHASONE 10 MG/ML VIAL IV ONE (06:10)
[2019-11-20] MEDS ORDERED: LIDOCAINE HCL/PF 100 MG/5 ML SYRINGE IV ONE (06:10)
[2019-11-20 06:42] LABS: Hematocrit 43.4 % (34.1-44.9); Hemoglobin 13.8 g/dL (11.2-15.7); Mean Cell Volume 93.1 fL (80.0-100.0); Mean Corpuscular HGB Conc 31.8 g/dL (31.0-36.0); Mean Platelet Volume 11.7 fL (7.4-10.4); Platelet Count 166 K/mcL (140-440); RBC 4.66 M/mcL (3.59-5.38); Red Cell Distribution Width 14.5 % (11.5-14.5); WBC 10.1 K/mcL (4.50-11.00)
[2019-11-20 06:55] LABS: ALT/SGPT 36 U/l (0-40); AST/SGOT 25 U/l (0-37); Albumin 2.8 gm/dL (3.2-5.2); Albumin/Globulin Ratio 0.8 (1.0-2.3); Alkaline Phosphatase 60 U/L (39-117); Bilirubin,Direct 0.2 mg/dL (0.0-0.3); Bilirubin,Total 0.4 mg/dL (0.0-1.0); Blood Urea Nitrogen 22 mg/dl (6-20); Calcium 8.3 mg/dl (8.6-10.4); Carbon Dioxide 22 mmol/L (22-30); Chloride 103 mmol/L (96-108); Globulin 3.3 gm/dL (2.2-3.7); Glomerular Filtration Rate 94; Glucose 237 mg/dL (70-105); Lactate Dehydrogenase 196 U/L (94-250); Phosphorous 4.1 mg/dL (2.7-4.5); Triglycerides 139 mg/dl (<150); Uric Acid 3.8 mg/dL (2.5-8.0)
--- NOTE | 2019-11-20 07:37 | Orthopedic Progress Note ---
Subjective Patient information: Note initiated : 11/20/19 at 7:34 am Service Date, if different from initiated Date: [] Patient: Jaycee Dias a 59 y/o F admitted on 11/18/19 for LLE Cellulitis Recheck. Chief Complaint: [S/P I&d OF LEFT SEPTIC TKA] Ms. Charles reports her overall LLE knee pain is improved compared to pre- operatively. She denies any new onset fever, chills, chest pain, or SOA. Principal diagnosis: left septic tka Objective Vital signs: Vital Signs Temp Pulse Resp BP BP Pulse Ox 11/20/19 04:09 97.8 F 80 14 105/68 98 11/19/19 22:58 96.8 F L 77 14 109/71 95 11/19/19 21:57 77 125/76 93 11/19/19 21:28 77 120/79 93 11/19/19 21:11 79 125/76 94 11/19/19 20:43 78 116/77 93 11/19/19 20:29 81 116/75 93 11/19/19 20:12 84 135/85 93 11/19/19 19:58 98.5 F 89 14 120/74 92 11/19/19 19:55 97.3 F 87 16 110/70 97 11/19/19 19:50 97.1 F 90 15 109/80 95 11/19/19 19:46 91 H 16 118/78 95 11/19/19 19:41 92 H 16 95/50 95 11/19/19 19:35 96.2 F L 88 19 119/91 94 11/19/19 19:30 90 13 131/58 95 11/19/19 19:25 89 21 134/94 93 11/19/19 19:20 96.7 F L 90 14 147/89 95 11/19/19 19:15 95 H 13 136/88 91 11/19/19 19:10 94 H 15 124/75 91 11/19/19 19:05 94 H 16 142/84 94 11/19/19 15:03 82 11/19/19 15:00 97.8 F 82 20 101/66 96 11/19/19 11:00 97.9 F 79 20 106/70 96 11/19/19 07:44 97.9 F 78 20 106/68 94 Intake and Output 11/19/19 11/20/19 11/20/19 21:59 05:59 13:59 Intake Total 2765 465 Output Total 200 400 Balance 2565 65 Intake: IV 1165 65 Sodium Chloride 0.9% 1,000 ml @ 1000 50 mls/hr IV .Q20H [facility] Rx#: [id number] Oral 400 IV - Manual Only 1600 Output: Void Amount 100 400 Estimated Blood Loss 100 Other: Meal Torrey crackers (1 packet) Percent of Meal Consumed 100% Feeding Ability Independent Urine Appearance Clear Urine Color Dark Yellow Urine Odor Normal Weight 301 lb Intake & Output: Intake & Output 11/19/19 11/20/19 11/20/19 21:59 05:59 13:59 Intake Total 2765 465 Output Total 200 400 Balance 2565 65 Weight 301 lb Intake: IV 1165 65 Sodium Chloride 0.9% 1,000 ml @ 1000 50 mls/hr IV .Q20H [facility] Rx#: [id number] Oral 400 IV - Manual Only 1600 Output: Void Amount 100 400 Estimated Blood Loss 100 Other: Meal [place] crackers (1 packet) Percent of Meal Consumed 100% Feeding Ability Independent Urine Appearance Clear Urine Color Dark Yellow Urine Odor Normal Incision: Yes clean and dry Incision clean and dry: Yes Dressing: Yes clean, Yes dry, Yes intact Weight bearing status: as tolerated Neurological exam IM: Yes alert, Yes oriented X3, Yes motor sensory intact, Yes neurovascular intact Extremities exam IM: Yes calf tenderness (negative bilaterally), Yes Erinn's sign (negative bilaterally), Yes Foot pink and warm, Yes neurovascular intact Additional Comments: Diffuse cellulitic erythema noted throughout the LLE. - Labs CBC & BMP: 11/20/19 05:40 11/20/19 05:40 Labs: Orthopedic Labs 11/18/19 13:05 PT 19.9 H INR 1.6 H 11/20/19 11/19/19 11/18/19 05:40 05:35 13:11 Hgb 13.8 13.7 14.0 Hct 43.4 42.2 44.0 Assessment and Plan (1) Left leg cellulitis Status: Acute (2) Septic arthritis of knee, left CONTINUE EMPIRIC ABX UNTIL CULTURE RESULTS PER HOSPITALIST. PATIENT MAY BE WBAT. LIKELY DISCHARGE TO SNF PER HOSPITALIST IN 1-2 DAYS. Status: Acute
[2019-11-20] MEDS: OMEPRAZOLE 20 MG CAPSULE PO SCH (08:00)
[2019-11-20 08:02] LABS: Lymphocytes % 6 % (15-49); Monocytes % (Manual) 4 % (1-12); Platelet Estimate NORMAL (NORMAL); RBC Morphology NORMAL (NORMAL); Segmented Neutrophils % 90 % (38-78)
--- NOTE | 2019-11-20 08:29 | Operative Note ---
DATE OF OPERATION: 11/19/2019 PREOPERATIVE DIAGNOSIS: Septic left total knee arthroplasty. POSTOPERATIVE DIAGNOSIS: Septic left total knee arthroplasty. OPERATION PROPOSED: Irrigation and debridement, synovectomy, and revision of left total knee arthroplasty to a Prostalac-type of a component. OPERATION PERFORMED: Irrigation and debridement, synovectomy, and revision of left total knee arthroplasty to a Prostalac-type of a component. OPERATING SURGEON: Luiz Rojas M.D. [employer] SUPERVISOR: Shannon Waldron PA-C. The PA's assistance was required for the safe and efficient completion of the entire case. This provider's expertise and technical skill were required throughout the case. The PA assisted with preoperative coordination, intraoperative retraction, wound closure, dressing and splint application, as well as postoperative documentation and care coordination. INDICATIONS: This is a lady who has had a total knee arthroplasty done remotely. She presents with really very severe pain and an aspirate consistent with septic arthritis. We would like to proceed with an irrigation and debridement and placement of a Prostalac total knee. OPERATION IN DETAIL: Informed consent was obtained. The patient was taken to the operating room and was provided appropriate anesthetic and prophylactic antibiotics and carefully positioned. Her left lower extremity was prepped sterilely. An incision was made opening her old surgical site. I performed a standard medial parapatellar approach. There was extensive Ti-Cron or nonabsorbable suture in a previous extensor mechanism repair. This was removed. I then opened the knee. There was extensive purulence. This was evacuated. Extensive irrigation was performed. I essentially performed a complete synovectomy. The femoral and tibial components were removed using flexible osteotomes and a variety of chisels. The patellar button was removed with a saw. I drilled the pegs of the femur. I drilled the pegs from the patellar button. I removed as much cement as I could from the distal femur and from the patella. The stem of the tibial component, there was a methacrylate all the way down surrounding the stem, so there was a large amount of remaining cement down into the proximal tibia. This was removed. I irrigated extensively. As much cement as could be removed was curetted and debrided. I then mixed methacrylate that was mixed with vancomycin. This was allowed to become very doughy and then my tibial component was cemented into place with this as was the femoral component. I placed additional antibiotic beads, a 2-0 inverted deep dermal, and antony were used in the skin. I closed the capsule with a Monocryl and a Stratafix. Procedure was tolerated well. No complications. Estimated blood loss was essentially nil as the tourniquet was used the whole time. GDD:[email or web address] Job ID: [id number] Doc ID: [id number] Luiz Rojas MD
[2019-11-20] MEDS: MULTIVIT,THER IRON,CA,FA & MIN 1 TABLET PO SCH (08:31)
[2019-11-20] MEDS: POTASSIUM CHLORIDE 20 MEQ TABLET PO SCH (08:31)
[2019-11-20] MEDS: INSULIN LISPRO 1 UNIT/0.01 ML UNIT SQ SCH ×4 (08:31→21:25)
[2019-11-20] MEDS: FENOFIBRATE 43 MG CAPSULE PO SCH (08:32)
[2019-11-20] MEDS: FUROSEMIDE 20 MG TABLET PO SCH (08:32)
[2019-11-20] MEDS: AMIODARONE HCL 200 MG TABLET PO SCH ×2 (08:32→17:55)
[2019-11-20] MEDS: PARoxetine 20 MG TABLET PO SCH (08:32)
[2019-11-20] MEDS: sitaGLIPtin 100 MG TABLET PO SCH (08:32)
[2019-11-20] MEDS: SPIRONOLACTONE 25 MG TABLET PO SCH (08:32)
[2019-11-20] MEDS: LISINOPRIL 5 MG TABLET PO SCH (08:32)
[2019-11-20] MEDS: DOCUSATE SODIUM 100 MG CAPSULE PO SCH ×2 (08:32→21:26)
[2019-11-20] MEDS: CEPHALEXIN 500 MG CAPSULE PO SCH ×4 (08:32→21:26)
[2019-11-20] MEDS: GABAPENTIN 400 MG CAPSULE PO SCH ×2 (08:33→21:25)
[2019-11-20] MEDS: NYSTATIN POWDER BOTTLE 15GM TOPICAL SCH ×2 (08:33→21:25)
[2019-11-20] MEDS: IPRATROPIUM/ALBUTEROL SULFATE 1 PUFF INHALER INH SCH ×4 (08:34→21:23)
[2019-11-20] MEDS: FLUTICASONE PROPIONATE SPRAY.NAS NS SCH (08:34)
[2019-11-20] MEDS: FLUTICASONE HFA 110MCG INHALER INH SCH ×2 (08:34→21:23)
[2019-11-20] MEDS: HYDROCODONE/APAP 7.5/325MG TABLET PO PRN ×3 (08:35→22:33)
[2019-11-20] MEDS: Liraglutide [Victoza 2-Pak] 1.2 MG SUB-Q SCH (08:35)
[2019-11-20] MEDS: cefTRIAXone 2 GM in DEXTROSE 5% IN WATER 50 ML IV SCH (09:48)
[2019-11-20] MEDS: DAPTOmycin 500 MG VIAL IV SCH (09:49)
[2019-11-20] MEDS: 0.9 % SODIUM CHLORIDE 1,000 ML IV SCH ×2 (09:49→21:54)
--- NOTE | 2019-11-20 10:22 | Internal Med Progress Note ---
Medical - PN: Subj Patient information: Note initiated : 11/20/19 at 10:19 am Service Date, if different from initiated Date: [] Patient: Jaycee Dias a 59 y/o F admitted on 11/18/19 for LLE Cellulitis Recheck. Chief Complaint: [] Interval history: Ms. Dias is a 59 year old F with a history of DM type II/atrial fibrillation on anticoagulation/HTN/CKD stage III who presents to the ER following left knee and lower extremity redness pain and swelling that started 5 days prior to presentation. Symptoms are progressed to the point is difficult to bear weight. She was evaluated in the ER and was started on Bactrim however due to failure of symptomatic improvement patient return to the ER and was started on Rocephin for presumed cellulitis left lower extremity. She tried to alleviate the pain with Tylenol without much help. She now presents for reevaluation. Initial work-up was consistent with elevated lactate and white count 12.4. Exquisitely tender left knee. Orthopedics was consulted. Patient was started on IV clindamycin. Hospital service was consulted for presumed cellulitis with septic arthritis. Patient underwent left knee tap by orthopedics with purulent aspirate. Cultures and Gram stain along microscopy was sent. At the time evaluation patient is alert however anxious. She was able to answer most of the questions and provide history as above. She denies local trauma. She denies shaking chills, drenching sweats, lower extremity purulent drainage or 2 infections. She is a known diabetic with neuropathy. 11/18-patient currently n.p.o. awaiting joint washout. No overnight events. White count down to 9000. Synovial fluid cell count pending. Gram stain shows polymorphs but no organism. Final cultures pending. Continue antibiotics. Review postprocedure. 11/19-postop day 1. Joint washout cultures pending. White count down to 10,000. On antibiotic coverage including daptomycin/Rocephin. ID on board. Restart apixaban. No overnight events. Will need SNF placement for continued long-term antibiotics/post operative rehab. No other concerns expressed by nursing staff - Constitutional Vitals: Vital Signs Temp Pulse Resp BP Pulse Ox 96.6 F L 79 20 115/73 96 11/20/19 07:56 11/20/19 07:56 11/20/19 07:56 11/20/19 07:56 11/20/19 07:56 Period Temp Pulse Resp BP Sys/Abarca Pulse Ox Last 24 Hr 96.2 F-98.5 F 77-95 13-21 95-147/50-94 91-98 Intake and Output 11/19/19 11/20/19 11/20/19 21:59 05:59 13:59 Intake Total 2765 465 Output Total 200 400 Balance 2565 65 Weight 301 lb Intake & Output: Intake & Output 11/19/19 11/20/19 11/20/19 21:59 05:59 13:59 Intake Total 2765 465 Output Total 200 400 Balance 2565 65 Weight 301 lb Intake: IV 1165 65 Sodium Chloride 0.9% 1,000 ml @ 1000 50 mls/hr IV .Q20H [facility] Rx#: [id number] Oral 400 IV - Manual Only 1600 Output: Void Amount 100 400 Estimated Blood Loss 100 Other: Meal Tor[place] crackers (1 packet) Breakfast Percent of Meal Consumed 100% 100% Feeding Ability Independent Independent Urine Appearance Clear Urine Color Dark Yellow Urine Odor Normal General appearance: no acute distress Exam: Alert oriented Nonlabored breathing Postoperative dressing knee No anxiety Medical - PN: Obj Da - Labs CBC & Chem 7: 11/20/19 05:40 11/20/19 05:40 Labs: Abnormal Lab Results 11/20/19 11/20/19 11/19/19 05:40 05:40 05:35 WBC Plt Count MPV 11.7 H Seg Neutrophils % 90 H Lymphocytes % 6 L RBC Morphology Anisocytosis PT INR VBG Lactic Acid Carbon Dioxide 21 L BUN 22 H Glucose 237 H 161 H Calcium 8.3 L 8.0 L Phosphorus 2.6 L GGT 44 H 42 H ALT 43 H Lactate Dehydrogenase 395 H C-Reactive Protein 25.8 H NT-Pro-B Natriuret Pep Albumin 2.8 L 2.6 L Albumin/Globulin Ratio 0.8 L 0.7 L Ur Specific Geraldine Urine Protein Urine Urobilinogen Urine RBC Ur Squamous Epith Cells Synovial Neutrophils 11/19/19 11/19/19 11/18/19 05:35 00:05 17:11 WBC Plt Count 109 L MPV 12.4 H Seg Neutrophils % Lymphocytes % RBC Morphology Anisocytosis PT INR VBG Lactic Acid Carbon Dioxide BUN Glucose Calcium Phosphorus GGT ALT Lactate Dehydrogenase C-Reactive Protein NT-Pro-B Natriuret Pep Albumin Albumin/Globulin Ratio Ur Specific Geraldine 1.047 H Urine Protein 100 A Urine Urobilinogen 2.0 A Urine RBC 3 H Ur Squamous Epith Cells 11 H Synovial Neutrophils 93 H 11/18/19 11/18/19 11/18/19 13:11 13:11 13:05 WBC 12.4 H Plt Count 124 L MPV 12.1 H Seg Neutrophils % 88 H Lymphocytes % 7 L RBC Morphology Abnorm A Anisocytosis Few A PT INR VBG Lactic Acid Carbon Dioxide 20 L BUN Glucose 190 H Calcium 8.3 L Phosphorus GGT ALT 60 H Lactate Dehydrogenase C-Reactive Protein NT-Pro-B Natriuret Pep 792.9 H Albumin Albumin/Globulin Ratio Ur Specific Geraldine Urine Protein Urine Urobilinogen Urine RBC Ur Squamous Epith Cells Synovial Neutrophils 11/18/19 11/18/19 13:05 13:05 WBC Plt Count MPV Seg Neutrophils % Lymphocytes % RBC Morphology Anisocytosis PT 19.9 H INR 1.6 H VBG Lactic Acid 3.6 H Carbon Dioxide BUN Glucose Calcium Phosphorus GGT ALT Lactate Dehydrogenase C-Reactive Protein NT-Pro-B Natriuret Pep Albumin Albumin/Globulin Ratio Ur Specific Geraldine Urine Protein Urine Urobilinogen Urine RBC Ur Squamous Epith Cells Synovial Neutrophils Meds: Medications Acetaminophen (Tylenol) 650 mg PO Q4-6HP PRN; Protocol PRN Reason: Per Pain Protocol/Fever > 101 Last Admin: 11/19/19 02:18 Dose: 650 mg Documented by: Hydrocodone Bitart/Acetaminophen ([place] 7.5/325mg) 1 - 2 tab PO Q6HP PRN; Protocol PRN Reason: Per Pain Protocol Last Admin: 11/20/19 08:35 Dose: 1 tab Documented by: Albuterol/Ipratropium (Combivent) 1 puff INH QIDP [facility] Albuterol/Ipratropium (Combivent) 1 puff INH QID [facility] Last Admin: 11/20/19 08:34 Dose: Not Given Documented by: Amiodarone HCl (Cordarone) 200 mg PO BIDCC [facility] Last Admin: 11/20/19 08:32 Dose: 200 mg Documented by: Apixaban (Eliquis) 5 mg PO BID [facility] Atorvastatin Calcium (Lipitor) 10 mg PO HS [facility] Last Admin: 11/19/19 20:49 Dose: 10 mg Documented by: Baclofen (Lioresal) 20 mg PO DAILYP PRN PRN Reason: Muscle Spasm Bisacodyl (Dulcolax) 10 mg AK Q2-3DAYS PRN PRN Reason: Constipation Bisoprolol Fumarate (Zebeta) 5 mg PO QHS [facility] Last Admin: 11/19/19 20:45 Dose: 5 mg Documented by: Cephalexin HCl (Keflex) 500 mg PO QID [facility]; Protocol Last Admin: 11/20/19 08:32 Dose: 500 mg Documented by: Daptomycin (Cubicin) 750 mg IV Q24H [facility]; Protocol Last Admin: 11/20/19 09:49 Dose: 750 mg Documented by: Dextrose (Dextrose 50%) 0 ml IV UD PRN PRN Reason: Hypoglycemia Diagnostic Test (Pha) (Accu-Chek) 1 each FS ACHS [facility] Last Admin: 11/20/19 08:00 Dose: 1 each Documented by: Docusate Sodium (Colace) 100 mg PO BID [facility] Last Admin: 11/20/19 08:32 Dose: 100 mg Documented by: Fenofibrate (Antara) 54 mg PO QAC [facility] Last Admin: 11/20/19 08:32 Dose: 54 mg Documented by: Fluticasone Propionate (Flovent Hfa 110mcg) 2 puff INH BID [facility] Last Admin: 11/20/19 08:34 Dose: Not Given Documented by: Fluticasone Propionate (Flonase) 1 spray NS QDAY [facility] Last Admin: 11/20/19 08:34 Dose: Not Given Documented by: Furosemide (Lasix) 20 mg PO QDAY [facility] Last Admin: 11/20/19 08:32 Dose: 20 mg Documented by: Gabapentin (Neurontin) 1,200 mg PO BID [facility] Last Admin: 11/20/19 08:33 Dose: 1,200 mg Documented by: Glucose (Insta-Glucose) 15 gm PO PRN PRN PRN Reason: Hypoglycemia Hydromorphone HCl (Dilaudid) 0.5 mg IV Q15MIN PRN; Protocol PRN Reason: Per Pain Protocol Sodium Chloride (Sodium Chloride 0.9%) 1,000 mls @ 50 mls/hr IV .Q20H [facility] Stop: 11/21/19 05:18 Last Admin: 11/20/19 09:49 Dose: Not Given Documented by: Acetaminophen (Ofirmev) 650 mg in 65 mls @ 130 mls/hr IV Q6HP PRN; Protocol PRN Reason: Per Pain Protocol/Fever > 101 Last Infusion: 11/20/19 02:25 Dose: Infused Documented by: Magnesium Sulfate (Magnesium Sulfate) 2 gm in 50 mls @ 50 mls/hr IV UD PRN PRN Reason: MG = or < 1.7 Ceftriaxone Sodium 2 gm/ (Dextrose) 50 mls @ 100 mls/hr IV Q24H [facility]; Protocol Last Admin: 11/20/19 09:48 Dose: 100 mls/hr Documented by: Insulin Glargine (Lantus) 13 unit SQ HS [facility] Last Admin: 11/19/19 22:06 Dose: 13 units Documented by: Insulin Human Lispro (Humalog) 0 unit SQ ACHS [facility]; Protocol Last Admin: 11/20/19 08:31 Dose: 3 units Documented by: Iron Carb/Multivit/[place]/Folic Acid (Multivitamin W/Minerals) 1 tab PO DAILY [facility] Last Admin: 11/20/19 08:31 Dose: 1 tab Documented by: Lisinopril (Zestril) [facility] Last Admin: 11/20/19 08:32 Dose: 2.5 mg Documented by: Lorazepam (Ativan) 1 mg PO TIDP PRN PRN Reason: Anxiety Last Admin: 11/19/19 22:05 Dose: 1 mg Documented by: Melatonin (Melatonin 3mg Tablet) 3 mg PO HSP PRN PRN Reason: Insomnia Nystatin (Nystatin) 1 dose TOPICAL BID [facility] Last Admin: 11/20/19 08:33 Dose: 1 dose Documented by: Omeprazole (Prilosec) 20 mg PO ACB [facility] Last Admin: 11/20/19 08:00 Dose: 20 mg Documented by: Ondansetron HCl (Zofran Odt) 4 mg SL Q4-6HP PRN; Protocol PRN Reason: Nausea And Vomiting Ondansetron HCl (Zofran) 4 mg IV Q4-6HP PRN; Protocol PRN Reason: Nausea And Vomiting Paroxetine HCl (Paxil) 30 mg PO QAM [facility] Last Admin: 11/20/19 08:32 Dose: 30 mg Documented by: Liraglutide [Victoza (2-Josh] 1.2 Mg) 1 dose SUB-Q QDAY [facility] Last Admin: 11/20/19 08:35 Dose: Not Given Documented by: Polyethylene Glycol (Miralax) 17 gm PO DAILYP PRN PRN Reason: Constipation Potassium Chloride (Klor-Con) 40 meq PO DAILYP PRN PRN Reason: K+ < 3.5 Potassium Chloride (Kdur) 20 meq PO QAMCC [facility] Last Admin: 11/20/19 08:31 Dose: 20 meq Documented by: Scopolamine (Transderm-Scop) 1 patch TOPICAL PREOP PRN PRN Reason: Nausea And Vomiting Senna/Docusate Sodium (Senna Plus Tablet) 1 tab PO HS [facility] Last Admin: 11/19/19 20:44 Dose: 1 tab Documented by: Sitagliptin Phosphate (Januvia) 100 mg PO DAILY [facility] Last Admin: 11/20/19 08:32 Dose: 100 mg Documented by: Sodium Chloride (Saline Flush) 10 ml IV Q8 [facility] Last Admin: 11/20/19 05:31 Dose: Not Given Documented by: Spironolactone (Aldactone) 25 mg PO QAM [facility] Last Admin: 11/20/19 08:32 Dose: 25 mg Documented by: Tramadol HCl (Ultram) 50 mg PO Q4-6HP PRN; Protocol PRN Reason: Per Pain Protocol Last Admin: 11/20/19 00:24 Dose: 50 mg Documented by: Tramadol HCl (Ultram) 50 - 100 mg PO Q8 [facility] Last Admin: 11/20/19 05:31 Dose: 100 mg Documented by: Vancomycin HCl (Vancomycin) 2 gm TOPICAL ONCE [facility]; Protocol Last Admin: 11/19/19 18:00 Dose: 2 gm Documented by: Medical - PN: A/P - Time Spent With Patient Total time spent is greater than 50% in coordination of care (as documented) at patient's floor/unit and/or counseling patient: 25 - 35 minutes (1) Septic arthritis of knee, left Status: Acute Assessment and plan: * Septic arthritis left prosthetic knee joint. Status post joint washout. On antibiotic coverage. Continue management per orthopedics. * Sepsis second above with elevated lactate and white count. Clinically improved. Continue antibiotic coverage * Pain management well controlled on as needed opioids * Left lower external cellulitis clinically improved on antibiotic coverage/panc ultures * DM type II continue basal prandial insulin/CC diet. * History of atrial fibrillation on amiodarone/beta-ashley. Restart apixaban for CVA prophylaxis * Hypertension continue bisoprolol//spironolactone * Hyperlipidemia continue statin * Anxiety disorder on paroxetine/lorazepam(current medication list is being verified) * Full code Plan * Postop care per orthopedics * Restart apixaban * Pain management * Antibiotic coverage-Rocephin/daptomycin. Duration to be determined based on sensitivities/ID recommendations * Pre-existing medical condition management as above * PT OT nutrition support Current Visit: Yes Medical - PN: Qual - VTE Deep Vein Thrombosis/Pulmonary Embolism Present on Admission: No
[2019-11-20] MEDS: INSULIN GLARGINE, HUMAN 1 UNIT/0.01 ML SQ SCH (21:24)
[2019-11-20] MEDS: ATORVASTATIN 20 MG TABLET PO SCH (21:25)
[2019-11-20] MEDS: SENNOSIDES/DOCUSATE SODIUM 1 TAB TABLET PO SCH (21:25)
[2019-11-20] MEDS: LORazepam 1 MG TABLET PO PRN (21:26)
[2019-11-20] MEDS: APIXABAN 5 MG TABLET PO SCH (21:26)
[2019-11-20] MEDS: BISOPROLOL 5 MG TABLET PO SCH (21:27)
[2019-11-21] MEDS: traMADol 50 MG TABLET PO PRN (02:49)
[2019-11-21] MEDS: 0.9 % SODIUM CHLORIDE 10 ML SYRINGE IV SCH ×3 (04:28→22:16)
[2019-11-21] MEDS: HYDROCODONE/APAP 7.5/325MG TABLET PO PRN ×3 (04:28→18:35)
[2019-11-21] MEDS: traMADol 50 MG TABLET PO SCH ×3 (05:52→21:12)
[2019-11-21 06:27] LABS: Hematocrit 39.4 % (34.1-44.9); Hemoglobin 12.7 g/dL (11.2-15.7); Mean Cell Volume 94.3 fL (80.0-100.0); Mean Corpuscular HGB Conc 32.2 g/dL (31.0-36.0); Mean Platelet Volume 11.3 fL (7.4-10.4); Platelet Count 189 K/mcL (140-440); RBC 4.18 M/mcL (3.59-5.38); Red Cell Distribution Width 14.6 % (11.5-14.5); WBC 9.6 K/mcL (4.50-11.00)
[2019-11-21] MEDS: AMIODARONE HCL 200 MG TABLET PO SCH ×2 (07:10→17:22)
[2019-11-21] MEDS: POTASSIUM CHLORIDE 20 MEQ TABLET PO SCH (07:10)
[2019-11-21] MEDS: OMEPRAZOLE 20 MG CAPSULE PO SCH (07:10)
[2019-11-21] MEDS: FENOFIBRATE 43 MG CAPSULE PO SCH (07:12)
[2019-11-21 07:16] LABS: ALT/SGPT 31 U/l (0-40); AST/SGOT 27 U/l (0-37); Albumin 2.8 gm/dL (3.2-5.2); Alkaline Phosphatase 63 U/L (39-117); Bilirubin,Total 0.4 mg/dL (0.0-1.0); Blood Urea Nitrogen 20 mg/dl (6-20); Calcium 8.4 mg/dl (8.6-10.4); Carbon Dioxide 24 mmol/L (22-30); Chloride 100 mmol/L (96-108); Globulin 2.9 gm/dL (2.2-3.7); Glomerular Filtration Rate 94; Glucose 155 mg/dL (70-105); Lactate Dehydrogenase 224 U/L (94-250); Phosphorous 3.2 mg/dL (2.7-4.5); Triglycerides 117 mg/dl (<150); Uric Acid 3.6 mg/dL (2.5-8.0)
[2019-11-21 07:23] LABS: Bilirubin,Direct < 0.2 mg/dL (0.0-0.3)
[2019-11-21] MEDS: INSULIN LISPRO 1 UNIT/0.01 ML UNIT SQ SCH ×4 (07:24→21:15)
--- NOTE | 2019-11-21 07:47 | Orthopedic Progress Note ---
Subjective Patient information: Note initiated : 11/21/19 at 7:45 am Service Date, if different from initiated Date: [] Patient: Jaycee Dias 59 y/o F admitted on 11/18/19 for LLE Cellulitis Recheck. Chief Complaint: [S/P I&D WITH HARDWARE REVISION OF LEFT SEPTIC KNEE] PATIENT IS DOING WELL AND IMPROVING WITH PT. SHE HAS NO PARTICULAR COMPLAINTS TODAY. SHE DENIES ANY NEW ONSET CHEST PAIN, SOA, FEVER, CHILLS, OR LOWER EXTREMITY CALF TENDERNESS. Principal diagnosis: left septic tka Objective Vital signs: Vital Signs Temp Pulse Pulse Resp BP BP Pulse Ox 11/21/19 06:41 97.3 F 83 18 128/78 95 11/21/19 02:52 97.2 F 80 16 98/64 94 11/20/19 23:44 97.3 F 89 18 100/63 95 11/20/19 18:38 97.6 F 87 18 108/59 95 11/20/19 15:28 98.1 F 81 20 104/63 93 11/20/19 12:10 97.6 F 85 20 117/79 93 11/20/19 08:00 79 20 96 11/20/19 07:56 96.6 F L 79 20 115/73 96 Intake and Output 11/20/19 11/21/19 11/21/19 21:59 05:59 13:59 Intake Total 2505 800 Output Total 550 1200 Balance 1954 - Intake: IV 1115 Sodium Chloride 0.9% 1,000 ml @ 1000 50 mls/hr IV .Q20H [facility] Rx#: [id number] Rocephin 2 gm In Dextrose 5% in 50 Water 50 ml @ 100 mls/hr IV Q24H [facility] Rx#:[id number] Oral 1390 800 Output: Void Amount 550 1200 Other: Meal Dinner Percent of Meal Consumed 100% Feeding Ability Independent Urine Appearance Clear Clear Urine Color Dark Yellow Dark Yellow Tea Colored Urine Odor Strong Strong Weight 302 lb 6 oz Intake & Output: Intake & Output 11/20/19 11/21/19 11/21/19 21:59 05:59 13:59 Intake Total 2505 800 Output Total 550 1200 Balance 1954 -400 Weight 302 lb 6 oz Intake: IV 1115 Sodium Chloride 0.9% 1,000 ml @ 1000 50 mls/hr IV .Q20H [facility] Rx#: [id number] Rocephin 2 gm In Dextrose 5% in 50 Water 50 ml @ 100 mls/hr IV Q24H [facility] Rx#:[id number] Oral 1390 800 Output: Void Amount 550 1200 Other: Meal Dinner Percent of Meal Consumed 100% Feeding Ability Independent Urine Appearance Clear Clear Urine Color Dark Yellow Dark Yellow Tea Colored Urine Odor Strong Strong Incision: Yes healing, Yes clean and dry Incision clean and dry: Yes Dressing: Yes clean, Yes dry, Yes intact Weight bearing status: as tolerated Neurological exam IM: Yes alert, Yes oriented X3, Yes motor sensory intact, Yes neurovascular intact Extremities exam IM: Yes calf tenderness (NEGATIVE BILATERALLY), Yes Erinn's sign (NEGATIVE BILATERALLY), Yes Foot pink and warm, Yes neurovascular intact - Labs CBC & BMP: 11/21/19 05:23 11/21/19 05:23 Labs: Orthopedic Labs 11/18/19 13:05 PT 19.9 H INR 1.6 H 11/21/19 11/20/19 11/19/19 05:23 05:40 05:35 Hgb 12.7 13.8 13.7 Hct 39.4 43.4 42.2 11/18/19 13:11 Hgb 14.0 Hct 44.0 Assessment and Plan (1) Left leg cellulitis Status: Acute (2) Septic arthritis of knee, left CONTINUE EMPIRIC ABX UNTIL CULTURE RESULTS PER HOSPITALIST. PATIENT MAY BE WBAT. LIKELY DISCHARGE TO SNF PER HOSPITALIST TODAY OR TOMORROW. PLACE AQUACEL/SILVER DRESSING PRIOR TO DISCHARGE. Status: Acute
[2019-11-21 09:07] LABS: Lymphocytes % 19 % (15-49); Monocytes % (Manual) 7 % (1-12); Platelet Estimate NORMAL (NORMAL); RBC Morphology NORMAL (NORMAL); Segmented Neutrophils % 74 % (38-78)
[2019-11-21] MEDS: IPRATROPIUM/ALBUTEROL SULFATE 1 PUFF INHALER INH SCH ×4 (09:28→21:49)
[2019-11-21] MEDS: FLUTICASONE HFA 110MCG INHALER INH SCH ×2 (09:28→21:49)
[2019-11-21] MEDS: FLUTICASONE PROPIONATE SPRAY.NAS NS SCH (09:28)
[2019-11-21] MEDS: SPIRONOLACTONE 25 MG TABLET PO SCH (09:38)
[2019-11-21] MEDS: DOCUSATE SODIUM 100 MG CAPSULE PO SCH ×2 (09:39→21:11)
[2019-11-21] MEDS: APIXABAN 5 MG TABLET PO SCH ×2 (09:39→21:12)
[2019-11-21] MEDS: sitaGLIPtin 100 MG TABLET PO SCH (09:40)
[2019-11-21] MEDS: CEPHALEXIN 500 MG CAPSULE PO SCH ×4 (09:40→21:13)
[2019-11-21] MEDS: GABAPENTIN 400 MG CAPSULE PO SCH ×2 (09:41→21:13)
[2019-11-21] MEDS: FUROSEMIDE 20 MG TABLET PO SCH (09:41)
[2019-11-21] MEDS: MULTIVIT,THER IRON,CA,FA & MIN 1 TABLET PO SCH (09:41)
[2019-11-21] MEDS: PARoxetine 20 MG TABLET PO SCH (09:42)
[2019-11-21] MEDS: LISINOPRIL 5 MG TABLET PO SCH (09:43)
[2019-11-21] MEDS: Liraglutide [Victoza 2-Pak] 1.2 MG SUB-Q SCH (09:44)
[2019-11-21] MEDS: NYSTATIN POWDER BOTTLE 15GM TOPICAL SCH ×2 (09:45→21:16)
[2019-11-21] MEDS: DAPTOmycin 500 MG VIAL IV SCH (09:59)
[2019-11-21] MEDS: cefTRIAXone 2 GM in DEXTROSE 5% IN WATER 50 ML IV SCH (10:02)
--- NOTE | 2019-11-21 14:23 | Internal Med Progress Note ---
Medical - PN: Subj Patient information: Note initiated : 11/21/19 at 2:20 pm Service Date, if different from initiated Date: [] Patient: Jaycee Dias a 59 y/o F admitted on 11/18/19 for LLE Cellulitis Recheck. Chief Complaint: [] Interval history: Ms. Dias is a 59 year old F with a history of DM type II/atrial fibrillation on anticoagulation/HTN/CKD stage III who presents to the ER following left knee and lower extremity redness pain and swelling that started 5 days prior to presentation. Symptoms are progressed to the point is difficult to bear weight. She was evaluated in the ER and was started on Bactrim however due to failure of symptomatic improvement patient return to the ER and was started on Rocephin for presumed cellulitis left lower extremity. She tried to alleviate the pain with Tylenol without much help. She now presents for reevaluation. Initial work-up was consistent with elevated lactate and white count 12.4. Exquisitely tender left knee. Orthopedics was consulted. Patient was started on IV clindamycin. Hospital service was consulted for presumed cellulitis with septic arthritis. Patient underwent left knee tap by orthopedics with purulent aspirate. Cultures and Gram stain along microscopy was sent. At the time evaluation patient is alert however anxious. She was able to answer most of the questions and provide history as above. She denies local trauma. She denies shaking chills, drenching sweats, lower extremity purulent drainage or 2 infections. She is a known diabetic with neuropathy. 11/18-patient currently n.p.o. awaiting joint washout. No overnight events. White count down to 9000. Synovial fluid cell count pending. Gram stain shows polymorphs but no organism. Final cultures pending. Continue antibiotics. Review postprocedure. 11/19-postop day 1. Joint washout cultures pending. White count down to 10,000. On antibiotic coverage including daptomycin/Rocephin. ID on board. Restart apixaban. No overnight events. Will need SNF placement for continued long-term antibiotics/post operative rehab. No other concerns expressed by nursing staff 11/20-patient doing a lot better. No overnight events. On antibiotic coverage. Gram-positive cocci on joint washout culture however sensitivities pending. Discussed with ID. Patient will continue antibiotics for long-term. PICC line will be placed. Likely discharge to SNF on Sunday. No fever chills. Stable hemodynamics. - Constitutional Vitals: Vital Signs Temp Pulse Resp BP Pulse Ox 97.1 F 86 20 116/77 94 11/21/19 10:58 11/21/19 10:58 11/21/19 10:58 11/21/19 10:58 11/21/19 10:58 Period Temp Pulse Resp BP Sys/[place] Pulse Ox Last 24 Hr 97.1 F-98.1 F 80-89 - 98-128/59-78 93-95 Intake and Output 11/21/19 11/21/19 11/21/19 05:59 13:59 21:59 Intake Total 800 360 Output Total 1200 400 Balance -400 360 -400 Intake & Output: Intake & Output 11/21/19 11/21/19 11/21/19 05:59 13:59 21:59 Intake Total 800 360 Output Total 1200 400 Balance -400 360 -400 Intake: Oral 800 360 Output: Void Amount 1200 400 Other: Meal Lunch Percent of Meal Consumed 100% Feeding Ability Independent Urine Appearance Clear Urine Color Dark Yellow Light Willa Urine Odor Strong Normal General appearance: no acute distress Exam: Alert oriented nonlabored breathing Postoperative dressing No anxiety Nondistended abdomen Medical - PN: Obj Da - Labs CBC & Chem 7: 11/21/19 05:23 11/21/19 05:23 Labs: Abnormal Lab Results 11/21/19 11/21/19 11/20/19 05:23 05:23 05:40 WBC RDW 14.6 H Plt Count MPV 11.3 H Seg Neutrophils % Lymphocytes % RBC Morphology Anisocytosis PT INR VBG Lactic Acid Carbon Dioxide BUN 22 H Glucose 155 H 237 H Calcium 8.4 L 8.3 L Phosphorus GGT 42 H 44 H ALT Lactate Dehydrogenase C-Reactive Protein NT-Pro-B Natriuret Pep Total Protein 5.7 L Albumin 2.8 L 2.8 L Albumin/Globulin Ratio 0.8 L Ur Specific [place] Urine Protein Urine Urobilinogen Urine RBC Ur Squamous Epith Cells Synovial Neutrophils 11/20/19 11/19/19 11/19/19 05:40 05:35 05:35 WBC RDW Plt Count 109 L MPV 11.7 H 12.4 H Seg Neutrophils % 90 H Lymphocytes % 6 L RBC Morphology Anisocytosis PT INR VBG Lactic Acid Carbon Dioxide 21 L BUN Glucose 161 H Calcium 8.0 L Phosphorus 2.6 L GGT 42 H ALT 43 H Lactate Dehydrogenase 395 H C-Reactive Protein 25.8 H NT-Pro-B Natriuret Pep Total Protein Albumin 2.6 L Albumin/Globulin Ratio 0.7 L Ur Specific [place] Urine Protein Urine Urobilinogen Urine RBC Ur Squamous Epith Cells Synovial Neutrophils 11/19/19 11/18/19 11/18/19 00:05 17:11 13:11 WBC RDW Plt Count MPV Seg Neutrophils % Lymphocytes % RBC Morphology Anisocytosis PT INR VBG Lactic Acid Carbon Dioxide 20 L BUN Glucose 190 H Calcium 8.3 L Phosphorus GGT ALT 60 H Lactate Dehydrogenase C-Reactive Protein NT-Pro-B Natriuret Pep Total Protein Albumin Albumin/Globulin Ratio Ur Specific [place] 1.047 H Urine Protein 100 A Urine Urobilinogen 2.0 A Urine RBC 3 H Ur Squamous Epith Cells 11 H Synovial Neutrophils 93 H 11/18/19 11/18/19 11/18/19 13:11 13:05 13:05 WBC 12.4 H RDW Plt Count 124 L MPV 12.1 H Seg Neutrophils % 88 H Lymphocytes % 7 L RBC Morphology Abnorm A Anisocytosis Few A PT 19.9 H INR 1.6 H VBG Lactic Acid Carbon Dioxide BUN Glucose Calcium Phosphorus GGT ALT Lactate Dehydrogenase C-Reactive Protein NT-Pro-B Natriuret Pep 792.9 H Total Protein Albumin Albumin/Globulin Ratio Ur Specific [place] Urine Protein Urine Urobilinogen Urine RBC Ur Squamous Epith Cells Synovial Neutrophils 11/18/19 13:05 WBC RDW Plt Count MPV Seg Neutrophils % Lymphocytes % RBC Morphology Anisocytosis PT INR VBG Lactic Acid 3.6 H Carbon Dioxide BUN Glucose Calcium Phosphorus GGT ALT Lactate Dehydrogenase C-Reactive Protein NT-Pro-B Natriuret Pep Total Protein Albumin Albumin/Globulin Ratio Ur Specific [place] Urine Protein Urine Urobilinogen Urine RBC Ur Squamous Epith Cells Synovial Neutrophils Meds: Medications Acetaminophen (Tylenol) 650 mg PO Q4-6HP PRN; Protocol PRN Reason: Per Pain Protocol/Fever > 101 Last Admin: 11/19/19 02:18 Dose: 650 mg Documented by: Hydrocodone Bitart/Acetaminophen ([place] 7.5/325mg) 1 - 2 tab PO Q6HP PRN; Protocol PRN Reason: Per Pain Protocol Last Admin: 11/21/19 10:44 Dose: 2 tab Documented by: Albuterol/Ipratropium (Combivent) 1 puff INH QIDP [facility] Albuterol/Ipratropium (Combivent) 1 puff INH QID [facility] Last Admin: 11/21/19 12:56 Dose: Not Given Documented by: Amiodarone HCl (Cordarone) 200 mg PO BIDCC [facility] Last Admin: 11/21/19 07:10 Dose: 200 mg Documented by: Apixaban (Eliquis) 5 mg PO BID [facility] Last Admin: 11/21/19 09:39 Dose: 5 mg Documented by: Atorvastatin Calcium (Lipitor) 10 mg PO HS [facility] Last Admin: 11/20/19 21:25 Dose: 10 mg Documented by: Baclofen (Lioresal) 20 mg PO DAILYP PRN PRN Reason: Muscle Spasm Last Admin: 11/20/19 21:25 Dose: 20 mg Documented by: Bisacodyl (Dulcolax) 10 mg SD Q2-3DAYS PRN PRN Reason: Constipation Bisoprolol Fumarate (Zebeta) 5 mg PO QHS [facility] Last Admin: 11/20/19 21:27 Dose: 5 mg Documented by: Cephalexin HCl (Keflex) 500 mg PO QID [facility]; Protocol Last Admin: 11/21/19 12:59 Dose: 500 mg Documented by: Daptomycin (Cubicin) 750 mg IV Q24H [facility]; Protocol Last Admin: 11/21/19 09:59 Dose: 750 mg Documented by: Dextrose (Dextrose 50%) 0 ml IV UD PRN PRN Reason: Hypoglycemia Diagnostic Test (Pha) (Accu-Chek) 1 each FS ACHS [facility] Last Admin: 11/21/19 11:21 Dose: 1 each Documented by: Docusate Sodium (Colace) 100 mg PO BID [facility] Last Admin: 11/21/19 09:39 Dose: 100 mg Documented by: Fenofibrate (Antara) 54 mg PO QAMCC [facility] Last Admin: 11/21/19 07:12 Dose: 54 mg Documented by: Fluticasone Propionate (Flovent Hfa 110mcg) 2 puff INH BID [facility] Last Admin: 11/21/19 09:28 Dose: Not Given Documented by: Fluticasone Propionate (Flonase) 1 spray NS QDAY [facility] Last Admin: 11/21/19 09:28 Dose: Not Given Documented by: Furosemide (Lasix) 20 mg PO QDAY [facility] Last Admin: 11/21/19 09:41 Dose: 20 mg Documented by: Gabapentin (Neurontin) 1,200 mg PO BID [facility] Last Admin: 11/21/19 09:41 Dose: 1,200 mg Documented by: Glucose (Insta-Glucose) 15 gm PO PRN PRN PRN Reason: Hypoglycemia Hydromorphone HCl (Dilaudid) 0.5 mg IV Q15MIN PRN; Protocol PRN Reason: Per Pain Protocol Acetaminophen (Ofirmev) 650 mg in 65 mls @ 130 mls/hr IV Q6HP PRN; Protocol PRN Reason: Per Pain Protocol/Fever > 101 Last Infusion: 11/20/19 20:22 Dose: Infused Documented by: Magnesium Sulfate (Magnesium Sulfate) 2 gm in 50 mls @ 50 mls/hr IV UD PRN PRN Reason: MG = or < 1.7 Ceftriaxone Sodium 2 gm/ (Dextrose) 50 mls @ 100 mls/hr IV Q24H [facility]; Protocol Last Admin: 11/21/19 10:02 Dose: 100 mls/hr Documented by: Insulin Glargine (Lantus) 13 unit SQ HS [facility] Last Admin: 11/20/19 21:24 Dose: 13 units Documented by: Insulin Human Lispro (Humalog) 0 unit SQ ACHS [facility]; Protocol Last Admin: 11/21/19 11:27 Dose: 1 units Documented by: Iron Carb/Multivit/[place]/Folic Acid (Multivitamin W/Minerals) 1 tab PO DAILY [facility] Last Admin: 11/21/19 09:41 Dose: 1 tab Documented by: Lisinopril (Zestril) 2.5 mg PO QAM [facility] Last Admin: 11/21/19 09:43 Dose: 2.5 mg Documented by: Lorazepam (Ativan) 1 mg PO TIDP PRN PRN Reason: Anxiety Last Admin: 11/20/19 21:26 Dose: 1 mg Documented by: Melatonin (Melatonin 3mg Tablet) 3 mg PO HSP PRN PRN Reason: Insomnia Nystatin (Nystatin) 1 dose TOPICAL BID [facility] Last Admin: 11/21/19 09:45 Dose: 1 dose Documented by: Omeprazole (Prilosec) 20 mg PO ACB [facility] Last Admin: 11/21/19 07:10 Dose: 20 mg Documented by: Ondansetron HCl (Zofran Odt) 4 mg SL Q4-6HP PRN; Protocol PRN Reason: Nausea And Vomiting Ondansetron HCl (Zofran) 4 mg IV Q4-6HP PRN; Protocol PRN Reason: Nausea And Vomiting Paroxetine [facility] (Paxil) [facility] [place] Admin: 11/21/19 09:42 Dose: 30 mg Documented by: Liraglutide [Victoza (2-Josh] 1.2 Mg) 1 dose SUB-Q QDAY [facility] Last Admin: 11/21/19 09:44 Dose: Not Given Documented by: Polyethylene Glycol (Miralax) 17 gm PO DAILYP PRN PRN Reason: Constipation Potassium Chloride (Klor-Con) 40 meq PO DAILYP PRN PRN Reason: K+ < 3.5 Potassium Chloride (Kdur) 20 meq PO QAC [facility] Last Admin: 11/21/19 07:10 Dose: 20 meq Documented by: Scopolamine (Transderm-Scop) 1 patch TOPICAL PREOP PRN PRN Reason: Nausea And Vomiting Senna/Docusate Sodium (Senna Plus Tablet) 1 tab PO HS [facility] Last Admin: 11/20/19 21:25 Dose: 1 tab Documented by: Sitagliptin Phosphate (Januvia) 100 mg PO DAILY [facility] Last Admin: 11/21/19 09:40 Dose: 100 mg Documented by: Sodium Chloride (Saline Flush) 10 ml IV Q8 [facility] Last Admin: 11/21/19 04:28 Dose: Not Given Documented by: Spironolactone (Aldactone) [facility] [place] Admin: 11/21/19 09:38 Dose: 25 mg Documented by: Tramadol HCl (Ultram) 50 mg PO Q4-6HP PRN; Protocol PRN Reason: Per Pain Protocol Last Admin: 11/21/19 02:49 Dose: 50 mg Documented by: Tramadol HCl (Ultram) 50 - 100 mg PO Q8 [facility] Last Admin: 11/21/19 05:52 Dose: 100 mg Documented by: Medical - PN: A/P - Time Spent With Patient Total time spent is greater than 50% in coordination of care (as documented) at patient's floor/unit and/or counseling patient: 25 - 35 minutes (1) Septic arthritis of knee, left Status: Acute Assessment and plan: * Septic arthritis left TKA. Status post joint washout. Continue antibiotic coverage as per ID recommendations. Place PICC line for long-term antibiotics. Gram-positive cocci on joint washout culture * Sepsis second above with elevated lactate and white count. Clinically resolved. * Pain management well controlled on as needed opioids * Left lower external cellulitis clinically resolved on antibiotic coverage/pancultures * DM type II continue basal prandial insulin/CC diet. * History of atrial fibrillation on amiodarone/beta-ashley. Continue apixaban for CVA prophylaxis * Hypertension continue bisoprolol//spironolactone * Hyperlipidemia continue statin * Anxiety disorder on paroxetine/lorazepam(current medication list is being ve rified) * Full code Plan * Postop care per orthopedics * Antibiotic coverage * PICC line placement * Pain management * Pre-existing medical condition management as above * PT OT nutrition support Current Visit: Yes Medical - PN: Qual - VTE Deep Vein Thrombosis/Pulmonary Embolism Present on Admission: No
[2019-11-21] MEDS: BISOPROLOL 5 MG TABLET PO SCH (21:12)
[2019-11-21] MEDS: SENNOSIDES/DOCUSATE SODIUM 1 TAB TABLET PO SCH (21:12)
[2019-11-21] MEDS: ATORVASTATIN 20 MG TABLET PO SCH (21:13)
[2019-11-21] MEDS: INSULIN GLARGINE, HUMAN 1 UNIT/0.01 ML SQ SCH (21:16)
[2019-11-21] MEDS: LORazepam 1 MG TABLET PO PRN (22:18)
[2019-11-22] MEDS: HYDROCODONE/APAP 7.5/325MG TABLET PO PRN ×2 (00:47→17:06)
[2019-11-22] MEDS: traMADol 50 MG TABLET PO SCH ×3 (05:53→21:51)
[2019-11-22] MEDS: 0.9 % SODIUM CHLORIDE 10 ML SYRINGE IV SCH ×3 (05:54→21:53)
[2019-11-22 07:04] LABS: Hemoglobin 12.8 g/dL (11.2-15.7); Mean Cell Volume 92.6 fL (80.0-100.0); Platelet Count 211 K/mcL (140-440); RBC 4.32 M/mcL (3.59-5.38); Red Cell Distribution Width 14.3 % (11.5-14.5); WBC 9.4 K/mcL (4.50-11.00)
[2019-11-22] MEDS: POTASSIUM CHLORIDE 20 MEQ TABLET PO SCH (07:23)
[2019-11-22] MEDS: OMEPRAZOLE 20 MG CAPSULE PO SCH (07:23)
[2019-11-22] MEDS: FENOFIBRATE 43 MG CAPSULE PO SCH (07:24)
[2019-11-22] MEDS: AMIODARONE HCL 200 MG TABLET PO SCH ×2 (07:24→17:12)
[2019-11-22 07:27] LABS: ALT/SGPT 32 U/l (0-40); AST/SGOT 33 U/l (0-37); Albumin 2.8 gm/dL (3.2-5.2); Albumin/Globulin Ratio 0.9 (1.0-2.3); Alkaline Phosphatase 68 U/L (39-117); Bilirubin,Direct < 0.2 mg/dL (0.0-0.3); Bilirubin,Total 0.4 mg/dL (0.0-1.0); Blood Urea Nitrogen 20 mg/dl (6-20); Calcium 8.5 mg/dl (8.6-10.4); Carbon Dioxide 24 mmol/L (22-30); Chloride 101 mmol/L (96-108); Glomerular Filtration Rate 99; Glucose 152 mg/dL (70-105); Lactate Dehydrogenase 189 U/L (94-250); Phosphorous 3.8 mg/dL (2.7-4.5); Triglycerides 109 mg/dl (<150); Uric Acid 3.3 mg/dL (2.5-8.0)
[2019-11-22] MEDS: INSULIN LISPRO 1 UNIT/0.01 ML UNIT SQ SCH ×4 (07:37→21:46)
[2019-11-22] MEDS: LORazepam 1 MG TABLET PO PRN ×2 (07:37→21:52)
[2019-11-22 09:13] LABS: Lymphocytes % 23 % (15-49); Monocytes % (Manual) 3 % (1-12); Platelet Estimate NORMAL (NORMAL); RBC Morphology NORMAL (NORMAL); Segmented Neutrophils % 74 % (38-78)
[2019-11-22] MEDS: SPIRONOLACTONE 25 MG TABLET PO SCH (09:28)
[2019-11-22] MEDS: DOCUSATE SODIUM 100 MG CAPSULE PO SCH ×2 (09:28→21:52)
[2019-11-22] MEDS: IPRATROPIUM/ALBUTEROL SULFATE 1 PUFF INHALER INH SCH ×4 (09:29→21:53)
[2019-11-22] MEDS: APIXABAN 5 MG TABLET PO SCH ×2 (09:29→21:53)
[2019-11-22] MEDS: FLUTICASONE HFA 110MCG INHALER INH SCH ×2 (09:30→21:53)
[2019-11-22] MEDS: CEPHALEXIN 500 MG CAPSULE PO SCH ×4 (09:30→21:52)
[2019-11-22] MEDS: sitaGLIPtin 100 MG TABLET PO SCH (09:30)
[2019-11-22] MEDS: FLUTICASONE PROPIONATE SPRAY.NAS NS SCH (09:30)
[2019-11-22] MEDS: GABAPENTIN 400 MG CAPSULE PO SCH ×2 (09:31→21:51)
[2019-11-22] MEDS: FUROSEMIDE 20 MG TABLET PO SCH (09:31)
[2019-11-22] MEDS: MULTIVIT,THER IRON,CA,FA & MIN 1 TABLET PO SCH (09:31)
[2019-11-22] MEDS: PARoxetine 20 MG TABLET PO SCH (09:32)
[2019-11-22] MEDS: LISINOPRIL 5 MG TABLET PO SCH (09:33)
[2019-11-22] MEDS: Liraglutide [Victoza 2-Pak] 1.2 MG SUB-Q SCH (09:34)
[2019-11-22] MEDS: cefTRIAXone 2 GM in DEXTROSE 5% IN WATER 50 ML IV SCH (09:37)
[2019-11-22] MEDS: NYSTATIN POWDER BOTTLE 15GM TOPICAL SCH ×2 (10:51→21:53)
--- NOTE | 2019-11-22 10:58 | Orthopedic Progress Note ---
Subjective Patient information: Note initiated : 11/22/19 at 10:56 am Service Date, if different from initiated Date: [] Patient: Jaycee Dias 59 y/o F admitted on 11/18/19 for LLE Cellulitis Recheck. Chief Complaint: left knee pain Pt is POD# 3 s/p right knee I and D with revision to prostalic type total knee with Dr. Rojas. Admits to pain in the left knee but states it is managed. Denies SOB, N/V, CP, new onset paresthesias. Pt is somewhat drowsy this AM. Principal diagnosis: left septic tka Pertinent ROS: negative except per HPI. Objective Vital signs: Vital Signs Temp Pulse Resp BP BP BP Pulse Ox 11/22/19 07:36 97.7 F 87 20 102/71 92 11/22/19 04:00 98.2 F 84 16 116/84 95 11/21/19 23:41 98.4 F 88 16 116/84 91 11/21/19 18:30 96.7 F L 93 H 16 104/67 92 11/21/19 16:00 98.8 F 89 18 92/61 90 11/21/19 10:58 97.1 F 86 20 116/77 94 Intake and Output 11/21/19 11/22/19 11/22/19 21:59 05:59 13:59 Intake Total 1100 1240 280 Output Total 1500 750 400 Balance -400 490 -120 Intake: IV 1000 Sodium Chloride 0.9% 1,000 ml @ 1000 50 mls/hr IV .Q20H YING Rx#: [id number] Oral 1100 240 280 Output: Void Amount 1500 750 400 Other: Meal Dinner Breakfast Percent of Meal Consumed 100% 100% Feeding Ability Independent Urine Appearance Clear Urine Color Light Willa Dark Yellow Dark Yellow Urine Odor Normal Normal Normal Stool Size Large Stool Color Brown Stool Consistency Soft Formed Weight 309 lb 9.6 oz Intake & Output: Intake & Output 11/21/19 11/22/19 11/22/19 21:59 05:59 13:59 Intake Total 1100 1240 280 Output Total 1500 750 400 Balance -400 490 -120 Weight 309 lb 9.6 oz Intake: IV 1000 Sodium Chloride 0.9% 1,000 ml @ 1000 50 mls/hr IV .Q20H YING Rx#: [id number] Oral 1100 240 280 Output: Void Amount 1500 750 400 Other: Meal Dinner Breakfast Percent of Meal Consumed 100% 100% Feeding Ability Independent Urine Appearance Clear Urine Color Light Willa Dark Yellow Dark Yellow Urine Odor Normal Normal Normal Stool Size Large Stool Color Brown Stool Consistency Soft Formed Dressing: Yes dry (saturated with dried blood through hillary wrap.), Yes intact Weight bearing status: as tolerated Neurological exam IM: Yes alert, Yes oriented X3, Yes neurovascular intact Extremities exam IM: No calf tenderness, Yes normal inspection, No tenderness, No Erinn's sign, Yes Foot pink and warm, Yes neurovascular intact - Labs CBC & BMP: 11/22/19 05:50 11/22/19 05:50 Labs: Orthopedic Labs 11/18/19 13:05 PT 19.9 H INR 1.6 H 11/22/19 11/21/19 11/20/19 05:50 05:23 05:40 Hgb 12.8 12.7 13.8 Hct 40.0 39.4 43.4 11/19/19 11/18/19 05:35 13:11 Hgb 13.7 14.0 Hct 42.2 44.0 Assessment and Plan - Narrative A/P Narrative: Pt is a 59 yo female POD #3 s/p right knee I and D /revision to prostalic type total knee. Pain is managed. Vitals stable. --change to silver dressing. --PT/OT: continue WBAT --continue pain medications --continue diet --prophy: Eliquis, ambulation, IS. --dispo: skilled rehab likely--Sunday per staff. --followup with ortho in 2 weeks for wound check/suture/staple removal.
--- NOTE | 2019-11-22 11:11 | Internal Med Progress Note ---
Medical - PN: Subj Patient information: Note initiated : 11/22/19 at 11:09 am Service Date, if different from initiated Date: [] Patient: Jaycee Dias a 59 y/o F admitted on 11/18/19 for LLE Cellulitis Recheck. Chief Complaint: [] Interval history: Ms. Dias is a 59 year old F with a history of DM type II/atrial fibrillation on anticoagulation/HTN/CKD stage III who presents to the ER following left knee and lower extremity redness pain and swelling that started 5 days prior to presentation. Symptoms are progressed to the point is difficult to bear weight. She was evaluated in the ER and was started on Bactrim however due to failure of symptomatic improvement patient return to the ER and was started on Rocephin for presumed cellulitis left lower extremity. She tried to alleviate the pain with Tylenol without much help. She now presents for reevaluation. Initial work-up was consistent with elevated lactate and white count 12.4. Exquisitely tender left knee. Orthopedics was consulted. Patient was started on IV clindamycin. Hospital service was consulted for presumed cellulitis with septic arthritis. Patient underwent left knee tap by orthopedics with purulent aspirate. Cultures and Gram stain along microscopy was sent. At the time evaluation patient is alert however anxious. She was able to answer most of the questions and provide history as above. She denies local trauma. She denies shaking chills, drenching sweats, lower extremity purulent drainage or 2 infections. She is a known diabetic with neuropathy. 11/18-patient currently n.p.o. awaiting joint washout. No overnight events. White count down to 9000. Synovial fluid cell count pending. Gram stain shows polymorphs but no organism. Final cultures pending. Continue antibiotics. Review postprocedure. 11/19-postop day 1. Joint washout cultures pending. White count down to 10,000. On antibiotic coverage including daptomycin/Rocephin. ID on board. Restart apixaban. No overnight events. Will need SNF placement for continued long-term antibiotics/post operative rehab. No other concerns expressed by nursing staff 11/20-patient doing a lot better. No overnight events. On antibiotic coverage. Gram-positive cocci on joint washout culture however sensitivities pending. Discussed with ID. Patient will continue antibiotics for long-term. PICC line will be placed. Likely discharge to SNF on Sunday. No fever chills. Stable hemodynamics. 11/21 -on antibiotic coverage. Await final sensitivities. Will likely discharge in 48 hours to SNF with outpatient antibiotics per ID. No overnight fever chills. Complains of pain. Intermittent bowel movements. - Constitutional Vitals: Vital Signs Temp Pulse Resp BP Pulse Ox 97.7 F 87 20 102/71 92 11/22/19 07:36 11/22/19 07:36 11/22/19 07:36 11/22/19 07:36 11/22/19 07:36 Period Temp Pulse Resp BP Sys/Abarca Pulse Ox Last 24 Hr 96.7 F-98.8 F 84-93 16-20 92-116/61-84 90-95 Intake and Output 11/21/19 11/22/19 11/22/19 21:59 05:59 13:59 Intake Total 1100 1240 280 Output Total 1500 750 400 Balance -400 490 -120 Weight 309 lb 9.6 oz Intake & Output: Intake & Output 11/21/19 11/22/19 11/22/19 21:59 05:59 13:59 Intake Total 1100 1240 280 Output Total 1500 750 400 Balance -400 490 -120 Weight 309 lb 9.6 oz Intake: IV 1000 Sodium Chloride 0.9% 1,000 ml @ 1000 50 mls/hr IV .Q20H [facility] Rx#: [id number] Oral 1100 240 280 Output: Void Amount 1500 750 400 Other: Meal Dinner Breakfast Percent of Meal Consumed 100% 100% Feeding Ability Independent Urine Appearance Clear Urine Color Light Willa Dark Yellow Dark Yellow Urine Odor Normal Normal Normal Stool Size Large Stool Color Brown Stool Consistency Soft Formed General appearance: no acute distress Exam: Alert oriented Resting comfortably Nonlabored breathing Nondistended abdomen Medical - PN: Obj Da - Labs CBC & Chem 7: 11/22/19 05:50 11/22/19 05:50 Labs: Abnormal Lab Results 11/22/19 11/22/19 11/21/19 05:50 05:50 05:23 RDW MPV 11.0 H Seg Neutrophils % Lymphocytes % BUN Glucose 152 H 155 H Calcium 8.5 L 8.4 L GGT 43 H 42 H Total Protein 5.8 L 5.7 L Albumin 2.8 L 2.8 L Albumin/Globulin Ratio 0.9 L 11/21/19 11/20/19 11/20/19 05:23 05:40 05:40 RDW 14.6 H MPV 11.3 H 11.7 H Seg Neutrophils % 90 H Lymphocytes % 6 L BUN 22 H Glucose 237 H Calcium 8.3 L GGT 44 H Total Protein Albumin 2.8 L Albumin/Globulin Ratio 0.8 L Meds: Medications Acetaminophen (Tylenol) 650 mg PO Q4-6HP PRN; Protocol PRN Reason: Per Pain Protocol/Fever > 101 Last Admin: 11/19/19 02:18 Dose: 650 mg Documented by: Hydrocodone Bitart/Acetaminophen ([place] 7.5/325mg) 1 - 2 tab PO Q6HP PRN; Protocol PRN Reason: Per Pain Protocol Last Admin: 11/22/19 00:47 Dose: 2 tab Documented by: Albuterol/Ipratropium (Combivent) 1 puff INH QIDP [facility] Albuterol/Ipratropium (Combivent) 1 puff INH QID [facility] Last Admin: 11/22/19 09:29 Dose: Not Given Documented by: [facility] Last Admin: 11/22/19 07:24 Dose: 200 mg Documented by: Apixaban (Eliquis) 5 mg PO BID [facility] Last Admin: 11/22/19 09:29 Dose: 5 mg Documented by: Atorvastatin Calcium (Lipitor) 10 mg PO HS [facility] Last Admin: 11/21/19 21:13 Dose: 10 mg Documented by: Baclofen (Lioresal) 20 mg PO DAILYP PRN PRN Reason: Muscle Spasm Last Admin: 11/20/19 21:25 Dose: 20 mg Documented by: Bisacodyl (Dulcolax) 10 mg PA Q2-3DAYS PRN PRN Reason: Constipation Bisoprolol Fumarate (Zebeta) 5 mg PO QHS [facility] Last Admin: 11/21/19 21:12 Dose: 5 mg Documented by: Cephalexin HCl (Keflex) 500 mg PO QID [facility]; Protocol Last Admin: 11/22/19 09:30 Dose: 500 mg Documented by: Daptomycin (Cubicin) 750 mg IV Q24H [facility]; Protocol Last Admin: 11/21/19 09:59 Dose: 750 mg Documented by: Dextrose (Dextrose 50%) 0 ml IV UD PRN PRN Reason: Hypoglycemia Diagnostic Test (Pha) (Accu-Chek) 1 each FS ACHS [facility] Last Admin: 11/22/19 07:28 Dose: 1 each Documented by: Docusate Sodium (Colace) 100 mg PO BID [facility] Last Admin: 11/22/19 09:28 Dose: 100 mg Documented by: Fenofibrate (Antara) 54 mg PO QAC [facility] Last Admin: 11/22/19 07:24 Dose: 54 mg Documented by: Fluticasone Propionate (Flovent Hfa 110mcg) 2 puff INH BID [facility] Last Admin: 11/22/19 09:30 Dose: Not Given Documented by: Fluticasone Propionate (Flonase) 1 spray NS QDAY [facility] Last Admin: 11/22/19 09:30 Dose: Not Given Documented by: Furosemide (Lasix) 20 mg PO QDAY [facility] Last Admin: 11/22/19 09:31 Dose: 20 mg Documented by: Gabapentin (Neurontin) 1,200 mg PO BID [facility] Last Admin: 11/22/19 09:31 Dose: 1,200 mg Documented by: Glucose (Insta-Glucose) 15 gm PO PRN PRN PRN Reason: Hypoglycemia Hydromorphone HCl (Dilaudid) 0.5 mg IV Q15MIN PRN; Protocol PRN Reason: Per Pain Protocol Acetaminophen (Ofirmev) 650 mg in 65 mls @ 130 mls/hr IV Q6HP PRN; Protocol PRN Reason: Per Pain Protocol/Fever > 101 Last Infusion: 11/20/19 20:22 Dose: Infused Documented by: Magnesium Sulfate (Magnesium Sulfate) 2 gm in 50 mls @ 50 mls/hr IV UD PRN PRN Reason: MG = or < 1.7 Ceftriaxone Sodium 2 gm/ (Dextrose) 50 mls @ 100 mls/hr IV Q24H [facility]; Protocol Last Admin: 11/22/19 09:37 Dose: 100 mls/hr Documented by: Insulin Glargine (Lantus) 13 unit SQ [facility] Last Admin: 11/21/19 21:16 Dose: 13 units Documented by: Insulin Human Lispro (Humalog) [address] [facility]; Protocol Last Admin: 11/22/19 07:37 Dose: 1 units Documented by: Iron Carb/Multivit/[employer]/Folic Acid (Multivitamin W/Minerals) 1 tab PO DAILY [facility] Last Admin: 11/22/19 09:31 Dose: 1 tab Documented by: Lisinopril ([facility]estril) [facility] Last Admin: 11/22/19 09:33 Dose: 2.5 mg Documented by: Lorazepam (Ativan) 1 mg PO TIDP PRN PRN Reason: Anxiety Last Admin: 11/22/19 07:37 Dose: 1 mg Documented by: Melatonin (Melatonin 3mg Tablet) 3 mg PO HSP PRN PRN Reason: Insomnia Nystatin (Nystatin) 1 dose TOPICAL BID [facility] Last Admin: 11/22/19 10:51 Dose: 1 dose Documented by: Omeprazole (Prilosec) 20 mg PO ACB [facility] Last Admin: 11/22/19 07:23 Dose: 20 mg Documented by: Ondansetron HCl (Zofran Odt) 4 mg SL Q4-6HP PRN; Protocol PRN Reason: Nausea And Vomiting Ondansetron HCl (Zofran) 4 mg IV Q4-6HP PRN; Protocol PRN Reason: Nausea And Vomiting Paroxetine HCl (Paxil) 30 mg PO QAM [facility] Last Admin: 11/22/19 09:32 Dose: 30 mg Documented by: Liraglutide [Victoza (2-Josh] 1.2 Mg) 1 dose SUB-Q QDAY [facility] Last Admin: 11/22/19 09:34 Dose: Not Given Documented by: Polyethylene Glycol (Miralax) 17 gm PO DAILYP PRN PRN Reason: Constipation Potassium Chloride (Klor-Con) 40 meq PO DAILYP PRN PRN Reason: K+ < 3.5 Potassium Chloride (Kdur) 20 meq PO QAMCC [facility] Last Admin: 11/22/19 07:23 Dose: 20 meq Documented by: Scopolamine (Transderm-Scop) 1 patch TOPICAL PREOP PRN PRN Reason: Nausea And Vomiting Senna/Docusate Sodium (Senna Plus Tablet) 1 tab PO HS [facility] Last Admin: 11/21/19 21:12 Dose: 1 tab Documented by: Sitagliptin Phosphate (Januvia) 100 mg PO DAILY [facility] Last Admin: 11/22/19 09:30 Dose: 100 mg Documented by: Sodium Chloride (Saline Flush) 10 ml IV Q8 [facility] Last Admin: 11/22/19 05:54 Dose: 10 ml Documented by: Spironolactone (Aldactone) 25 mg PO QAM [facility] Last Admin: 11/22/19 09:28 Dose: 25 mg Documented by: Tramadol HCl (Ultram) 50 mg PO Q4-6HP PRN; Protocol PRN Reason: Per Pain Protocol Last Admin: 11/21/19 02:49 Dose: 50 mg Documented by: Tramadol HCl (Ultram) 50 - 100 mg PO Q8 [facility] Last Admin: 11/22/19 05:53 Dose: 50 mg Documented by: Medical - PN: A/P - Time Spent With Patient Total time spent is greater than 50% in coordination of care (as documented) at patient's floor/unit and/or counseling patient: 25 - 35 minutes (1) Septic arthritis of knee, left Status: Acute Assessment and plan: * Septic arthritis left TKA. Status post joint washout. Continue antibiotic coverage as per ID recommendations. Midline placed. Gram-positive cocci on joint washout culture await final sensitivities * Sepsis secondary to above with elevated lactate and white count. Clinically resolved. * Pain management well controlled on as needed opioids * Left lower external cellulitis clinically resolved on antibiotic coverage/pancultures * DM type II continue basal prandial insulin/CC diet. * History of atrial fibrillation on amiodarone/beta-ashley. Continue apixaban for CVA prophylaxis * Hypertension continue bisoprolol//spironolactone * Hyperlipidemia continue statin * Anxiety disorder on paroxetine/lorazepam(current medication list is being verified) * Full code Plan * Continue postop care per orthopedics * Antibiotic coverage * PICC line placement * Pain management * Pre-existing medical condition management as above * PT OT nutrition support Current Visit: Yes Medical - PN: Qual - VTE Deep Vein Thrombosis/Pulmonary Embolism Present on Admission: No
[2019-11-22] MEDS: DAPTOmycin 500 MG VIAL IV SCH (12:27)
[2019-11-22] MEDS: INSULIN GLARGINE, HUMAN 1 UNIT/0.01 ML SQ SCH (21:49)
[2019-11-22] MEDS: ATORVASTATIN 20 MG TABLET PO SCH (21:50)
[2019-11-22] MEDS: SENNOSIDES/DOCUSATE SODIUM 1 TAB TABLET PO SCH (21:51)
[2019-11-22] MEDS: BISOPROLOL 5 MG TABLET PO SCH (21:52)
[2019-11-23] MEDS: HYDROCODONE/APAP 7.5/325MG TABLET PO PRN ×4 (02:31→18:40)
[2019-11-23] MEDS: 0.9 % SODIUM CHLORIDE 10 ML SYRINGE IV SCH ×3 (05:24→20:56)
[2019-11-23] MEDS: traMADol 50 MG TABLET PO SCH ×3 (05:24→20:56)
[2019-11-23 06:49] LABS: Hematocrit 40.2 % (34.1-44.9); Mean Cell Volume 91.8 fL (80.0-100.0); Mean Corpuscular HGB Conc 32.3 g/dL (31.0-36.0); Mean Platelet Volume 10.9 fL (7.4-10.4); Platelet Count 246 K/mcL (140-440); RBC 4.38 M/mcL (3.59-5.38); Red Cell Distribution Width 14.3 % (11.5-14.5); WBC 9.6 K/mcL (4.50-11.00)
[2019-11-23 07:06] LABS: ALT/SGPT 39 U/l (0-40); AST/SGOT 47 U/l (0-37); Albumin 2.9 gm/dL (3.2-5.2); Albumin/Globulin Ratio 0.9 (1.0-2.3); Alkaline Phosphatase 69 U/L (39-117); Bilirubin,Direct < 0.2 mg/dL (0.0-0.3); Bilirubin,Total 0.5 mg/dL (0.0-1.0); Blood Urea Nitrogen 16 mg/dl (6-20); Carbon Dioxide 27 mmol/L (22-30); Globulin 3.1 gm/dL (2.2-3.7); Glomerular Filtration Rate 99; Glucose 154 mg/dL (70-105); Lactate Dehydrogenase 232 U/L (94-250); Phosphorous 3.9 mg/dL (2.7-4.5); Triglycerides 111 mg/dl (<150); Uric Acid 2.9 mg/dL (2.5-8.0)
[2019-11-23 07:09] LABS: Chloride 95 mmol/L (96-108)
[2019-11-23] MEDS: INSULIN LISPRO 1 UNIT/0.01 ML UNIT SQ SCH ×4 (07:12→21:11)
[2019-11-23] MEDS: OMEPRAZOLE 20 MG CAPSULE PO SCH (07:15)
[2019-11-23] MEDS: POTASSIUM CHLORIDE 20 MEQ TABLET PO SCH (07:18)
[2019-11-23] MEDS: FENOFIBRATE 43 MG CAPSULE PO SCH (07:18)
[2019-11-23] MEDS: AMIODARONE HCL 200 MG TABLET PO SCH ×2 (07:18→16:56)
--- NOTE | 2019-11-23 07:44 | Orthopedic Progress Note ---
Subjective Patient information: Note initiated : 11/23/19 at 7:42 am Service Date, if different from initiated Date: [] Patient: Jaycee Dias 59 y/o F admitted on 11/18/19 for LLE Cellulitis Recheck. Chief Complaint: [] Principal diagnosis: left septic tka Interval history: No acute events overnight. Doing as expected this AM. Pain controlled, no chest pain, denies shortness of breath. Objective Vital signs: Vital Signs Temp Pulse Resp BP BP Pulse Ox 11/23/19 06:48 97.6 F 86 16 111/70 94 11/23/19 03:47 97.9 F 77 18 118/69 94 11/23/19 00:00 98.8 F 79 18 116/81 95 11/22/19 21:24 97.6 F 89 18 102/67 95 11/22/19 20:00 89 18 95 11/22/19 16:00 97.8 F 85 20 111/71 95 11/22/19 12:00 98.1 F 85 20 108/73 91 Intake and Output 11/22/19 11/23/19 11/23/19 21:59 05:59 13:59 Intake Total 500 1100 Output Total 1425 1600 260 Balance -925 -500 -260 Intake: Oral 500 1100 Output: Void Amount 1425 1600 260 Other: Urine Appearance Clear Clear Urine Color Pale Dark Yellow Light Willa Urine Odor Normal Strong Strong Stool Size Large Small Small Stool Color Brown Brown Brown Stool Consistency Soft Formed Soft Formed # Bowel Movements 4 1 Weight 311 lb Intake & Output: Intake & Output 11/22/19 11/23/19 11/23/19 21:59 05:59 13:59 Intake Total 500 1100 Output Total 1425 1600 260 Balance -925 -500 -260 Weight 311 lb Intake: Oral 500 1100 Output: Void Amount 1425 1600 260 Other: Urine Appearance Clear Clear Urine Color Pale Dark Yellow Light Willa Urine Odor Normal Strong Strong Stool Size Large Small Small Stool Color Brown Brown Brown Stool Consistency Soft Formed Soft Formed # Bowel Movements 4 1 Dressing: Yes clean, Yes dry, Yes intact Range of motion: has full extension Neurological exam IM: Yes neurovascular intact Additional Comments: silver dressing in place without strikethrough. MARIANNE in place. no calf tenderness with palpation. - Labs CBC & BMP: 11/23/19 05:45 11/23/19 05:45 Labs: Orthopedic Labs 11/18/19 13:05 PT 19.9 H INR 1.6 H 11/23/19 11/22/19 11/21/19 05:45 05:50 05:23 Hgb 13.0 12.8 12.7 Hct 40.2 40.0 39.4 11/20/19 11/19/19 11/18/19 05:40 05:35 13:11 Hgb 13.8 13.7 14.0 Hct 43.4 42.2 44.0 Assessment and Plan (1) Septic arthritis of knee, left Status: Acute - Narrative A/P Narrative: Pt is a 59 yo female POD #4 s/p right left I and D /revision to prostalic type total knee. --PT/OT: per prior notes ok for WBAT. --cultures pending sensitivities with gram positive cocci ----has been afebrile and vitals stable otherwise --oral pain medications --prophy: Eliquis, ambulation, IS. --dispo: pending sensitivites so IV abx can be narrowed but plan is skilled rehab Sunday per note reviews and patient expectation. --followup with ortho in 2 weeks for wound check/suture/staple removal.
[2019-11-23] MEDS: APIXABAN 5 MG TABLET PO SCH ×2 (08:38→20:55)
[2019-11-23] MEDS: LISINOPRIL 5 MG TABLET PO SCH (08:38)
[2019-11-23] MEDS: FUROSEMIDE 20 MG TABLET PO SCH (08:38)
[2019-11-23] MEDS: CEPHALEXIN 500 MG CAPSULE PO SCH ×4 (08:38→20:56)
[2019-11-23] MEDS: DOCUSATE SODIUM 100 MG CAPSULE PO SCH ×2 (08:38→20:58)
[2019-11-23] MEDS: MULTIVIT,THER IRON,CA,FA & MIN 1 TABLET PO SCH (08:38)
[2019-11-23] MEDS: SPIRONOLACTONE 25 MG TABLET PO SCH (08:40)
[2019-11-23] MEDS: sitaGLIPtin 100 MG TABLET PO SCH (08:40)
[2019-11-23] MEDS: GABAPENTIN 400 MG CAPSULE PO SCH ×2 (08:40→20:55)
[2019-11-23] MEDS: PARoxetine 20 MG TABLET PO SCH (08:41)
[2019-11-23] MEDS: FLUTICASONE PROPIONATE SPRAY.NAS NS SCH (08:42)
[2019-11-23] MEDS: IPRATROPIUM/ALBUTEROL SULFATE 1 PUFF INHALER INH SCH ×4 (08:42→20:58)
[2019-11-23] MEDS: FLUTICASONE HFA 110MCG INHALER INH SCH ×2 (08:42→20:58)
[2019-11-23] MEDS: Liraglutide [Victoza 2-Pak] 1.2 MG SUB-Q SCH (08:43)
[2019-11-23 08:49] LABS: Band Neutrophils % 1 % (0-10); Lymphocytes % 28 % (15-49); Monocytes % (Manual) 3 % (1-12); Platelet Estimate NORMAL (NORMAL); RBC Morphology NORMAL (NORMAL); Segmented Neutrophils % 68 % (38-78)
[2019-11-23] MEDS: NYSTATIN POWDER BOTTLE 15GM TOPICAL SCH ×2 (09:58→21:11)
[2019-11-23] MEDS: DAPTOmycin 500 MG VIAL IV SCH (09:59)
[2019-11-23] MEDS: cefTRIAXone 2 GM in DEXTROSE 5% IN WATER 50 ML IV SCH (10:10)
[2019-11-23] MEDS: LORazepam 1 MG TABLET PO PRN ×2 (11:11→20:56)
[2019-11-23] MEDS: BISOPROLOL 5 MG TABLET PO SCH (20:56)
[2019-11-23] MEDS: ATORVASTATIN 20 MG TABLET PO SCH (20:56)
[2019-11-23] MEDS: SENNOSIDES/DOCUSATE SODIUM 1 TAB TABLET PO SCH (20:58)
[2019-11-23] MEDS: INSULIN GLARGINE, HUMAN 1 UNIT/0.01 ML SQ SCH (21:08)
[2019-11-24] MEDS: HYDROCODONE/APAP 7.5/325MG TABLET PO PRN (01:38)
[2019-11-24] MEDS: 0.9 % SODIUM CHLORIDE 10 ML SYRINGE IV SCH ×3 (03:17→14:31)
[2019-11-24] MEDS: traMADol 50 MG TABLET PO SCH ×2 (05:40→14:19)
[2019-11-24] MEDS: OMEPRAZOLE 20 MG CAPSULE PO SCH (07:22)
[2019-11-24] MEDS: POTASSIUM CHLORIDE 20 MEQ TABLET PO SCH (07:22)
[2019-11-24] MEDS: AMIODARONE HCL 200 MG TABLET PO SCH (07:22)
[2019-11-24] MEDS: FENOFIBRATE 43 MG CAPSULE PO SCH (07:23)
[2019-11-24] MEDS: INSULIN LISPRO 1 UNIT/0.01 ML UNIT SQ SCH ×2 (07:37→11:56)
--- NOTE | 2019-11-24 08:08 | Internal Med Progress Note ---
Medical - PN: Subj Patient information: Note initiated : 11/23/19 at 8:06 am Service Date, if different from initiated Date: [] Patient: Jaycee Dias a 59 y/o F admitted on 11/18/19 for LLE Cellulitis Recheck. Chief Complaint: [] Interval history: Ms. Dias is a 59 year old F with a history of DM type II/atrial fibrillation on anticoagulation/HTN/CKD stage III who presents to the ER following left knee and lower extremity redness pain and swelling that started 5 days prior to presentation. Symptoms are progressed to the point is difficult to bear weight. She was evaluated in the ER and was started on Bactrim however due to failure of symptomatic improvement patient return to the ER and was started on Rocephin for presumed cellulitis left lower extremity. She tried to alleviate the pain with Tylenol without much help. She now presents for reevaluation. Initial work-up was consistent with elevated lactate and white count 12.4. Exquisitely tender left knee. Orthopedics was consulted. Patient was started on IV clindamycin. Hospital service was consulted for presumed cellulitis with septic arthritis. Patient underwent left knee tap by orthopedics with purulent aspirate. Cultures and Gram stain along microscopy was sent. At the time evaluation patient is alert however anxious. She was able to answer most of the questions and provide history as above. She denies local trauma. She denies shaking chills, drenching sweats, lower extremity purulent drainage or 2 infections. She is a known diabetic with neuropathy. 11/18-patient currently n.p.o. awaiting joint washout. No overnight events. White count down to 9000. Synovial fluid cell count pending. Gram stain shows polymorphs but no organism. Final cultures pending. Continue antibiotics. Review postprocedure. 11/19-postop day 1. Joint washout cultures pending. White count down to 10,000. On antibiotic coverage including daptomycin/Rocephin. ID on board. Restart apixaban. No overnight events. Will need SNF placement for continued long-term antibiotics/post operative rehab. No other concerns expressed by nursing staff 11/20-patient doing a lot better. No overnight events. On antibiotic coverage. Gram-positive cocci on joint washout culture however sensitivities pending. Discussed with ID. Patient will continue antibiotics for long-term. PICC line will be placed. Likely discharge to SNF on Sunday. No fever chills. Stable hemodynamics. 11/21 -on antibiotic coverage. Await final sensitivities. Will likely discharge in 48 hours to SNF with outpatient antibiotics per ID. No overnight fever chills. Complains of pain. Intermittent bowel movements. 11/22-patient doing well. No overnight events. Awaiting SNF transfer with outpatient IV antibiotics. Cultures pending so far. ID consulted. Postoperative care as per orthopedics. Ongoing PT OT. Tolerating diet. - Constitutional Vitals: Vital Signs Temp Pulse Resp BP Pulse Ox 97.4 F 79 16 131/74 91 11/24/19 06:43 11/24/19 06:43 11/24/19 06:43 11/24/19 06:43 11/24/19 06:43 Period Temp Pulse Resp BP Sys/Abarca Pulse Ox Last 24 Hr 97.4 F-98.1 F 79-93 16-20 97-131/66-86 91-96 Intake and Output 11/23/19 11/24/19 11/24/19 21:59 05:59 13:59 Intake Total 625 800 Output Total 775 600 450 Balance -150 200 -450 Weight 306 lb 8 oz Intake & Output: Intake & Output 11/23/19 11/24/19 11/24/19 21:59 05:59 13:59 Intake Total 625 800 Output Total 775 600 450 Balance -150 200 -450 Weight 306 lb 8 oz Intake: Oral 625 800 Output: Void Amount 775 600 450 Other: Meal Dinner Percent of Meal Consumed 100% Feeding Ability Independent Urine Appearance Clear Clear Urine Color Light Willa Straw Urine Odor Strong Normal Stool Size Small Stool Color Brown Stool Consistency Soft # Voids 1 1 # Bowel Movements 1 General appearance: no acute distress Exam: Alert and nondistressed Nonlabored breathing No anxiety Nontender abdomen Postoperative dressing knee Medical - PN: Obj Da - Labs CBC & Chem 7: 11/23/19 05:45 11/23/19 05:45 Labs: Abnormal Lab Results 11/23/19 11/23/19 11/22/19 05:45 05:45 05:50 MPV 10.9 H Chloride 95 L Glucose 154 H 152 H Calcium 8.5 L GGT 44 H 43 H AST 47 H Total Protein 5.8 L Albumin 2.9 L 2.8 L Albumin/Globulin Ratio 0.9 L 0.9 L 11/22/19 05:50 MPV 11.0 H Chloride Glucose Calcium GGT AST Total Protein Albumin Albumin/Globulin Ratio Meds: Medications Acetaminophen (Tylenol) 650 mg PO Q4-6HP PRN; Protocol PRN Reason: Per Pain Protocol/Fever > 101 Last Admin: 11/19/19 02:18 Dose: 650 mg Documented by: Hydrocodone Bitart/Acetaminophen (Kimberly 7.5/325mg) 1 - 2 tab PO Q6HP PRN; Frank col PRN Reason: Per Pain Protocol Last Admin: 11/24/19 01:38 Dose: 1 tab Documented by: Albuterol/Ipratropium (Combivent) 1 puff INH QIDP [facility] Albuterol/Ipratropium (Combivent) 1 puff INH QID [facility] Last Admin: 11/23/19 20:58 Dose: Not Given Documented by: Amiodarone HCl (Cordarone) 200 mg PO BIDCC [facility] Last Admin: 11/24/19 07:22 Dose: 200 mg Documented by: Apixaban (Eliquis) 5 mg PO BID [facility] Last Admin: 11/23/19 20:55 Dose: 5 mg Documented by: Atorvastatin Calcium (Lipitor) 10 mg PO HS [facility] Last Admin: 11/23/19 20:56 Dose: 10 mg Documented by: Baclofen (Lioresal) 20 mg PO DAILYP PRN PRN Reason: Muscle Spasm Last Admin: 11/20/19 21:25 Dose: 20 mg Documented by: Bisacodyl (Dulcolax) 10 mg WI Q2-3DAYS PRN PRN Reason: Constipation Bisoprolol Fumarate (Zebeta) 5 mg PO QHS [facility] Last Admin: 11/23/19 20:56 Dose: 5 mg Documented by: Cephalexin HCl (Keflex) 500 mg PO QID [facility]; Protocol Last Admin: 11/23/19 20:56 Dose: 500 mg Documented by: Daptomycin (Cubicin) 750 mg IV Q24H [facility]; Protocol Last Admin: 11/23/19 09:59 Dose: 750 mg Documented by: Dextrose (Dextrose 50%) 0 ml IV UD PRN PRN Reason: Hypoglycemia Diagnostic Test (Pha) (Accu-Chek) 1 each FS ACHS [facility] Last Admin: 11/24/19 07:26 Dose: 1 each Documented by: Docusate Sodium (Colace) 100 mg PO BID [facility] Last Admin: 11/23/19 20:58 Dose: Not Given Documented by: Fenofibrate (Antara) 54 mg PO QAMCC [facility] Last Admin: 11/24/19 07:23 Dose: 54 mg Documented by: Fluticasone Propionate (Flovent Hfa 110mcg) 2 puff INH BID [facility] Last Admin: 11/23/19 20:58 Dose: Not Given Documented by: Fluticasone Propionate (Flonase) 1 spray NS QDAY [facility] Last Admin: 11/23/19 08:42 Dose: Not Given Documented by: Furosemide (Lasix) 20 mg PO QDAY [facility] Last Admin: 11/23/19 08:38 Dose: 20 mg Documented by: Gabapentin (Neurontin) 1,200 mg PO BID [facility] Last Admin: 11/23/19 20:55 Dose: 1,200 mg Documented by: Glucose (Insta-Glucose) 15 gm PO PRN PRN PRN Reason: Hypoglycemia Hydromorphone HCl (Dilaudid) 0.5 mg IV Q15MIN PRN; Protocol PRN Reason: Per Pain Protocol Acetaminophen (Ofirmev) 650 mg in 65 mls @ 130 mls/hr IV Q6HP PRN; Protocol PRN Reason: Per Pain Protocol/Fever > 101 Last Infusion: 11/20/19 20:22 Dose: Infused Documented by: Magnesium Sulfate (Magnesium Sulfate) 2 gm in 50 mls @ 50 mls/hr IV UD PRN PRN Reason: MG = or < 1.7 Ceftriaxone Sodium 2 gm/ (Dextrose) 50 mls @ 100 mls/hr IV Q24H [facility]; Protocol Last Admin: 11/23/19 10:10 Dose: 100 mls/hr Documented by: Insulin Glargine (Lantus) 13 unit SQ HS [facility] Last Admin: 11/23/19 21:08 Dose: 13 unit Documented by: Insulin Human Lispro (Humalog) 0 unit SQ ACHS [facility]; Protocol Last Admin: 11/24/19 07:37 Dose: 1 units Documented by: Iron Carb/Multivit/[place]/Folic Acid (Multivitamin W/Minerals) 1 tab PO DAILY [facility] Last Admin: 11/23/19 08:38 Dose: 1 tab Documented by: Lisinopril (Zestril) [facility] Last Admin: 11/23/19 08:38 Dose: 2.5 mg Documented by: Lorazepam (Ativan) 1 mg PO TIDP PRN PRN Reason: Anxiety Last Admin: 11/23/19 20:56 Dose: 1 mg Documented by: Melatonin (Melatonin 3mg Tablet) 3 mg PO HSP PRN PRN Reason: Insomnia Nystatin (Nystatin) 1 dose TOPICAL BID [facility] Last Admin: 11/23/19 21:11 Dose: 1 dose Documented by: Omeprazole (Prilosec) 20 mg PO ACB [facility] Last Admin: 11/24/19 07:22 Dose: 20 mg Documented by: Ondansetron HCl (Zofran Odt) 4 mg SL Q4-6HP PRN; Protocol PRN Reason: Nausea And Vomiting Ondansetron HCl (Zofran) 4 mg IV Q4-6HP PRN; Protocol PRN Reason: Nausea And Vomiting Paroxetine HCl (Paxil) [address] [facility] Last Admin: 11/23/19 08:41 Dose: 30 mg Documented by: Liraglutide [Victoza (2-Josh] 1.2 Mg) 1 dose SUB-Q QDAY [facility] Last Admin: 11/23/19 08:43 Dose: Not Given Documented by: Polyethylene Glycol (Miralax) 17 gm PO DAILYP PRN PRN Reason: Constipation Potassium Chloride (Klor-Con) 40 meq PO DAILYP PRN PRN Reason: K+ < 3.5 Potassium Chloride (Kdur) 20 meq PO QAC [facility] Last Admin: 11/24/19 07:22 Dose: 20 meq Documented by: Scopolamine (Transderm-Scop) 1 patch TOPICAL PREOP PRN PRN Reason: Nausea And Vomiting Senna/Docusate Sodium (Senna Plus Tablet) 1 tab PO HS [facility] Last Admin: 11/23/19 20:58 Dose: Not Given Documented by: Sitagliptin Phosphate (Januvia) 100 mg PO DAILY [facility] Last Admin: 11/23/19 08:40 Dose: 100 mg Documented by: Sodium Chloride (Saline Flush) 10 ml IV Q8 [facility] Last Admin: 11/24/19 04:01 Dose: Not Given Documented by: Spironolactone (Aldactone) [address] [facility] Last Admin: 11/23/19 08:40 Dose: 25 mg Documented by: Tramadol HCl (Ultram) 50 mg PO Q4-6HP PRN; Protocol PRN Reason: Per Pain Protocol Last Admin: 11/21/19 02:49 Dose: 50 mg Documented by: Tramadol HCl (Ultram) 50 - 100 mg PO Q8 [facility] Last Admin: 11/24/19 05:40 Dose: 50 mg Documented by: Medical - PN: A/P - Time Spent With Patient Total time spent is greater than 50% in coordination of care (as documented) at patient's floor/unit and/or counseling patient: 15 - 24 minutes (1) Septic arthritis of knee, left Status: Acute Assessment and plan: * Septic arthritis left TKA. Status post joint washout. Postoperative care per orthopedics. On IV antibiotics for empiric coverage of GPC. Final cultures pending. * Sepsis secondary to above with elevated lactate and white count. Clinically resolved. * Pain management well controlled on as needed opioids * Left lower external cellulitis clinically resolved on antibiotic coverage/pancultures * DM type II continue basal prandial insulin/CC diet. * History of atrial fibrillation on amiodarone/beta-ashley. Continue apixaban for CVA prophylaxis * Hypertension continue bisoprolol//spironolactone * Hyperlipidemia continue statin * Anxiety disorder on paroxetine/lorazepam(current medication list is being verified) * Full code Plan * Continue postop care per orthopedics * Continue antibiotic coverage , duration and de-escalation based on ID recommendations. * PICC line placement * Pain management * Pre-existing medical condition management as above * PT OT nutrition support * SNF discharge in 24 hours Current Visit: Yes Medical - PN: Qual - VTE Deep Vein Thrombosis/Pulmonary Embolism Present on Admission: No
--- NOTE | 2019-11-24 08:11 | Discharge Summary ---
Medical - DS: Prov Patient information: Note initiated : 11/24/19 at 8:08 am Service Date, if different from initiated Date: [] Patient: Jaycee Dias 59 y/o F admitted on 11/18/19 for LLE Cellulitis Recheck. Chief Complaint: [] Date of admission: 11/18/19 17:08 Discharge date: 11/24/19 Primary care physician: MAYRA Oden Consults: 11/18/19 15:47 Consult to Physician [CONS] Stat Comment: Consulting Provider: Meet Ash Reason For Exam: Physician to Consult 11/24/19 07:20 Consult to Physician [CONS] Urgent Comment: Consulting Provider: Leonardo Woodward Reason For Exam: Physician to Consult Medical - DS: Meds - Discharge Medications Prescriptions: Docusate Sodium [Colace] 100 mg PO BID #60 cap Prescription Printed DAPTOmycin [Cubicin] 750 mg IV Q24H #38 vial Prescription Printed Apixaban [Eliquis] 5 mg PO BID #60 tab Prescription Printed Hydrocodone/APAP 7.5/325Mg [[place] 7.5-325Mg] 1 - 2 tab PO Q6HP PRN #50 tab PRN Reason: Pain Prescription Printed Active and Home Medications: Home Medications Omeprazole 20 mg PO DAILY 01/21/18 [History Confirmed 11/18/19 Last Taken 11/18/19] ipratropium 20 mcg-albuterol 100 mcg/actuation mist for inhalation 1 puff INHALATION QIDP 08/08/18 [History Confirmed 11/18/19 Last Taken 11/18/19] liraglutide 0.6 mg/0.1 mL (18 mg/3 mL) subcutaneous pen injector 1.2 mg SUB-Q QDAY #6 ml 08/08/18 [History Confirmed 11/18/19 Last Taken 11/18/19] fluticasone propionate 50 mcg/actuation nasal spray,suspension 1 spray INTRANASAL QDAY 01/29/19 [History Confirmed 11/18/19 Last Taken 11/18/19] acetaminophen 500 mg tablet 500 mg PO Q6H PRN 04/15/19 [History Confirmed 11/18/19 Last Taken 11/18/19] insulin aspart U-100 100 unit/mL (3 mL) subcutaneous pen 2 unit SUB-Q .COMPLEX #15 ml MDD 100 units per day 01/29/20 [Rx Confirmed 11/18/19 Last Taken 11/18/19] bisoprolol fumarate 10 mg tablet 5 mg PO QHS #90 tab 07/16/19 [Rx Confirmed 11/18/19 Last Taken 11/17/19] furosemide 20 mg tablet 20 mg PO QDAY #90 tab 07/24/19 [Rx Confirmed 11/18/19 Last Taken 11/17/19] spironolactone 25 mg tablet 25 mg PO QAM #90 tab 09/05/19 [Rx Confirmed 11/18/19 Last Taken 11/18/19] fluticasone propionate 110 mcg/actuation HFA aerosol inhaler 2 puff INHALATION BID #12 g 10/06/19 [Rx Confirmed 11/18/19 Last Taken 11/18/19] pen needle, diabetic 31 gauge x 3/16" See Rx Instructions .ROUTE .COMPLEX #100 unknown measurement unit code: each 10/23/19 [Rx Confirmed 11/18/19 Last Taken 11/18/19] insulin detemir U-100 100 unit/mL (3 mL) subcutaneous pen 13 unit SQ HS unknown measurement unit code: ml 11/04/19 [History Confirmed 11/18/19 Last Taken 11/17/19] Cephalexin [Keflex] 500 mg PO QID #40 cap 11/17/19 [Rx Confirmed 11/18/19 Last Taken 11/18/19] Nystatin 1,000,000 unit MC BID #1 powder.ea. 11/17/19 [Rx Confirmed 11/18/19 Last Taken 11/17/19] Amiodarone HCl 200 mg PO BID 11/18/19 [History Confirmed 11/18/19 Last Taken 11/18/19] Baclofen 20 mg PO DAILYP PRN 11/18/19 [History Confirmed 11/18/19 Last Taken 11/17/19] Fenofibrate 54 mg PO DAILY 11/18/19 [History Confirmed 11/18/19 Last Taken 11/18/19] Gabapentin 1,200 mg PO BID 11/18/19 [History Confirmed 11/18/19 Last Taken 11/18/19] Ipratropium/Albuterol Sulfate [Combivent] 1 puff PO QID 11/18/19 [History Confirmed 11/18/19 Last Taken 11/18/19] LORazepam [Lorazepam] 1 mg PO TIDP PRN 11/18/19 [History Confirmed 11/18/19 Last Taken 11/18/19] Lisinopril [Zestril] 2.5 mg PO QAM 11/18/19 [History Confirmed 11/18/19 Last Taken 11/18/19] PARoxetine HCL [Paroxetine HCl] 30 mg PO QAM 11/18/19 [History Confirmed 0 Last Taken 11/18/19] Potassium Chloride [Kdur] 20 meq PO DAILY 11/18/19 [History Confirmed 11/18/19 Last Taken 11/18/19] atorvastatin 10 mg tablet 10 mg PO HS 11/18/19 [History Confirmed 11/18/19 Last Taken 11/18/19] traMADol [Ultram] 50 - 100 mg PO Q8H 11/18/19 [History Confirmed 11/18/19 Last Taken 11/18/19] Apixaban [Eliquis] 5 mg PO BID 11/20/19 [History Confirmed 11/20/19 Last Taken Unknown] Hydrocodone/APAP 7.5/325Mg [[place] 7.5-325Mg] 1 - 2 tab PO Q6HP PRN #50 tab 11/21/19 [Rx Last Taken Unknown] Apixaban [Eliquis] 5 mg PO BID #60 tab 11/22/19 [Rx Last Taken Unknown] Docusate Sodium [Colace] 100 mg PO BID #60 cap 11/22/19 [Rx Last Taken Unknown] Medical - DS: Hosp Hospital Course: Discharge diagnosis * Septic arthritis left TKA. Status post joint washout. Postoperative care per orthopedics. Discharging on IV daptomycin 750 daily as per ID to continue through December 31 * Sepsis secondary to above with elevated lactate and white count. Clinically resolved. * Pain management well controlled on as needed opioids * Left lower external cellulitis clinically resolved on antibiotic coverage/pancultures * Deep tissue injury to left buttock wound care ongoing. * DM type II continue basal prandial insulin/CC diet. * History of atrial fibrillation on amiodarone/beta-ashley. Continue apixaban for CVA prophylaxis * Hypertension continue bisoprolol//spironolactone * Hyperlipidemia continue statin * Anxiety disorder continue paroxetine/lorazepam Brief hospital course Ms. Dias is a 59 year old F with a history of DM type II/atrial fibrillation on anticoagulation/HTN/CKD stage III who presents to the ER following left knee and lower extremity redness pain and swelling that started 5 days prior to presentation. Symptoms are progressed to the point is difficult to bear weight. She was evaluated in the ER and was started on Bactrim however due to failure of symptomatic improvement patient return to the ER and was started on Rocephin for presumed cellulitis left lower extremity. She tried to alleviate the pain with Tylenol without much help. She now presents for reevaluation. Initial work-up was consistent with elevated lactate and white count 12.4. Exquisitely tender left knee. Orthopedics was consulted. Patient was started on IV clindamycin. Hospital service was consulted for presumed cellulitis with septic arthritis. Patient underwent left knee tap by orthopedics with purulent aspirate. Cultures and Gram stain along microscopy was sent. At the time evaluation patient is alert however anxious. She was able to answer most of the questions and provide history as above. She denies local trauma. She denies shaking chills, drenching sweats, lower extremity purulent drainage or 2 infections. She is a known diabetic with neuropathy. 11/18-patient currently n.p.o. awaiting joint washout. No overnight events. White count down to 9000. Synovial fluid cell count pending. Gram stain shows polymorphs but no organism. Final cultures pending. Continue antibiotics. Review postprocedure. 11/19-postop day 1. Joint washout cultures pending. White count down to 10,000. On antibiotic coverage including daptomycin/Rocephin. ID on board. Restart apixaban. No overnight events. Will need SNF placement for continued long-term antibiotics/post operative rehab. No other concerns expressed by nursing staff 11/20-patient doing a lot better. No overnight events. On antibiotic coverage. Gram-positive cocci on joint washout culture however sensitivities pending. Discussed with ID. Patient will continue antibiotics for long-term. PICC line will be placed. Likely discharge to SNF on Sunday. No fever chills. Stable hemodynamics. 11/21 -on antibiotic coverage. Await final sensitivities. Will likely discharge in 48 hours to SNF with outpatient antibiotics per ID. No overnight fever chills. Complains of pain. Intermittent bowel movements. 11/22-patient doing well. No overnight events. Awaiting SNF transfer with outpatient IV antibiotics. Cultures pending so far. ID consulted. Postoperative care as per orthopedics. Ongoing PT OT. Tolerating diet. 11/23-patient doing well. No overnight events. No concerns per staff. Ongoing wound care for deep tissue injury to left buttock. No fever chills nausea vomiting. Postoperative care ongoing as per orthopedics. discharging on IV daptomycin 750 daily until December 31 as per ID recommendations. We will follow-up with ID/orthopedic in outpatient. Transfer to SNF. Discharge diagnosis: . - Time Spent with Patient Total time spent providing and/or coordinating discharge services: Greater than 30 minutes Medical - DS: Exam - Constitutional Vitals: Vital Signs Temp Pulse Resp BP BP BP Pulse Ox 11/24/19 06:43 97.4 F 79 16 131/74 91 11/24/19 03:16 97.9 F 88 16 122/86 94 11/23/19 23:12 98.1 F 86 20 116/70 94 11/23/19 21:00 93 H 11/23/19 19:25 97.7 F 90 18 107/68 94 11/23/19 18:58 82 18 11/23/19 16:00 97.5 F 82 18 107/72 96 11/23/19 12:00 98.0 F 89 18 97/66 92 Intake and Output 11/23/19 11/24/19 11/24/19 21:59 05:59 13:59 Intake Total 625 800 Output Total 775 600 450 Balance -150 200 -450 Intake: Oral 625 800 Output: Void Amount 775 600 450 Other: Meal Dinner Percent of Meal Consumed 100% Feeding Ability Independent Urine Appearance Clear Clear Urine Color Light Willa Straw Urine Odor Strong Normal Stool Size Small Stool Color Brown Stool Consistency Soft # Voids 1 1 # Bowel Movements 1 Weight 306 lb 8 oz Medical - DS: Data Labs on day of discharge: Labs from last 24 hours 11/23/19 05:45 Total Counted 100 Seg Neutrophils % 68 Band Neutrophils % 1 Lymphocytes % 28 Monocytes % (Manual) 3 Platelet Estimate Normal RBC Morphology Normal Preliminary micro results at discharge 11/19/19 18:33 Anaerobic Culture - Preliminary Knee - Left 11/18/19 17:11 Anaerobic Culture - Preliminary Knee - Left Medical - DS: A/P - Patient/Caregiver Discharge Instructions Activity: as per physical therapy, increase activity as tolerated Diet: Consistent Carbohydrate Additional Instructions: Weight bearing as tolerated. IV daptomycin to continue through December 31 Follow-up PCP in 5 days Follow-up with orthopedics in 2 weeks for wound check/suture/staple removal. Weekly CK f/u while on daptomycin- Please fax results to Dr Wood[facility]- [phone] I recommend [facility] physician to check CBC BMP UA as a posthospital follow-up in 1 week. Continue aggressive bowel regimen to prevent constipation Continue fall precautions Continue aggressive PT OT evaluation and treatment at [facility]. ST eval and treatment if indicated High protein calorie supplements All meals on chair sitting upright at 90 degrees to prevent aspiration Return to ER if worsening fever chills shortness of breath, diarrhea, bleeding Review risk and side effect profile of medications including antibiotics. Side effect may include mild to severe reaction including rash, diarrhea, cdiff and even which can be prevented by close follow-up with PCP and monitoring for side effects Continue CC diet and activity as advised Discussed importance of medication adherence Please review medication list with patient prior to discharge Please schedule follow-up with PCP/Providers prior to discharge and provide printouts Eliquis, ambulation, IS. Prescriptions: Docusate Sodium [Colace] 100 mg PO BID #60 cap Prescription Printed DAPTOmycin [Cubicin] 750 mg IV Q24H #38 vial Prescription Printed Apixaban [Eliquis] 5 mg PO BID #60 tab Prescription Printed Hydrocodone/APAP 7.5/325Mg [[place] 7.5-325Mg] 1 - 2 tab PO Q6HP PRN #50 tab PRN Reason: Pain Prescription Printed Other Amb Orders: OT Discharge Order Location: None Selected Physical Therapy at Discharge - TKA Location: None Selected Outpatient PICC Care Location: None Selected Wound Care Instructions Location: None Selected - Problem Maintenance (1) Septic arthritis of knee, left Status: Acute - Follow up Plan Follow up with: Lenoardo Woodward MD [Physician] - Serge Marquez MD [Physician] - (follow up at wound healing center for left buttock if ulcer has not healed in 2 weeks) Rossy Haines ARNP [Primary Care Provider] - Disposition: [facility] Prognosis: Fair Rehab Potential: Fair I certify that the patient requires SNF services: Yes Overall status at discharge: patient is progressing back to baseline Medical - DS: Qual - VTE Deep Vein Thrombosis/Pulmonary Embolism Present on Admission: No
[2019-11-24] MEDS: sitaGLIPtin 100 MG TABLET PO SCH (09:13)
[2019-11-24] MEDS: SPIRONOLACTONE 25 MG TABLET PO SCH (09:13)
[2019-11-24] MEDS: APIXABAN 5 MG TABLET PO SCH (09:13)
[2019-11-24] MEDS: MULTIVIT,THER IRON,CA,FA & MIN 1 TABLET PO SCH (09:13)
[2019-11-24] MEDS: GABAPENTIN 400 MG CAPSULE PO SCH (09:13)
[2019-11-24] MEDS: FUROSEMIDE 20 MG TABLET PO SCH (09:13)
[2019-11-24] MEDS: Liraglutide [Victoza 2-Pak] 1.2 MG SUB-Q SCH (09:14)
[2019-11-24] MEDS: DOCUSATE SODIUM 100 MG CAPSULE PO SCH (09:14)
[2019-11-24] MEDS: IPRATROPIUM/ALBUTEROL SULFATE 1 PUFF INHALER INH SCH ×2 (09:14→13:24)
[2019-11-24] MEDS: FLUTICASONE PROPIONATE SPRAY.NAS NS SCH (09:14)
[2019-11-24] MEDS: FLUTICASONE HFA 110MCG INHALER INH SCH (09:14)
[2019-11-24] MEDS: PARoxetine 20 MG TABLET PO SCH (09:15)
[2019-11-24] MEDS: LISINOPRIL 5 MG TABLET PO SCH (09:15)
[2019-11-24] MEDS: DAPTOmycin 500 MG VIAL IV SCH (09:20)
[2019-11-24] MEDS: NYSTATIN POWDER BOTTLE 15GM TOPICAL SCH (09:28)
[2019-11-24] MEDS: cefTRIAXone 2 GM in DEXTROSE 5% IN WATER 50 ML IV SCH (09:33)
[2019-11-24] MEDS ORDERED: 0.9 % SODIUM CHLORIDE 10 ML SYRINGE IV PRN (09:42)
--- NOTE | 2019-11-24 10:40 | XRay Report ---
INDICATION: PICC PLACEMENT TECHNIQUE: AP portable upright chest x-ray COMPARISON: None FINDINGS:Right-sided PICC line with its tip at the junction of the right atrium and superior vena cava. Lungs:Minimal linear density in the right midlung consistent with subsegmental atelectasis. No acute or focal parenchymal infiltrate Heart, vascular:There is cardiomegaly. No pulmonary congestion or pulmonary edema Mediastinum, benjamin:No mediastinal widening. No hilar mass Pleura:No pleural fluid. No pleural-based mass or calcification Skeletal:Negative. IMPRESSION: Status post PICC line placement. Tip of the catheter is at the junction of the right atrium and superior vena cava Interpreted and Authenticated by: Clayton Sanchez 11/24/19
--- NOTE | 2019-11-24 11:40 | Infectious Disease Consult ---
History of Present Illness Patient information: Note initiated : 11/24/19 at 11:30 am Service Date, if different from initiated Date: [] Patient: Jaycee Dias 59 y/o F admitted on 11/18/19 for LLE Cellulitis Recheck. Chief Complaint: [] Consult date: 11/24/19 Requesting Physician: Meet Ash MD Reason for Consult: left knee prosthetic joint infection Chief complaint: i had pain and redness in my left knee History of present illness: 59-year-old lady with past medical history of type 2 diabetes [controlled, A1c less than 7], atrial fibrillation on anticoagulation, admitted on 18 November with complaints of left knee and leg redness, pain and swelling started around 5 days prior to admission. Patient had been initially seen in the ER few days ago and was started on p.o. Keflex 500 mg 4 times daily for 10-day course for what was presumed to be cellulitis. He was also prescribed nystatin powder to be applied in inguinal areas in the lower abdomen concerns of intertrigo. He received IV ceftriaxone next day she is allergic to IV vancomycin for treatment of cellulitis stop if she did not get better and then again on 11/18/19. Patient also had symptoms of fever and chills for 2 days prior to admission. At admission: Vital signs: Temperature 100 F, WBC of 12.4k, platelets 124, creatinine 0.9, b lood sugar 190, lactic acid 3.6. Knee x-ray revealed left knee effusion which was tapped by orthopedics and revealed white blood cell count of around 45,537 with 90% neutrophils. Gram stain and culture were sent. Patient was started on IV daptomycin and ceftriaxone. Patient underwent surgical debridement and irrigation along with total synovectomy and revision of left total knee arthroplasty with Prostalac-type of a component. Her operative cultures and knee aspirate cultures have been no growth till date. At time of ID visit today, patient was getting her PICC line placement. She denied any fever, chills currently. Denies any other symptoms except for left knee pain. Confirmed above history, denied any skin boils, falls, sick contacts. Mentions that her diabetes is under control. Review of Systems All systems PM: reviewed and no additional remarkable complaints except as stated Constitutional: as per HPI Medications and Allergies Home Medications Medication Instructions Recorded Confirmed Type Omeprazole 20 mg PO DAILY 01/21/18 11/18/19 History ipratropium 20 mcg-albuterol 100 1 puff INHALATION QIDP 08/08/18 11/18/19 History mcg/actuation mist for inhalation liraglutide 0.6 mg/0.1 mL (18 mg/3 1.2 mg SUB-Q QDAY #6 ml 08/08/18 11/18/19 History mL) subcutaneous pen injector fluticasone propionate 50 1 spray INTRANASAL QDAY 01/29/19 11/18/19 History mcg/actuation nasal spray,suspension acetaminophen 500 mg tablet 500 mg PO Q6H PRN 04/15/19 11/18/19 History insulin aspart U-100 100 unit/mL 2 unit SUB-Q .COMPLEX #15 ml MDD 07/09/19 11/18/19 Rx (3 mL) subcutaneous pen 100 units per day bisoprolol fumarate 10 mg tablet 5 mg PO QHS #90 tab 07/16/19 11/18/19 Rx furosemide 20 mg tablet 20 mg PO QDAY #90 tab 07/24/19 11/18/19 Rx spironolactone 25 mg tablet 25 mg PO QAM #90 tab 09/05/19 11/18/19 Rx fluticasone propionate 110 2 puff INHALATION BID #12 g 10/06/19 11/18/19 Rx mcg/actuation HFA aerosol inhaler pen needle, diabetic 31 gauge x See Rx Instructions .ROUTE 10/23/19 11/18/19 Rx 3/16" .COMPLEX #100 unknown measurement unit code: each insulin detemir U-100 100 unit/mL 13 unit SQ HS unknown measurement 11/04/19 11/18/19 History (3 mL) subcutaneous pen unit code: ml Nystatin 1,000,000 unit MC BID #1 powder.ea. 11/17/19 11/18/19 Rx Amiodarone HCl 200 mg PO BID 11/18/19 11/18/19 History Baclofen 20 mg PO DAILYP PRN 11/18/19 11/18/19 History Fenofibrate 54 mg PO DAILY 11/18/19 11/18/19 History Gabapentin 1,200 mg PO BID 11/18/19 11/18/19 History Ipratropium/Albuterol Sulfate 1 puff PO QID 11/18/19 11/18/19 History [Combivent] LORazepam [Lorazepam] 1 mg PO TIDP PRN 11/18/19 11/18/19 History Lisinopril [Zestril] 2.5 mg PO QAM 11/18/19 11/18/19 History PARoxetine HCL [Paroxetine HCl] 30 mg PO QAM 11/18/19 11/18/19 History Potassium Chloride [Kdur] 20 meq PO DAILY 11/18/19 11/18/19 History atorvastatin 10 mg tablet 10 mg PO HS 11/18/19 11/18/19 History traMADol [Ultram] 50 - 100 mg PO Q8H 11/18/19 11/18/19 History Apixaban [Eliquis] 5 mg PO BID 11/20/19 11/20/19 History Hydrocodone/APAP 7.5/325Mg [[place] 1 - 2 tab PO Q6HP PRN #50 tab 11/21/19 Rx 7.5-325Mg] Apixaban [Eliquis] 5 mg PO BID #60 tab 11/22/19 Rx Docusate Sodium [Colace] 100 mg PO BID #60 cap 11/22/19 Rx DAPTOmycin [Cubicin] 750 mg IV Q24H #24 vial 11/24/19 Rx Allergies Allergy/AdvReac Type Severity Reaction Status Date / Time codeine Allergy Intermediate Hives Verified 11/17/19 11:14 Cyclobenzaprine Allergy Intermediate Hives Verified 11/17/19 11:14 Doxepin Allergy Intermediate Hives Verified 11/17/19 11:14 fluoxetine Allergy Intermediate Hives Verified 11/17/19 11:14 piroxicam Allergy Intermediate Hives Verified 11/17/19 11:14 Rifamycin Allergy Intermediate Hives Verified 11/17/19 11:14 methadone Allergy Unknown unknown Verified 11/17/19 11:14 aripiprazole [From Abilify] Allergy unknown Verified 11/17/19 11:14 vancomycin AdvReac Intermediate REDNESS/FLU Verified 11/17/19 11:14 SHING Physical Examination Vital signs: Temp Pulse Resp BP Pulse Ox 37.1 C 83 20 144/78 92 11/24/19 11:05 11/24/19 11:05 11/24/19 11:05 11/24/19 11:05 11/24/19 11:05 General appearance: no acute distress Eyes pulmonary: nonicteric Extremities: no edema Musculoskeletal: other (left knee: the joint is under surgical dressing. No drainage seen. Minimal redness and swelling in the surrounding skin, although the redness has receded from marked areas over the leg. No open wounds.) Results - Laboratory Findings CBC and BMP: 11/23/19 05:45 11/23/19 05:45 PT/INR, D-dimer PT 19.9 sec (11.9-14.5) H 11/18/19 13:05 INR 1.6 (0.9-1.1) H 11/18/19 13:05 Abnormal lab findings: Abnormal Labs 11/18/19 11/18/19 11/18/19 13:05 13:05 13:05 WBC RDW Plt Count MPV Seg Neutrophils % Lymphocytes % RBC Morphology Anisocytosis PT 19.9 H INR 1.6 H VBG Lactic Acid 3.6 H Chloride Carbon Dioxide BUN Glucose Calcium Phosphorus GGT AST ALT Lactate Dehydrogenase C-Reactive Protein NT-Pro-B Natriuret Pep 792.9 H Total Protein Albumin Albumin/Globulin Ratio Ur Specific Taylor Urine Protein Urine Urobilinogen Urine RBC Ur Squamous Epith Cells Synovial Neutrophils 11/18/19 11/18/19 11/18/19 13:11 13:11 17:11 WBC 12.4 H RDW Plt Count 124 L MPV 12.1 H Seg Neutrophils % 88 H Lymphocytes % 7 L RBC Morphology Abnorm A Anisocytosis Few A PT INR VBG Lactic Acid Chloride Carbon Dioxide 20 L BUN Glucose 190 H Calcium 8.3 L Phosphorus GGT AST ALT 60 H Lactate Dehydrogenase C-Reactive Protein NT-Pro-B Natriuret Pep Total Protein Albumin Albumin/Globulin Ratio Ur Specific Taylor Urine Protein Urine Urobilinogen Urine RBC Ur Squamous Epith Cells Synovial Neutrophils 93 H 11/19/19 11/19/19 11/19/19 00:05 05:35 05:35 WBC RDW Plt Count 109 L MPV 12.4 H Seg Neutrophils % Lymphocytes % RBC Morphology Anisocytosis PT INR VBG Lactic Acid Chloride Carbon Dioxide 21 L BUN Glucose 161 H Calcium 8.0 L Phosphorus 2.6 L GGT 42 H AST ALT 43 H Lactate Dehydrogenase 395 H C-Reactive Protein 25.8 H NT-Pro-B Natriuret Pep Total Protein Albumin 2.6 L Albumin/Globulin Ratio 0.7 L Ur Specific Taylor 1.047 H Urine Protein 100 A Urine Urobilinogen 2.0 A Urine RBC 3 H Ur Squamous Epith Cells 11 H Synovial Neutrophils 11/20/19 11/20/19 11/21/19 05:40 05:40 05:23 WBC RDW 14.6 H Plt Count MPV 11.7 H 11.3 H Seg Neutrophils % 90 H Lymphocytes % 6 L RBC Morphology Anisocytosis PT INR VBG Lactic Acid Chloride Carbon Dioxide BUN 22 H Glucose 237 H Calcium 8.3 L Phosphorus GGT 44 H AST ALT Lactate Dehydrogenase C-Reactive Protein NT-Pro-B Natriuret Pep Total Protein Albumin 2.8 L Albumin/Globulin Ratio 0.8 L Ur Specific Taylor Urine Protein Urine Urobilinogen Urine RBC Ur Squamous Epith Cells Synovial Neutrophils 11/21/19 11/22/19 11/22/19 05:23 05:50 05:50 WBC RDW Plt Count MPV 11.0 H Seg Neutrophils % Lymphocytes % RBC Morphology Anisocytosis PT INR VBG Lactic Acid Chloride Carbon Dioxide BUN Glucose 155 H 152 H Calcium 8.4 L 8.5 L Phosphorus GGT 42 H 43 H AST ALT Lactate Dehydrogenase C-Reactive Protein NT-Pro-B Natriuret Pep Total Protein 5.7 L 5.8 L Albumin 2.8 L 2.8 L Albumin/Globulin Ratio 0.9 L Ur Specific Taylor Urine Protein Urine Urobilinogen Urine RBC Ur Squamous Epith Cells Synovial Neutrophils 11/23/19 11/23/19 05:45 05:45 WBC RDW Plt Count MPV 10.9 H Seg Neutrophils % Lymphocytes % RBC Morphology Anisocytosis PT INR VBG Lactic Acid Chloride 95 L Carbon Dioxide BUN Glucose 154 H Calcium Phosphorus GGT 44 H AST 47 H ALT Lactate Dehydrogenase C-Reactive Protein NT-Pro-B Natriuret Pep Total Protein Albumin 2.9 L Albumin/Globulin Ratio 0.9 L Ur Specific Taylor Urine Protein Urine Urobilinogen Urine RBC Ur Squamous Epith Cells Synovial Neutrophils Microbiology: Microbiology 11/18/19 17:11 Knee - Left Gram Stain - Final 11/18/19 17:11 Knee - Left Anaerobic Culture - Preliminary 11/19/19 18:33 Knee - Left Gram Stain - Final 11/19/19 18:33 Knee - Left Gram Stain - Final 11/19/19 18:33 Knee - Left Anaerobic Culture - Preliminary 11/18/19 13:05 Blood Blood Culture - Final 11/18/19 13:11 Blood Blood Culture - Final 11/19/19 18:33 Knee - Left Gram Stain - Final 11/19/19 18:33 Knee - Left Tissue Culture - Final 11/18/19 17:11 Aspirate - Knee Gram Stain - Final 11/18/19 17:11 Aspirate - Knee Body Fluid Culture - Final 11/19/19 14:36 Nose MRSA (PCR) - Final 11/18/19 17:11 Knee - Left Gram Stain - Final 11/18/19 17:11 Knee - Left Wound Culture - Final Assessment and Plan - Narrative A/P Narrative: Assessment: 1. Left knee prosthetic joint septic arthritis -Based on clinical presentation, elevated neutrophil count in the knee aspirate on 11/18/2019, cultures no growth till date -Status post irrigation and debridement, synovectomy, and revision of left total knee arthroplasty to a Prostalac-type of a component [antibiotic spacer]. on 11/20/2019 with operative cultures no growth till date -No signs of sepsis On Dapto and ceftriaxone since admission 2. Type 2 diabetes: Controlled -A1c less than 7 Recommendations: Stop IV ceftriaxone -Continue IV daptomycin at 6 mg/kg [~750 mg] every 24 hrs for 6 weeks counting from day of surgery. We will switch to p.o. options after that. Total antibiotic duration anticipated to be around 6 months [subject to change based on follow-up and my discussion with Dr. Rojas] - Pt should also be on PO Rifampin given prosthetic joint infection so as to increase penetration of antibiotic into the biofilms, but given serious drug interactions with Amiodarone and Apixaban (which pt needs as part of management for Afib); will plan for 6 weeks of IV Daptomycin -Check serum CK, ESR and CRP today -Follow-up labs: Weekly BMP and CK monitoring, ESR and CRP every other week. Fax results to [phone], attention Dr. Woodward ID follow-up in 4 weeks - pt counselled to call us in event of any fever, body aches Leonardo Woodward MD Infectious disease
[2019-11-24 13:12] LABS: Creatine Kinase 111 IU/L (24-170)
[2019-11-24] MEDS ORDERED: 0.9 % SODIUM CHLORIDE 10 ML SYRINGE IV SCH (21:00)
== END 2019-11-24 15:16 | DRG 466 ==
LOC: ED 12:45 → MEDSUR 17:08 → SUATTDRO 17:08 → MEDSUR 17:10
PROVIDERS: ADMIT Internal Medicine; ATTEND Orthopaedic Surgery Orthopaedic Surgery of the Spine

== ENCOUNTER 2020-03-22 09:00 | Inpatient (IN) ==
[2020-03-16 16:03] LABS: Appearance,Urine CLEAR (Clear); Bilirubin,Urine Negative (Negative); Color,Urine Yellow; Culture Indicated,Urine No; Glucose,Urine (UA) Negative (Negative); Ketones,Urine Negative (Negative); Leukocyte Esterase,Urine Negative /ug (Negative); Mucus,Urine FEW /hpf; Nitrate,Urine Negative (Negative); Protein,Urine 30 mg/dL (Negative); Specific Gravity,Urine 1.029 (1.000-1.035); Urine Blood Negative (Negative); Urine Budding Yeast FEW /hpf; Urine RBC 0 /hpf (0-1); Urine Squamous Epithelial Cell 6 /hpf (0-4); Urine WBC 2 /hpf (0-4); Urobilinogen,Urine Negative
[2020-03-16 16:58] LABS: INR 1.4 (0.9-1.1); Partial Thromboplastin Time 31.9 sec (20.0-37.0); Prothrombin Time 17.2 sec (11.9-14.5)
[2020-03-16 17:02] LABS: Basophils # (Auto) 0.02 K/mcL (0.00-0.20); Basophils % (Auto) 0.3 % (0.0-2.0); Eosinophils # (Auto) 0.07 K/mcL (0.00-0.70); Hematocrit 47.4 % (36.0-48.0); Hemoglobin 14.9 g/dL (12.0-15.0); Lymphocytes # (Auto) 1.78 K/mcL (1.50-4.80); Lymphocytes % (Auto) 25.1 % (15.0-49.0); Mean Cell Volume 88.4 fL (80.0-100.0); Mean Corpuscular HGB Conc 31.4 g/dL (31.0-36.0); Mean Platelet Volume 12.1 fL (7.4-10.4); Monocytes # (Auto) 0.62 K/mcL (0.10-0.90); Monocytes % (Auto) 8.7 % (1.0-12.0); Neutrophils % (Auto) 64.9 % (38.0-78.0); Platelet Count 183 K/mcL (140-440); RBC 5.36 M/mcL (4.00-5.20); WBC 7.1 K/mcL (4.5-11.0)
[2020-03-16 17:38] LABS: Blood Urea Nitrogen 19 mg/dL (6-20); Calcium 9.2 mg/dL (8.6-10.4); Carbon Dioxide 20 mmol/L (22-30); Chloride 105 mmol/L (96-108); Glomerular Filtration Rate 80; Glucose 92 mg/dL (70-105)
[2020-03-18 11:29] LABS: Estimated Average Glucose(eAG) 154 mg/dL
[~2020-03-22 09:00] MED LIST: 0.9 % SODIUM CHLORIDE 9 ML, KETOROLAC 30 MG, ROPIVACAINE HCL/PF 49.5 ML, EPINEPHrine 0.... IJ SCH; ACETAMINOPHEN 500 MG TABLET PO SCH; CELECOXIB 200 MG CAPSULE PO SCH; GABAPENTIN 400 MG CAPSULE PO SCH; ceFAZolin 3 GM in DEXTROSE 5% IN WATER 50 ML IV SCH; oxyCODONE 10 MG TAB.ER.12H PO SCH
[2020-03-22] MEDS ORDERED: PROPOFOL 200 MG/20 ML VIAL IV ONE (15:43)
[2020-03-22] MEDS ORDERED: MIDAZOLAM 5 MG/5 ML VIAL ONE (15:43)
[2020-03-22] MEDS ORDERED: GLYCOPYRROLATE 0.2 MG/ML VIAL IV ONE (15:43)
[2020-03-22] MEDS ORDERED: LIDOCAINE HCL/PF 100 MG/5 ML SYRINGE IV ONE (15:43)
[2020-03-22] MEDS ORDERED: TRANEXAMIC ACID 1,000 MG/10 ML VIAL IV ONE (15:43)
[2020-03-22] MEDS ORDERED: PHENYLEPHRINE 10 MG/ML VIAL ONE (15:43)
[2020-03-22] MEDS ORDERED: KETAMINE 100 MG/ML ML ONE (15:43)
[2020-03-22] MEDS ORDERED: ONDANSETRON 4 MG/2 ML VIAL ONE (15:43)
[2020-03-22] MEDS ORDERED: DEXAMETHASONE 10 MG/ML VIAL ONE (15:43)
[2020-03-22] MEDS ORDERED: METHOCARBAMOL 1,000 MG/10 ML VIAL IV PRN (16:50)
[2020-03-22] MEDS ORDERED: IPRATROPIUM/ALBUTEROL 3 ML AMPUL.NEB NEB PRN (16:50)
[2020-03-22] MEDS ORDERED: fentaNYL 100 MCG/2 ML VIAL IV PRN (16:50)
[2020-03-22] MEDS ORDERED: LACTATED RINGERS 250 ML IV PRN (16:50)
[2020-03-22] MEDS ORDERED: NALOXONE HCL 0.4 MG/ML VIAL IV PRN (16:50)
[2020-03-22] MEDS ORDERED: FLUMAZENIL 0.1 MG/ML ML IV PRN (16:50)
[2020-03-22] MEDS ORDERED: LACTATED RINGERS 1,000 ML IV SCH ×2 (17:00→18:00)
[2020-03-22] MEDS ORDERED: GENTAMICIN SULFATE 800 MG/20 ML VIAL IR ONE (17:25)
--- NOTE | 2020-03-22 17:38 | Brief Operative Note ---
Brief Operative Note Date of procedure: 03/22/20 Pre-op diagnosis: left tka infection Post-op diagnosis: same Procedure: left tka revision stage 2 Grafts/Implants: Yes Anesthesia: GETA Complications: none Surgeon: Jose Rafael Amato Bone Density Technician: Jose Kwan Estimated blood loss (cc): 50 Tourniquet Time (Minutes): 70 Specimens Removed/Pathology: other Condition: stable Disposition: PACU
[2020-03-22] MEDS ORDERED: FLEETS ADULT ENEMA PR PRN (17:39)
[2020-03-22] MEDS ORDERED: BENZOCAINE/MENTHOL 1 LOZENGE PO PRN (17:39)
[2020-03-22] MEDS ORDERED: BISACODYL 10 MG SUPP.RECT PR PRN (17:39)
[2020-03-22] MEDS ORDERED: HYDROmorphone 1 MG/ML SYRINGE IV PRN (17:39)
[2020-03-22] MEDS ORDERED: MAGNESIUM HYDROXIDE 30 ML ORAL.SUSP PO PRN (17:39)
[2020-03-22] MEDS ORDERED: ONDANSETRON 4 MG/2 ML VIAL IV PRN (17:39)
[2020-03-22] MEDS ORDERED: ACETAMINOPHEN 325 MG TABLET PO PRN (17:39)
[2020-03-22] MEDS ORDERED: POLYETHYLENE GLYCOL 3350 17 GM PACKET PO PRN (17:39)
[2020-03-22] MEDS ORDERED: TRANEXAMIC ACID 1,000 MG/10 ML VIAL IV SCH (17:39)
[2020-03-22] MEDS ORDERED: ACETAMINOPHEN 500 MG TABLET PO PRN (17:48)
[2020-03-22] MEDS ORDERED: KETOROLAC 15 MG/ML VIAL IV SCH (18:00)
[2020-03-22] MEDS ORDERED: ONDANSETRON 4 MG ODT TABLET SL PRN (18:00)
[2020-03-22] MEDS ORDERED: LORazepam 1 MG TABLET PO PRN (18:01)
--- NOTE | 2020-03-22 18:29 | XRay Report ---
CLINICAL INFORMATION: Post-Op Total Knee COMPARISON: pre revision films 11/19/2011 FINDINGS: Revised longstem total knee prostheses is anatomically aligned. Possible small displaced avulsion off the lateral femoral condyle appreciated. Soft issue swelling seen as expected. Multiple calcific particles in the periarticular soft tissue IMPRESSION: Longstem prostheses in anatomic alignment Possible small displaced fracture off the lateral femoral condyle Interpreted and Authenticated by: Clayton Us 03/22/20
[2020-03-22] MEDS: 0.45 % SODIUM CHLORIDE 1,000 ML IV SCH (19:00)
[2020-03-22] MEDS: APIXABAN 5 MG TABLET PO SCH (20:50)
[2020-03-22] MEDS: DOCUSATE SODIUM 100 MG CAPSULE PO SCH (20:50)
[2020-03-22] MEDS: BETAMETHASONE DIPR OINT 0.05% 15 GM TUBE TOPICAL SCH (20:52)
[2020-03-22] MEDS: 0.9 % SODIUM CHLORIDE 10 ML SYRINGE IV SCH (20:52)
[2020-03-22] MEDS ORDERED: ASPIRIN 325 MG ENTERIC COATED TABLET PO SCH (21:00)
[2020-03-22] MEDS ORDERED: DOCUSATE SODIUM 100 MG CAPSULE PO SCH (21:00)
[2020-03-22] MEDS ORDERED: BISOPROLOL 5 MG TABLET PO SCH (21:00)
[2020-03-22] MEDS ORDERED: SENNOSIDES 1 TABLET PO SCH (21:00)
[2020-03-22] MEDS ORDERED: TEMAZEPAM 15 MG CAPSULE PO PRN (21:00)
[2020-03-22] MEDS: HYDROcodone/APAP 10/325MG TABLET PO PRN (22:44)
[2020-03-22] MEDS: ceFAZolin 1 GM VIAL IV SCH (22:45)
[2020-03-23] MEDS: HYDROcodone/APAP 10/325MG TABLET PO PRN ×2 (02:35→09:13)
[2020-03-23] MEDS: 0.45 % SODIUM CHLORIDE 1,000 ML IV SCH (05:41)
[2020-03-23] MEDS: 0.9 % SODIUM CHLORIDE 10 ML SYRINGE IV SCH (05:46)
[2020-03-23] MEDS: ceFAZolin 1 GM VIAL IV SCH (07:15)
[2020-03-23] MEDS ORDERED: OMEPRAZOLE 20 MG CAPSULE PO SCH (07:30)
--- NOTE | 2020-03-23 07:32 | Operative Note ---
DATE OF OPERATION: 03/22/2020 PREOPERATIVE DIAGNOSIS: Left septic knee. POSTOPERATIVE DIAGNOSIS: Left septic knee with the addition of prior treatment with 1 Prostalac placement, here for final implant. PROCEDURE: Left total knee revision for definitive implants, stage II. SURGEON: Jose Rafael Amato MD MAGAZINE PUBLISHER: Jose Kwan PA-C. This provider's expertise and technical skill were required throughout the case. The PA assisted with preoperative coordination, intraoperative retraction, wound closure, dressing and splint application, as well as postoperative documentation and care coordination. TOTAL TOURNIQUET TIME: Approximately 70 minutes, tourniquet pressure 250 pounds of pressure. BLOOD LOSS: 50 mL IMPLANTS PLACED: A revision Radha implant with a size 5 femur with 5 mm distal augments bilaterally and a posterior wedge 5 mm augment laterally, a size 5 tibial baseplate with 150 mm stem femur and tibia, cemented components with antibiotics, 38 mm oval patella. DESCRIPTION OF PROCEDURE: The patient was brought to the operating room and put to sleep with general LMA anesthesia. Once asleep, the patient had the left leg sterilely prepped and draped in the usual sterile fashion. The leg was wrapped with Ioban and a midline incision was made after a timeout had been performed confirming the operative site by initials, consent form and x-rays. Tourniquet was inflated to 250 pounds of pressure. A midline incision made, mid midvastus approach performed. We subluxed patella laterally where there was quite a bit of debris. There was no covering of the patella. The fluid appeared to be clear with slight blood-tinged. We sent tissue for pathology, which came back negative for white blood cells. The other tissues and the implants came out very nicely without significant bone loss. The all poly baseplate was doing very well. There were no complications. The intramedullary guide jermaine was used and we made our cut. Once perfectly level, there was quite a central defect in the tibia, which we then filled with a long stem, trialed the size 5 tibial baseplate, which seemed to be the most optimal. We then prepared the femur, trialed the size 4 and then went to a size 5. This seemed to tension in flexion and then gave us 5 mm distal augment, seemed to fit perfectly after the box cut. We reamed up the canal up to 19 distally and then more proximally we went to a 15. We went to 150 mm stem in the femur and we irrigated. This seemed to do very well and had good stability with a 13 mm poly liner. Patella was measured. It was measured about 14 mm at the deepest so we trimmed to a 13 at its thinnest point and then resurfaced with a 38 mm patella. It was oval and seemed to fit very nicely. We irrigated thoroughly and cemented to the above-mentioned sizes in with antibiotic impregnated cement with gentamicin. The components fit very well. We removed excess cement. A 13 mm poly cruciate stabilizing implant was placed and then we irrigated. Once done, the tourniquet was deflated at 70 minutes and we controlled any bleeding. There was about 50 mL of blood loss total. We injected the soft tissues with the post-inject formula and closed the midvastus approach with #1 Stratafix. I then took the patient through range of motion. The patient had full range of motion and it was very stable. We irrigated thoroughly and then closed the mid vastus approach with #1 Stratafix, closed the skin with 2-0 Vicryl and adhesive closure. The patient tolerated this well. Tourniquet time 17 minutes. GRECIA:[email or web address] Job ID: [id number] Doc ID: [id number] Jose Rafael Amato MD
[2020-03-23] MEDS ORDERED: LISINOPRIL 2.5 MG TABLET PO SCH (09:00)
[2020-03-23] MEDS ORDERED: FUROSEMIDE 20 MG TABLET PO SCH (09:00)
[2020-03-23] MEDS ORDERED: FENOFIBRATE 43 MG CAPSULE PO SCH (09:00)
[2020-03-23] MEDS: APIXABAN 5 MG TABLET PO SCH (09:10)
[2020-03-23] MEDS: BETAMETHASONE DIPR OINT 0.05% 15 GM TUBE TOPICAL SCH (09:10)
[2020-03-23] MEDS: DOCUSATE SODIUM 100 MG CAPSULE PO SCH (09:10)
== END 2020-03-23 10:40 | disposition home or self-care (01) | DRG 467 ==
LOC: MEDSUR 13:05
PROVIDERS: ADMIT Orthopaedic Surgery; ATTEND Orthopaedic Surgery